=== PATIENT | female | born 1940 | race Caucasian/White ===

== ENCOUNTER 2019-12-12 11:28 | Inpatient (IN) | payer MEDICARE, OTHER ==
[~2019-12-12] VITALS: Ht 157.5 cm; Wt 78.6 kg
[2019-12-12 12:28] LABS: BASOPHILS # (AUTO) 0.1 (0.0-0.1); BASOPHILS % 0.9 % (0.0-1.0); EOSINOPHILS # (AUTO) 0.1 (0.0-0.4); EOSINOPHILS % 1.1 % (0.0-6.0); HEMATOCRIT 35.5 % (34.2-44.1); HEMOGLOBIN 11.4 g/dL (12.0-16.0); LYMPHOCYTES # (AUTO) 1.1 (1.0-3.2); LYMPHOCYTES % 13.9 % (18.0-39.1); MEAN CORPUSCULAR HEMOGLOBIN 32.2 pg (28-32); MEAN CORPUSCULAR HGB CONC 32.1 g/dL (31-35); MEAN CORPUSCULAR VOLUME 100.3 fL (81-99); MONOCYTES # (AUTO) 0.7 (0.2-0.8); MONOCYTES % 8.2 % (4.4-11.3); NEUTROPHILS % 74.9 % (38.7-80.0); PLATELET COUNT 299 x10e3/uL (140-360); RED BLOOD COUNT 3.54 x10e6/uL (3.6-5.1); RED CELL DISTRIBUTION WIDTH 17.5 % (11.7-14.4)
[2019-12-12 12:36] LABS: BILIRUBIN,URINE NEGATIVE (NEGATIVE); CLARITY,URINE CLEAR (CLEAR); COLOR,URINE YELLOW (YELLOW); KETONES,URINE NEGATIVE (NEGATIVE); LEUKOCYTE ESTERASE ,URINE TRACE (NEGATIVE); NITRITE,URINE NEGATIVE (NEGATIVE); PROTEIN,URINE DIPSTICK 1+ (NEGATIVE); URINE UROBILINOGEN 0.2 mg/dL (0.2 - 1)
[2019-12-12 12:40] LABS: INR 3.33; PROTHROMBIN TIME 36.4 seconds (11.9-14.5)
--- NOTE | 2019-12-12 12:43 | Diagnostic Imaging Report ---
EXAMINATION: CHEST SINGLE (PORTABLE) INDICATION: CHF COMPARISON: None FINDINGS: LINES/TUBES:None LUNGS:The lungs are well-inflated. There is perihilar fullness and indistinctness of the pulmonary vasculature. PLEURA:No pleural effusion or pneumothorax. MEDIASTINUM:Mild cardiomegaly. Atherosclerotic calcifications of the thoracic aorta. BONES/SOFT TISSUES:No acute osseous injury. ABDOMEN:No free air under the diaphragm. IMPRESSION: Cardiomegaly and pulmonary interstitial edema. Signed by: Erin Madera MD on 12/12/2019 12:40 PM
--- NOTE | 2019-12-12 12:45 | NUR ---
Unable to verify home medications at the time patient unaware of what she takes. Patients daughter to bring back a list in order to reconcile meds.
--- NOTE | 2019-12-12 12:46 | Diagnostic Imaging Report ---
Examination: CT head without contrast Clinical Indication: Weakness. Technique: Transaxial noncontrast images from the skull base through the vertex were obtained. Sagittal and coronal reformatted images were done. Dose modulation, iterative reconstruction, and/or weight based adjustment of the mA/kV was utilized to reduce the radiation dose to as low as reasonably achievable. Comparison: None. Findings: Scalp: No abnormalities. Bones: Intact. No fractures. No blastic or lytic lesions. Brain sulci: Appropriate for patient's age. Ventricles: Normal in size and configuration. No hydrocephalus. . Extra-axial space: No abnormalities. Parenchyma: There are patchy and confluent areas of low-attenuation within subcortical and periventricular white matter, nonspecific, but could represent microvascular ischemic disease. No masses, hemorrhage, or acute or chronic cortical based vascular insults. Suprasellar region: No abnormalities. Craniocervical junction: The foramen magnum is patent. No Chiari one malformation. Incidental findings: Atherosclerotic calcification of the cavernous and supraclinoid internal carotid arteries. Impression: 1. No acute intracranial finding. 2. Chronic microvascular ischemic change. Signed by: Dr. Valerie Montoya M.D. on 12/12/2019 12:42 PM
[2019-12-12 12:48] LABS: ALANINE AMINOTRANSFERASE 354 IU/L (0-55); ALBUMIN 3.3 g/dL (3.5-5.0); ALBUMIN/GLOBULIN RATIO 1.1 (0.8-2.0); ALKALINE PHOSPHATASE 150 IU/L (40-150); ANION GAP 16.5 mmol/L (8-16); BLOOD UREA NITROGEN 40 mg/dL (7-26); BUN/CREATININE RATIO 26 (6-25); CALCIUM 9.7 mg/dL (8.4-10.2); CARBON DIOXIDE 18 mmol/L (22-29); CHLORIDE 104 mmol/L (98-107); CREATINE KINASE 114 IU/L (29-168); CREATININE, SERUM 1.51 mg/dL (0.57-1.11); EST GLOMERULAR FILTRATION RATE 33 ML/MIN (60-); GLUCOSE 116 mg/dL (74-118); LIPASE 70 U/L (8-78); MAGNESIUM 1.8 MG/DL (1.3-2.1); POTASSIUM 4.5 mmol/L (3.5-5.1); SODIUM 134 mmol/L (136-145)
[2019-12-12 12:55] LABS: BACTERIA,URINE FEW /HPF; EPITHELIAL CELLS,URINE RARE /LPF; RBC,URINE 0-5 /HPF (0-5); TRANSITIONAL EPI CELLS,URINE FEW
--- NOTE | 2019-12-12 14:11 | Emergency Department Note ---
History of Present Illnes History of Present Illness Chief Complaint: General Medicine Complaints History of Present Illness This is a 79 year old female .c/o weakness sent to ed for eval by pcp Chief Complaint Comment HERE FOR WEAKNESS, AND WAS SENT BY DR. MILLS FOR ABNORMAL LABS. RECENTLY DISCHARGED FROM [facility]. Historian: Patient Arrival Mode: Car Onset (how long ago): day(s) (several days ) Radiation: non-radiation, back, neck, extremity, abdomen, periumbilical, flank, proximal, distal, other Severity: moderate Onset quality: gradual Duration (how long): day(s) Timing of current episode: constant Progression: unchanged Context: recent illness (recently hosp [facility]) Relieving factors: none Exacerbating factors: none Treatments prior to arrival: none Past Medical/Family History Physician Review I have reviewed the patient's past medical and family history. Any updates have been documented here. Past Medical History Recent Fever: No Clinical Suspicion of Infectio: No New/Unexplained Change in Ment: No Past Medical History: Diabetes, CHF, PA, CAD Other Medical History: DIVERTICULOSIS GOUT NEUROPATHY Social History Smoking Cessation: Never Smoker Counseling Performed: No Alcohol Use: None Any Illegal Drug Use: No TB Exposure/Symptoms: No Physically hurt or threatened: No Other Any Pre-Existing Lines (PICC,: No Is patient up to date on immun: Yes Last Flu: utd Last Pneumovax: utd Review of Systems Review of Systems Constitutional: weakness EENTM: no symptoms Cardiovascular: no symptoms Respiratory: no symptoms Gastrointestinal: no symptoms Genitourinary: no symptoms Musculoskeletal: no symptoms Neurological: weakness Psychological: no symptoms Endocrine: no symptoms Hematological/Lymphatic: no symptoms Review of other systems All other systems reviewed and negative. Physical Exam Related Data Allergies: Uncoded Allergies: SULFA (Allergy, Severe, 12/12/19) Triage Vital Signs Vital Signs Date Time Temp Pulse Resp B/P (MAP) Pulse Ox O2 Delivery O2 Flow Rate FiO2 12/12/19 11:44 97.6 86 16 140/89 100 Vital signs reviewed: Yes Physical Exam CONSTITUTIONAL Constitutional: well-developed, well-nourished HENT HENT: normocephalic, atraumatic, oropharynx clear/moist, nose normal HENT L/R: left ext ear normal, right ext ear normal EYES Eyes: PERRL, conjunctivae normal NECK Neck: ROM normal PULMONARY Pulmonary: effort normal; breath sounds normal (decreased lower lobes w/ bi basalar rales) CARDIOVASCULAR Cardiovascular: LLE edema, RLE edema GASTROINTESTINAL Abdominal: soft, nontender, bowel sounds normal GENITOURINARY Genitourinary: exam deferred SKIN Skin: warm, dry MUSCULOSKELETAL Musculoskeletal: edema (lower ext swelling ) NEUROLOGICAL Neurological: alert, oriented x 3 PSYCHOLOGICAL Psychological: mood/affect normal, judgement normal Results Laboratory Result Diagram: 12/12/19 1207 12/12/19 1207 Laboratory Laboratory Tests Test 12/12/19 12:07 White Blood Count 7.96 x10e3/uL (4.8-10.8) Red Blood Count 3.54 x10e6/uL (3.6-5.1) Hemoglobin 11.4 g/dL (12.0-16.0) Hematocrit 35.5 % (34.2-44.1) Mean Corpuscular Volume 100.3 fL (81-99) Mean Corpuscular Hemoglobin 32.2 pg (28-32) Mean Corpuscular Hemoglobin Concent 32.1 g/dL (31-35) Red Cell Distribution Width 17.5 % (11.7-14.4) Platelet Count 299 x10e3/uL (140-360) Neutrophils (%) (Auto) 74.9 % (38.7-80.0) Lymphocytes (%) (Auto) 13.9 % (18.0-39.1) Monocytes (%) (Auto) 8.2 % (4.4-11.3) Eosinophils (%) (Auto) 1.1 % (0.0-6.0) Basophils (%) (Auto) 0.9 % (0.0-1.0) Neutrophils # (Auto) 6.0 (2.1-6.9) Lymphocytes # (Auto) 1.1 (1.0-3.2) Monocytes # (Auto) 0.7 (0.2-0.8) Eosinophils # (Auto) 0.1 (0.0-0.4) Basophils # (Auto) 0.1 (0.0-0.1) Absolute Immature Granulocyte (auto 0.08 x10e3/uL (0-0.1) Prothrombin Time 36.4 seconds (11.9-14.5) Prothromb Time International Ratio 3.33 Activated Partial Thromboplast Time 49.0 seconds (23.8-35.5) Urine Color Yellow (YELLOW) Urine Clarity Clear (CLEAR) Urine pH 6 (5 - 7) Urine Specific [place] 1.015 (1.010-1.025) Urine Protein 1+ (NEGATIVE) Urine Glucose (UA) Negative (NEGATIVE) Urine Ketones Negative (NEGATIVE) Urine Blood Trace (NEGATIVE) Urine Nitrite Negative (NEGATIVE) Urine Bilirubin Negative (NEGATIVE) Urine Urobilinogen 0.2 mg/dL (0.2 - 1) Urine Leukocyte Esterase Trace (NEGATIVE) Urine RBC 0-5 /HPF (0-5) Urine WBC 11-20 /HPF (0-5) Urine Epithelial Cells Rare /LPF (NONE) Urine Transitional Epithelial Cells Few (NONE) Urine Bacteria Few /HPF (NONE) Sodium Level 134 mmol/L (136-145) Potassium Level 4.5 mmol/L (3.5-5.1) Chloride Level 104 mmol/L (98-107) Carbon Dioxide Level 18 mmol/L (22-29) Anion Gap 16.5 mmol/L (8-16) Blood Urea Nitrogen 40 mg/dL (7-26) Creatinine 1.51 mg/dL (0.57-1.11) Estimat Glomerular Filtration Rate 33 ML/MIN (60-) BUN/Creatinine Ratio 26 (6-25) Glucose Level 116 mg/dL (74-118) Calcium Level 9.7 mg/dL (8.4-10.2) Magnesium Level 1.8 MG/DL (1.3-2.1) Total Bilirubin 0.7 mg/dL (0.2-1.2) Aspartate Amino Transf (AST/SGOT) 439 IU/L (5-34) Alanine Aminotransferase (ALT/SGPT) 354 IU/L (0-55) Alkaline Phosphatase 150 IU/L (40-150) Creatine Kinase 114 IU/L (29-168) Creatine Kinase MB 4.60 ng/mL (0-5.0) Troponin I < 0.001 ng/mL (0-0.300) B-Type Natriuretic Peptide 1415.7 pg/mL (0-100) Total Protein 6.4 g/dL (6.5-8.1) Albumin 3.3 g/dL (3.5-5.0) Globulin 3.1 g/dL (2.3-3.5) Albumin/Globulin Ratio 1.1 (0.8-2.0) Lipase 70 U/L (8-78) Lab results reviewed: Yes Imaging Impressions cxr IMPRESSION: Cardiomegaly and pulmonary interstitial edema. Signed by: Jean Claude Guzman MD on 12/12/2019 12:40 PM Dictated By: JEAN CLAUDE GUZMAN MD 39 Transcribed By: MEAGHAN on 12/12/[address] antonio Impression: 1. No acute intracranial finding. 2. Chronic microvascular ischemic change. Signed by: Dr. Valerie Montoya M.D. 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 Assessment & Plan Reassessment Reassessment time: 11:30 Reassessment chart scribed for Dr Dunbar 79y f presented to ed c/o generalized weakness for several days recently d/c from [facility] -seen by Dr Mills today sent to ed for eval Dr Dunbar in eval pt status lab ekg cxr ct antonio ordered pt medicated w/ rocephin Assessment & Plan Final Impression: (1) UNSPECIFIED SYSTOLIC (CONGESTIVE) HEART FAILURE (2) URINARY TRACT INFECTION, SITE NOT SPECIFIED (3) ABNORMAL RESULTS OF LIVER FUNCTION STUDIES (4) ACUTE KIDNEY FAILURE, UNSPECIFIED Assessment & Plan Dr Dunbar in re eval pt status discussed lab ekg cxr ct results plan of care and need for admit Dr Dunbar spoke w/ C Mook will admit Depart Disposition: ADMITTED Last Vital Signs Date Time Temp Pulse Resp B/P (MAP) Pulse Ox O2 Delivery O2 Flow Rate FiO2 12/12/19 13:52 95 20 114/91 100 12/12/19 11:44 97.6 Home Meds Reported Medications Warfarin Sodium (WARFARIN SODIUM) 2.5 Mg Tablet, 2.5 MG PO DAILY, #30 TAB 12/12/19 Potassium Chloride (POTASSIUM CHLORIDE) 10 Meq Tab.er.prt, 10 MEQ PO, TAB 12/12/19 Nitroglycerin (NITROGLYCERIN) 0.4 Mg Tab.subl, 0.4 MG SL Q5MIN, TAB 12/12/19 Glimepiride (GLIMEPIRIDE) 2 Mg Tablet, 1 MG PO DAILY, TAB 12/12/19 Metoprolol Succinate (METOPROLOL SUCCINATE) 50 Mg Tab.er.24h, 25 MG PO BID, MG 12/12/19 Pantoprazole Sodium (PROTONIX) 20 Mg Tablet.dr, 40 MG PO DAILY, #30 TAB 12/12/19 Spironolactone (SPIRONOLACTONE) 25 Mg Tablet, 25 MG PO DAILY, #60 TAB 12/12/19 Furosemide (FUROSEMIDE) 40 Mg Tablet, 40 MG PO Daily, #30 TAB 12/12/19 Sucralfate (SUCRALFATE) 1 Gm Tablet, 1 GM PO BID, TAB 12/12/19 Fluoxetine Hcl (FLUOXETINE HCL) 20 Mg Capsule, 20 MG PO DAILY, #30 CAP 12/12/19 Allopurinol (ALLOPURINOL) 300 Mg Tablet, 300 MG PO DAILY, #30 TAB 12/12/19 Atorvastatin Calcium (ATORVASTATIN CALCIUM) 20 Mg Tablet, 40 MG PO HS, #30 TAB 12/12/19 Gabapentin (GABAPENTIN) 300 Mg Capsule, 300 MG PO BID, #60 CAP 12/12/19 TRISTA BARON NP December 12, 2019 14:10
[2019-12-12] MEDS ORDERED: FUROSEMIDE INJ 10 MG/ML 2 ML VIAL IV ONE (14:15)
[2019-12-12] MEDS ORDERED: CEFTRIAXONE SOD 1 GM VIAL IV ONE (14:15)
[2019-12-12] MEDS ORDERED: SUCRALFATE1 GM PO (14:26)
[2019-12-12] MEDS ORDERED: ATORVASTATIN CA20 MG PO (14:26)
[2019-12-12] MEDS ORDERED: FUROSEMIDE40 MG PO (14:26)
[2019-12-12] MEDS ORDERED: METOPROLOL SUCC50 MG PO (14:26)
[2019-12-12] MEDS ORDERED: ALLOPURINOL300 MG PO (14:26)
[2019-12-12] MEDS ORDERED: SPIRONOLACTONE25 MG PO (14:26)
[2019-12-12] MEDS ORDERED: PROTONIX20 MG PO (14:26)
[2019-12-12] MEDS ORDERED: POTASSIUM CHLO10 ME1 PO (14:26)
[2019-12-12] MEDS ORDERED: FLUOXETINE HCL20 MG PO (14:26)
[2019-12-12] MEDS ORDERED: WARFARIN SODIU2.5 MG PO (14:26)
[2019-12-12] MEDS ORDERED: GABAPENTIN300 MG PO (14:26)
[2019-12-12] MEDS ORDERED: NITROGLYCERIN0.4 MG SL (14:26)
[2019-12-12] MEDS ORDERED: GLIMEPIRIDE2 MG PO (14:26)
[2019-12-12] MEDS ORDERED: CEFTRIAXONE SOD 1 GM/NS 50 ML 50 ML IV ONE (14:30)
--- NOTE | 2019-12-12 14:41 | NUR ---
Purick placed on patient.
--- OUTSIDE RECORDS SUMMARY | 2019-12-12 15:08 | XMS REPORT | Summary of Care ---
Author Author [facility] Organization [facility] Address Unknown Phone Unavailable Encounter HQ Ignacio(FIN) [id number] Date(s): 09/14/16 - 09/14/16 [facility] [address], [address] [place], [place] [address] Discharge Disposition: Home or Self Care Attending Physician: Henry Soto Referring Physician: Henry Soto Vital Signs Most recent to 1 oldest [Reference Range]: Height 160.02 cm (09/14/16 10:41 AM) Temperature Oral 96.8 DegF [96.4-99.1 DegF] (09/14/16 10:41 AM) Blood Pressure 116/61 mmHg [90-140/60-90 mmHg] (09/14/16 10:41 AM) Respiratory Rate 16 BRMIN [14-20 BRMIN] (09/14/16 10:41 AM) Peripheral Pulse 56 bpm Rate [60-100 bpm] *LOW* (09/14/16 10:41 AM) Weight 70.227 kg (09/14/16 10:41 AM) Body Mass Index 27.43 m2 (09/14/16 10:41 AM) Problem List Condition Effective Dates Status Health Status Informan t Aortic Resolved stenosis(Confirmed) CAD (coronary artery Resolved disease)(Confirmed) Coronary artery Active disease(Confirmed) COPD (chronic Active obstructive pulmonary disease)(Confirmed) DM (diabetes Active mellitus)(Confirmed) HLD Resolved (hyperlipidemia)(Con firmed) Cataract(Confirmed) Resolved Inferior myocardial Resolved infarction(Confirmed ) Allergies, Adverse Reactions, Alerts Substance Reaction Severity Status sulfa drugs Active Medications No Known Medications Results No data available for this section Immunizations Not Given Vaccine Date Status Refusal Reason pneumococcal 23-valent vaccine 07/29/16 Not Given Patient Refuses Procedures No data available for this section Social History Social History Type Response Smoking Status Never smoker; Ready to olivier ge: No; Concerns about tobacco use in household: No; Exposure to Tobacco Smoke None; Cig arette Smoking Last 365 Days No; Reg Smoking Cessation Counseling Yes Assessment and Plan No data available for this section
--- OUTSIDE RECORDS SUMMARY | 2019-12-12 15:08 | XMS REPORT | Summary of Care ---
Author Author [facility] Organization [facility] Address Unknown Phone Unavailable Encounter GLORIA Pierre(PAUL) [id number] Date(s): 07/18/16 - 07/18/16 [facility] [address], [address] [place] [address]- Discharge Disposition: Home or Self Care Attending Physician: Trini Lynch MD Referring Physician: Trini Lynch MD Vital Signs Most recent to 1 oldest [Reference Range]: Height 160.02 cm (07/18/16 10:18 AM) Temperature Oral 97.4 DegF [96.4-99.1 DegF] (07/18/16 10:18 AM) Blood Pressure 125/79 mmHg [90-140/60-90 mmHg] (07/18/16 10:18 AM) Respiratory Rate 18 BRMIN [14-20 BRMIN] (07/18/16 10:18 AM) Peripheral Pulse 60 bpm Rate [60-100 bpm] (07/18/16 10:18 AM) Weight 75.17 kg (07/18/16 10:18 AM) Body Mass Index 29.36 m2 (07/18/16 10:18 AM) Problem List No data available for this section Allergies, Adverse Reactions, Alerts Substance Reaction Severity Status sulfa drugs Active Medications allopurinol 300 mg oral tablet 300 mg = 1 tab, PO, Daily, 0 Refill(s) Start Date: 07/18/16 Status: Ordered Aspirin Enteric Coated 81 mg oral delayed release tablet 81 mg = 1 tab, PO, Daily, 0 Refill(s) Start Date: 07/18/16 Status: Ordered atorvastatin 40 mg oral tablet 40 mg = 1 tab, PO, Daily, 0 Refill(s) Start Date: 07/18/16 Status: Ordered clopidogrel 75 mg oral tablet 75 mg = 1 tab, PO, Daily, 0 Refill(s) Start Date: 07/18/16 Status: Ordered fenofibrate 145 mg oral tablet 145 mg = 1 tab, PO, Daily, 0 Refill(s) Start Date: 07/18/16 Status: Ordered FLUoxetine 20 mg oral capsule 20 mg = 1 cap, PO, Daily, 0 Refill(s) Start Date: 07/18/16 Status: Ordered furosemide 40 mg oral tablet 40 mg = 1 tab, PO, Daily, 0 Refill(s) Start Date: 07/18/16 Status: Ordered gabapentin 100 mg oral capsule 300 mg = 3 cap, PO, TID, 0 Refill(s) Start Date: 07/18/16 Status: Ordered Home Medication Calcium Chocolate Chews 2 daily, Refill(s) 0 Start Date: 07/18/16 Status: Ordered isosorbide mononitrate 30 mg oral tablet, extended release 30 mg = 1 tab, PO, QAM, 0 Refill(s) Start Date: 07/18/16 Status: Ordered metFORMIN 500 mg oral tablet 500 mg = 1 tab, PO, BID, 0 Refill(s) Start Date: 07/18/16 Status: Ordered metoprolol tartrate 50 mg oral tablet 25 mg = 0.5 tab, PO, BID, 0 Refill(s) Start Date: 07/18/16 Status: Ordered nitroglycerin 0.4 mg sublingual tablet 0.4 mg = 1 tab, SL, PRN, 0 Refill(s) Start Date: 07/18/16 Status: Ordered pantoprazole 40 mg oral granule = 1 Pack, PO, Daily, # 30 ea, 0 Refill(s) Start Date: 07/18/16 Status: Ordered Probiotic Formula 1 cap, PO, Daily, 0 Refill(s) Start Date: 07/18/16 Status: Ordered spironolactone 25 mg oral tablet 25 mg = 1 tab, PO, Daily, 0 Refill(s) Start Date: 07/18/16 Status: Ordered Results No data available for this section Immunizations No data available for this section Procedures No data available for this section Social History Social History Type Response Smoking Status Never smoker; Ready to olivier ge: No; Concerns about tobacco use in household: No; Exposure to Tobacco Smoke None; Cig arette Smoking Last 365 Days No; Reg Smoking Cessation Counseling No Assessment and Plan No data available for this section
--- OUTSIDE RECORDS SUMMARY | 2019-12-12 15:08 | XMS REPORT | Summary of Care ---
Author Author [facility] Organization [facility] Address Unknown Phone Unavailable Encounter GLORIA Pierre(PAUL) [id number] Date(s): 11/02/16 - 11/02/16 [facility] [address], [address] [place], [place] [address] Discharge Disposition: Home or Self Care Attending Physician: Nas Sanabria MD Referring Physician: Pilar Dasilva Vital Signs Most recent to 1 oldest [Reference Range]: Height 160.02 cm (11/02/16 10:47 AM) Weight 70.256 kg (11/02/16 10:47 AM) Body Mass Index 27.44 m2 (11/02/16 10:47 AM) Problem List Condition Effective Dates Status [...]
--- OUTSIDE RECORDS SUMMARY | 2019-12-12 15:08 | XMS REPORT | Summary of Care ---
Author Author [facility] Organization [facility] Address Unknown Phone Unavailable Encounter GLORIA Pierre(PAUL) [id number] Date(s): 10/12/16 - 10/12/[address] [facility] [address], [address] [place], [place] [address] Discharge Disposition: Home or Self Care Attending Physician: Laina Sanchez Vital Signs Most recent to 1 oldest [Reference Range]: Height 160.02 cm (10/12/16 10:48 AM) Temperature Oral 96.9 DegF [96.4-99.1 DegF] (10/12/16 10:48 AM) Blood Pressure 112/65 mmHg [90-140/60-90 mmHg] (10/12/16 10:48 AM) Respiratory Rate 18 BRMIN [14-20 BRMIN] (10/12/16 10:48 AM) Peripheral Pulse 55 bpm Rate [60-100 bpm] *LOW* (10/12/16 10:48 AM) Weight 70.455 kg (10/12/16 10:48 AM) Body Mass Index 27.51 m2 (10/12/16 10:48 AM) Problem List Condition Effective Dates Status [...]
--- OUTSIDE RECORDS SUMMARY | 2019-12-12 15:08 | XMS REPORT | Summary of Care ---
Author Author [facility] Organization [facility] Address Unknown Phone Unavailable Encounter HQ Ignacio(FIN) [id number] Date(s): 09/20/16 - 09/20/16 [facility] [address], [address] [place], [place] [address] Discharge Disposition: Home or Self Care Attending Physician: Henry Soto Referring Physician: Henry Soto Vital Signs Most recent to 1 oldest [Reference Range]: Height 162.56 cm (09/20/16 10:48 AM) Temperature Oral 97.2 DegF [96.4-99.1 DegF] (09/20/16 10:48 AM) Blood Pressure 111/66 mmHg [90-140/60-90 mmHg] (09/20/16 10:48 AM) Respiratory Rate 16 BRMIN [14-20 BRMIN] (09/20/16 10:48 AM) Peripheral Pulse 57 bpm Rate [60-100 bpm] *LOW* (09/20/16 10:48 AM) Weight 70.682 kg (09/20/16 10:48 AM) Body Mass Index 26.75 m2 (09/20/16 10:48 AM) Problem List Condition Effective Dates [...]
--- OUTSIDE RECORDS SUMMARY | 2019-12-12 15:08 | XMS REPORT | Summary of Care ---
Author Author [facility] Organization [facility] Address Unknown Phone Unavailable Encounter GLORIA Pierre(PAUL) [id number] Date(s): 10/05/16 - 10/05/16 [facility] [address], [address] [place], [place] [address] Discharge Disposition: Home or Self Care Attending Physician: Nas Sanabria MD Referring Physician: Sarah Odell Vital Signs Most recent to 1 oldest [Reference Range]: Height 160.02 cm (10/05/16 10:34 AM) Temperature Oral 97.2 DegF [96.4-99.1 DegF] (10/05/16 10:34 AM) Blood Pressure 128/68 mmHg [90-140/60-90 mmHg] (10/05/16 10:34 AM) Respiratory Rate 16 BRMIN [14-20 BRMIN] (10/05/16 10:34 AM) Peripheral Pulse 57 bpm Rate [60-100 bpm] *LOW* (10/05/16 10:34 AM) Weight 70.085 kg (10/05/16 10:34 AM) Body Mass Index 27.37 m2 (10/05/16 10:34 AM) Problem List Condition Effective Dates Status [...]
--- OUTSIDE RECORDS SUMMARY | 2019-12-12 15:08 | XMS REPORT | Continuity of Care Document ---
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 Name Role Phone [facility] [email or web address] Unavailable Un available Problems Problem Status Onset Date Classification Date Reported Comments Source GROIN WOUND PACKING Active 10/19/2016 [facility] GROIN WOUND EVALUATION Active 09/28/2016 [facility] 1 WK F/U Active 09/20/2016 [facility] GROIN WOUND CHECK Active 09/14/2016 [facility] GROIN PACKING/POSSIBLE SUTURE RMVL Active 09/07/2016 [facility] 30 DAY TAVR FOLLOW UP Active 08/14/2016 [facility] FOLLOW UP Active 07/28/2016 [facility] AORTIC STENOSIS Active 07/27/2016 [facility] PRE ADMIT/*GEN ANESTHESIA*/TAVR CASE/*3D Active 07/27/2016 [facility] TAVR EVAL Active 07/20/2016 [facility] CCL/LHC/DX: AORTIC STENOSIS Ac tive 07/18/2016 [facility] TAVR Active 06/12/2016 [facility] Aortic valve stenosis (disorder) Resolved Problem [facility] for Adv Heart Failure Coronary arteriosclerosis (disorder) Resolved Problem [facility] Chronic obstructive lung disease (disorder) Active Problem 11/05/2016 [facility] Diabetes mellitus (disorder) A ctive Problem [facility] for Adv Heart Failure Hyperlipidemia (disorder) Reso lved Problem [facility] enter for Adv Heart Failure Cataract (disorder) Resolved Problem 11/05/2016 [facility] for Adv Heart Failure Myocardial infarction (disorder) Resolved Problem [facility] C enter for Adv Heart Failure [facility] FOR GENERAL ADULT MEDICAL EXAM W/ Active [facility] NONRHEUMATIC AORTIC (VALVE) STENOSIS Active [facility] OTHER SPECIFIED CONGENITAL DEFORMITIES Active [facility] Medications Medication Details Route Status Patient Instructions Ordering Provider Order Date Source Cephalexin 500 MG Oral Capsule [Keflex] 500 mg = 1 cap, PO, BID, X 10 day, # 20 cap, 0 Refill(s), Pharmacy: [place] [id number] Active 09/07/2016 [facility][1] Heart Failure amLODIPine 5 mg oral tablet 5 mg = 1 tab, PO, Daily, # 90 tab, 0 Refill(s) Active 08/01/2016 [facility] Aspirin Enteric Coated 81 mg oral delaye d release tablet 81 mg = 1 tab, PO, Daily, # 90 tab, 0 Refill(s) Active 08/01/2016 [facility] clopidogrel 75 mg oral tablet 75 mg = 1 tab, PO, Daily, # 90 tab, 0 Refill(s) Active 08/01/2016 [facility] Furosemide 40 MG Oral Tablet [Lasix] Notes: (Same as: Lasix) May cause GI upset. Give with food or milk. Inactive 08/01/2016 [facility] Dulcolax Laxative Notes: (Same As: Dulcolax, Bisco-Lax) Inactive 07/31/2016 [facility] potassium chloride Notes: (Elvis e as: KCL) Infuse over 2 hours. No Longer Active 07/31/2016 [facility] Calcium Gluconate Notes: WASTE : F/P - Sink; E - Municipal Trash Bin No Longer Active 07/31/2016 [facility] potassium phosphate + sodium chloride 0.9% INJ 250 mL Notes: (Same as: K Phosphate.) 1 mMol phoshate has 1.47 mEq potassium Infuse over 4 hours No Longer Active 07/31/2016 [facility] potassium phosphate-sodium phosphate 250 mg-280 mg-160 mg oral powder for reconstitution Notes: (Same as: Phos-NaK) Each 1.5 gm pkt has 250mg phosphorous. Mix w/2.5oz water and stir. No Longer Active 07/31/2016 [facility] Magnesium Sulfate Notes: WASTE : F/P - Sink; E - Municipal Trash Bin No Longer Active 07/31/2016 [facility] Magnesium Oxide Notes: (Same a s: Mag-Ox 400) Magnesium oxide [id number] elemental magnesium Dose=____mg magnesium oxide (___mg elemental magnesium) No Longer Active 07/31/2016 [facility] sodium phosphate + sodium chloride 0.9% INJ 250 mL 15 mmol, 5 mL, Route: IVPB, PRN, Dosing Weight 74.545, kg, PRN Abnormal Lab Result, For NON-ICU Patients Only., Start date: 07/31/16 11:47:00 [employer], 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, Stop date: 08/30/16 11:46:00 [employer] No Longer Active 07/31/2016 [facility] Lasix Notes: (Same as: Lasix) MEDICATION WASTE Product Size: 40 mg Product Wasted: ___ mg Inactive 07/31/2016 [facility] Miralax Notes: Dissolve in 8 o z of water or juice. (Same as: Miralax) No Longer Active 07/31/2016 [facility] Docusate Sodium 50 MG / sennosides, ASSISTED 8.6 MG Oral Tablet Notes: (Same as Senokot-S) Equiv. to Kerline-Colace. No Longer Active 07/31/2016 [facility] Spironolactone Notes: (Same As : Aldactone) No Longer Active 07/30/2016 [facility] metoprolol tartrate Notes: (Sa me as: Lopressor) No Longer Active 07/30/2016 [facility] atorvastatin Notes: (Same as: Lipitor) No Longer Active 07/30/2016 [facility] Amlodipine Notes: (Same as: No rvasc) No Longer Active 07/29/2016 [facility] metoprolol tartrate Notes: (Sa me as: Lopressor) Inactive 07/29/2016 [facility] Acetaminophen 325 MG / Hydrocodone Javier trate 7.5 MG Oral Tablet [[place]over 7.5/325] Notes: Same as [place] 325-7.5mg Do not exceed 4gm/day of acetaminophen. No Longer Active 07/29/2016 [facility] clopidogrel Notes: (Same As: P lavix) No Longer Active 07/29/2016 [facility] aspirin 81 mg tablet, enteric coated Notes: Do not crush or chew. (Same As: Ecotrin) No Longer Active 07/29/2016 [facility] Spironolactone 25 mg, Route: P O, Drug form: TAB, Daily, Dosing Weight 74.545, kg, Start date: 07/29/16 9:00:00 [employer], 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, Stop date: 08/27/16 9:00:00 [employer] No Longer Active 07/29/2016 [facility] gabapentin 100 MG Oral Capsule Notes: (Same as: Neurontin) No Longer Active 07/29/2016 [facility] Fluoxetine Notes: (Same as: Pr ozac, Sarafem) No Longer Active 07/29/2016 [facility] Fenofibrate 145 MG Oral Tablet Notes: (Same as: Tricor) No Longer Active 07/29/2016 [facility] Allopurinol Notes: (Same as: Z yloprim) No Longer Active 07/29/2016 [facility] Protonix Notes: Tablet should not be chewed or crushed. (Same as: Protonix) No Longer Active 07/29/2016 [facility] Esomeprazole 40 mg, Route: PO, Before Breakfast, Dosing Weight 74.545, kg, Start date: 07/29/16 7:30:00 [employer] TRA[employer], 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, Stop date: 08/27/16 7:30:00 [employer] No Longer Active 07/29/2016 [facility] heparin Notes: porcine heparin No Longer Active 07/29/2016 [facility] Artificial Tears Notes: (Same as: Aquasite) No Longer Active 07/29/2016 [facility] Bumex Notes: (Same As: Bumex) Inactive 07/29/2016 [facility] Imdur Notes: (Same as:Imdur) " Do Not Crush" Take on empty stomach/ full glass of water. Do not crush No Longer Active 07/29/2016 [facility] Nitroglycerin Notes: (Same as: Tridil) Final conc = 0.4 mg/ml. Premix bottle. No Longe r Active 07/29/2016 [facility] Acetaminophen Notes: Do not ex ceed 4 gm/day. (Same as: Tylenol) No Longer Active 07/28/2016 [facility] Acetaminophen 100.4 F, Start date: 07/28/16 17:38:00 [employer], 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, Stop date: 08/27/16 17:37:00 [employer] Inactive 07/28/2016 [facility] Insulin, Aspart, Human Notes: Roll in palms of hands gently; Do not shake vigorously. (Same as: NovoLOG) "single patient use only" WASTE: F/P - Black; E - Municipal Trash Bin Stable for 28 days at room temperature. Expires in days from Date No Longer Active 07/28/2016 [facility] Glucagon 1 mg, Route: IM, Drug form: PDR/INJ, PRN, Dosing Weight 74.545, kg, PRN Blood Glucose Results, Start date: 07/28/16 17:17:00 [employer] TRA[employer], 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, Stop date: 08/27/16 17:16:00 [employer] IN[employer] No Longer Active 07/28/2016 [facility] Dextrose 50% Syringe 25 gm, 50 mL, Route: IVP, Drug Form: INJ, Dosing Weight 74.545, kg, PRN, PRN Blood Glucose Results, Start date: 07/28/16 17:17:00 [employer] TRAFF[employer] IN[employer]CTOR, 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, Stop date: 08/27/16 17:16:00 [employer] TRAFF[employer] IN[employer]CTOR No Longer Active 07/28/2016 [facility] Magnesium Sulfate 2 gm, Route: IVPB, Drug form: INJ, ONCE, Dosing Weight 74.545, kg, Start date: 07/28/16 17:16:00 [employer] TRAFFIC IN[employer]CTOR, Duration: 2 hr, Stop date: 07/28/16 17:16:00 [employer] TRAFFIC IN[employer]CTOR Inactive 07/28/2016 [facility] Calcium Carbonate 500 MG Chewable Tablet Notes: (Same As: Alec) Calcium Carbonate 500 mg = 200 mg elemental calcium Dose = mg calcium carbonate ( mg elemental calcium) No Longer Active 07/28/2016 [facility] potassium chloride Notes: (Elvis e as: Potassium Chloride) No Longer Active 07/28/2016 [facility] sodium phosphate + sodium chloride 0.9% INJ 250 mL 45 mmol, 15 mL, Route: IVPB, PRN, Dosing Weight 74.545, kg, PRN Abnormal Lab Result, Start date: 07/28/16 17:15:00 [employer] TRAFF[employer] IN[employer]CTOR, 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, Stop date: 08/27/16 17:14:00 AIR TRAFFIC INSTRUCTOR, FOR ICU USE ONLY No Longer Active 07/28/2016 [facility] Magnesium Oxide Notes: (Same a s: Mag-Ox 400) Magnesium oxide [id number] elemental magnesium Dose=____mg magnesium oxide (___mg elemental magnesium) No Longer Active 07/28/2016 [facility] potassium phosphate + sodium chloride 0.9% INJ 250 mL Notes: (Same as: K Phosphate.) 1 mMol phoshate has 1.47 mEq potassium Infuse over 4 hours No Longer Active 07/28/2016 [facility] Calcium Gluconate Notes: WASTE : F/P - Sink; E - Municipal Trash Bin No Longer Active 07/28/2016 [facility] Magnesium Sulfate Notes: WASTE : F/P - Sink; E - Municipal Trash Bin No Longer Active 07/28/2016 [facility] potassium phosphate-sodium phosphate 250 mg-280 mg-160 mg oral powder for reconstitution Notes: (Same as: Phos-NaK) Each 1.5 gm pkt has 250mg phosphorous. Mix w/2.5oz water and stir. No Longer Active 07/28/2016 [facility] Sodium Chloride 0.154 MEQ/ML Injectable Solution 250 mL, 250 ml/hr, Infuse Over: 1 hr, Route: IV, 250, Drug form: INJ, ONCE, Dosing Weight 74.545 kg, Start date: 07/28/16 15:25:00 [employer] TRAFFIC IN[employer]CTOR, Duration: 1 doses or times, Stop date: 07/28/16 15:25:00 AIR TRAFFIC IN[employer]CTOR Inactive 07/28/2016 [facility] pneumococcal capsular polysaccharide typ e 1 vaccine / pneumococcal capsular polysaccharide type 10A vaccine / pneumococcal capsular polysaccharide type 11A vaccine / pneumococcal capsular polysaccharide type 12F vaccine / pneumococcal capsular polysacchar Notes: (Same as: Pneumovax 23) Refrigerate Inactive 07/28/2016 [facility] isosorbide mononitrate 30 mg oral tablet , extended release 30 mg = 1 tab, PO, QAM, 0 Refill(s) Active 07/18/2016 [facility] Furosemide 40 MG Oral Tablet 4 0 mg = 1 tab, PO, Daily, 0 Refill(s) Active 07/18/2016 [facility] Fenofibrate 145 MG Oral Tablet 145 mg = 1 tab, PO, Daily, 0 Refill(s) Active 07/18/2016 [facility] clopidogrel 75 mg oral tablet 75 mg = 1 tab, PO, Daily, 0 Refill(s) Active 07/18/2016 [facility] metoprolol tartrate 50 mg oral tablet 25 mg = 0.5 tab, PO, BID, 0 Refill(s) Active 07/18/2016 [facility] Home Medication Calcium Chocol ate Chews 2 daily, Refill(s) 0 Active 07/18/2016 [facility] Probiotic Formula 1 cap, PO, D aily, 0 Refill(s) Active 07/18/2016 [facility] Nitroglycerin 0.4 MG Sublingual Tablet 0.4 mg = 1 tab, SL, PRN, 0 Refill(s) Active 07/18/2016 [facility] gabapentin 100 MG Oral Capsule 300 mg = 3 cap, PO, TID, 0 Refill(s) Active 07/18/2016 [facility] Metformin hydrochloride 500 MG Oral Tablet 500 mg = 1 tab, PO, BID, 0 Refill(s) Active 07/18/2016 [facility] atorvastatin 40 mg oral tablet 40 mg = 1 tab, PO, Daily, 0 Refill(s) Active 07/18/2016 [facility] pantoprazole 40 mg oral granule = 1 Pack, PO, Daily, # 30 ea, 0 Refill(s) Active 07/18/2016 [facility] FLUoxetine 20 mg oral capsule 20 mg = 1 cap, PO, Daily, 0 Refill(s) Active 07/18/2016 [facility] Aspirin Enteric Coated 81 mg oral delaye d release tablet 81 mg = 1 tab, PO, Daily, 0 Refill(s) Active 07/18/2016 [facility] allopurinol 300 mg oral tablet 300 mg = 1 tab, PO, Daily, 0 Refill(s) Active 07/18/2016 [facility] spironolactone 25 mg oral tablet 25 mg = 1 tab, PO, Daily, 0 Refill(s) Active 07/18/2016 [facility] Allergies, Adverse Reactions, Alerts Substance Category Reaction Severity Reaction type Status Date Reported Comments Source sulfa drugs Assertion Drug allergy Active [facility] Immunizations Immunization Date Given Site Status Last Updated Comments Source pneumococcal 23-valent vaccine 07/29/2016 Not Given [facility], Red enter for Adv Heart Failure Results Order Name Results Value Reference Range Date Interpretation Comments Source CHEM PANEL Phosphorus 3.1 2.5 - 4.5 08/01/2016 [facility] CHEM PANEL Magnesium Lvl 1.8 1.8 - 2.4 08/01/2016 [facility] CHEM PANEL eGFR 40 08/01/2016 Result Comment: The eGFR is calculated using the CKD-EPI formula. In most young, healthy individuals the eGFR will be >90 mL/min/1.73m2. The eGFR declines with age. An eGFR of 60-89 may be normal in some populations, particularly the elderly, for whom the CKD-EPI formula has not been extensively validated. Use of the eGFR is not recommended in the following populations:

Individuals with unstable creatinine concentrations, including patients and those with serious co-morbid conditions.

Patients with extremes in muscle mass or diet.

The data above are obtained from the National Kidney Disease Education Program (NKDEP) which additionally recommends that when the eGFR is used in patients with extremes of body mass index for purposes of drug dosing, the eGFR should be multiplied by the estimated BMI. [facility] CHEM PANEL AGAP 14.7 10.0 - 20.0 08/01/2016 [facility] CHEM PANEL Chloride Lvl 101 95 - 109 08/01/2016 [facility] CHEM PANEL CO2 26 24 - 32 08/01/2016 [facility] CHEM PANEL Calcium Lvl 9.1 8.5 - 10.5 08/01/2016 [facility] CHEM PANEL Potassium Lvl 3.7 3.5 - 5.1 08/01/2016 [facility] CHEM PANEL Creatinine Lvl 1.28 0.50 - 1.40 08/01/2016 [facility] CHEM PANEL Sodium Lvl 138 135 - 145 08/01/2016 [facility] CHEM PANEL BUN 15 7 - 22 08/01/2016 [facility] CHEM PANEL Glucose Lvl 138 70 - 99 08/01/2016 [facility] HEMATOLOGY RBC 2.94 4.20 - 5.40 08/01/2016 [facility] HEMATOLOGY WBC 8.0 3.7 - 10.4 08/01/2016 [facility] HEMATOLOGY Hct 28.7 36.0 - 48.0 08/01/2016 [facility] HEMATOLOGY Hgb 9.7 12.0 - 16.0 08/01/2016 [facility] HEMATOLOGY MCH 33.2 27.0 - 31.0 08/01/2016 [facility] HEMATOLOGY MCV 97.5 80.0 - 98.0 08/01/2016 [facility] HEMATOLOGY MCHC 34.0 32.0 - 36.0 08/01/2016 [facility] HEMATOLOGY Platelet 256 133 - 450 08/01/2016 [facility] HEMATOLOGY RDW 14.8 11.5 - 14.5 08/01/2016 [facility] HEMATOLOGY MPV 8.7 7.4 - 10.4 08/01/2016 [facility] HEMATOLOGY Segs 75.2 45.0 - 75.0 08/01/2016 [facility] HEMATOLOGY Monocytes 7.6 2.0 - 12.0 08/01/2016 [facility] HEMATOLOGY Eosinophils 2.4 0.0 - 4.0 08/01/2016 [facility] HEMATOLOGY Lymphocytes # 1.2 1.0 - 5.5 08/01/2016 [facility] HEMATOLOGY Segs-Bands # 6.0 1.5 - 8.1 08/01/2016 [facility] HEMATOLOGY Monocytes # 0.6 0.0 - 0.8 08/01/2016 [facility] HEMATOLOGY Lymphocytes 14.4 20.0 - 40.0 08/01/2016 [facility] HEMATOLOGY Basophils 0.4 0.0 - 1.0 08/01/2016 [facility] HEMATOLOGY Eosinophils # 0.2 0.0 - 0.5 08/01/2016 [facility] CHEM PANEL Phosphorus 3.2 2.5 - 4.5 08/01/2016 [facility] ELECTROLYTES Potassium Lvl 4.1 3.5 - 5.1 08/01/2016 [facility] CHEM PANEL Phosphorus 2.3 2.5 - 4.5 07/31/2016 [facility] CHEM PANEL Magnesium Lvl 2.1 1.8 - 2.4 07/31/2016 [facility] ELECTROLYTES AGAP 17.2 10.0 - 20.0 07/31/2016 [facility] ELECTROLYTES eGFR 47 07/31/2016 Result Comment: The eGFR is calculated using the CKD-EPI formula. In most young, healthy individuals the eGFR will be >90 mL/min/1.73m2. The eGFR declines with age. An eGFR of 60-89 may be normal in some populations, particularly the elderly, for whom the CKD-EPI formula has not been extensively validated. Use of the eGFR is not recommended in the following populations:

Individuals with unstable creatinine concentrations, including patients and those with serious co-morbid conditions.

Patients with extremes in muscle mass or diet.

The data above are obtained from the National Kidney Disease Education Program (NKDEP) which additionally recommends that when the eGFR is used in patients with extremes of body mass index for purposes of drug dosing, the eGFR should be multiplied by the estimated BMI. [facility] ELECTROLYTES Glucose Lvl 120 70 - 99 07/31/2016 [facility] ELECTROLYTES Sodium Lvl 138 135 - 145 07/31/2016 [facility] ELECTROLYTES BUN 17 7 - 22 07/31/2016 [facility] ELECTROLYTES CO2 20 24 - 32 07/31/2016 [facility] ELECTROLYTES Creatinine Lvl 1.1 3 0.50 - 1.40 07/31/2016 [facility] ELECTROLYTES Calcium Lvl 8.7 8.5 - 10.5 07/31/2016 [facility] ELECTROLYTES Chloride Lvl 105 95 - 109 07/31/2016 [facility] ELECTROLYTES Potassium Lvl 4.2 3.5 - 5.1 07/31/2016 [facility] HEMATOLOGY Eosinophils 2.1 0.0 - 4.0 07/31/2016 [facility] HEMATOLOGY Basophils 0.7 0.0 - 1.0 07/31/2016 [facility] HEMATOLOGY Segs-Bands # 5.6 1.5 - 8.1 07/31/2016 [facility] HEMATOLOGY Lymphocytes # 1.7 1.0 - 5.5 07/31/2016 [facility] HEMATOLOGY Monocytes # 0.6 0.0 - 0.8 07/31/2016 [facility] HEMATOLOGY Eosinophils # 0.2 0.0 - 0.5 07/31/2016 [facility] HEMATOLOGY Macrocyte 1+ *ABN* (07/31/16 4:42 AM) None Seen 07/31/2016 [facility] HEMATOLOGY Basophils # 0.1 0.0 - 0.2 07/31/2016 [facility] HEMATOLOGY Segs 68.8 45.0 - 75.0 07/31/2016 [facility] HEMATOLOGY Lymphocytes 20.5 20.0 - 40.0 07/31/2016 [facility] HEMATOLOGY Monocytes 7.9 2.0 - 12.0 07/31/2016 [facility] HEMATOLOGY MCHC 32.4 32.0 - 36.0 07/31/2016 [facility] HEMATOLOGY RDW 15.1 11.5 - 14.5 07/31/2016 [facility] HEMATOLOGY MPV 9.2 7.4 - 10.4 07/31/2016 [facility] HEMATOLOGY Platelet 260 133 - 450 07/31/2016 [facility] HEMATOLOGY WBC 8.2 3.7 - 10.4 07/31/2016 [facility] HEMATOLOGY RBC 3.07 4.20 - 5.40 07/31/2016 [facility] HEMATOLOGY Hct 31.0 36.0 - 48.0 07/31/2016 [facility] HEMATOLOGY MCV 100.9 80.0 - 98.0 07/31/2016 [facility] HEMATOLOGY MCH 32.7 27.0 - 31.0 07/31/2016 [facility] HEMATOLOGY Hgb 10.0 12.0 - 16.0 07/31/2016 [facility] URINE AND STOOL UA Blood Small *ABN* (07/30/16 6:22 PM) Negative 07/31/2016 [facility] URINE AND STOOL UA Nitrite Negative (07/30/16 6:22 PM) Negative 07/31/2016 [facility] URINE AND STOOL UA Mucus Few /LPF None Seen /LPF 07/31/2016 [facility] URINE AND STOOL UA Bacteria Occasional /HPF None Seen /HPF 07/31/2016 [facility] URINE AND STOOL UA RBC 1 0 - 2 07/31/2016 [facility] URINE AND STOOL UA WBC 2 0 - 5 07/31/2016 [facility] URINE AND STOOL UA Leuk Est Small *ABN* (07/30/16 6:22 PM) Negative 07/31/2016 [facility] URINE AND STOOL UA Sq Epi Few /LPF Few /LPF 07/31/2016 [facility] URINE AND STOOL UA Urobilinogen <=1.0 mg/dL 0.1 - 1.0 07/31/2016 [facility] URINE AND STOOL UA Glucose Negative mg/dL Negative mg/dL 07/31/2016 [facility] URINE AND STOOL UA Protein 20 mg/dL Negative mg/dL 07/31/2016 [facility] URINE AND STOOL UA pH 5.5 5.0 - 8.0 07/31/2016 [facility] URINE AND STOOL UA Spec Grav 1.021 <=1.030 07/31/2016 [facility] [place] URINE AND STOOL UA Turbidity Clear (07/30/16 6:22 PM) Clear 07/31/2016 [facility] URINE AND STOOL UA Color Yellow *NA* (07/30/16 6:22 PM) Yellow 07/31/2016 [facility] URINE AND STOOL UA Bili Negative *NA* (07/30/16 6:22 PM) Negative 07/31/2016 [facility] URINE AND STOOL UA Ketones Negative mg/dL Negative mg/dL 07/31/2016 [facility] CHEM PANEL Magnesium Lvl 2.5 1.8 - 2.4 07/30/2016 [facility] ELECTROLYTES AGAP 11.2 10.0 - 20.0 07/30/2016 [facility] ELECTROLYTES eGFR 45 07/30/2016 Result Comment: The eGFR is calculated using the CKD-EPI formula. In most young, healthy individuals the eGFR will be >90 mL/min/1.73m2. The eGFR declines with age. An eGFR of 60-89 may be normal in some populations, particularly the elderly, for whom the CKD-EPI formula has not been extensively validated. Use of the eGFR is not recommended in the following populations:

Individuals with unstable creatinine concentrations, including patients and those with serious co-morbid conditions.

Patients with extremes in muscle mass or diet.

The data above are obtained from the National Kidney Disease Education Program (NKDEP) which additionally recommends that when the eGFR is used in patients with extremes of body mass index for purposes of drug dosing, the eGFR should be multiplied by the estimated BMI. [facility] ELECTROLYTES CO2 27 24 - 32 07/30/2016 [facility] ELECTROLYTES Calcium Lvl 8.5 8.5 - 10.5 07/30/2016 [facility] ELECTROLYTES Chloride Lvl 104 95 - 109 07/30/2016 [facility] ELECTROLYTES Sodium Lvl 138 135 - 145 07/30/2016 [facility] ELECTROLYTES BUN 21 7 - 22 07/30/2016 [facility] ELECTROLYTES Creatinine Lvl 1.1 6 0.50 - 1.40 07/30/2016 [facility] ELECTROLYTES Glucose Lvl 149 70 - 99 07/30/2016 [facility] HEMATOLOGY WBC 8.9 3.7 - 10.4 07/30/2016 [facility] HEMATOLOGY RBC 2.76 4.20 - 5.40 07/30/2016 [facility] HEMATOLOGY Hgb 9.2 12.0 - 16.0 07/30/2016 [facility] HEMATOLOGY Hct 26.8 36.0 - 48.0 07/30/2016 [facility] HEMATOLOGY MPV 8.7 7.4 - 10.4 07/30/2016 [facility] HEMATOLOGY MCV 97.4 80.0 - 98.0 07/30/2016 [facility] HEMATOLOGY MCH 33.2 27.0 - 31.0 07/30/2016 [facility] HEMATOLOGY MCHC 34.1 32.0 - 36.0 07/30/2016 [facility] HEMATOLOGY RDW 14.8 11.5 - 14.5 07/30/2016 [facility] HEMATOLOGY Platelet 263 133 - 450 07/30/2016 [facility] HEMATOLOGY Monocytes # 0.9 0.0 - 0.8 07/30/2016 [facility] HEMATOLOGY Eosinophils # 0.1 0.0 - 0.5 07/30/2016 [facility] HEMATOLOGY Lymphocytes # 1.2 1.0 - 5.5 07/30/2016 [facility] HEMATOLOGY Basophils 0.5 0.0 - 1.0 07/30/2016 [facility] HEMATOLOGY Segs-Bands # 6.6 1.5 - 8.1 07/30/2016 [facility] HEMATOLOGY Monocytes 9.6 2.0 - 12.0 07/30/2016 [facility] HEMATOLOGY Eosinophils 1.6 0.0 - 4.0 07/30/2016 [facility] HEMATOLOGY Lymphocytes 13.6 20.0 - 40.0 07/30/2016 [facility] HEMATOLOGY Segs 74.7 45.0 - 75.0 07/30/2016 [facility] PARATHYROID PROFILE Ca Ion WB 1.15 1.05 - 1.25 07/30/2016 [facility] PARATHYROID PROFILE Ca Norm WB 1.17 1.05 - 1.25 07/30/2016 [facility] CARDIAC ENZYMES BNP 493 <=100 pg/mL 07/29/2016 [facility] HEMATOLOGY Basophils # 0.1 0.0 - 0.2 07/29/2016 [facility] HEMATOLOGY INR 1.10 0.85 - 1.17 07/29/2016 [facility] HEMATOLOGY PTT 26.6 22.9 - 35.8 07/29/2016 [facility] HEMATOLOGY PT 14.4 12.0 - 14.7 07/29/2016 [facility] HEMATOLOGY PTT 143.7 22.9 - 35.8 07/28/2016 Result Comment: Critical Result(s) hayden d to marina goldstein at 07/28/2016 17:04 by erick. Read back OK. [facility] HEMATOLOGY INR 1.37 0.85 - 1.17 07/28/2016 [facility] HEMATOLOGY PT 17.1 12.0 - 14.7 07/28/2016 [facility] HEMATOLOGY Atypical Lymphs 0.0 <=0.0 % 07/28/2016 [facility] HEMATOLOGY Metamyelocytes 1.0 0.0 - 1.0 07/28/2016 [facility] HEMATOLOGY Bands 3.0 0.0 - 11.0 07/28/2016 [facility] HEMATOLOGY Basophils # 0.1 0.0 - 0.2 07/28/2016 [facility] BLOOD BANK RESULTS ABO/Rh A POS 07/28/2016 [facility] BLOOD BANK RESULTS Antibody Scrn Negative (07/28/16 6:25 AM) 07/28/2016 [facility] BLOOD BANK RESULTS FFP product Product available (07/28/16 6:25 AM) 07/28/2016 [facility] BLOOD BANK RESULTS RBC product Product available (07/28/16 6:25 AM) 07/28/2016 [facility] CHEM PANEL AST 25 0 - 37 07/28/2016 [facility] CHEM PANEL Total Protein 6.7 6.4 - 8.4 07/28/2016 [facility] CHEM PANEL Albumin Lvl 3.8 3.5 - 5.0 07/28/2016 [facility] CHEM PANEL Alk Phos 45 39 - 136 07/28/2016 [facility] CHEM PANEL Bili Total 1.1 0.2 - 1.3 07/28/2016 [facility] CHEM PANEL ALT 19 0 - 65 07/28/2016 [facility] CHEM PANEL Globulin 2.9 2.7 - 4.2 07/28/2016 [facility] CHEM PANEL A/G Ratio 1.3 0.7 - 1.6 07/28/2016 [facility] CHEM PANEL B/C Ratio 18 6 - 25 07/28/2016 [facility] HEMATOLOGY PTT 28.0 22.9 - 35.8 07/28/2016 [facility] HEMATOLOGY INR 1.15 0.85 - 1.17 07/28/2016 [facility] HEMATOLOGY PT 14.9 12.0 - 14.7 07/28/2016 [facility] CHEM PANEL eGFR 33 07/27/2016 Result Comment: The eGFR is calculated using the CKD-EPI formula. In most young, healthy individuals the eGFR will be >90 mL/min/1.73m2. The eGFR declines with age. An eGFR of 60-89 may be normal in some populations, particularly the elderly, for whom the CKD-EPI formula has not been extensively validated. Use of the eGFR is not recommended in the following populations:

Individuals with unstable creatinine concentrations, including patients and those with serious co-morbid conditions.

Patients with extremes in muscle mass or diet.

The data above are obtained from the National Kidney Disease Education Program (NKDEP) which additionally recommends that when the eGFR is used in patients with extremes of body mass index for purposes of drug dosing, the eGFR should be multiplied by the estimated BMI. [facility] CHEM PANEL POC Creatinine 1.5 0.5 - 1.4 07/27/2016 [facility] Pathology Reports No Data Provided for This Section Diagnostic Reports Report Value Date Source Abdomen AP DX EXAM: XR ABDOMEN 1 VIEW DATE: 07/31/2016 at 1013 hours INDICATION: Abdominal pain, acute ADDITIONAL INFORMATION: None. COMPARISON: None. TECHNIQUE: AP view of the abdomen. FINDINGS: Lines, tubes and hardware: Electrocardiogram leads overlie the abdomen. Lower thorax: Unremarkable where visualized. Bowel: Moderate amount of stool is identified in the colon. No dilated loops of bowel. Other abdominal organs: No abnormal mass or organomegaly seen. Calcifications: No abnormal calcifications found. Bones: No acute abnormality. Extraabdominal soft tissues: Normal. IMPRESSION: 1. Constipation without evidence of obs truction. 07/31/2016 [facility] Chest 1view DX EXAM: XR CHEST 1 VIEW DATE: 07/31/2016 8:16 AM [employer] INDICATION: Fever. FINDINGS: Comparison is made to July 28. The cardiomediastinal silhouette is stable with a TAVR in place. There is platelike atelectasis in both lower lobes. The costophrenic sulci are sharp, without effusions. IMPRESSION: Bilateral lower lobe platelike atelectasis. 07/31/2016 [facility] Chest 1view DX EXAM: XR CHEST 1 VIEW DATE: 07/28/2016 3:25 PM [employer] INDICATION: 76-year-old woman with history of coronary artery disease and aortic valve stenosis, now status post transcatheter aortic valve replacement COMPARISON: none TECHNIQUE: AP chest FINDINGS: Lines and tubes: Metallic cage from transcatheter aortic valve replacement. Projects over the mediastinum Lungs and pleura: Diffuse interstitial opacities. No pulmonary consolidation. No pleural effusion or pneumothorax seen. Heart and mediastinum: Cardiomediastinal silhouette is enlarged. Bones: No acute bony abnormality is identified. IMPRESSION: 1. Status post transarterial aortic jamel ve replacement. 2. Cardiomegaly and mild interstitial p ulmonary edema. 07/28/2016 [facility] Chest/Abdomen/Pelvis wo IV contrast CT EXAM: CTA CHEST WITHOUT CONTRAST EXAM: CTA ABDOMEN AND PELVIS WITHOUT CONTRAST DATE: 07/27/2016 10:13 AM [employer] INDICATION: Chest pain ADDITIONAL INFORMATION: None. COMPARISON: None. TECHNIQUE: Volumetric CT acquisition of the chest, abdomen and pelvis without administration of intravenous contrast. Axial, coronal and sagittal reconstructions. MIP reformats are created at the acquisition workstation. FINDINGS: Aorta and proximal branches: The aorta measures: 3.2 cm at the ascending aorta at the lev el of the pulmonary artery, 2.8 cm at the mid arch, 2.7 cm at the descending aorta at the le cyndie of the main pulmonary artery, 2.6 cm at the level of the aortic hiatus , 1.8 cm at the level of the renal arterie s 1.8 cm just proximal to the iliac bifurc ation Right pelvis: 0.9 cm at the mid right common iliac 0.6 cm at the right external iliac arter y 0.8 cm at the right common femoral arter y at the level of the femoral head Left pelvis: 0.8 cm at the mid left common iliac 0.6 cm at the left external iliac artery 0.7 cm left femoral artery at the level of the femoral head Calcific scores: Ascending aorta: 0 Aortic arch: 1 Descending thoracic aorta: 1 Aorta at diaphragm: 1 Suprarenal abdominal aorta: 1 Infrarenal abdominal aorta: 2 0 :none 1 :punctate calcifications 2 : <50% of vessel circumference is conf luent calcification 3 : >50% of vessel circumference is conf luent calcification There there is a 1.7 cm short segment crescent-like intraluminal calcification of the infrarenal abdominal aorta which may represent calcified thrombus versus dissection (2, image 173). Lines/tubes: None. Heart and mediastinum: The thyroid gland is normal. No mediastinal, hilar or axillary lymphadenopathy is seen. The heart is enlarged. Aortic valve and mitral annular calcifications are present. There is a small hiatal hernia. Pleura: The pleural spaces are clear. Lungs and Airways: The lungs and airways are normal with no focal abnormality demonstrated. ABDOMEN/PELVIS: Hepatobiliary: No focal hepatic lesions. No biliary ductal dilatation. Spleen: No splenomegaly. Pancreas: No focal masses or ductal dilatation. Adrenals: No adrenal nodules. Kidneys/Ureters: No hydronephrosis, stones, or solid mass lesions. Pelvic Organs/Bladder: Unremarkable. Peritoneum/Retroperitoneum: No free air or fluid. Lymph nodes: No lymphadenopathy. Vessels: Unremarkable. Patent main portal vein measuring up to cm. GastrointestinaI Tract: No distention. BONES AND SOFT TISSUE: Age-related degenerative changes are present. IMPRESSION: Short segment crescent-like intraluminal calcification of the infrarenal abdominal aorta may represent calcified thrombus versus dissection. 07/27/2016 [facility] Consultation Notes No Data Provided for This Section Discharge Summaries No Data Provided for This Section History and Physicals No Data Provided for This Section Vital Signs Vital Sign Value Date Comments Source Height 160.02 cm 11/02/2016 [facility] BMI Calculated 27.44 11/02/2016 [facility] Weight 70.256 11/02/2016 [facility] Height 160.02 cm 10/19/2016 [facility] Temperature Oral (F) 97.3 F 10/19/2016 [facility] Respitory Rate 16 10/19/2016 [facility] Heart Rate 63 10/19/2016 [facility] BMI Calculated 27.38 10/19/2016 [facility] Weight 70.114 10/19/2016 [facility] Systolic (mm Hg) 124 10/19/2016 [facility] Diastolic (mm Hg) 64 10/19/2016 [facility] Weight 70.455 10/12/2016 [facility] BMI Calculated 27.51 10/12/2016 [facility] Temperature Oral (F) 96.9 F 10/12/2016 [facility] Respitory Rate 18 10/12/2016 [facility] Systolic (mm Hg) 112 10/12/2016 [facility] Diastolic (mm Hg) 65 10/12/2016 [facility] Heart Rate 55 10/12/2016 [facility] Height 160.02 cm 10/12/2016 [facility] Height 160.02 cm 10/05/2016 [facility] BMI Calculated 27.37 10/05/2016 [facility] Weight 70.085 10/05/2016 [facility] Heart Rate 57 10/05/2016 [facility] Respitory Rate 16 10/05/2016 [facility] Temperature Oral (F) 97.2 F 10/05/2016 [facility] Systolic (mm Hg) 128 10/05/2016 [facility] Diastolic (mm Hg) 68 10/05/2016 [facility] Height 160.02 cm 09/28/2016 [facility] BMI Calculated 27.06 09/28/2016 [facility] Heart Rate 52 09/28/2016 [facility] Respitory Rate 16 09/28/2016 [facility] Temperature Oral (F) 97.3 F 09/28/2016 [facility] Weight 69.29 09/28/2016 [facility] Systolic (mm Hg) 131 09/28/2016 [facility] Diastolic (mm Hg) 62 09/28/2016 [facility] Systolic (mm Hg) 111 09/20/2016 [facility] Diastolic (mm Hg) 66 09/20/2016 [facility] Height 162.56 cm 09/20/2016 [facility] BMI Calculated 26.75 09/20/2016 [facility] Weight 70.682 09/20/2016 [facility] Temperature Oral (F) 97.2 F 09/20/2016 [facility] Heart Rate 57 09/20/2016 [facility] Respitory Rate 16 09/20/2016 [facility] Height 160.02 cm 09/14/2016 [facility] Weight 70.227 09/14/2016 [facility] BMI Calculated 27.43 09/14/2016 [facility] Respitory Rate 16 09/14/2016 [facility] Temperature Oral (F) 96.8 F 09/14/2016 [facility] Heart Rate 56 09/14/2016 [facility] Systolic (mm Hg) 116 09/14/2016 [facility] Diastolic (mm Hg) 61 09/14/2016 [facility] Height 160.02 cm 09/07/2016 [facility] Temperature Oral (F) 97.6 F 09/07/2016 [facility] Respitory Rate 18 09/07/2016 [facility] Heart Rate 57 09/07/2016 [facility] Weight 69.801 09/07/2016 [facility] BMI Calculated 27.26 09/07/2016 [facility] Systolic (mm Hg) 113 09/07/2016 [facility] Diastolic (mm Hg) 62 09/07/2016 [facility] Height 160.02 cm 08/28/2016 [facility] Weight 71.477 08/28/2016 [facility] BMI Calculated 27.91 08/28/2016 [facility] Respitory Rate 16 08/28/2016 [facility] Heart Rate 58 08/28/2016 [facility] Temperature Oral (F) 97.1 F 08/28/2016 [facility] Systolic (mm Hg) 126 08/28/2016 [facility] Diastolic (mm Hg) 70 08/28/2016 [facility] Systolic (mm Hg) 109 08/14/2016 [facility] Diastolic (mm Hg) 63 08/14/2016 [facility] Heart Rate 68 08/14/2016 [facility] Respitory Rate 16 08/14/2016 [facility] Temperature Oral (F) 97.4 F 08/14/2016 [facility] Height 160.02 cm 08/14/2016 [facility] BMI Calculated 27.58 08/14/2016 [facility] Weight 70.625 08/14/2016 [facility] BMI Calculated 27.79 08/07/2016 [facility] Weight 71.165 08/07/2016 [facility] Height 160.02 cm 08/07/2016 [facility] Systolic (mm Hg) 116 08/07/2016 [facility] Diastolic (mm Hg) 66 08/07/2016 [facility] Respitory Rate 18 08/07/2016 [facility] Temperature Oral (F) 97.6 F 08/07/2016 [facility] Heart Rate 66 08/07/2016 [facility] Respitory Rate 38 08/01/2016 [facility] Systolic (mm Hg) 108 08/01/2016 [facility] Diastolic (mm Hg) 56 08/01/2016 [facility] Temperature Oral (F) 98.4 F 08/01/2016 [facility] Systolic (mm Hg) 128 08/01/2016 [facility] Diastolic (mm Hg) 58 08/01/2016 [facility] Respitory Rate 24 08/01/2016 [facility] Systolic (mm Hg) 112 08/01/2016 [facility] Diastolic (mm Hg) 70 08/01/2016 [facility] Respitory Rate 26 08/01/2016 [facility] Temperature Oral (F) 99.5 F 08/01/2016 [facility] Temperature Oral (F) 98.1 F 08/01/2016 [facility] Weight 74.545 07/28/2016 [facility] Height 160.02 cm 07/28/2016 [facility] BMI Calculated 29.11 07/28/2016 [facility] BMI Calculated 28.4 07/27/2016 [facility] Height 160.02 cm 07/27/2016 [facility] Weight 72.727 07/27/2016 [facility] Height 160.02 cm 07/18/2016 [facility] Temperature Oral (F) 97.4 F 07/18/2016 [facility] Respitory Rate 18 07/18/2016 [facility] Heart Rate 60 07/18/2016 [facility] Weight 75.17 07/18/2016 [facility] BMI Calculated 29.36 07/18/2016 [facility] Systolic (mm Hg) 125 07/18/2016 [facility] Diastolic (mm Hg) 79 07/18/2016 [facility] Encounters Location Location Details Encounter Type Encounter Number Reason For Visit Attending Provider ADM Date DC Date Status Source [facility] Outpatient [id number] Biswajit Syed 07/18/2016 07/19/2016 [facility] Outpatient [id number] Nas Gregoric 07/27/2016 07/28/2016 [facility] Inpatient [id number] Tamarawajit Syed 07/28/2016 08/01/2016 [facility] Outpatient [id number] Tamarawajit Syed 08/07/2016 08/08/2016 [facility] Outpatient [id number] Laina Mallet 08/14/2016 08/15/2016 [facility] Outpatient [id number] Tamarawajichristoph Syed 08/28/2016 08/29/2016 [facility] Outpatient [id number] Nas Gregoric 09/07/2016 09/08/2016 [facility] Phone Message [id number] 09/07/1909/09/2016 [facility] Heart Failure [facility] Outpatient [id number] Henry Brittany 09/14/2016 09/15/2016 [facility] Outpatient [id number] Henry Brittany 09/20/2016 09/21/2016 [facility] Outpatient [id number] Nas Gregoric 09/28/2016 09/29/2016 [facility] Outpatient [id number] Nas Gregoric 10/05/2016 10/06/2016 [facility] Outpatient [id number] Laina Mallet 10/12/2016 10/13/2016 [facility] Outpatient [id number] Nas Gregoric 10/19/2016 10/20/2016 [facility] Outpatient [id number] Pilar Dasilva 11/02/2016 11/03/2016 [facility] Procedures No Data Provided for This Section Assessment and Plan Assessment and Plan Date Source Extracted from:Title: Heart Failure Prog ress note Author: Aleksander Goyal Bernabe GARCIA Date: 08/01/16 Patient: KESHIA CORNEJO Age: 76 years Sex: Female : 1940 Associated Diagnoses: None Author: GoyalAleksander Bernabe GARCIA Chief Complaint s/p TAVR History of Present Illness No CP, f/c, n/v/d. Walking around room without difficulties. Health Status Allergies: Allergic Reactions (All) Severity Not Documented Sulfa drugs- No reactions were documented., Allergies (1) Active Reaction sulfa drugs None Documented Current medications: (Selected) Inpatient Medications Ordered Artificial Tears: 1 drp, Each Affected Eye, TID, PRN: as needed for dry eyes Dextrose 50% Syringe: 12.5 gm, 25 mL, IVP, PRN, PRN: Blood Glucose Results Dextrose 50% Syringe: 25 gm, 50 mL, IVP, PRN, PRN: Blood Glucose Results FLUoxetine: 20 mg, 1 cap, PO, Daily Imdur: 30 mg, 1 tab, PO, QAM Lasix 40 mg oral tablet: 40 mg, 1 tab, PO, Daily MiraLax: 17 gm, 1 pkt, PO, BID [place] 7.5/325 oral tablet: 1 tab, PO, Q6H, PRN: Pain Score 4-6 Protonix: 40 mg, 1 tab, PO, Daily acetaminophen: 325 mg, 1 tab, PO, Q6H, PRN: Pain Score 1-3 allopurinol: 300 mg, 1 tab, PO, Daily amLODIPine: 5 mg, 1 tab, PO, Daily aspirin 81 mg tablet, enteric coated: 81 mg, 1 tab, PO, Daily atorvastatin: 40 mg, 1 tab, PO, Daily calcium gluconate + sodium chloride 0.9% INJ 80 mL: 2 gm, 20 mL, 100 ml/hr, IVPB, PRN, PRN: Abnormal Lab Result calcium gluconate + sodium chloride 0.9% INJ 80 mL: 3 gm, 30 mL, 110 ml/hr, IVPB, PRN, PRN: Abnormal Lab Result clopidogrel: 75 mg, 1 tab, PO, Daily docusate-senna 50 mg-8.6 mg oral tablet: 1 tab, PO, BID fenofibrate 145 mg oral tablet: 145 mg, 1 tab, PO, Daily gabapentin 100 mg oral capsule: 300 mg, 1 cap, PO, BID glucagon: 1 mg, IM, PRN, PRN: Blood Glucose Results heparin: 5,000 unit, 1 mL, SUB-Q, Q8H insulin aspart: 1 unit, 0.01 mL, SUB-Q, Bedtime, PRN: Blood Glucose Results insulin aspart: 1 unit, 0.01 mL, SUB-Q, TID-Before Meals, PRN: Blood Glucose Results insulin aspart: 2 unit, 0.02 mL, SUB-Q, Bedtime, PRN: Blood Glucose Results insulin aspart: 2 unit, 0.02 mL, SUB-Q, TID-Before Meals, PRN: Blood Glucose Results insulin aspart: 3 unit, 0.03 mL, SUB-Q, Bedtime, PRN: Blood Glucose Results insulin aspart: 3 unit, 0.03 mL, SUB-Q, TID-Before Meals, PRN: Blood Glucose Results insulin aspart: 4 unit, 0.04 mL, SUB-Q, Bedtime, PRN: Blood Glucose Results insulin aspart: 4 unit, 0.04 mL, SUB-Q, TID-Before Meals, PRN: Blood Glucose Results insulin aspart: 5 unit, 0.05 mL, SUB-Q, TID-Before Meals, PRN: Blood Glucose Results magnesium oxide: 800 mg, 2 tab, PO, PRN, PRN: Abnormal Lab Result magnesium sulfate: 1 gm, 100 mL, 100 ml/hr, IVPB, PRN, PRN: Abnormal Lab Result magnesium sulfate: 2 gm, 50 mL, 25 ml/hr, IVPB, PRN, PRN: Abnormal Lab Result metoprolol tartrate: 25 mg, 1 tab, PO, Q12H potassium chloride: 10 mEq, 50 mL, 50 ml/hr, IVPB, PRN, PRN: Abnormal Lab Result potassium chloride: 20 mEq, 1 tab, PO, PRN, PRN: Abnormal Lab Result potassium chloride: 20 mEq, 15 mL, [place], PRN, PRN: Abnormal Lab Result potassium phosphate + sodium chloride 0.9% INJ 250 mL: 15 mmol, 5 mL, 63.75 ml/hr, IVPB, PRN, PRN: Abnormal Lab Result potassium phosphate + sodium chloride 0.9% INJ 250 mL: 30 mmol, 10 mL, 65 ml/hr, IVPB, PRN, PRN: Abnormal Lab Result potassium phosphate-sodium phosphate 250 mg-280 mg-160 mg oral powder for reconstitution: 2 pkt, PO, PRN, PRN: Abnormal Lab Result sodium phosphate + sodium chloride 0.9% INJ 250 mL: 15 mmol, 5 mL, 63.75 ml/hr, IVPB, PRN, PRN: Abnormal Lab Result sodium phosphate + sodium chloride 0.9% INJ 250 mL: 30 mmol, 10 mL, 65 ml/hr, IVPB, PRN, PRN: Abnormal Lab Result spironolactone: 25 mg, 1 tab, PO, Daily Prescriptions Prescribed Aspirin Enteric Coated 81 mg oral delayed release tablet: 81 mg, 1 tab, PO, Daily, for 90 day, 90 tab, 0 Refill(s) amLODIPine 5 mg oral tablet: 5 mg, 1 tab, PO, Daily, for 90 day, 90 tab, 0 Refill(s) clopidogrel 75 mg oral tablet: 75 mg, 1 tab, PO, Daily, for 90 day, 90 tab, 0 Refill(s) Documented Medications Documented FLUoxetine 20 mg oral capsule: 20 mg, 1 cap, PO, Daily, 0 Refill(s) Home Medication: Calcium Chocolate Chews 2 daily, 0 Refill(s) Probiotic Formula: 1 cap, PO, Daily, 0 Refill(s) allopurinol 300 mg oral tablet: 300 mg, 1 tab, PO, Daily, 0 Refill(s) atorvastatin 40 mg oral tablet: 40 mg, 1 tab, PO, Daily, 0 Refill(s) fenofibrate 145 mg oral tablet: 145 mg, 1 tab, PO, Daily, 0 Refill(s) furosemide 40 mg oral tablet: 40 mg, 1 tab, PO, Daily, 0 Refill(s) gabapentin 100 mg oral capsule: 300 mg, 3 cap, PO, TID, 0 Refill(s) isosorbide mononitrate 30 mg oral tablet, extended release: 30 mg, 1 tab, PO, QAM, 0 Refill(s) metFORMIN 500 mg oral tablet: 500 mg, 1 tab, PO, BID, 0 Refill(s) metoprolol tartrate 50 mg oral tablet: 25 mg, 0.5 tab, PO, BID, 0 Refill(s) nitroglycerin 0.4 mg sublingual tablet: 0.4 mg, 1 tab, SL, PRN, 0 Refill(s) pantoprazole 40 mg oral granule: 1 Pack, PO, Daily, 30 ea, 0 Refill(s) spironolactone 25 mg oral tablet: 25 mg, 1 tab, PO, Daily, 0 Refill(s) Histories Past Medical History: Resolved CAD (coronary artery disease) (9043481134): Resolved. Aortic stenosis (322166000): Resolved. HLD (hyperlipidemia) (18843113): Resolved. COPD (chronic obstructive pulmonary disease) (15332302): Resolved. DM (diabetes mellitus) (353438215): Resolved. Cataract (7641561234): Resolved. Inferior myocardial infarction (9105369812): Resolved. Family History: No family history items have been selected or recorded. Procedure history: No active procedure history items have been selected or recorded. Social History Social and Psychosocial Habits Tobacco 07/28/2016 Use: Never smoker Ready to change: No Concerns about tobacco use in household: No Exposure to Tobacco Smoke None Cigarette Smoking Last 365 Days No Reg Smoking Cessation Counseling Yes . Physical Examination VS/Measurements Measurements from flowsheet : Measurements 07/28/2016 06:19 Heparin Dosing Weight (kg) 61.26 07/28/2016 06:15 Height 160.02 cm Height Collection Method Stated Weight 74.545 kg Dosing Weight Difference Percent 2.5 % Dosing Weight Collection Method Measured Body Surface Area 1.8203 m2 Body Mass Index 29.11 m2 07/27/2016 10:13 Heparin Dosing Weight (kg) 60.53 07/27/2016 10:13 Height 160.02 cm Height Collection Method Estimated Weight 72.727 kg Dosing Weight Difference Percent -5.326 % Dosing Weight Collection Method Estimated Body Surface Area 1.798 m2 Body Mass Index 28.4 m2 , Vital Signs (last 24 hrs) Last Charted Temp Oral 98.4 DegF (AUG 01 12:53) Heart Rate Apical 76 bpm (AUG 01 14:00) Resp Rate H 38BRMIN (AUG 01 14:00) SBP 108 mmHg (AUG 01 14:00) DBP L 56mmHg (AUG 01 14:00) SpO2 98 % (AUG 01 13:34) Gen: NAD, resting comfortably HEENT: NCAT, EOMI Cardiac: RRR, no m/g/r, no JVD Vascular: Bilateral DP and PT 2+. Rt femoral dressing c/d/i Pulm: CTAB, no w/r/r GI: Soft, NTND, no palpable masses Neuro: A&O x4, follows commands Derm: No rashes, lesions, or breakdowns appreciated MSK: Good AROM all extremities, no c/c/e Endo: No goiter, no exophthalmos Psych: Appropriate affect and thought process Review / Management Results review: Labs (Last four charted values) WBC 8.0 (AUG 01) 8.2 (JUL 31) 8.9 (JUL 30) 9.9 (JUL 29) Hgb L 9.7 (AUG 01) L 10.0 (JUL 31) L 9.2 (JUL 30) L 10.1 (JUL 29) Hct L 28.7 (AUG 01) L 31.0 (JUL 31) L 26.8 (JUL 30) L 30.2 (JUL 29) Plt 256 (AUG 01) 260 (JUL 16) 263 (JUL 15) 275 (JUL 29) Na 138 (AUG 01) 138 (JUL 16) 138 (JUL 15) 144 (JUL 29) K 3.7 (AUG 01) 4.1 (JUL 31) 4.2 (JUL 31) 4.2 (JUL 30) CO2 26 (AUG 01) L 20 (JUL 31) 27 (JUL 30) 24 (JUL 29) Cl 101 (AUG 01) 105 (JUL 31) 104 (JUL 30) 107 (JUL 29) Cr 1.28 (AUG 01) 1.13 (JUL 31) 1.16 (JUL 30) 1.36 (JUL 29) BUN 15 (AUG 01) 17 (JUL 16) 21 (JUL 15) H 25 (JUL 29) Glucose Random H 138 (AUG 01) H 120 (JUL 16) H 149 (JUL 15) H 149 (JUL 29) Mg 1.8 (AUG 01) 2.1 (JUL 31) H 2.5 (JUL 30) H 2.8 (JUL 29) Phos 3.1 (AUG 01) 3.2 (JUL 31) L 2.3 (JUL 31) L 2.4 (JUL 30) Ca 9.1 (AUG 01) 8.7 (JUL 31) 8.5 (JUL 30) L 8.1 (JUL 29) PT 14.4 (JUL 29) H 17.1 (JUL 28) H 14.9 (JUL 28) INR 1.10 (JUL 29) H 1.37 (JUL 28) 1.15 (JUL 28) PTT 26.6 (JUL 29) C 143.7 (JUL 28) 28.0 (JUL 28) . Impression and Plan 76 y/o woman with PMH of CAD s /p PCI x3 (2001, 2002, 2012), aortic stenosis, HLD, DM, HTN, COPD, and diverticulitis who presents for TAVR. ## Critical s/p TAVR --Successful placement of 20 mm bioprost hetic AV on 07/28 --Continue ASA, Plavix --No groin site complications. --post TAVR ECHO: well seated valve. Gail n gradient 11mmHg. No paravalvular leak noted. ## Fever --One time fever of 101.7. BCx and UCx N GTD and fevers now resolved. ## HFpEF d/t Valvular Heart Disease --Continue ASA, statin, imdur, metoprolo l, aldactone, lasix ## CKD --Closely monitor renal function, especi ally with aldactone ## CAD s/p PCI --Continue ASA, statin, plavix ## COPD --DuoNebs PRN ## HLD --Continue statin ## HTN --Continue Metoprolol, Imdur, Amlodipine . ## DM --Restart metformin on discharge Dispo: Home today Addendum by Emma Roa MD on 08/01/2016 19:10 Cardiology Attending Attestation: I have seen and examined the patient with Dr. Goyal on 08/01/16 I have reviewed all the clinical information, laboratory investigations, and imaging data. I agree with the examination, assessment, and plan as detailed below Extracted from:Title: Heart Failure Admission H&P * Author: Aleksander Goyal DO Date: 07/28/16 Patient: KESHIA CORNEJO Age: 76 years Sex: Female : 1940 Associated Diagnoses: None Author: Aleksander Goyal DO Chief Complaint s/p TAVR History of Present Illness 76 y/o woman with PMH of CAD s /p PCI x3 (2001, 2002, 2012), aortic stenosis, HLD, DM, HTN, COPD, and diverticulitis who presented to clinic as referral from Dr. Lopez Painter for evaluation of aortic stenosis and need for aortic valve replacement. She has known aortic stenosis, with TTE from 2014 showing moderate aortic stenosis. Patient reports that in the last 6 mo, she has noticed a steady decrease in her energy levels both at rest and with exertion, and increase in dyspnea with exertion, such that finds it increasingly difficult to carry out her daily activities. Pt also had an episode about 1 mo ago where she was stood up from her dining room table and lost consciousness for a short period of time. She denies any chest pain, orthopnea, lower extremity edema, or palpitations. Has COPD, but is well controlled on inhalers. Risks and benefits were discussed with her in clinic and decision was to proceed wt TAVR base on her intermediate STS score. She underwent succesfful placement of 20 mm bioprosthetic AV today that was complicated by Rt femoral repair. No acute complaints today. Review of Systems Gen: (-) fevers, (-) chills, (-) weight loss HEENT: (-) visual changes, (-) headaches, (-) rhinorrhea CV: (-) Chest pain, (-) palpitations, (-) [place] Pulm: (-) SOB, (-) cough, (-) hemoptysis GI: (-) abd pain, (-) melena, (-) n/v/d : (-) dysuria, (-) discharge, (-) hematuria MSK: (-) arthralgia, (-) myalgia, (-) c/c/e Derm: (-) rashes, (-) lesions, (-) purpura Neuro: (-) dizziness, (-) paresthesia, (-) weakness Endo: (-) polydipsia, (-) polyuria, (-) heat or cold intolerance Psych: (-) auditory hallucinations, (-) visual hallucinations Health Status Allergies: Allergic Reactions (All) Severity Not Documented Sulfa drugs- No reactions were documented., Allergies (1) Active Reaction sulfa drugs None Documented Current medications: (Selected) Inpatient Medications Ordered FLUoxetine: 20 mg, PO, Daily allopurinol: 300 mg, PO, Daily aspirin 81 mg tablet, enteric coated: 81 mg, 1 tab, PO, Daily atorvastatin: 40 mg, PO, Daily clopidogrel: 75 mg, 1 tab, PO, Daily esomeprazole: 40 mg, PO, Before Breakfast fenofibrate 145 mg oral tablet: 145 mg, 1 tab, PO, Daily gabapentin 100 mg oral capsule: 300 mg, 3 cap, PO, TID heparin: 5,000 unit, SUB-Q, Q8H sodium chloride 0.9% 1000 ml INJ 750 mL: 75 ml/hr, IV, Stop: 07/29/16 1:24:00 [employer] spironolactone: 25 mg, PO, Daily Pending Complete pneumococcal 23-valent vaccine: 0.5 mL, IM, Daily Documented Medications Suspended Aspirin Enteric Coated 81 mg oral delayed release tablet: 81 mg, 1 tab, PO, Daily, 0 Refill(s) FLUoxetine 20 mg oral capsule: 20 mg, 1 cap, PO, Daily, 0 Refill(s) Home Medication: Calcium Chocolate Chews 2 daily, 0 Refill(s) Probiotic Formula: 1 cap, PO, Daily, 0 Refill(s) allopurinol 300 mg oral tablet: 300 mg, 1 tab, PO, Daily, 0 Refill(s) atorvastatin 40 mg oral tablet: 40 mg, 1 tab, PO, Daily, 0 Refill(s) clopidogrel 75 mg oral tablet: 75 mg, 1 tab, PO, Daily, 0 Refill(s) fenofibrate 145 mg oral tablet: 145 mg, 1 tab, PO, Daily, 0 Refill(s) furosemide 40 mg oral tablet: 40 mg, 1 tab, PO, Daily, 0 Refill(s) gabapentin 100 mg oral capsule: 300 mg, 3 cap, PO, TID, 0 Refill(s) isosorbide mononitrate 30 mg oral tablet, extended release: 30 mg, 1 tab, PO, QAM, 0 Refill(s) metFORMIN 500 mg oral tablet: 500 mg, 1 tab, PO, BID, 0 Refill(s) metoprolol tartrate 50 mg oral tablet: 25 mg, 0.5 tab, PO, BID, 0 Refill(s) nitroglycerin 0.4 mg sublingual tablet: 0.4 mg, 1 tab, SL, PRN, 0 Refill(s) pantoprazole 40 mg oral granule: 1 Pack, PO, Daily, 30 ea, 0 Refill(s) spironolactone 25 mg oral tablet: 25 mg, 1 tab, PO, Daily, 0 Refill(s) Histories Past Medical History: Resolved CAD (coronary artery disease) (5859902412): Resolved. Aortic stenosis (246728792): Resolved. HLD (hyperlipidemia) (13888000): Resolved. COPD (chronic obstructive pulmonary disease) (94292530): Resolved. DM (diabetes mellitus) (132133147): Resolved. Family History: No family history items have been selected or recorded. Procedure history: No active procedure history items have been selected or recorded. Social History Social and Psychosocial Habits Tobacco 07/28/2016 Use: Never smoker Ready to change: No Concerns about tobacco use in household: No Exposure to Tobacco Smoke None Cigarette Smoking Last 365 Days No Reg Smoking Cessation Counseling Yes . Physical Examination VS/Measurements Measurements from flowsheet : Measurements 07/28/2016 06:19 Heparin Dosing Weight (kg) 61.26 07/28/2016 06:15 Height 160.02 cm Height Collection Method Stated Weight 74.545 kg Dosing Weight Difference Percent 2.5 % Dosing Weight Collection Method Measured Body Surface Area 1.8203 m2 Body Mass Index 29.11 m2 07/27/2016 10:13 Heparin Dosing Weight (kg) 60.53 07/27/2016 10:13 Height 160.02 cm Height Collection Method Estimated Weight 72.727 kg Dosing Weight Difference Percent -5.326 % Dosing Weight Collection Method Estimated Body Surface Area 1.798 m2 Body Mass Index 28.4 m2 , Vital Signs (last 24 hrs) Last Charted Temp Oral 97.3 DegF (JUL 28 16:00) Heart Rate Apical 64 bpm (JUL 28:) Resp Rate H 25BRMIN (JUL 28 16:) SBP 140 mmHg (JUL 28 06:30) DBP 68 mmHg (JUL 28 06:30) SpO2 98 % (JUL 28:) Weight 74.545 kg (JUL 28:) Height 160.02 cm (MAYCO 13 06:15) BMI 29.11 (JUL 28 06:15) Gen: NAD, resting comfortably HEENT: NCAT, EOMI Cardiac: RRR, no m/g/r, no JVD Vascular: Bilateral DP and PT 2+. Rt femoral dressing c/d/i Pulm: CTAB, no w/r/r GI: Soft, NTND, no palpable masses Neuro: A&O x4, follows commands Derm: No rashes, lesions, or breakdowns appreciated MSK: Good AROM all extremities, no c/c/e Endo: No goiter, no exophthalmos Psych: Appropriate affect and thought process Review / Management Results review: Labs (Last four charted values) WBC 6.3 (JUL 28) Hgb L 11.9 (JUL 28) Hct L 35.5 (JUL 28) Plt 288 (JUL 28) Na 141 (JUL 28) 141 (JUL 28) K 3.9 (JUL 28) 3.6 (JUL 28) CO2 L 23 (JUL 28) 30 (JUL 28) Cl 106 (JUL 28) 102 (JUL 28) Cr H 1.65 (JUL 28) H 1.87 (JUL 28) BUN H 30 (JUL 28) H 33 (JUL 28) Glucose Random H 154 (JUL 28) H 147 (JUL 28) Mg L 1.3 (JUL 28) L 1.5 (JUL 28) Ca L 7.9 (JUL 28) 9.2 (JUL 28) PT H 14.9 (JUL 28) INR 1.15 (JUL 28) PTT 28.0 (JUL 28) . Impression and Plan 76 y/o woman with PMH of CAD s /p PCI x3 (2001, 2002, 2012), aortic stenosis, HLD, DM, HTN, COPD, and diverticulitis who presents for TAVR. ## Critical s/p TAVR --Successful placement of 20 mm bioprost hetic AV on 07/28 --Continue ASa, Plavix --Monitor in ICU for post-op complicatio ns ## HFpEF d/t Valvular Heart Disease --Hold BB, ACEi, diuretics and restart a s tolerated ## CKD --Closely monitor renal function ## CAD s/p PCI --Continue ASA, statin, plavix ## COPD --DuoNebs PRN ## HLD --Continue statin ## HTN --Normotensive currently --Restart home meds as tolerated ## DM --Start SSI. Restart metformin on discha rge DVT ppx: HSQ Dispo: Monitor in ICU Addendum by Emma Roa MD on 07/28/2016 17:20 Cardiology Attending Attestation: I have seen and examined the patient with Dr. Goyal on 07/28/16 I have reviewed all the clinical information, laboratory investigations, and imaging data. I agree with the examination, assessment, and plan as detailed below Extracted from:Title: Clinical Document Author: Alexander Summers MD Date: 07/28/16 PATIENT NAME: KESHIA CORNEJO DATE OF OPERATION/PROCEDURE: 07/28/2015 *_*_* PROCEDURES PERFORMED: 1. Transcatheter aortic valve replaceme nt via the right femoral artery, a 20 mm Kendrick ELIEZER 2. Ascending aorta angiogram. 3. Placement of temporary pacing wire. 4. Failed 6-Kosovan ProGLIDE closure of the right femoral artery x 2. 5. 5-Kosovan Mynx closure of the left fe moral arteriotomy. 6. Planned repair of the right common f emoral artery 7. Balloon aortic valvuloplasty with a 20 mm Balloon pre and post TAVR. INDICATIONS FOR PROCEDURE: Ms. Cornejo is a 76-year-old male with severe symptomatic aortic stenosis with CAD s/p AK and PCIx 3, DM, HTN, DLD, COPD, GERD, diverticulitis and CKD III. Referred for TAVR evaluation. Her TTE showed severe with a mean gradient of 46, peak velocity of 4.5, aortic valve area of 0.45, EF of 50%. Patient has [place] Heart [employer] class III to IV symptoms, 2/4 frailty, STS of 5.8%, and intermediate risk for surgery. PREPROCEDURE DIAGNOSIS: Severe symptomatic aortic stenosis. POSTPROCEDURE DIAGNOSIS: 1. Severe aortic stenosis status post lowry ccessful placement of transaortic percutaneous valve. OPERATORS: 1. Trini Lynch MD 2. Mathew Nolan MD 3. Alexander Summers MD SURGEONS: 1. Sharon Elizondo MD PROCEDURE NOTE: After obtaining informed consent patient was brought to the cardiac catheterization laboratory, where patient was placed under GA. JOSEPHINE was done to further evaluate the valve size. Patient was prepped and draped in normal sterile fashion using 20 mL of 1% Xylocaine bilaterally. Both groins were locally anesthetized. Using micropuncture needle the left femoral artery was cannulated with a 5-Kosovan sheath, and the left femoral vein was cannulated with a 6-Kosovan sheath 45 cm long. Then, through the 6-Kosovan sheath placed in the right common femoral artery, the wire was placed and the sheath was removed, and a 6-Kosovan Proglide device x 2 were used to pre-apply sutures into the artery. These sutures were mated and placed to the side. A wire was placed through the Proglide device. The Proglide device was removed and exchanged for a 14-Kosovan Kendrick [employer] sheath. After the sheath was sutured in place, dilator was removed and part of the right femoral sheath. A 6-Kosovan pacing wire was placed in the intraventricular septum. Pacing thresholds and capture were confirmed. After this a pigtail catheter was then taken. The 5-Kosovan sheath was placed in the noncoronary cusp and then ascending aorta angiogram was done to align all the 3 cusps. After this, through the 5-Kosovan sheath, an AL1 catheter was taken to the aortic root, used to cross the aortic valve with success. Over this a J- wire catheter was placed. Simultaneous aortic and left ventricular pressures were measured, and the mean gradient across the aortic valve was 41 mmHg. The catheter was removed over a Safari wire. A 20 mm balloon was then advanced and deployed at nominal pressure prior TAVR and there was no coronaries occlusion. Then a 20-mm Kendrick [employer] 3-part tissue heart valve, serial number [id number], model 9600 TFX was then advanced across the valve and under rapid ventricular pacing the valve was deployed under rapid pacing. After this, delivery system was removed and aortic angiogram demonstrated excellent placement of the valve with moderate PVL. Then another balloon inflation was achieved x 2. After this the previously placed Proglide sutures were used to close the atherectomy and failed. Dr. Elizondo was called to perform an arterial repair. Please refer to a different dictation. Prior to removing the catheter, simultaneous pressures were measured across the aortic valve and the mean gradient across the aortic valve was 6 with LVEDP of 24. After this, the left femoral artery had a 5-Kosovan Mynx deployed. Removed sheath after protamine was given for heparin reversal. Of note, heparin was given for therapeutic ACT at the beginning of the case to keep the ACT higher than 250. There were no complications. Estimated blood loss was less than 50 cc. Of note, the patient was stable throughout the procedure. IMPRESSION: 1. Severe symptomatic aortic stenosis st atus post successful TAVR via the right groin with Kendrick S3 size 20 mm bioprosthetic valve with pre a 20 mm BAV and post TAVR. There was no residual PVL. PLAN: Routine postoperative care. Continue dual antiplatelet therapy and routine post TAVR care. Patient is planned for discharge in the next [address] Lynch, attending, was present and supervised throughout the entire procedure. Addendum by Trini Lynch MD on 07/29/2016 18:46 Staff: I was present during the entire procedure on 07/28/16, performed all rosado/critical portions and agree with the assessment and plan above. Trini Lynch MD 08/01/2016 [facility] Plan of Care No Data Provided for This Section Social History Social History Date Source Social History TypeResponse Smoking Status Never smoker; Ready to change: No; Concerns about tobacco use in household: No; Exposure to Tobacco Smoke None; Cigarette Smoking Last 365 Days No; Reg Smoking Cessation Counseling Yes 11/02/2016 [facility] Social History TypeResponse Smoking Status Never smoker; Ready to change: No; Concerns about tobacco use in household: No; Exposure to Tobacco Smoke None; Cigarette Smoking Last 365 Days No; Reg Smoking Cessation Counseling Yes 09/07/2016 [facility] Heart Failure Family History No Data Provided for This Section Advance Directives No Data Provided for This Section Functional Status No Data Provided for This Section
--- OUTSIDE RECORDS SUMMARY | 2019-12-12 15:08 | XMS REPORT | Summary of Care ---
Author Author [facility] Organization [facility] Address Unknown Phone Unavailable Encounter GLORIA Pierre(PAUL) [id number] Date(s): 08/14/16 - 08/14/16 [facility] [address], [address] [place], [place] [address] Discharge Disposition: Home or Self Care Attending Physician: Laina Sanchez Referring Physician: Laina Sanchez Vital Signs Most recent to 1 oldest [Reference Range]: Height 160.02 cm (08/14/16 10:47 AM) Temperature Oral 97.4 DegF [96.4-99.1 DegF] (08/14/16 10:47 AM) Blood Pressure 109/63 mmHg [90-140/60-90 mmHg] (08/14/16 10:47 AM) Respiratory Rate 16 BRMIN [14-20 BRMIN] (08/14/16 10:47 AM) Peripheral Pulse 68 bpm Rate [60-100 bpm] (08/14/16 10:47 AM) Weight 70.625 kg (08/14/16 10:47 AM) Body Mass Index 27.58 m2 (08/14/16 10:47 AM) Problem List Condition Effective Dates Status Health Status Informan t Aortic Resolved stenosis(Confirmed) CAD (coronary artery Resolved disease)(Confirmed) COPD (chronic Resolved obstructive pulmonary disease)(Confirmed) DM (diabetes Resolved mellitus)(Confirmed) HLD Resolved (hyperlipidemia)(Con firmed) Cataract(Confirmed) Resolved [...]
--- OUTSIDE RECORDS SUMMARY | 2019-12-12 15:08 | XMS REPORT | Summary of Care ---
Author Author [facility] Organization [facility] Address Unknown Phone Unavailable Encounter HQ Ignacio(FIN) [id number] Date(s): 07/28/16 - 08/01/16 [facility] [address] [employer] provided by [employer] [facility] [employer] [place] [address]- Discharge Disposition: Home or Self Care Attending Physician: Trini Lynch MD Admitting Physician: Trini Lynch MD Referring Physician: Trini Lynch MD Vital Signs 1 2 3 Most recent to oldest [Reference Range]: 160.02 cm (07/28/16 6:15 AM) Height 74.347 kg (08/01/16 5:48 AM) 75.909 kg (07/31/16 5:03 AM) Current Weight 98.4 DegF (08/01/16 12:53 PM) 99.5 DegF *HI* (08/01/16 5:48 AM) 98.1 DegF (07/31/16 11:33 PM) Temperature Oral [96.4-99.1 DegF] 108/56 mmHg (08/01/16 2:00 PM) 128/58 mmHg (08/01/16 12:00 PM) 112/70 mmHg (08/01/16 11:00 AM) Blood Pressure [90-140/60-90 mmHg] 38 BRMIN *HI* (08/01/16 2:00 PM) 24 BRMIN *HI* (08/01/16 12:00 PM) 26 BRMIN *HI* (08/01/16 11:00 AM) Respiratory Rate [14-20 BRMIN] 74.545 kg (07/28/16 6:15 AM) Weight 29.11 m2 (07/28/16 6:15 AM) Body Mass Index Problem List Condition Effective Dates Status Health Status Informan t Aortic Resolved stenosis(Confirmed) CAD (coronary artery Resolved disease)(Confirmed) COPD (chronic Resolved obstructive pulmonary disease)(Confirmed) DM (diabetes Resolved mellitus)(Confirmed) HLD Resolved (hyperlipidemia)(Con firmed) Cataract(Confirmed) Resolved Inferior myocardial Resolved infarction(Confirmed ) Allergies, Adverse Reactions, Alerts Substance Reaction Severity Status sulfa drugs Active Medications acetaminophen 325 mg, Route: PO, PRN, Dosing Weight 74.545, kg, PRN Pain 1-3/Temp > 100.4 F, Start date: 07/28/16 17:38:00 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, 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, Stop date: 08/27/16 17:37:00 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 Start Date: 07/28/16 Stop Date: 07/28/16 Status: Discontinued acetaminophen 325 mg, 1 tab, Route: PO, Drug form: TAB, Q6H, Dosing Weight 74.545, kg, PRN Alcides n Score 1-3, Start date: 07/28/16 17:43:00 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, 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, Stop date: 07/01 17:42:00 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 Notes: Do not exceed 4 gm/day. (Same as: Tylenol) Start Date: 07/28/16 Stop Date: 08/01/16 Status: Discontinued allopurinol 300 mg, 1 tab, Route: PO, Drug form: TAB, Daily, Dosing Weight 74.545, kg, Start date: 07/29/16 9:00:00 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, 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, Stop date: 08/27/16 9:00:00 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 Notes: (Same as: Zyloprim) Start Date: 07/29/16 Stop Date: 08/01/16 Status: Discontinued amLODIPine 5 mg, 1 tab, Route: PO, Drug form: TAB, Daily, Dosing Weight 74.545, kg, Start d ate: 07/29/16 17:30:00 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, 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, Stop date: 08/28/16 9:00:00 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 Notes: (Same as: Norvasc) Start Date: 07/29/16 Stop Date: 08/01/16 Status: Discontinued amLODIPine 5 mg oral tablet 5 mg = 1 tab, PO, Daily, # 90 tab, 0 Refill(s) Start Date: 08/01/16 Stop Date: 10/30/16 Status: Ordered Artificial Tears 1 drp, Route: Each Affected Eye, TID, Drug form: SOLN, PRN as needed for dry eye s, Start date: 07/28/16 21:30:00 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, 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, Stop date: 08/27/16 21:2 9:00 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 Notes: (Same as: Aquasite) Start Date: 07/28/16 Stop Date: 08/01/16 Status: Discontinued aspirin 81 mg tablet, enteric coated 81 mg, 1 tab, Route: PO, Drug form: ECTAB, Daily, Dosing Weight 74.545, kg, Star t date: 07/29/16 9:00:00 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, 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, Stop date: 08/27/16 9:00:00 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 Notes: Do not crush or chew.(Same As: Ecotrin) Start Date: 07/29/16 Stop Date: 08/01/16 Status: Discontinued Aspirin Enteric Coated 81 mg oral delayed release tablet 81 mg = 1 tab, PO, Daily, # 90 tab, 0 Refill(s) Start Date: 08/01/16 Stop Date: 10/30/16 Status: Ordered atorvastatin 40 mg, 1 tab, Route: PO, Drug form: TAB, Daily, Dosing Weight 74.545, kg, Start date: 07/29/16 21:00:00 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, 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, Stop date: 08/27/16 21:00:00 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 Notes: (Same as: Lipitor) Start Date: 07/29/16 Stop Date: 08/01/16 Status: Discontinued Bumex 1 mg, 4 mL, Route: IVP, Drug form: INJ, ONCE, Dosing Weight 74.545, kg, Start da te: 07/28/16 18:41:00 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, Stop date: 07/28/16 18:41:00 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 Notes: (Same As: Bumex) Start Date: 07/28/16 Stop Date: 07/28/16 Status: Completed calcium carbonate 500 mg (200 mg elemental calcium) oral tablet 1,000 mg, 2 tab, Route: PO, Drug form: CHEWTAB, PRN, Dosing Weight 74.545, kg, P RN Abnormal Lab Result, FOR ICU USE ONLY, Start date: 07/28/16 17:15:00 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, Dur ation: 30 day, Stop date: 08/27/16 17:14:00 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 Notes: (Same As: Hugos)Calcium Carbonate 500 mg = 200 mg elemental calcium Dose = mg calcium carbonate ( mg elemental calcium) Start Date: 07/28/16 Stop Date: 07/31/16 Status: Discontinued calcium carbonate 500 mg (200 mg elemental calcium) oral tablet 500 mg, 1 tab, Route: PO, Drug form: CHEWTAB, PRN, Dosing Weight 74.545, kg, PRN Abnormal Lab Result, FOR ICU USE ONLY, Start date: 07/28/16 17:15:00 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, Durat ion: 30 day, Stop date: 08/27/16 17:14:00 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 Notes: (Same As: Hugos)Calcium Carbonate 500 mg = 200 mg elemental calcium Dose = mg calcium carbonate ( mg elemental calcium) Start Date: 07/28/16 Stop Date: 07/31/16 Status: Discontinued calcium gluconate + sodium chloride 0.9% INJ 50 mL 1 gm, 10 mL, Route: IVPB, PRN, Dosing Weight 74.545, kg, PRN Abnormal Lab Result , Start date: 07/28/16 17:15:00 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, 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, Stop date: 08/27/16 17:14 :00 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, FOR ICU USE ONLY Notes: WASTE: F/P - Sink; E - Municipal Trash Bin Start Date: 07/28/16 Stop Date: 07/31/16 Status: Discontinued calcium gluconate + sodium chloride 0.9% INJ 80 mL 2 gm, 20 mL, Route: IVPB, PRN, Dosing Weight 74.545, kg, PRN Abnormal Lab Result , For NON-ICU Patients Only., Start date: 07/31/16 11:47:00 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, Duration: 30 da y, Stop date: 08/30/16 11:46:00 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 Notes: WASTE: F/P - Sink; E - Municipal Trash Bin Start Date: 07/31/16 Stop Date: 08/01/16 Status: Discontinued calcium gluconate + sodium chloride 0.9% INJ 80 mL 3 gm, 30 mL, Route: IVPB, PRN, Dosing Weight 74.545, kg, PRN Abnormal Lab Result , For NON-ICU Patients Only., Start date: 07/31/16 11:47:00 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, Duration: 30 da y, Stop date: 08/30/16 11:46:00 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 Notes: WASTE: F/P - Sink; E - Municipal Trash Bin Start Date: 07/31/16 Stop Date: 08/01/16 Status: Discontinued clopidogrel 75 mg, 1 tab, Route: PO, Drug form: TAB, Daily, Dosing Weight 74.545, kg, Start date: 07/29/16 9:00:00 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, 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, Stop date: 08/27/16 9:00:00 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 Notes: (Same As: Plavix) Start Date: 07/29/16 Stop Date: 08/01/16 Status: Discontinued clopidogrel 75 mg oral tablet 75 mg = 1 tab, PO, Daily, # 90 tab, 0 Refill(s) Start Date: 08/01/16 Stop Date: 10/30/16 Status: Ordered Dextrose 50% Syringe 25 gm, 50 mL, Route: IVP, Drug Form: INJ, Dosing Weight 74.545, kg, PRN, PRN Blo od Glucose Results, Start date: 07/28/16 17:17:00 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, 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, Stop da te: 08/27/16 17:16:00 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 Start Date: 07/28/16 Stop Date: 08/01/16 Status: Discontinued Dextrose 50% Syringe 12.5 gm, 25 mL, Route: IVP, Drug Form: INJ, Dosing Weight 74.545, kg, PRN, PRN B lood Glucose Results, Start date: 07/28/16 17:17:00 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, 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, Stop date: 08/27/16 17:16:00 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 Start Date: 07/28/16 Stop Date: 08/01/16 Status: Discontinued docusate-senna 50 mg-8.6 mg oral tablet 1 tab, Route: PO, Drug Form: TAB, Dosing Weight 74.545, kg, BID, Start date: 21:00:00 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, 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, Stop date: 08/29/16 17:00:00 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 Notes: (Same as Senyovani-S) Equiv. to Kerline-Colace. Start Date: 07/30/16 Stop Date: 08/01/16 Status: Discontinued Dulcolax Laxative 10 mg, 1 supp, Route: MO, Drug form: SUPP, ONCE, Dosing Weight 74.545, kg, Start date: 07/31/16 16:17:00 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, Stop date: 07/31/16 16:17:00 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 Notes: (Same As: Dulcolax, Bisco-Lax) Start Date: 07/31/16 Stop Date: 07/31/16 Status: Completed esomeprazole 40 mg, Route: PO, Before Breakfast, Dosing Weight 74.545, kg, Start date: 7:30:00 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, 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, Stop date: 08/27/16 7:30:00 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 Start Date: 07/29/16 Stop Date: 07/28/16 Status: Discontinued fenofibrate 145 mg oral tablet 145 mg, 1 tab, Route: PO, Drug form: TAB, Daily, Dosing Weight 74.545, kg, Start date: 07/29/16 9:00:00 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, 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, Stop date: 08/27/16 9:00:00 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 Notes: (Same as: Tricor) Start Date: 07/29/16 Stop Date: 08/01/16 Status: Discontinued FLUoxetine 20 mg, 1 cap, Route: PO, Drug form: CAP, Daily, Dosing Weight 74.545, kg, Start date: 07/29/16 9:00:00 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, 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, Stop date: 08/27/16 9:00:00 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 Notes: (Same as: Prozac, Sarafem) Start Date: 07/29/16 Stop Date: 08/01/16 Status: Discontinued gabapentin 100 mg oral capsule 300 mg, 1 cap, Route: PO, Drug form: CAP, BID, Dosing Weight 74.545, kg, Start d ate: 07/29/16 9:00:00 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, 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, Stop date: 08/27/16 17:00:00 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 Notes: (Same as: Neurontin) Start Date: 07/29/16 Stop Date: 08/01/16 Status: Discontinued glucagon 1 mg, Route: IM, Drug form: PDR/INJ, PRN, Dosing Weight 74.545, kg, PRN Blood Gl ucose Results, Start date: 07/28/16 17:17:00 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, 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, Stop date: 0 08/27/16 17:16:00 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 Start Date: 07/28/16 Stop Date: 08/01/16 Status: Discontinued heparin 5,000 unit, 1 mL, Route: SUB-Q, Drug form: INJ, Q8H, Dosing Weight 74.545, kg, S tart date: 07/29/16 0:00:00 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, 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, Stop date: 08/27/16 16:00:00 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 Notes: porcine heparin Start Date: 07/29/16 Stop Date: 08/01/16 Status: Discontinued Imdur 30 mg, 1 tab, Route: PO, Drug form: ERTAB, QAM, Dosing Weight 74.545, kg, Start date: 07/28/16 18:30:00 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, 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, Stop date: 08/27/16 9:00:00 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 Notes: (Same as:Imdur)"Do Not Crush" Take on empty stomach/ full glass of water . Do not crush Start Date: 07/28/16 Stop Date: 08/01/16 Status: Discontinued insulin aspart 1 unit, 0.01 mL, Route: SUB-Q, Drug form: SOLN, Bedtime, Dosing Weight 74.545, k g, PRN Blood Glucose Results, Start date: 07/28/16 17:17:00 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, Duration: 30 da y, Stop date: 08/27/16 17:16:00 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 Notes: Roll in palms of hands gently; Do not shake vigorously. (Same as: Armando Weber)"single patient use only"WASTE: F/P - Black; E - Municipal Trash Bin Stable f or 28 days at room temperature.Expires in days from Date Start Date: 07/28/16 Stop Date: 08/01/16 Status: Discontinued insulin aspart 2 unit, 0.02 mL, Route: SUB-Q, Drug form: SOLN, Bedtime, Dosing Weight 74.545, k g, PRN Blood Glucose Results, Start date: 07/28/16 17:17:00 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, Duration: 30 da y, Stop date: 08/27/16 17:16:00 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 Notes: Roll in palms of hands gently; Do not shake vigorously. (Same as: Armando Weber)"single patient use only"WASTE: F/P - Black; E - Municipal Trash Bin Stable f or 28 days at room temperature.Expires in days from Date Start Date: 07/28/16 Stop Date: 08/01/16 Status: Discontinued insulin aspart 4 unit, 0.04 mL, Route: SUB-Q, Drug form: SOLN, Bedtime, Dosing Weight 74.545, k g, PRN Blood Glucose Results, Start date: 07/28/16 17:17:00 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, Duration: 30 da y, Stop date: 08/27/16 17:16:00 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 Notes: Roll in palms of hands gently; Do not shake vigorously. (Same as: Armando Weber)"single patient use only"WASTE: F/P - Black; E - Municipal Trash Bin Stable f or 28 days at room temperature.Expires in days from Date Start Date: 07/28/16 Stop Date: 08/01/16 Status: Discontinued insulin aspart 3 unit, 0.03 mL, Route: SUB-Q, Drug form: SOLN, Bedtime, Dosing Weight 74.545, k g, PRN Blood Glucose Results, Start date: 07/28/16 17:17:00 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, Duration: 30 da y, Stop date: 08/27/16 17:16:00 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 Notes: Roll in palms of hands gently; Do not shake vigorously. (Same as: NovoJAY Weber)"single patient use only"WASTE: F/P - Black; E - Municipal Trash Bin Stable f or 28 days at room temperature.Expires in days from Date Start Date: 07/28/16 Stop Date: 08/01/16 Status: Discontinued insulin aspart 1 unit, 0.01 mL, Route: SUB-Q, Drug form: SOLN, TID-Before Meals, Dosing Weight 74.545, kg, PRN Blood Glucose Results, Start date: 07/28/16 17:17:00 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, Durati on: 30 day, Stop date: 08/27/16 17:16:00 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 Notes: Roll in palms of hands gently; Do not shake vigorously. (Same as: Armando Weber)"single patient use only"WASTE: F/P - Black; E - Municipal Trash Bin Stable f or 28 days at room temperature.Expires in days from Date Start Date: 07/28/16 Stop Date: 08/01/16 Status: Discontinued insulin aspart 5 unit, 0.05 mL, Route: SUB-Q, Drug form: SOLN, TID-Before Meals, Dosing Weight 74.545, kg, PRN Blood Glucose Results, Start date: 07/28/16 17:17:00 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, Durati on: 30 day, Stop date: 08/27/16 17:16:00 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 Notes: Roll in palms of hands gently; Do not shake vigorously. (Same as: Armando Weber)"single patient use only"WASTE: F/P - Black; E - Municipal Trash Bin Stable f or 28 days at room temperature.Expires in days from Date Start Date: 07/28/16 Stop Date: 08/01/16 Status: Discontinued insulin aspart 4 unit, 0.04 mL, Route: SUB-Q, Drug form: SOLN, TID-Before Meals, Dosing Weight 74.545, kg, PRN Blood Glucose Results, Start date: 07/28/16 17:17:00 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, Durati on: 30 day, Stop date: 08/27/16 17:16:00 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 Notes: Roll in palms of hands gently; Do not shake vigorously. (Same as: Amrando Weber)"single patient use only"WASTE: F/P - Black; E - Municipal Trash Bin Stable f or 28 days at room temperature.Expires in days from Date Start Date: 07/28/16 Stop Date: 08/01/16 Status: Discontinued insulin aspart 3 unit, 0.03 mL, Route: SUB-Q, Drug form: SOLN, TID-Before Meals, Dosing Weight 74.545, kg, PRN Blood Glucose Results, Start date: 07/28/16 17:17:00 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, Durati on: 30 day, Stop date: 08/27/16 17:16:00 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 Notes: Roll in palms of hands gently; Do not shake vigorously. (Same as: NovoLO G)"single patient use only"WASTE: F/P - Black; E - Municipal Trash Bin Stable f or 28 days at room temperature.Expires in days from Date Start Date: 07/28/16 Stop Date: 08/01/16 Status: Discontinued insulin aspart 2 unit, 0.02 mL, Route: SUB-Q, Drug form: SOLN, TID-Before Meals, Dosing Weight 74.545, kg, PRN Blood Glucose Results, Start date: 07/28/16 17:17:00 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, Durati on: 30 day, Stop date: 08/27/16 17:16:00 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 Notes: Roll in palms of hands gently; Do not shake vigorously. (Same as: NovoJAY G)"single patient use only"WASTE: F/P - Black; E - Municipal Trash Bin Stable f or 28 days at room temperature.Expires in days from Date Start Date: 07/28/16 Stop Date: 08/01/16 Status: Discontinued Lasix 40 mg, 4 mL, Route: IVP, Drug form: INJ, ONCE, Dosing Weight 74.545, kg, Start d ate: 07/31/16 8:48:00 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, Stop date: 07/31/16 8:48:00 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 Notes: (Same as: Lasix) MEDICATION WASTE Product Size: 40 mgProduct Was miesha: ___ mg Start Date: 07/31/16 Stop Date: 07/31/16 Status: Completed Lasix 40 mg oral tablet 40 mg, 1 tab, Route: PO, Drug form: TAB, Daily, Dosing Weight 74.545, kg, Start date: 08/01/16 9:00:00 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, 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, Stop date: 08/30/16 9:00:00 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 Notes: (Same as: Lasix) May cause GI upset. Give with food or milk. Start Date: 08/01/16 Stop Date: 08/01/16 Status: Discontinued magnesium oxide 800 mg, 2 tab, Route: PO, Drug form: TAB, PRN, Dosing Weight 74.545, kg, PRN Abn ormal Lab Result, For NON-ICU Patients Only., Start date: 07/31/16 11:47:00 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, 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, Stop date: 08/30/16 11:46:00 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 Notes: (Same as: Mag-Ox 400)Magnesium oxide [id number] elemental magnesiumDose= ____mg magnesium oxide (___mg elemental magnesium) Start Date: 07/31/16 Stop Date: 08/01/16 Status: Discontinued magnesium oxide 800 mg, 2 tab, Route: PO, Drug form: TAB, PRN, Dosing Weight 74.545, kg, PRN Abn ormal Lab Result, FOR ICU USE ONLY, Start date: 07/28/16 17:15:00 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, 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, Stop date: 08/27/16 17:14:00 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 Notes: (Same as: Mag-Ox 400)Magnesium oxide [id number] elemental magnesiumDose= ____mg magnesium oxide (___mg elemental magnesium) Start Date: 07/28/16 Stop Date: 07/31/16 Status: Discontinued magnesium sulfate 2 gm, 50 mL, Route: IVPB, Drug form: INJ, PRN, Dosing Weight 74.545, kg, PRN Abn ormal Lab Result, For NON-ICU Patients Only., Start date: 07/31/16 11:47:00 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, 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, Stop date: 08/30/16 11:46:00 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 Notes: WASTE: F/P - Sink; E - Municipal Trash Bin Start Date: 07/31/16 Stop Date: 08/01/16 Status: Discontinued magnesium sulfate 1 gm, 100 mL, Route: IVPB, Drug form: INJ, PRN, Dosing Weight 74.545, kg, PRN Ab normal Lab Result, For NON-ICU Patients Only., Start date: 07/31/16 11:47:00 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 , 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, Stop date: 08/30/16 11:46:00 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 Notes: WASTE: F/P - Sink; E - Municipal Trash Bin Start Date: 07/31/16 Stop Date: 08/01/16 Status: Discontinued magnesium sulfate 2 gm, 50 mL, Route: IVPB, Drug form: INJ, PRN, Dosing Weight 74.545, kg, PRN Abn ormal Lab Result, Start date: 07/28/16 17:15:00 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, 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, Stop date : 08/27/16 17:14:00 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, FOR ICU USE ONLY Notes: WASTE: F/P - Sink; E - Municipal Trash Bin Start Date: 07/28/16 Stop Date: 07/31/16 Status: Discontinued magnesium sulfate 2 gm in Water 50 ml 2 gm, Route: IVPB, Drug form: INJ, ONCE, Dosing Weight 74.545, kg, Start date: 0 07/28/16 17:16:00 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, Duration: 2 hr, Stop date: 07/28/16 17:16:00 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 Start Date: 07/28/16 Stop Date: 07/28/16 Status: Completed metoprolol tartrate 25 mg, 1 tab, Route: PO, Drug form: TAB, Q12H, Dosing Weight 74.545, kg, Start d ate: 07/29/16 21:00:00 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, 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, Stop date: 08/28/16 9:00:00 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 Notes: (Same as: Lopressor) Start Date: 07/29/16 Stop Date: 08/01/16 Status: Discontinued metoprolol tartrate 50 mg, 1 tab, Route: PO, Drug form: TAB, ONCE, Dosing Weight 74.545, kg, Start d ate: 07/29/16 17:27:00 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, Stop date: 07/29/16 17:27:00 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 Notes: (Same as: Lopressor) Start Date: 07/29/16 Stop Date: 07/29/16 Status: Completed MiraLax 17 gm, 1 pkt, Route: PO, Drug form: PWDR, BID, Dosing Weight 74.545, kg, Start d ate: 07/30/16 21:00:00 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, 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, Stop date: 08/29/16 17:00:00 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 Notes: Dissolve in 8 oz of water or juice.(Same as: Miralax) Start Date: 07/30/16 Stop Date: 08/01/16 Status: Discontinued nitroglycerin 100 mg/250ml D5W INJ 100 mg 100 mg, 250 mL, Rate: Titrate, Start Dose: 10 microgram/min, Titration: 10 micro gram/min every 5 minutes, Goal(s): SBP between 100 - 140 mmHg, Max Dose: 200 mcg /min, Route: IV, Dosing Weight 74.545 kg, Total Volume: 250, Start date: 7 18:29:00... Notes: (Same as:Tridil) Final conc = 0.4 mg/ml. Premix bottle. Start Date: 07/28/16 Stop Date: 07/30/16 Status: Discontinued [place] 7.5/325 oral tablet 1 tab, Route: PO, Drug Form: TAB, Dosing Weight 74.545, kg, Q6H, PRN Pain Score 4-6, Start date: 07/29/16 9:12:00 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, 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, Stop date: 08/28/16 9:1 1:00 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 Notes: Same as [place] 325-7.5mg Do not exceed 4gm/day of acetaminophen. Start Date: 07/29/16 Stop Date: 08/01/16 Status: Discontinued pneumococcal 23-valent vaccine 0.5 mL, Route: IM, Drug Form: INJ, Daily, Start date: 07/28/16 9:00:00 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, Dura tion: 1 doses or times, Stop date: 07/28/16 9:00:00 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 Notes: (Same as: Pneumovax 23) Refrigerate Start Date: 07/28/16 Stop Date: 07/28/16 Status: Completed potassium chloride 10 mEq, 50 mL, Route: IVPB, Drug form: INJ, PRN, Dosing Weight 74.545, kg, PRN A bnormal Lab Result, For NON-ICU Patients Only, Start date: 07/31/16 11:47:00 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 , 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, Stop date: 08/30/16 11:46:00 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 Notes: (Same as: KCL) Infuse over 2 hours. Start Date: 07/31/16 Stop Date: 08/01/16 Status: Discontinued potassium chloride 20 mEq, 1 tab, Route: PO, Drug form: ERTAB, PRN, Dosing Weight 74.545, kg, PRN A bnormal Lab Result, For NON-ICU Patients Only, Start date: 07/31/16 11:47:00 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 , 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, Stop date: 08/30/16 11:46:00 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 Notes: (Same as: K-Dur 20)"Do Not Crush" With food and full glass of water Start Date: 07/31/16 Stop Date: 08/01/16 Status: Discontinued potassium chloride 20 mEq, 15 mL, Route: NJ, Drug form: LIQ, PRN, Dosing Weight 74.545, kg, PRN Abn ormal Lab Result, For NON-ICU Patients Only, Start date: 07/31/16 11:47:00 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, 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, Stop date: 08/30/16 11:46:00 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 Notes: (Same as: Potassium Chloride) Start Date: 07/31/16 Stop Date: 08/01/16 Status: Discontinued potassium chloride 20 mEq, 15 mL, Route: NJ, Drug form: LIQ, PRN, Dosing Weight 74.545, kg, PRN Abn ormal Lab Result, Start date: 07/28/16 17:15:00 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, 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, Stop date : 08/27/16 17:14:00 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, FOR ICU USE ONLY Notes: (Same as: Potassium Chloride) Start Date: 07/28/16 Stop Date: 07/31/16 Status: Discontinued potassium chloride 20 mEq, 100 mL, Route: IVPB, Drug form: INJ, PRN, Dosing Weight 74.545, kg, PRN Abnormal Lab Result, Via central line, Start date: 07/28/16 17:15:00 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, Durati on: 30 day, Stop date: 08/27/16 17:14:00 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, FOR ICU USE ONLY Notes: (Same as: KCL) Infuse no faster than 10 mEq/hr if given peripherally. Start Date: 07/28/16 Stop Date: 07/31/16 Status: Discontinued potassium chloride 20 mEq, 1 tab, Route: PO, Drug form: ERTAB, PRN, Dosing Weight 74.545, kg, PRN A bnormal Lab Result, Start date: 07/28/16 17:15:00 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, 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, Stop da te: 08/27/16 17:14:00 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, FOR ICU USE ONLY Notes: (Same as: K-Dur 20)"Do Not Crush" With food and full glass of water Start Date: 07/28/16 Stop Date: 07/31/16 Status: Discontinued potassium chloride 10 mEq, 50 mL, Route: IVPB, Drug form: INJ, PRN, Dosing Weight 74.545, kg, PRN A bnormal Lab Result, Via peripheral line, Start date: 07/28/16 17:15:00 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, Dura tion: 30 day, Stop date: 08/27/16 17:14:00 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, FOR ICU USE ONLY Notes: (Same as: KCL) Infuse over 2 hours. Start Date: 07/28/16 Stop Date: 07/31/16 Status: Discontinued potassium phosphate + sodium chloride 0.9% INJ 250 mL 30 mmol, 10 mL, Route: IVPB, PRN, Dosing Weight 74.545, kg, PRN Abnormal Lab Res ult, For NON-ICU Patients Only., Start date: 07/31/16 11:47:00 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, 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, Stop date: 08/30/16 11:46:00 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 Notes: (Same as: K Phosphate.) 1 mMol phoshate has 1.47 mEq potassium Infuse o kathleen 4 hours Start Date: 07/31/16 Stop Date: 08/01/16 Status: Discontinued potassium phosphate + sodium chloride 0.9% INJ 250 mL 15 mmol, 5 mL, Route: IVPB, PRN, Dosing Weight 74.545, kg, PRN Abnormal Lab Resu lt, For NON-ICU Patients Only., Start date: 07/31/16 11:47:00 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, 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, Stop date: 08/30/16 11:46:00 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 Notes: (Same as: K Phosphate.) 1 mMol phoshate has 1.47 mEq potassium Infuse o kathleen 4 hours Start Date: 07/31/16 Stop Date: 08/01/16 Status: Discontinued potassium phosphate + sodium chloride 0.9% INJ 250 mL 45 mmol, 15 mL, Route: IVPB, PRN, Dosing Weight 74.545, kg, PRN Abnormal Lab Res ult, Start date: 07/28/16 17:15:00 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, 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, Stop date: 08/27/16 17 :14:00 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, FOR ICU USE ONLY Notes: (Same as: K Phosphate.) 1 mMol phoshate has 1.47 mEq potassium Infuse o kathleen 4 hours Start Date: 07/28/16 Stop Date: 07/31/16 Status: Discontinued potassium phosphate + sodium chloride 0.9% INJ 250 mL 30 mmol, 10 mL, Route: IVPB, PRN, Dosing Weight 74.545, kg, PRN Abnormal Lab Res ult, Start date: 07/28/16 17:15:00 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, 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, Stop date: 08/27/16 17 :14:00 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, FOR ICU USE ONLY Notes: (Same as: K Phosphate.) 1 mMol phoshate has 1.47 mEq potassium Infuse o kathleen 4 hours Start Date: 07/28/16 Stop Date: 07/31/16 Status: Discontinued potassium phosphate + sodium chloride 0.9% INJ 250 mL 15 mmol, 5 mL, Route: IVPB, PRN, Dosing Weight 74.545, kg, PRN Abnormal Lab Resu lt, Start date: 07/28/16 17:15:00 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, 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, Stop date: 08/27/16 17: 14:00 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, FOR ICU USE ONLY Notes: (Same as: K Phosphate.) 1 mMol phoshate has 1.47 mEq potassium Infuse o kathleen 4 hours Start Date: 07/28/16 Stop Date: 07/31/16 Status: Discontinued potassium phosphate-sodium phosphate 250 mg-280 mg-160 mg oral powder for recons titution 2 pkt, Route: PO, Drug Form: PDR/REC, Dosing Weight 74.545, kg, PRN, PRN Abnorma l Lab Result, For NON-ICU Patients Only, Start date: 07/31/16 11:47:00 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, Dura tion: 30 day, Stop date: 08/30/16 11:46:00 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 Notes: (Same as: Phos-NaK) Each 1.5 gm pkt has 250mg phosphorous. Mix w/2.5oz w ater and stir. Start Date: 07/31/16 Stop Date: 08/01/16 Status: Discontinued potassium phosphate-sodium phosphate 250 mg-280 mg-160 mg oral powder for recons titution 2 pkt, Route: PO, Drug Form: PDR/REC, Dosing Weight 74.545, kg, PRN, PRN Abnorma l Lab Result, FOR ICU USE ONLY, Start date: 07/28/16 17:15:00 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, 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, Stop date: 08/27/16 17:14:00 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 Notes: (Same as: Phos-NaK) Each 1.5 gm pkt has 250mg phosphorous. Mix w/2.5oz w ater and stir. Start Date: 07/28/16 Stop Date: 07/31/16 Status: Discontinued Protonix 40 mg, 1 tab, Route: PO, Drug form: ECTAB, Daily, Start date: 07/29/16 9:00:[address], 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, Stop date: 08/27/16 9:00:00 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 Notes: Tablet should not be chewed or crushed.(Same as: Protonix) Start Date: 07/29/16 Stop Date: 08/01/16 Status: Discontinued Sodium Chloride 0.9% (Bolus) IV 250 mL, 250 ml/hr, Infuse Over: 1 hr, Route: IV, 250, Drug form: INJ, ONCE, Dosi ng Weight 74.545 kg, Start date: 07/28/16 15:25:00 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, Duration: 1 doses or tyree es, Stop date: 07/28/16 15:25:00 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 Start Date: 07/28/16 Stop Date: 07/28/16 Status: Completed sodium chloride 0.9% 1000 ml INJ 750 mL 750 mL, Rate: 75 ml/hr, Infuse over: 10 hr, Route: IV, Dosing Weight 74.545 kg, Total Volume: 750, Start date: 07/28/16 15:25:00 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, Duration: 10 hr, Stop date : 07/29/16 1:24:00 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 Start Date: 07/28/16 Stop Date: 07/29/16 Status: Completed sodium phosphate + sodium chloride 0.9% INJ 250 mL 15 mmol, 5 mL, Route: IVPB, PRN, Dosing Weight 74.545, kg, PRN Abnormal Lab Resu lt, For NON-ICU Patients Only., Start date: 07/31/16 11:47:00 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, 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, Stop date: 08/30/16 11:46:00 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 Start Date: 07/31/16 Stop Date: 08/01/16 Status: Discontinued sodium phosphate + sodium chloride 0.9% INJ 250 mL 30 mmol, 10 mL, Route: IVPB, PRN, Dosing Weight 74.545, kg, PRN Abnormal Lab Res ult, For NON-ICU Patients Only., Start date: 07/31/16 11:47:00 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, 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, Stop date: 08/30/16 11:46:00 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 Start Date: 07/31/16 Stop Date: 08/01/16 Status: Discontinued sodium phosphate + sodium chloride 0.9% INJ 250 mL 45 mmol, 15 mL, Route: IVPB, PRN, Dosing Weight 74.545, kg, PRN Abnormal Lab Res ult, Start date: 07/28/16 17:15:00 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, 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, Stop date: 08/27/16 17 :14:00 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, FOR ICU USE ONLY Start Date: 07/28/16 Stop Date: 07/31/16 Status: Discontinued sodium phosphate + sodium chloride 0.9% INJ 250 mL 30 mmol, 10 mL, Route: IVPB, PRN, Dosing Weight 74.545, kg, PRN Abnormal Lab Res ult, Start date: 07/28/16 17:15:00 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, 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, Stop date: 08/27/16 17 :14:00 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, FOR ICU USE ONLY Start Date: 07/28/16 Stop Date: 07/31/16 Status: Discontinued sodium phosphate + sodium chloride 0.9% INJ 250 mL 15 mmol, 5 mL, Route: IVPB, PRN, Dosing Weight 74.545, kg, PRN Abnormal Lab Resu lt, Start date: 07/28/16 17:15:00 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, 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, Stop date: 08/27/16 17: 14:00 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, FOR ICU USE ONLY Start Date: 07/28/16 Stop Date: 07/31/16 Status: Discontinued spironolactone 25 mg, Route: PO, Drug form: TAB, Daily, Dosing Weight 74.545, kg, Start date: 0 07/29/16 9:00:00 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, 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, Stop date: 08/27/16 9:00:00 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 Start Date: 07/29/16 Stop Date: 07/28/16 Status: Canceled spironolactone 25 mg, 1 tab, Route: PO, Drug form: TAB, Daily, Dosing Weight 74.545, kg, Start date: 07/30/16 9:00:00 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, 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, Stop date: 08/28/16 9:00:00 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 Notes: (Same As: Aldactone) Start Date: 07/30/16 Stop Date: 08/01/16 Status: Discontinued Results BLOOD BANK RESULTS 1 2 3 Most recent to oldest [Reference Range]: A POS *Unknown* (07/28/16 6:25 AM) ABO/Rh Negative (07/28/16 6:25 AM) Antibody Scrn Product available (07/28/16 6:25 AM) FFP product Product available (07/28/16 6:25 AM) RBC product ELECTROLYTES 1 2 3 Most recent to oldest [Reference Range]: 138 mEq/L (08/01/16 3:25 AM) 138 mEq/L (07/31/16 4:42 AM) 138 mEq/L (07/30/16 1:07 AM) Sodium Lvl [135-145 mEq/L] 3.7 mEq/L (08/01/16 3:25 AM) 4.1 mEq/L (07/31/16 7:09 PM) 4.2 mEq/L (07/31/16 4:42 AM) Potassium Lvl [3.5-5.1 mEq/L] 101 mEq/L (08/01/16 3:25 AM) 105 mEq/L (07/31/16 4:42 AM) 104 mEq/L (07/30/16 1:07 AM) Chloride Lvl [95-109 mEq/L] 26 mEq/L (08/01/16 3:25 AM) 20 mEq/L *LOW* (07/31/16 4:42 AM) 27 mEq/L (07/30/16 1:07 AM) CO2 [24-32 mEq/L] 14.7 mEq/L (08/01/16 3:25 AM) 17.2 mEq/L (07/31/16 4:42 AM) 11.2 mEq/L (07/30/16 1:07 AM) AGAP [10.0-20.0 mEq/L] CHEM PANEL 1 2 3 Most recent to oldest [Reference Range]: 1.28 mg/dL (08/01/16 3:25 AM) 1.13 mg/dL (07/31/16 4:42 AM) 1.16 mg/dL (07/30/16 1:07 AM) Creatinine Lvl [0.50-1.40 mg/dL] 40 mL/min/1.73m2 1 *NA* (08/01/16 3:25 AM) 47 mL/min/1.73m2 2 *NA* (07/31/16 4:42 AM) 45 mL/min/1.73m2 3 *NA* (07/30/16 1:07 AM) eGFR 15 mg/dL (08/01/16 3:25 AM) 17 mg/dL (07/31/16 4:42 AM) 21 mg/dL (07/30/16 1:07 AM) BUN [7-22 mg/dL] 18 (07/28/16 6:25 AM) B/C Ratio [6-25] 138 mg/dL *HI* (08/01/16 3:25 AM) 120 mg/dL *HI* (07/31/16 4:42 AM) 149 mg/dL *HI* (07/30/16 1:07 AM) Glucose Lvl [70-99 mg/dL] 6.7 g/dL (07/28/16 6:25 AM) Total Protein [6.4-8.4 g/dL] 3.8 g/dL (07/28/16 6:25 AM) Albumin Lvl [3.5-5.0 g/dL] 2.9 g/dL (07/28/16 6:25 AM) Globulin [2.7-4.2 g/dL] 1.3 (07/28/16 6:25 AM) A/G Ratio [0.7-1.6] 9.1 mg/dL (08/01/16 3:25 AM) 8.7 mg/dL (07/31/16 4:42 AM) 8.5 mg/dL (07/30/16 1:07 AM) Calcium Lvl [8.5-10.5 mg/dL] 3.1 mg/dL (08/01/16 3:25 AM) 3.2 mg/dL (07/31/16 7:09 PM) 2.3 mg/dL *LOW* (07/31/16 4:42 AM) Phosphorus [2.5-4.5 mg/dL] 1.8 mg/dL (08/01/16 3:25 AM) 2.1 mg/dL (07/31/16 4:42 AM) 2.5 mg/dL *HI* (07/30/16 1:07 AM) Magnesium Lvl [1.8-2.4 mg/dL] 19 unit/L (07/28/16 6:25 AM) ALT [0-65 unit/L] 25 unit/L (07/28/16 6:25 AM) AST [0-37 unit/L] 45 unit/L (07/28/16 6:25 AM) Alk Phos [39-136 unit/L] 1.1 mg/dL (07/28/16 6:25 AM) Bili Total [0.2-1.3 mg/dL] 1Result Comment: The eGFR is calculated using the [...] from the National Kidney Disease Education Program ( NKDEP) which additionally recommends that when the eGFR is used in patients with extremes of body mass index for purposes of drug dosing, the eGFR should be mul tiplied by the estimated BMI. 2Result Comment: The eGFR is calculated using the [...] from the National Kidney Disease Education Program ( NKDEP) which additionally recommends that when the eGFR is used in patients with extremes of body mass index for purposes of drug dosing, the eGFR should be mul tiplied by the estimated BMI. 3Result Comment: The eGFR is calculated using the [...] from the National Kidney Disease Education Program ( NKDEP) which additionally recommends that when the eGFR is used in patients with extremes of body mass index for purposes of drug dosing, the eGFR should be mul tiplied by the estimated BMI. CARDIAC ENZYMES 1 2 3 Most recent to oldest [Reference Range]: 493 pg/mL *HI* (07/29/16 1:03 AM) BNP [<=100 pg/mL] PARATHYROID PROFILE 1 2 3 Most recent to oldest [Reference Range]: 1.15 mMol/L (07/30/16 1:07 AM) Ca Ion WB [1.05-1.25 mMol/L] 1.17 mMol/L (07/30/16 1:07 AM) Ca Norm WB [1.05-1.25 mMol/L] URINE AND STOOL 1 2 3 Most recent to oldest [Reference Range]: Clear (07/30/16 6:22 PM) UA Turbidity [Clear] Yellow *NA* (07/30/16 6:22 PM) UA Color [Yellow] 5.5 (07/30/16 6:22 PM) UA pH [5.0-8.0] 1.021 (07/30/16 6:22 PM) UA Spec Grav [<=1.030] Negative mg/dL *NA* (07/30/16 6:22 PM) UA Glucose [Negative mg/dL] Small *ABN* (07/30/16 6:22 PM) UA Blood [Negative] Negative mg/dL *NA* (07/30/16 6:22 PM) UA Ketones [Negative mg/dL] 20 mg/dL *ABN* (07/30/16 6:22 PM) UA Protein [Negative mg/dL] <=1.0 mg/dL *NA* (07/30/16 6:22 PM) UA Urobilinogen [0.1-1.0 mg/dL] Negative *NA* (07/30/16 6:22 PM) UA Bili [Negative] Small *ABN* (07/30/16 6:22 PM) UA Leuk Est [Negative] Negative (07/30/16 6:22 PM) UA Nitrite [Negative] 2 /HPF (07/30/16 6:22 PM) UA WBC [0-5 /HPF] 1 /HPF (07/30/16 6:22 PM) UA RBC [0-2 /HPF] Occasional /HPF *NA* (07/30/16 6:22 PM) UA Bacteria [None Seen /HPF] Few /LPF *NA* (07/30/16 6:22 PM) UA Sq Epi [Few /LPF] Few /LPF *NA* (07/30/16 6:22 PM) UA Mucus [None Seen /LPF] HEMATOLOGY 1 2 3 Most recent to oldest [Reference Range]: 8.0 K/CMM (08/01/16 3:25 AM) 8.2 K/CMM (07/31/16 4:42 AM) 8.9 K/CMM (07/30/16 1:07 AM) WBC [3.7-10.4 K/CMM] 2.94 M/CMM *LOW* (08/01/16 3:25 AM) 3.07 M/CMM *LOW* (07/31/16 4:42 AM) 2.76 M/CMM *LOW* (07/30/16 1:07 AM) RBC [4.20-5.40 M/CMM] 9.7 g/dL *LOW* (08/01/16 3:25 AM) 10.0 g/dL *LOW* (07/31/16 4:42 AM) 9.2 g/dL *LOW* (07/30/16 1:07 AM) Hgb [12.0-16.0 g/dL] 28.7 % *LOW* (08/01/16 3:25 AM) 31.0 % *LOW* (07/31/16 4:42 AM) 26.8 % *LOW* (07/30/16 1:07 AM) Hct [36.0-48.0 %] 97.5 fL (08/01/16 3:25 AM) 100.9 fL *HI* (07/31/16 4:42 AM) 97.4 fL (07/30/16 1:07 AM) MCV [80.0-98.0 fL] 33.2 pg *HI* (08/01/16 3:25 AM) 32.7 pg *HI* (07/31/16 4:42 AM) 33.2 pg *HI* (07/30/16 1:07 AM) MCH [27.0-31.0 pg] 34.0 g/dL (08/01/16 3:25 AM) 32.4 g/dL (07/31/16 4:42 AM) 34.1 g/dL (07/30/16 1:07 AM) MCHC [32.0-36.0 g/dL] 14.8 % *HI* (08/01/16 3:25 AM) 15.1 % *HI* (07/31/16 4:42 AM) 14.8 % *HI* (07/30/16 1:07 AM) RDW [11.5-14.5 %] 256 K/CMM (08/01/16 3:25 AM) 260 K/CMM (07/31/16 4:42 AM) 263 K/CMM (07/30/16 1:07 AM) Platelet [133-450 K/CMM] 8.7 fL (08/01/16 3:25 AM) 9.2 fL (07/31/16 4:42 AM) 8.7 fL (07/30/16 1:07 AM) MPV [7.4-10.4 fL] 75.2 % *HI* (08/01/16 3:25 AM) 68.8 % (07/31/16 4:42 AM) 74.7 % (07/30/16 1:07 AM) Segs [45.0-75.0 %] 3.0 % (07/28/16 4:12 PM) Bands [0.0-11.0 %] 14.4 % *LOW* (08/01/16 3:25 AM) 20.5 % (07/31/16 4:42 AM) 13.6 % *LOW* (07/30/16 1:07 AM) Lymphocytes [20.0-40.0 %] 0.0 % (07/28/16 4:12 PM) Atypical Lymphs [<=0.0 %] 7.6 % (08/01/16 3:25 AM) 7.9 % (07/31/16 4:42 AM) 9.6 % (07/30/16 1:07 AM) Monocytes [2.0-12.0 %] 2.4 % (08/01/16 3:25 AM) 2.1 % (07/31/16 4:42 AM) 1.6 % (07/30/16 1:07 AM) Eosinophils [0.0-4.0 %] 0.4 % (08/01/16 3:25 AM) 0.7 % (07/31/16 4:42 AM) 0.5 % (07/30/16 1:07 AM) Basophils [0.0-1.0 %] 1.0 % (07/28/16 4:12 PM) Metamyelocytes [0.0-1.0 %] 6.0 K/CMM (08/01/16 3:25 AM) 5.6 K/CMM (07/31/16 4:42 AM) 6.6 K/CMM (07/30/16 1:07 AM) Segs-Bands # [1.5-8.1 K/CMM] 1.2 K/CMM (08/01/16 3:25 AM) 1.7 K/CMM (07/31/16 4:42 AM) 1.2 K/CMM (07/30/16 1:07 AM) Lymphocytes # [1.0-5.5 K/CMM] 0.6 K/CMM (08/01/16 3:25 AM) 0.6 K/CMM (07/31/16 4:42 AM) 0.9 K/CMM *HI* (07/30/16 1:07 AM) Monocytes # [0.0-0.8 K/CMM] 0.2 K/CMM (08/01/16 3:25 AM) 0.2 K/CMM (07/31/16 4:42 AM) 0.1 K/CMM (07/30/16 1:07 AM) Eosinophils # [0.0-0.5 K/CMM] 0.1 K/CMM (07/31/16 4:42 AM) 0.1 K/CMM (07/29/16 1:03 AM) 0.1 K/CMM (07/28/16 4:12 PM) Basophils # [0.0-0.2 K/CMM] 1+ *ABN* (07/31/16 4:42 AM) Macrocyte [None Seen] 14.4 seconds (07/29/16 1:03 AM) 17.1 seconds *HI* (07/28/16 4:12 PM) 14.9 seconds *HI* (07/28/16 6:25 AM) PT [12.0-14.7 seconds] 1.10 (07/29/16 1:03 AM) 1.37 *HI* (07/28/16 4:12 PM) 1.15 (07/28/16 6:25 AM) INR [0.85-1.17] 26.6 seconds (07/29/16 1:03 AM) 143.7 seconds 1 *CRIT* (07/28/16 4:12 PM) 28.0 seconds (07/28/16 6:25 AM) PTT [22.9-35.8 seconds] 1Result Comment: Critical Result(s) called to marina goldstein at 07/28/2016 17:04 by erick. Read back OK. Immunizations Not Given Vaccine Date Status Refusal [...] Smoking Cessation Counseling Yes Assessment and Plan Extracted from: Title: Heart Failure Progress note Author: Aleksander Goyal DO Date: 08/01/16 Patient: KESHIA CORNEJO Age: 76 years Sex: Female : 1940 Associated Diagnoses: None Author: Aleksander Goyal DO Chief Complaint s/p TAVR History of Present Illness No CP, f/c, n/v/d. Walking around room without difficulties. Health Status Allergies: Allergic Reactions (All) Severity Not Documented Sulfa drugs- No reactions were documented., Allergies (1) ActiveReaction sulfa drugsNone Documented Current medications: (Selected) Inpatient Medications Ordered [...] MiraLax: 17 gm, 1 pkt, PO, BID [place] 7.5/325 oral tablet: 1 tab, PO, Q6H, [...] Medical History: Resolved CAD (coronary artery disease) (6108652425): Resolved. Aortic stenosis (290337459): Resolved. HLD (hyperlipidemia) (13785532): Resolved. COPD (chronic obstructive pulmonary disease) (80841748): Resolved. DM (diabetes mellitus) (945365024): Resolved. Cataract (3191352808): Resolved. Inferior myocardial infarction (7431560223): Resolved. Family History: No family history items have been selected or recorded. Procedure history: No active procedure history items have been selected or recorded. Social History Social & Psychosocial Habits Tobacco 07/28/2016 Use: Never smoker [...] Signs (last 24 hrs) Last Charted Temp Oral98.4 DegF (AUG 01 12:53) Heart Rate Tpoaac34 bpm (AUG 01 14:00) Resp Rate H 38BRMIN (AUG 01 14:00) CDY794 mmHg (AUG 01 14:00) DBPL 56mmHg (AUG 01 14:00) BiM198 % (AUG 01 13:34) Gen: NAD, resting [...] review: Labs (Last four charted values) WBC 8.0(AUG 01)8.2(JUL 31)8.9(JUL 30)9.9(JUL 29) Hgb L 9.7(AUG 01)L 10.0(JUL 31)L 9.2(JUL 30)L 10.1(JUL 29) Hct L 28.7(AUG 01)L 31.0(JUL 31)L 26.8(JUL 30)L 30.2(JUL 29) Plt 256(AUG 01)260(JUL 31)263(JUL 30)275(JUL 29) Na 138(AUG 01)138(JUL 16)138(JUL 15)144(JUL 29) K 3.7(AUG 01)4.1(JUL 31)4.2(JUL 31)4.2(JUL 30) CO2 26(AUG 01)L 20(JUL 31)27(JUL 30)24(JUL 29) Cl 101(AUG 01)105(JUL 31)104(JUL 30)107(JUL 29) Cr 1.28(AUG 01)1.13(JUL 31)1.16(JUL 30)1.36(JUL 29) BUN 15(AUG 01)17(JUL 16)21(JUL 15)H 25(JUL 29) Glucose Random H 138(AUG 01)H 120(JUL 16)H 149(JUL 30)H 149(JUL 29) Mg 1.8(AUG 01)2.1(JUL 31)H 2.5(JUL 30)H 2.8(JUL 29) Phos 3.1(AUG 01)3.2(JUL 31)L 2.3(JUL 31)L 2.4(JUL 30) Ca 9.1(AUG 01)8.7(JUL 31)8.5(JUL 30)L 8.1(JUL 29) PT 14.4(JUL 29)H 17.1(JUL 28)H 14.9(JUL 28) INR 1.10(JUL 29)H 1.37(JUL 28)1.15(JUL 28) PTT 26.6(JUL 29)C 143.7(JUL 28)28.0(JUL 28). Impression and Plan 76 y/o woman with [...] metformin on discharge Dispo: Home today Addendum Cardiology Attending Attest ation: by Janina, I have seen and examined th e patient with Dr. Goyal on 08/01/16 Emma I have reviewed all the cli nical information, laboratory investigations, and imaging data. Eliu CHONG I agree with the examinatio n, assessment, and plan as detailed below on 08/01/2016 19:10 Extracted from: Title: Heart Failure Admission H&P Author: Aleksander Goyal DO Date: 07/28/16 * Patient: KESHIA CORNEJO Age: 76 years Sex: [...] has known aortic stenosis, with TTE from 2015 showing moderate aortic stenosis. Patient reports that [...] in clinic and decision was to proceed wtih TAVR base on her intermediate STS score. [...] drugs- No reactions were documented., Allergies (1) ActiveReaction sulfa drugsNone Documented Current medications: (Selected) Inpatient Medications Ordered [...] mL: 75 ml/hr, IV, Stop: 07/29/16 1:24:00 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 spironolactone: 25 mg, PO, Daily Pending Complete [...] Medical History: Resolved CAD (coronary artery disease) (6038632600): Resolved. Aortic stenosis (926714518): Resolved. HLD (hyperlipidemia) (33281743): Resolved. COPD (chronic obstructive pulmonary disease) (61665557): Resolved. DM (diabetes mellitus) (960121568): Resolved. Family History: No family history items have been selected or recorded. Procedure history: No active procedure history items have been selected or recorded. Social History Social & Psychosocial Habits Tobacco 07/28/2016 Use: Never smoker [...] Signs (last 24 hrs) Last Charted Temp Oral97.3 DegF (JUL 28 16:00) Heart Rate Eocsaw85 bpm (JUL 28 16:00) Resp Rate H 25BRMIN (JUL 28 16:00) ZAH945 mmHg (JUL 28 06:30) DBP68 mmHg (JUL 28:30) RvF756 % (JUL 28 16:00) Aobvvc91.545 kg (JUL 28:15) Nsnwpr311.02 cm (JUL 28:15) BMI29.11 (JUL 28) Gen: NAD, resting comfortably HEENT: NCAT, EOMI [...] review: Labs (Last four charted values) WBC 6.3(JUL 28) Hgb L 11.9(JUL 28) Hct L 35.5(JUL 28) Plt 288(JUL 28) Na 141(JUL 28)141(JUL 28) K 3.9(JUL 28)3.6(JUL 28) CO2 L 23(JUL 28)30(JUL 28) Cl 106(JUL 28)102(JUL 28) Cr H 1.65(JUL 28)H 1.87(JUL 28) BUN H 30(JUL 28)H 33(JUL 28) Glucose Random H 154(JUL 28)H 147(JUL 28) Mg L 1.3(JUL 28)L 1.5(JUL 28) Ca L 7.9(JUL 28)9.2(JUL 28) PT H 14.9(JUL 28) INR 1.15(JUL 28) PTT 28.0(JUL 28). Impression and Plan 76 y/o woman with [...] ppx: HSQ Dispo: Monitor in ICU Addendum Cardiology Attending Attest ation: by Janina, I have seen and examined th e patient with Dr. Goyal on 07/28/16 Emma I have reviewed all the cli nical information, laboratory investigations, and imaging data. Eliu CHONG I agree with the examinatio n, assessment, and plan as detailed below on 07/28/2016 17:20 Extracted from: Title: Clinical Document Author: Alexander Summers Da te: 07/28/16 Terrence CHONG PATIENT NAME: KESHIA CORNEJO DATE OF OPERATION/PROCEDURE: 07/28/2015 *_*_* PROCEDURES PERFORMED: 1. Transcatheter aortic valve replaceme nt via the right femoral artery, a 20 mm Kendrick ELIEZER 2. Ascending aorta angiogram. 3. Placement of temporary pacing wire. 4. Failed 6-[place] ProGLIDE closure of the right femoral artery x 2. 5. 5-[place] Mynx closure of the left fe moral arteriotomy. 6. Planned repair of the right common f emoral artery 7. Balloon aortic valvuloplasty with a 20 mm Balloon pre and post TAVR. INDICATIONS FOR PROCEDURE: Ms. Cornejo is a 76-year-old male with severe symptomatic aortic stenosis with CAD s/p WA and PCIx 3, DM, HTN, DLD, COPD, GERD, diverticulitis and CKD III. Referred for TAVR evaluation. Her TTE showed severe with a mean gradient of 46, peak velocity of 4.5, aortic valve area of 0.45, EF of 50%. Patient has [employer] class III to IV symptoms, [...] left femoral artery was cannulated with a 5-[place] sheath, and the left femoral vein was cannulated with a 6-[place] sheath 45 cm long. Then, through the 6-[place] sheath placed in the right common femoral artery, the wire was placed and the sheath was removed, and a 6-[place] Proglide device x 2 were used to pre-apply sutures into the artery. These sutures were mated and placed to the side. A wire was placed through the Proglide device. The Proglide device was removed and exchanged for a 14-[place] Kendrick [employer] sheath. After the sheath was sutured in place, dilator was removed and part of the right femoral sheath. A 6-[place] pacing wire was placed in the intraventricular septum. Pacing thresholds and capture were confirmed. After this a pigtail catheter was then taken. The 5-[place] sheath was placed in the noncoronary cusp and then ascending aorta angiogram was done to align all the 3 cusps. After this, through the 5-[place] sheath, an AL1 catheter was taken to [...] [employer] 3-part tissue heart valve, serial number [id number], model 9600 TFX was then advanced across [...] this, the left femoral artery had a 5-[place] Mynx deployed. Removed sheath after protamine was [...] and supervised throughout the entire procedure. Addendum Staff: I was present nicole weber the entire procedure on 07/28/16, performed all rosado/critical by Syed, jessica and agree with the assessment and plan above. Trini Lynch MD MD on 07/29/2016 18:46
--- OUTSIDE RECORDS SUMMARY | 2019-12-12 15:08 | XMS REPORT | Summary of Care ---
Author Author [facility] Organization [facility] Address Unknown Phone Unavailable Encounter GLORIA Pierre(PAUL) [id number] Date(s): 08/28/16 - 08/28/16 [facility] [address], [address] [place], [place] [address] Discharge Disposition: Home or Self Care Attending Physician: Trini Lynch MD Referring Physician: Trini Lynch MD Vital Signs Most recent to 1 oldest [Reference Range]: Height 160.02 cm (08/28/16 9:27 AM) Temperature Oral 97.1 DegF [96.4-99.1 DegF] (08/28/16 9:27 AM) Blood Pressure 126/70 mmHg [90-140/60-90 mmHg] (08/28/16 9:27 AM) Respiratory Rate 16 BRMIN [14-20 BRMIN] (08/28/16 9:27 AM) Peripheral Pulse 58 bpm Rate [60-100 bpm] *LOW* (08/28/16 9:27 AM) Weight 71.477 kg (08/28/16 9:27 AM) Body Mass Index 27.91 m2 (08/28/16 9:27 AM) Problem List Condition Effective Dates Status [...]
--- OUTSIDE RECORDS SUMMARY | 2019-12-12 15:08 | XMS REPORT | Summary of Care ---
Author Author [facility] Organization [facility] Address Unknown Phone Unavailable Encounter GLORIA Pierre(PAUL) [id number] Date(s): 07/27/16 - 07/27/16 [facility] [address], [address] [place], [place] [address] Discharge Disposition: Home or Self Care Attending Physician: Nas Sanabria MD Referring Physician: Trini Lynch MD Vital Signs Most recent to 1 oldest [Reference Range]: Height 160.02 cm (07/27/16 10:13 AM) Weight 72.727 kg (07/27/16 10:13 AM) Body Mass Index 28.4 m2 (07/27/16 10:13 AM) Problem List Condition Effective Dates Status Health Status Informan t Aortic Resolved stenosis(Confirmed) CAD (coronary artery Resolved disease)(Confirmed) COPD (chronic Resolved obstructive pulmonary disease)(Confirmed) DM (diabetes Resolved mellitus)(Confirmed) HLD Resolved (hyperlipidemia)(Con firmed) Cataract(Confirmed) Resolved Inferior myocardial Resolved infarction(Confirmed ) Allergies, Adverse Reactions, Alerts Substance Reaction Severity Status sulfa drugs Active Medications No data available for this section Results CHEM PANEL Most recent to 1 oldest [Reference Range]: eGFR 33 mL/min/1.73m2 1 *NA* (07/27/16 11:28 AM) POC Creatinine 1.5 mg/dL [0.5-1.4 mg/dL] *HI* (07/27/16 11:28 AM) 1Result Comment: The eGFR is calculated using [...] be mul tiplied by the estimated BMI. Immunizations Not Given Vaccine Date Status Refusal [...]
--- OUTSIDE RECORDS SUMMARY | 2019-12-12 15:08 | XMS REPORT | Summary of Care ---
Author Author [facility] Organization [facility] Address Unknown Phone Unavailable Encounter GLORIA Pierre(PAUL) [id number] Date(s): 09/28/16 - 09/28/16 [facility] [address], [address] [place], [place] [address] Discharge Disposition: Home or Self Care Attending Physician: Nas Sanabria MD Referring Physician: Pilar Dasilva Vital Signs Most recent to 1 oldest [Reference Range]: Height 160.02 cm (09/28/16 10:34 AM) Temperature Oral 97.3 DegF [96.4-99.1 DegF] (09/28/16 10:34 AM) Blood Pressure 131/62 mmHg [90-140/60-90 mmHg] (09/28/16 10:34 AM) Respiratory Rate 16 BRMIN [14-20 BRMIN] (09/28/16 10:34 AM) Peripheral Pulse 52 bpm Rate [60-100 bpm] *LOW* (09/28/16 10:34 AM) Weight 69.29 kg (09/28/16 10:34 AM) Body Mass Index 27.06 m2 (09/28/16 10:34 AM) Problem List Condition Effective Dates [...]
--- OUTSIDE RECORDS SUMMARY | 2019-12-12 15:08 | XMS REPORT | Summary of Care ---
Author Author [facility] Organization [facility] Address Unknown Phone Unavailable Encounter GLORIA Pierre(PAUL) [id number] Date(s): 10/19/16 - 10/19/16 [facility] [address], [address] [place], [place] [address] Discharge Disposition: Home or Self Care Attending Physician: Nas Sanabria MD Referring Physician: Sarah Odell Vital Signs Most recent to 1 oldest [Reference Range]: Height 160.02 cm (10/19/16 11:57 AM) Temperature Oral 97.3 DegF [96.4-99.1 DegF] (10/19/16 11:57 AM) Blood Pressure 124/64 mmHg [90-140/60-90 mmHg] (10/19/16 11:57 AM) Respiratory Rate 16 BRMIN [14-20 BRMIN] (10/19/16 11:57 AM) Peripheral Pulse 63 bpm Rate [60-100 bpm] (10/19/16 11:57 AM) Weight 70.114 kg (10/19/16 11:57 AM) Body Mass Index 27.38 m2 (10/19/16 11:57 AM) Problem List Condition Effective Dates Status [...]
--- OUTSIDE RECORDS SUMMARY | 2019-12-12 15:08 | XMS REPORT | Summary of Care ---
Author Author [facility] Organization [facility] Address Unknown Phone Unavailable Encounter HQ Ignacio(PAUL) [id number] Date(s): 09/07/16 - 09/07/16 [facility] [address], [address] [place] [address]- Discharge Disposition: Home or Self Care Attending Physician: aNs Sanabria MD Referring Physician: Sarah Odell Vital Signs Most recent to 1 oldest [Reference Range]: Height 160.02 cm (09/07/16 10:02 AM) Temperature Oral 97.6 DegF [96.4-99.1 DegF] (09/07/16 10:02 AM) Blood Pressure 113/62 mmHg [90-140/60-90 mmHg] (09/07/16 10:02 AM) Respiratory Rate 18 BRMIN [14-20 BRMIN] (09/07/16 10:02 AM) Peripheral Pulse 57 bpm Rate [60-100 bpm] *LOW* (09/07/16 10:02 AM) Weight 69.801 kg (09/07/16 10:02 AM) Body Mass Index 27.26 m2 (09/07/16 10:02 AM) Problem List Condition Effective Dates Status [...]
--- OUTSIDE RECORDS SUMMARY | 2019-12-12 15:08 | XMS REPORT | Summary of Care ---
Author Author [facility] Organization [facility] Address Unknown Phone Unavailable Encounter HQ Ignacio(FIN) [id number] Date(s): 09/07/16 - 09/08/16 [facility] [address], [address] [place] [address]- Vital Signs No data available for this section Problem List Condition Effective Dates Status Health Status Informan t Aortic Resolved stenosis(Confirmed) CAD (coronary artery Resolved disease)(Confirmed) Coronary artery Active disease(Confirmed) COPD (chronic Active obstructive pulmonary disease)(Confirmed) DM (diabetes Active mellitus)(Confirmed) HLD Resolved (hyperlipidemia)(Con firmed) Cataract(Confirmed) Resolved Inferior myocardial Resolved infarction(Confirmed ) Allergies, Adverse Reactions, Alerts Substance Reaction Severity Status sulfa drugs Active Medications Keflex 500 mg oral capsule 500 mg = 1 cap, PO, BID, X 10 day, # 20 cap, 0 Refill(s), Pharmacy: [facility] [id number] Start Date: 09/07/16 Stop Date: 09/17/16 Status: Ordered Results No data available for [...]
--- OUTSIDE RECORDS SUMMARY | 2019-12-12 15:08 | XMS REPORT | Summary of Care ---
Author Author [facility] Organization [facility] Address Unknown Phone Unavailable Encounter GLORIA Pierre(PAUL) [id number] Date(s): 08/07/16 - 08/07/16 [facility] [address], [address] [place] [address]- Discharge Disposition: Home or Self Care Attending Physician: Trini Lynch MD Referring Physician: Trini Lynch MD Vital Signs Most recent to 1 oldest [Reference Range]: Height 160.02 cm (08/07/16 11:45 AM) Temperature Oral 97.6 DegF [96.4-99.1 DegF] (08/07/16 11:45 AM) Blood Pressure 116/66 mmHg [90-140/60-90 mmHg] (08/07/16 11:45 AM) Respiratory Rate 18 BRMIN [14-20 BRMIN] (08/07/16 11:45 AM) Peripheral Pulse 66 bpm Rate [60-100 bpm] (08/07/16 11:45 AM) Weight 71.165 kg (08/07/16 11:45 AM) Body Mass Index 27.79 m2 (08/07/16 11:45 AM) Problem List Condition Effective Dates Status [...]
--- OUTSIDE RECORDS SUMMARY | 2019-12-12 15:09 | XMS REPORT ---
Author Author [facility] t Organization [facility] Address [address] [place] [address] Phone Unavailable Care Team Providers Care Terrazzo Roller Name Role Phone Aga PACE Attphys Unavailable Anita Sanabria Nas Attphys Mallrey, Laina Attphys Unavailable Henry Soto Attphys Unavailable Syed, Biswajit Attphys Syed, Biswajit Admphys Payers Payer Name Policy Type Policy Number Effective Date Expiration Date S ource Problems Condition Name Condition Details Condition Category Status Onset Date Resolution Date Last Treatment Date Treating Clinician Comments Source GROIN WOUND PACKING GROI N WOUND PACKING Active 10/19/2016 [facility] Diagnosis Active 2016-10-19 00:00:00 2016-11-03 16:11:00 [facility] ter GROIN WOUND EVALUATION GROI N WOUND EVALUATION Active 09/28/2016 [facility] Diagnosis Active 2016-09-28 00:00:00 2016-10-05 10:25:[address] [facility] [address] 1 WK F/U 1 WK F/U Active 09/20/2016 [facility] Diagnosis Active 2016-09-20 00:00:00 2016-09-29 13:38:00 [facility] GROIN WOUND CHECK GROI N WOUND CHECK Active 09/14/2016 [facility] Diagnosis Active 2016-09-14 00:00:00 2016-09 10:02:00 [facility] GROIN PACKING/POSSIBLE SUTURE RMVL GROIN PACKING/POSSIBLE SUTURE RMVL Active 09/07/2016 [facility] Diagnosis Active 2016-09-07 00:00:00 2016-09-15 12:03:00 [facility] 30 DAY TAVR FOLLOW UP 30 D AY TAVR FOLLOW UP Active 08/14/2016 [facility] Diagnosis Active 2016-08-14 00:00:00 2016-09-04 18:11:00 [facility] ter FOLLOW UP FOLL OW UP Active 07/28/2016 [facility] Diagnosis Active 2016-07-28 00:00:00 2016-11-02 16:36:00 [facility] AORTIC STENOSIS AORT IC STENOSIS Active 07/27/2016 [facility] Diagnosis Active 2016-07-27 00:00:00 2016-08-08 0 6:58:00 [facility] PRE ADMIT/*GEN ANESTHESIA*/TAVR CASE/*3D PRE ADMIT/*GEN ANESTHESIA*/TAVR CASE/*3D Active 07/27/2016 [facility] Diagnosis Active 2016-07-27 00:00:00 2016-07-27 14:02:00 [facility] TAVR EVAL TAVR EVAL Active 07/20/2016 [facility] Diagnosis Active 2016-07-20 00:00:00 2016-08-24 15:54:00 [facility] CCL/LHC/DX: AORTIC STENOSIS CC L/LHC/DX: AORTIC STENOSIS Active 07/18/2016 [facility] Diagnosis Active 2016-07-18 00 :00:00 2016-07-18 16:45:00 [facility] ter TAVR TAVR Active 06/12/2016 [facility] Diagnosis Active 2016-06-12 00:00:00 2016-07-18 09:48:00 [facility] Aortic valve stenosis (disorder) Aortic valve stenosis (disorder) Resolved Problem 11/05/2016 [facility] Problem Resolved 2016-11-05 00:44:39 [facility] Coronary arteriosclerosis (disorder) Coronary arteriosclerosis (disorder) Resolved Problem 11/05/2016 [facility] Problem Resolved 2016-11-05 00 :44:39 [facility] Chronic obstructive lung disease (disorder) Chronic obstructive lung disease (disorder) Active Problem 11/05/2016 [facility] Problem Active 20 30-10-22 00:44:39 [facility] Diabetes mellitus (disorder) D iabetes mellitus (disorder) Active Problem 11/05/2016 [facility] Problem Active 2016-11-05 00:44:39 [facility] Hyperlipidemia (disorder) Hype rlipidemia (disorder) Resolved Problem 11/05/2016 [facility] Problem Resolved 2016-11-05 00:44:39 [facility] Cataract (disorder) Annalisa ract (disorder) Resolved Problem 11/05/2016 [facility] Problem Resolved 2016-11-05 00:44:39 [facility] Myocardial infarction (disorder) Myocardial infarction (disorder) Resolved Problem 11/05/2016 [facility] Problem Resolved 2016-11-05 00:44:39 [facility] ENCNTR FOR GENERAL ADULT MEDICAL EXAM W/ ENCNTR FOR GENERAL ADULT MEDICAL EXAM W/ Active [facility] Diagnosis Act jonas 2016-11-03 16:11:00 [facility] NONRHEUMATIC AORTIC (VALVE) STENOSIS NONRHEUMATIC AORTIC (VALVE) STENOSIS Active [facility] Diagnosis Active 2016-07-27 13:55:00 [facility] ter 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 Active [facility] Diagnosis Active 2016-08-08 06:58:00 [facility] ter Allergies, Adverse Reactions, Alerts Allergy Name Allergy Type Status Severity Reaction(s) Onset Date Inacti ve Date Treating Clinician Comments Source Sulfa (Sulfonamide Antibiotics) DA Active [place] 2019-12-04 00 :00:00 [facility] Sulfa (Sulfonamide Antibiotics) DA Active 2018-01-24 00 :00:00 [facility] sulfa drugs sulfa drugs Active [facility] Social History Smoking Status Start Date Stop Date Source Social History [facility] Medications Ordered Medication Name Filled Medication Name Start Date Stop Da te Current Medication? Ordering Clinician Indication Dosage Frequency Signature (SIG) Comments Components Source Cephalexin 500 MG Oral Capsule [Keflex] 2016-09-07 17:50:00 Yes 500 mg = 1 cap, PO, BID, X 10 day, # 20 cap, 0 Refill(s), Pharmacy: [address] [facility] amLODIPine 5 mg oral tablet 2016-08-01 15:45:00 Yes 5 mg = 1 tab, PO, Daily, # 90 tab, 0 Refill(s) [facility] Aspirin Enteric Coated 81 mg oral delayed release tablet 2016-08-01 15:45:00 Yes 81 mg = 1 tab, PO, Daily, # 90 t ab, 0 Refill(s) [facility] clopidogrel 75 mg oral tablet 2016-08-01 15:45:00 Yes 75 mg = 1 tab, PO, Daily, # 90 tab, 0 Refill(s) [facility] Furosemide 40 MG Oral Tablet [Lasix] 2016-08-01 15:00:00 No Notes: (Same as: Lasix) May cause GI upset. Give with food or milk. [facility] Dulcolax Laxative 2016-07-31 22:17:00 No Notes: (Same As: Dulcolax, Bisco-Lax) [facility] ter potassium chloride 2016-07-31 17:47:00 No Notes: (Same as: KCL) Infuse over [address] [facility] nter Calcium Gluconate 2016-07-31 17:47:00 No Notes: WASTE: F/P - Sink; E - Municipal Trash Bin [facility] potassium phosphate + sodium chloride 0.9% INJ 250 mL 2016-07-31 17:47:00 No Notes: (Same as : K Phosphate.) 1 mMol phoshate has 1.47 mEq potassium Infuse over [address] [facility] nter potassium phosphate-sodium phosphate 250 mg-280 mg-160 mg oral powder for reconstitution 2016-07-31 17:47:00 No Notes: (Same as: Phos-NaK) Each 1.5 gm pkt has 250mg phosphorous. Mix w/2.5oz water and stir. [facility] Magnesium Sulfate 2016-07-31 17:47:00 No Notes: WASTE: F/P - Sink; E - Municipal Trash Bin [facility] Magnesium Oxide 2016-07-31 17:47:00 No Notes: (Same as: Mag-Ox 400) Magnesium oxide [id number] elemental magnesium Dose=____mg magnesium oxide (___mg elemental magnesium) [facility] sodium phosphate + sodium chloride 0.9% INJ 250 mL 2016-07-16 6 17:47:00 No 15 mmol, 5 mL, Route : IVPB, PRN, Dosing Weight 74.545, kg, PRN Abnormal Lab Result, For NON-ICU Patients Only., Start date: 07/31/16 11:47:00 CUSTOMER SERVICES COORDINATOR, 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, Stop date: 08/30/16 11:46:00 CUSTOMER SERVICES COORDINATOR [facility] Lasix 2016-07-31 14:48:00 No Notes: (Same as: Lasix) MEDICATION WASTE Product Size: 40 mg Product Wasted: ___ mg [facility] Miralax 2016-07-31 03:00:00 No Notes: Dissolve in 8 oz of water or juice. (Same as: Miralax) [facility] Docusate Sodium 50 MG / sennosides, FCI 8.6 MG Oral Tablet 2016-07-31 03:00:00 No Notes: (Same as Senokot-S) Equ iv. to Kerline-Colace. [facility] Spironolactone 2016-07-30 15:00:00 No Notes: (Same As: Aldactone) [facility] metoprolol tartrate 2016-07-30 03:00:00 No Notes: (Same as: Lopressor) [facility] atorvastatin 2016-07-30 03:00:00 No Notes: (Same as: Lipitor) [facility] Amlodipine 2016-07-29 23:30:00 No Notes: (S [place] as: Norvasc) [facility] metoprolol tartrate 2016-07-29 23:27:00 No Notes: (Same as: Lopressor) [facility] Acetaminophen 325 MG / Hydrocodone Javier trate 7.5 MG Oral Tablet [[place] 7.5/325] 2016-07-29 15:12:00 No Notes: Same as [place] 325-7.5mg Do not exceed 4gm/day of acetaminophen. [facility] clopidogrel 2016-07-29 15:00:00 No Notes: ( Same As: Plavix) [facility] aspirin 81 mg tablet, enteric coated 2016-07-29 15:00:00 No Notes: Do not crush or chew. (Same As: Ecotrin) [facility] Spironolactone 2016-07-29 15:00:00 No 25 mg, Route: PO, Drug form: TAB, Daily, Dosing Weight 74.545, kg, Start date: 07/29/16 9:00:00 CUSTOMER SERVICES COORDINATOR, 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, Stop date: 08/27/16 9:00:00 CUSTOMER SERVICES COORDINATOR [facility] gabapentin 100 MG Oral Capsule 2016-07-29 15:00:00 No Notes: (Same as: Neurontin) [facility] ter Fluoxetine 2016-07-29 15:00:00 No N otes: (Same as: Prozac, Sarafem) [facility] Fenofibrate 145 MG Oral Tablet 2016-07-29 15:00:00 No Notes: (Same as: Tricor) [facility] Allopurinol 2016-07-29 15:00:00 No Notes: ( Same as: Zyloprim) [facility] Protonix 2016-07-29 15:00:00 No Notes: Tablet should not be chewed or crushed. (Same as: Protonix) [facility] Esomeprazole 2016-07-29 13:30:00 No 40 mg, Route: PO, Before Breakfast, Dosing Weight 74.545, kg, Start date: 07/29/16 7:30:00 CUSTOMER SERVICES COORDINATOR, 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, Stop date: 08/27/16 7:30:00 CUSTOMER SERVICES COORDINATOR [facility] heparin 2016-07-29 06:00:00 No Notes: porci ne heparin [facility] Artificial Tears 2016-07-29 03:30:00 No Notes: (Same as: Aquasite) [facility] Bumex 2016-07-29 00:41:00 No Notes: (Same A s: Bumex) [facility] Imdur 2016-07-29 00:30:00 No Notes: (Same as:Imdur) "Do Not Crush" Take on empty stomach/ full glass of water. Do not crush [facility] Nitroglycerin 2016-07-29 00:29:00 No Notes: (Same as:Tridil) Final conc = 0.4 mg/ml. Premix bottle. [facility] Acetaminophen 2016-07-28 23:43:00 No Notes: Do not exceed 4 gm/day. (Same as: Tylenol) [facility] ter Acetaminophen 2016-07-28 23:38:00 No 100.4 F, Start date: 07/28/16 17:38:00 CUSTOMER SERVICES COORDINATOR, 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, Stop date: 08/27/16 17:37:00 CUSTOMER SERVICES COORDINATOR [facility] Insulin, Aspart, Human 2016-07-28 23:17:00 No Notes: Roll in palms of hands gently; Do not shake vigorously. (Same as: NovoLOG) "single patient use only" WASTE: F/P - Black; E - Municipal Trash Bin Stable for 28 days at room temperature. Expires in days from Date [facility] Glucagon 2016-07-28 23:17:00 No 1 mg, Route: IM, Drug form: PDR/INJ, PRN, Dosing Weight 74.545, kg, PRN Blood Glucose Results, Start date: 07/28/16 17:17:00 CUSTOMER SERVICES COORDINATOR, 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, Stop date: 08/27/16 17:16:00 CUSTOMER SERVICES COORDINATOR [facility] Dextrose 50% Syringe 2016-07-28 23:17:00 No 25 gm, 50 mL, Route: IVP, Drug Form: INJ, Dosing Weight 74.545, kg, PRN, PRN Blood Glucose Results, Start date: 07/28/16 17:17:00 CUSTOMER SERVICES COORDINATOR, 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, Stop date: 08/27/16 17:16:00 CUSTOMER SERVICES COORDINATOR [facility] ter Magnesium Sulfate 2016-07-28 23:16:00 No 2 gm, Route: IVPB, Drug form: INJ, ONCE, Dosing Weight 74.545, kg, Start date: 07/28/16 17:16:00 CUSTOMER SERVICES COORDINATOR, Duration: 2 hr, Stop date: 07/28/16 17:16:00 CUSTOMER SERVICES COORDINATOR [facility] Calcium Carbonate 500 MG Chewable Tablet 2016-07-28 23:15:00 No Notes: (Same As: Tums) Calcium Carbonate 500 mg = 200 mg elemental calcium Dose = mg calcium carbonate ( mg elemental calcium) [facility] potassium chloride 2016-07-28 23:15:00 No Notes: (Same as: Potassium Chloride) [facility] ter sodium phosphate + sodium chloride 0.9% INJ 250 mL 2016-07-16 3 23:15:00 No 45 mmol, 15 mL, Rout e: IVPB, PRN, Dosing Weight 74.545, kg, PRN Abnormal Lab Result, Start date: 07/28/16 17:15:00 CUSTOMER SERVICES COORDINATOR, 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, Stop date: 08/27/16 17:14:00 CUSTOMER SERVICES COORDINATOR, FOR ICU USE ONLY [facility] Magnesium Oxide 2016-07-28 23:15:00 No Notes: (Same as: Mag-Ox 400) Magnesium oxide [id number] elemental magnesium Dose=____mg magnesium oxide (___mg elemental magnesium) [facility] potassium phosphate + sodium chloride 0.9% INJ 250 mL 2016-07-28 23:15:00 No Notes: (Same as : K Phosphate.) 1 mMol phoshate has 1.47 mEq potassium Infuse over 4 hours [facility] [address] Calcium Gluconate 2016-07-28 23:15:00 No Notes: WASTE: F/P - Sink; E - Municipal Trash Bin [facility] enter Magnesium Sulfate 2016-07-28 23:15:00 No Notes: WASTE: F/P - Sink; E - Municipal Trash Bin [facility] enter potassium phosphate-sodium phosphate 250 mg-280 mg-160 mg oral powder for reconstitution 2016-07-28 23:15:00 No Notes: (Same as: Phos-NaK) Each 1.5 gm pkt has 250mg phosphorous. Mix w/2.5oz water and stir. [facility] Sodium Chloride 0.154 MEQ/ML Injectable Solution 2016-07-28 21:2 5:00 No 250 mL, 250 ml/hr, Infuse Ov er: 1 hr, Route: IV, 250, Drug form: INJ, ONCE, Dosing Weight 74.545 kg, Start date: 07/28/16 15:25:00 CUSTOMER SERVICES COORDINATOR, Duration: 1 doses or times, Stop date: 07/28/16 15:25:00 CUSTOMER SERVICES COORDINATOR [facility] pneumococcal capsular polysaccharide typ e 1 vaccine / pneumococcal capsular polysaccharide type 10A vaccine / pneumococcal capsular polysaccharide type 11A vaccine / pneumococcal capsular polysaccharide type 12F vaccine / pneumococcal capsular polysacchar 2016-07-28 15:00:00 No Notes: (Same as: Pneumovax 23) Refrigerate [facility] isosorbide mononitrate 30 mg oral tablet, extended release 2016-07-18 16:51:00 Yes 30 mg = 1 tab, PO, QAM, 0 Refil l(s) [facility] Furosemide 40 MG Oral Tablet 2016-07-18 16:51:00 Yes 40 mg = 1 tab, PO, Daily, 0 Refill(s) [facility] Fenofibrate 145 MG Oral Tablet 2016-07-18 16:51:00 Yes 145 mg = 1 tab, PO, Daily, 0 Refill(s) [facility] clopidogrel 75 mg oral tablet 2016-07-18 16:51:00 Yes 75 mg = 1 tab, PO, Daily, 0 Refill(s) [facility] metoprolol tartrate 50 mg oral tablet 2016-07-18 16:51:00 Y es 25 mg = 0.5 tab, PO, BID, 0 Refill(s) [facility] Home Medication 2016-07-18 16:51:00 Yes Calcium Chocolate Chews 2 daily, Refill(s) 0 [facility] Probiotic Formula 2016-07-18 16:51:00 Yes 1 cap, PO, Daily, 0 Refill(s) [facility] Nitroglycerin 0.4 MG Sublingual Tablet 2016-07-18 16:51:00 Yes 0.4 mg = 1 tab, SL, PRN, 0 Refill(s) [facility] gabapentin 100 MG Oral Capsule 2016-07-18 16:51:00 Yes 300 mg = 3 cap, PO, TID, 0 Refill(s) [facility] Metformin hydrochloride 500 MG Oral Tablet 2016-07-18 16:51:00 Yes 500 mg = 1 tab, PO, BID, 0 Refill(s) [facility] atorvastatin 40 mg oral tablet 2016-07-18 16:51:00 Yes 40 mg = 1 tab, PO, Daily, 0 Refill(s) [facility] pantoprazole 40 mg oral granule 2016-07-18 16:51:00 Yes = 1 Pack, PO, Daily, # 30 ea, 0 Refill(s) [facility] FLUoxetine 20 mg oral capsule 2016-07-18 16:51:00 Yes 20 mg = 1 cap, PO, Daily, 0 Refill(s) [facility] Aspirin Enteric Coated 81 mg oral delayed release tablet 2016-07-18 16:51:00 Yes 81 mg = 1 tab, PO, Daily, 0 Refi ll(s) [facility] allopurinol 300 mg oral tablet 2016-07-18 16:51:00 Yes 300 mg = 1 tab, PO, Daily, 0 Refill(s) [facility] spironolactone 25 mg oral tablet 2016-07-18 16:51:00 Yes 25 mg = 1 tab, PO, Daily, 0 Refill(s) [facility] Vital Signs Vital Name Observation Time Observation Value Comments Source Height 2016-11-02 15:47:00 160.02 cm [facility] BMI Calculated 2016-11-02 15:47:00 [facility] Weight 2016-11-02 15:47:00 [facility] Height 2016-10-19 16:57:00 160.02 cm [facility] Temperature Oral (F) 2016-10-19 16:57:00 97.3 F [facility] Respitory Rate 2016-10-19 16:57:00 [facility] Heart Rate 2016-10-19 16:57:00 [facility] BMI Calculated 2016-10-19 16:57:00 [facility] Weight 2016-10-19 16:57:00 [facility] Systolic (mm Hg) 2016-10-19 16:57:00 [facility] Diastolic (mm Hg) 2016-10-19 16:57:00 [facility] Weight 2016-10-12 15:48:00 [facility] BMI Calculated 2016-10-12 15:48:00 [facility] Temperature Oral (F) 2016-10-12 15:48:00 96.9 F [facility] Respitory Rate 2016-10-12 15:48:00 [facility] Systolic (mm Hg) 2016-10-12 15:48:00 [facility] Diastolic (mm Hg) 2016-10-12 15:48:00 [facility] Heart Rate 2016-10-12 15:48:00 [facility] Height 2016-10-12 15:48:00 160.02 cm [facility] Height 2016-10-05 15:34:00 160.02 cm [facility] BMI Calculated 2016-10-05 15:34:00 [facility] Weight 2016-10-05 15:34:00 [facility] Heart Rate 2016-10-05 15:34:00 [facility] Respitory Rate 2016-10-05 15:34:00 [facility] Temperature Oral (F) 2016-10-05 15:34:00 97.2 F [facility] Systolic (mm Hg) 2016-10-05 15:34:00 [facility] Diastolic (mm Hg) 2016-10-05 15:34:00 [facility] Height 2016-09-28 15:34:00 160.02 cm [facility] BMI Calculated 2016-09-28 15:34:00 [facility] Heart Rate 2016-09-28 15:34:00 [facility] Respitory Rate 2016-09-28 15:34:00 [facility] Temperature Oral (F) 2016-09-28 15:34:00 97.3 F [facility] Weight 2016-09-28 15:34:00 [facility] Systolic (mm Hg) 2016-09-28 15:34:00 [facility] Diastolic (mm Hg) 2016-09-28 15:34:00 [facility] Systolic (mm Hg) 2016-09-20 16:48:00 [facility] Diastolic (mm Hg) 2016-09-20 16:48:00 [facility] Height 2016-09-20 16:48:00 162.56 cm [facility] BMI Calculated 2016-09-20 16:48:00 [facility] Weight 2016-09-20 16:48:00 [facility] Temperature Oral (F) 2016-09-20 16:48:00 97.2 F [facility] Heart Rate 2016-09-20 16:48:00 [facility] Respitory Rate 2016-09-20 16:48:00 [facility] Height 2016-09-14 16:41:00 160.02 cm [facility] Weight 2016-09-14 16:41:00 [facility] BMI Calculated 2016-09-14 16:41:00 [facility] Respitory Rate 2016-09-14 16:41:00 [facility] Temperature Oral (F) 2016-09-14 16:41:00 96.8 F [facility] Heart Rate 2016-09-14 16:41:00 [facility] Systolic (mm Hg) 2016-09-14 16:41:00 [facility] Diastolic (mm Hg) 2016-09-14 16:41:00 [facility] Height 2016-09-07 16:02:00 160.02 cm [facility] Temperature Oral (F) 2016-09-07 16:02:00 97.6 F [facility] Respitory Rate 2016-09-07 16:02:00 [facility] Heart Rate 2016-09-07 16:02:00 [facility] Weight 2016-09-07 16:02:00 [facility] BMI Calculated 2016-09-07 16:02:00 [facility] Systolic (mm Hg) 2016-09-07 16:02:[facility]mm [facility] 2016-09-07 16:02:00 [facility] Height 2016-08-28 15:27:00 160.02 cm [facility] Weight 2016-08-28 15:27:00 [facility] BMI Calculated 2016-08-28 15:27:00 [facility] Respitory Rate 2016-08-28 15:27:00 [facility] Heart Rate 2016-08-28 15:27:00 [facility] Temperature Oral (F) 2016-08-28 15:27:00 97.1 F [facility] Systolic (mm Hg) 2016-08-28 15:27:00 [facility] Diastolic (mm Hg) 2016-08-28 15:27:00 [facility] Systolic (mm Hg) 2016-08-14 16:47:00 [facility] Diastolic (mm Hg) 2016-08-14 16:47:00 [facility] Heart Rate 2016-08-14 16:47:00 [facility] Respitory Rate 2016-08-14 16:47:00 [facility] Temperature Oral (F) 2016-08-14 16:47:00 97.4 F [facility] Height 2016-08-14 16:47:00 160.02 cm [facility] BMI Calculated 2016-08-14 16:47:00 [facility] Weight 2016-08-14 16:47:00 [facility] BMI Calculated 2016-08-07 17:45:00 [facility] Weight 2016-08-07 17:45:00 [facility] Height 2016-08-07 17:45:00 160.02 cm [facility] Systolic (mm Hg) 2016-08-07 17:45:00 [facility] Diastolic (mm Hg) 2016-08-07 17:45:00 [facility] Respitory Rate 2016-08-07 17:45:00 [facility] Temperature Oral (F) 2016-08-07 17:45:00 97.6 F [facility] Heart Rate 2016-08-07 17:45:00 [facility] Respitory Rate 2016-08-01 20:00:00 [facility] Systolic (mm Hg) 2016-08-01 20:00:00 [facility] Diastolic (mm Hg) 2016-08-01 20:00:00 [facility] Temperature Oral (F) 2016-08-01 18:53:00 98.4 F [facility] Systolic (mm Hg) 2016-08-01 18:00:00 [facility] Diastolic (mm Hg) 2016-08-01 18:00:00 [facility] Respitory Rate 2016-08-01 18:00:00 [facility] Systolic (mm Hg) 2016-08-01 17:00:00 [facility] Diastolic (mm Hg) 2016-08-01 17:00:00 [facility] Respitory Rate 2016-08-01 17:00:00 [facility] Temperature Oral (F) 2016-08-01 11:48:00 99.5 F [facility] Temperature Oral (F) 2016-08-01 05:33:00 98.1 F [facility] Weight 2016-07-28 12:15:00 [facility] Height 2016-07-28 12:15:00 160.02 cm [facility] BMI Calculated 2016-07-28 12:15:00 [facility] BMI Calculated 2016-07-27 16:13:00 [facility] Height 2016-07-27 16:13:00 160.02 cm [facility] Weight 2016-07-27 16:13:00 [facility] Height 2016-07-18 16:18:00 160.02 cm [facility] Temperature Oral (F) 2016-07-18 16:18:00 97.4 F [facility] Respitory Rate 2016-07-18 16:18:00 [facility] Heart Rate 2016-07-18 16:18:00 [facility] Weight 2016-07-18 16:18:00 [facility] BMI Calculated 2016-07-18 16:18:00 [facility] Systolic (mm Hg) 2016-07-18 [facility]:18[facility] Di[facility] ([facility] 2016-07-18 16:18:00 [facility] Procedures This patient has no known procedures. Encounters Start Date/Time End Date/Time Encounter Type Admission Type [facility] Care Department Encounter ID Source 2016-11-02 15:09:00 2016-11-03 04:59:00 Outpatient [facility] [id number] [facility] ter 2016-11-02 10:09:00 2016-11-02 23:59:00 Outpatient Nas Sanabria [facility] [id number] 2016-10-19 15:13:00 2016-10-20 04:59:00 Outpatient [facility] [id number] [facility] ter 2016-10-19 10:13:00 2016-10-19 23:59:00 Outpatient Nas aSnabria [facility] [id number] 2016-10-12 15:29:00 2016-10-13 04:59:00 Outpatient [facility] [id number] [facility] ter 2016-10-12 10:29:00 2016-10-12 23:59:00 Outpatient Laina Sanchez [facility] [id number] 2016-10-05 15:24:00 2016-10-06 04:59:00 Outpatient [facility] [id number] [facility] 2016-10-05 10:24:00 2016-10-05 23:59:00 Outpatient Nas Sanabria [facility] [id number] 2016-09-28 15:04:00 2016-09-29 04:59:00 Outpatient [facility] [id number] [facility] 2016-09-28 10:04:00 2016-09-28 23:59:00 Outpatient Nas Sanabria [facility] [id number] 2016-09-20 16:32:00 2016-09-21 05:59:00 Outpatient [facility] [id number] [facility] 2016-09-20 10:32:00 2016-09-20 23:59:00 Outpatient Henry Soto [facility] [id number] 2016-09-14 16:12:00 2016-09-15 05:59:00 Outpatient [facility] [id number] [facility] 2016-09-14 10:12:00 2016-09-14 23:59:00 Outpatient Henry Soto [facility] [id number] 2016-09-07 17:49:00 2016-09-09 05:59:59 Phone Message [facility] [id number] [facility] 2016-09-07 11:49:00 2016-09-08 23:59:59 Outpatient [id number] 2016-09-07 15:50:00 2016-09-08 05:59:00 Outpatient [facility] [id number] [facility] 2016-09-07 09:50:00 2016-09-07 23:59:00 Outpatient Nas Sanabria [facility] [id number] 2016-08-28 14:57:00 2016-08-29 05:59:00 Outpatient MHIEKYT [facility] [id number] [facility] 2016-08-28 08:57:00 2016-08-28 23:59:00 Outpatient Trini Lynch [facility] [id number] 2016-08-14 16:36:00 2016-08-15 05:59:00 [facility] [id number] 2016-08-14 10:36:00 2016-08-14 23:59:00 Outpatient Laina Sanchez [facility] [id number] 2016-08-07 17:27:00 2016-08-08 05:59:00 Outpatient [facility] [id number] [facility] 2016-08-07 11:27:00 2016-08-07 23:59:00 Outpatient Trini Lynch [facility] [id number] 2016-07-28 11:57:00 2016-08-01 20:57:00 Inpatient [facility] [id number] [facility] 2016-07-28 05:57:00 2016-08-01 14:57:00 Outpatient Naun Lynhcchristoph [facility] [id number] 2016-07-27 16:08:00 2016-07-28 05:59:00 [facility] [id number] [facility] 2016-07-27 10:08:00 2016-07-27 23:59:00 Outpatient Nas Sanabria [facility] [id number] 2016-07-18 15:38:00 2016-07-19 05:59:00 [facility] [id number] [facility] 2016-07-18 09:38:00 2016-07-18 23:59:00 Outpatient Naun Lyncht [facility] [id number] Results Test Description Test Time Test Comments Results Result Comments Source CHEST SINGLE (PORTABLE) 2019-12-12 12:39:00 [place] [address] Patient Name: KESHIA CORNEJO MR #: [id number] : 1940 Age/Sex: 79/F Req #: [id number] Adm Physician: Ordered by: GERMAINE PACE MD Report #: [id number] Location: ER Room/Bed: Procedure: [id number] DX/CHEST SINGLE (PORTABLE) Exam Date: 12/12/19 Exam Time: 1200 REPORT STATUS: Signed EXAMINATION: CHEST SINGLE (PORTABLE) INDICATION: CHF COMPARISON: None FINDINGS: LINES/TUBES:None LUNGS:The lungs are well-inflated. There is perihilar fullness and indistinctness of the pulmonary vasculature. PLEURA:No pleural effusion or pneumothorax. MEDIASTINUM:Mild cardiomegaly. Atherosclerotic calcifications of the thoracic aorta. BONES/SOFT TISSUES:No acute osseous injury. ABDOMEN:No free air under the diaphragm. IMPRESSION: Cardiomegaly and pulmonary interstitial edema. Signed by: Jean Claude Guzman MD on 12/12/2019 12:40 PM Dictated By: JEAN CLAUDE GUZMAN MD 1240 Transcribed By: MEAGHAN on 12/12/19 1240 COPY TO: GERMAINE PACE MD CT BRAIN WO 2019-12-12 12:35:00 [place] [address] Patient Name: KESHIA CORNEJO MR #: [id number] : 1940 [facility] 79[id number] Req #: [id number] Adm Physician: Ordered by: GERMAINE PACE MD Report #: [id number] Location: Room/Bed: Procedure: [id number] CT/CT BRAIN WO Exam Date: 12/12/19 Exam Time: 1200 REPORT STATUS: Signed Examination: CT head without contrast Clinical Indication: Weakness. Technique: Transaxial noncontrast images from the skull base through the vertex were obtained. Sagittal and coronal reformatted images were done. Dose modulation, iterative reconstruction, and/or weight based adjustment of the mA/kV was utilized to reduce the radiation dose to as low as reasonably achievable. Comparison: None. Findings: Scalp: No abnormalities. Bones: Intact. No fractures. No blastic or lytic lesions. Brain sulci: Appropriate for patient's age. Ventricles: Normal in size and configuration. No hydrocephalus. . Extra-axial space: No abnormalities. Parenchyma: There are patchy and confluent areas of low- attenuation within subcortical and periventricular white matter, nonspecific, but could represent microvascular ischemic disease. No masses, hemorrhage, or acute or chronic cortical based vascular insults. Suprasellar region: No abnormalities. Craniocervical junction: The foramen magnum is patent. No Chiari one malformation. Incidental findings: Atherosclerotic calcification of the cavernous and supraclinoid internal carotid arteries. Impression: 1. No acute intracranial finding. 2. Chronic micr ovascular ischemic change. Signed by: Dr. Cuauhtemoc Montoya M.D. on 12/12/2019 12:42 PM Dictated By: CUAUHTEMOC YEN MD 1242 Transcribed By: MEAGHAN on 12/12/19 1242 COPY TO: GERMAINE PACE MD - PULM VENT PERF IMAG 2019-12-10 11:49:00 FAX : Stuart Delvalle MD [phone] [place]: St: DIS FAX: Zack Barth MD [phone] Name: KESHIA CORNEJO [facility] : 1940 Age/S: 79/F [address] [facility] Unit #: [id number] Loc: V[address] [place] [address] Phys: Stuart Delvalle MD Acct: [id number] Dis Date: 20191207 Status: DIS IN PHONE #: [phone] Exam Date: 12/07/2019 1234 FAX #: [phone] Reason: profound SOB Report Has Been Amended EXAMS: CPT CODE: [id number] PULM VENT PERF IMAG [id number] Addendum - 12/10/2019 SIGNED 12/10/2019 ADDENDUM: [id number] NM/PULMVNTPER Images were reviewed. I agree with report. at 1144 Reported and signed by: Eladio Jason MD Transcribed: 12/10/2019 (5409) t.SDR.RR31 Report EXAM: Nuclear medicine pulmonary ventilation and perfusion scan; INFORMATION: Profound shortness of breath; TECHNIQUE AND FINDINGS: The ventilation scan was obt ained after inhalation of 10 mCi of xenon-133. The perfusion scan was obtained after intravenous injection of 4 mCi of 99 mTc-MAA. The ventilation scan shows good uptake in both lungs with delayed washout. The perfusion scan shows homogeneous activity in both lungs and there is no mismatched defect. IMPRESSION: 1. The study is of low probability for pulmonary embolism. 2. Delayed washout suggests COPD. (Preliminary report) Location code: [facility] at 1252 Reported and signed by: Vinicius Muro M.D. PAGE 1 Signed Report (CONTINUED) FAX: Stuart Delvalle MD [phone] [place]: B St: DIS FAX: Zack Barth MD [phone] Name: KESHIA CORNEJO [facility] : 1940 Age/S: 79/F [address] Unit #: [id number] Loc: [address] [address] Phys: Stuart Delvalle MD Acct: [id number] Dis Date: 20191207 Status: DIS IN PHONE #: [phone] Exam Date: 12/07/2019 1234 FAX #: [phone] Reason: profound SOB Report Has Been Amended EXAMS: CPT CODE: [id number] PULM VENT PERF IMAG 25716 <Continued> CC: Stuart Delvalle MD; Zack Diego Technologist: Sajan ESCOBEDO(R)(N) Trnscrd Date/Time/By: 12/07/2019 (3281) : By: ElleGRW Orig Print D/T: S: 12/07/2019 (7247) PAGE 2 Signed Report GLUBED 2019-12-07 15:54:00 Test Item GLUBED (test code = GLUBED) 123 mg/dL 74-106 H Performed by certified gravity meter operator at [facility] - PULM VENT PERF [id number] 12:52:00 FAX: Stuart Delvalle MD [phone] [place]: B St: ADM FAX: Zack Barth MD [phone] Name: KESHIA CORNEJO [facility] : 1940 Age/S: 79/F [address] [facility]: [id number] Loc: V[address] [place] [address] Phys: Stuart Delvalle MD Acct: [id number] Dis Date: Status: ADM IN PHONE #: [phone] Exam Date: 12/07/2019 2711 FAX #: [phone] Reason: profound SOB EXAMS: CPT CODE: [id number] PULM VENT PERF IMAG 51933 EXAM: Nuclear medicine pulmonary ventilation and perfusion scan; INFORMATION: Profound shortness of breath; TECHNIQUE AND FINDINGS: The ventilation scan was obtained after inhalation of 10 mCi of xenon-133. The perfusion scan was obtained after intravenous i njection of 4 mCi of 99 mTc-MAA. The ventilation scan shows good uptake in both lungs with delayed washout. The perfusion scan s hows homogeneous activity in both lungs and there is no mismatched defect. IMPRESSION: 1. The study is of low probability for pul monary embolism. 2. Delayed washout suggests COPD. (P reliminary report) Location code: [facility] Lidia ctronically Signed by Donald Muro on 2019 at 1252 Reported and signed by: Vinicius Muro M.D. CC: Stuart Delvalle MD; Zack Diego Technologist: Sajan Og RT(R)(N) T rnscrd Date/Time/By: 12/07/2019 (5471) : By: BrandenW Orig Print D/T: S: 12/07/2019 (2651) PAGE 1 Sign ed Report [id number] 11:57:00* Test Item Value Reference Range Interpretation Comments GLUBED (test code = GLUBED) 127 mg/dL 74-106 H Performed by certified gravity meter operator at [facility] [id number] 07:29:00* Test Item Value Reference Range Interpretation Comments GLUBED (test code = GLUBED) 167 mg/dL 74-106 H Performed by certified gravity meter operator at [facility] [id number] 20:55:00* Test Item Value Reference Range Interpretation Comments GLUBED (test code = GLUBED) 177 mg/dL 74-106 H Performed by certified gravity meter operator at [facility] [id number] 20:07:00* Test Item Value Reference Range Interpretation Comments GLUBED (test code = GLUBED) 121 mg/dL 74-106 H Performed by certified gravity meter operator at [facility] [id number] 14:01:00* Test Item Value Reference Range Interpretation Comments GLUBED (test code = GLUBED) 79 mg/dL 74-106 N Performed by certified gravity meter operator at [facility] [id number] 08:00:00* Test Item Value Reference Range Interpretation Comments GLUBED (test code = GLUBED) 86 mg/dL 74-106 N Performed by certified gravity meter operator at [facility] CBC W/AUTO [id number] 06:30:00* Test Item Value Reference Range Interpretation Comments WHITE BLOOD CELL (test code = WBC) 6.8 K/mm3 4.5-12.5 N RED BLOOD CELL (test code = RBC) 2.83 mill/mm3 3.7-5.2 L HEMOGLOBIN (test code = HGB) 9.3 gram/dL 11.5-15.5 L RESULT VERIFIED BY REPEAT ANALYSIS HEMATOCRIT (test code = HCT) 28.7 % 36.0-46.0 L MEAN CELL VOLUME (test code = MCV) 101.4 fL 80-98 H MEAN CELL HGB (test code = MCH) 32.9 picogram 27.0-33.0 N MEAN CELL HGB CONCETRATION (test code = MCHC) 32.4 gram/dL 33.0-36. 0 L RED CELL DISTRIBUTION WIDTH (test code = RDW) 16.2 % 11.6-16. 2 N RED CELL DISTRIBUTION WIDTH SD (test code = RDW-SD) 60.7 fL 37 .0-51.0 H PLATELET COUNT (test code = PLT) 203 K/mm3 150-450 RESULT VERIFIED BY REPEAT ANALYSIS MEAN PLATELET VOLUME (test code = MPV) 11.7 fL 6.7-11.0 H NEUTROPHIL % (test code = NT%) 79.5 % 39.0-69.0 H IMMATURE GRANULOCYTE % (test code = IG%) 0.4 % 0.0-5.0 N LYMPHOCYTE % (test code = LY%) 13.4 % 25.0-55.0 L MONOCYTE % (test code = MO%) 6.2 % 0.0-10.0 N EOSINOPHIL % (test code = EO%) 0.1 % 0.0-5.0 N BASOPHIL % (test code = BA%) 0.4 % 0.0-1.0 N NUCLEATED RBC % (test code = NRBC%) 0.0 % 0-0 N NEUTROPHIL # (test code = NT#) 5.37 K/mm3 1.8-7.7 N IMMATURE GRANULOCYTE # (test code = IG#) 0.03 x10 3/uL 0-0.03 N LYMPHOCYTE # (test code = LY#) 0.91 K/mm3 1.0-5.0 L MONOCYTE # (test code = MO#) 0.42 K/mm3 0-0.8 N EOSINOPHIL # (test code = EO#) 0.01 K/mm3 0.0-0.5 N BASOPHIL # (test code = BA#) 0.03 K/mm3 0.0-0.2 N NUCLEATED RBC # (test code = NRBC#) 0.00 K/mm3 0.0-0.1 N MANUAL DIFF REQUIRED (test code = MDIFF) NO BASIC METABOLIC [id number] 06:29:00* Test Item Value Reference Range Interpretation Comments SODIUM (test code = NA) 142 mmol/L 136-145 N POTASSIUM (test code = K) 4.5 mmol/L 3.5-5.1 N CHLORIDE (test code = CL) 113.0 mmol/L 98-107 H CARBON DIOXIDE (test code = CO2) 20.0 mmol/L 21-32 L ANION GAP (test code = GAP) 13.5 10-20 N GLUCOSE (test code = GLU) 98 mg/dL 74-106 N BLOOD UREA NITROGEN (test code = BUN) 24 mg/dL 7-18 H GLOMERULAR FILTRATION RATE (test code = GFR) 39 mL/min >=60 Estimated GFR by using Modified MDRD formula.Chronic kidney disease is defined as either kidney damageor GFR <60 mL/min/1.73 m2 for >3 months. CREATININE (test code = CREAT) 1.30 mg/dL 0.55-1.02 H Note change in reference range due to change in reagent. BUN/CREATININE RATIO (test code = BUN/CREA) 18.5 10-20 N CALCIUM (test code = CA) 8.5 mg/dL 8.5-10.1 N [id number] 06:29:00* Test Item Value Reference Range Interpretation Comments PHOSPHORUS (test code = PHOS) 2.7 mg/dL 2.5-4.9 N [id number] 06:29:00* Test Item Value Reference Range Interpretation Comments MAGNESIUM (test code = MAG) 1.7 mg/dL 1.8-2.4 L BASIC METABOLIC [id number] 06:23:00* Test Item Value Reference Range Interpretation Comments SODIUM (test code = NA) 142 mmol/L 136-145 N POTASSIUM (test code = K) 4.5 mmol/L 3.5-5.1 N CHLORIDE (test code = CL) 113.0 mmol/L 98-107 H CARBON DIOXIDE (test code = CO2) mmol/L 21-32 ANION GAP (test code = GAP) 10-20 GLUCOSE (test code = GLU) mg/dL 74-106 BLOOD UREA NITROGEN (test code = BUN) mg/dL 7-18 GLOMERULAR FILTRATION RATE (test code = GFR) mL/min >=60 CREATININE (test code = CREAT) mg/dL 0.55-1.02 BUN/CREATININE RATIO (test code = BUN/CREA) 10-20 CALCIUM (test code = CA) mg/dL 8.5-10.1 [id number] 06:23:00* Test Item Value Reference Range Interpretation Comments PHOSPHORUS (test code = PHOS) mg/dL 2.5-4.9 [id number] 06:23:00* Test Item Value Reference Range Interpretation Comments MAGNESIUM (test code = MAG) mg/dL 1.8-2.4 [id number] 20:52:00* Test Item Value Reference Range Interpretation Comments GLUBED (test code = GLUBED) 103 mg/dL 74-106 N Performed by certified gravity meter operator at [facility] [id number] 10:58:00* Test Item Value Reference Range Interpretation Comments TROPONIN-I (test code = TROPI) 0.020 ng/mL 0-0.045 N COMMENTS TO INFORMATION TECHNOLOGY ARCHITECT: COLLECT 3 HOURS AFTER PREVIOUS SAMPLELIPID PROFILE (CORONARY RISK)2019-12-05 09:22:00* Test Item Value Reference Range Interpretation Comments TRIGLYCERIDES (test code = TRIG) 242 mg/dL 20-150 H CHOLESTEROL (test code = CHOL) 151 mg/dL 0-200 N CHOLESTEROL/HDL RATIO (test code = CHOLHDL) 4.0 RATIO 0-4.9 N RISK ASSOCIATED WITH CHOL/HDL RATIOS: Risk Male Female1/2 AVERAGE 3.43 3.27AVERAGE 4.97 4.442X AVERAGE 9.55 7.053X AVERAGE 23.39 11.04 REFERENCE VALUE IS RELATED TO RISK LEVELS ASRECOMMENDED BY THE CARRIE. HEART, LUNG, AND BLOOD INST. HDL CHOLESTEROL (test code = HDL) 33 mg/dL 40-60 L LIPOPROTEIN LDL (test code = LDL) 83 mg/dL 100-129 L Reference Interval: mg/dL mmol/L Optimal <100 <2.6Near/above optimal 100-129 2.6- 3.3Borderline High 130-159 3.4-4.1High 160-189 4.1-4.9Very High >=190 >=4.9========= This LDL result is a direct measurement.========= LACTIC [id number] 09:22:00* Test Item Value Reference Range Interpretation Comments LACTIC ACID (test code = LACT) 1.5 mmol/L 0.4-1.9 N [id number] 09:22:00* Test Item Value Reference Range Interpretation Comments TROPONIN-I (test code = TROPI) 0.023 ng/mL 0-0.045 N COMMENTS TO INFORMATION TECHNOLOGY ARCHITECT: COLLECT 3 HOURS AFTER PREVIOUS [id number] 09:21:00* Test Item Value Reference Range Interpretation Comments GLYCOSYLATED HEMOGLOBIN (HA1C) (test code = GLYHGB) 6.5 % HbA1 SUGGESTED DIAGNOSIS: HbA1C (%) Diabetic >6.4Prediabetes 5.7 - 6.4Normal <5.7 ESTIMATED AVERAGE GLUCOSE (test code = EAG) 140 MG/DL URINALYSIS [id number] 02:27:00* Test Item Value Reference Range Interpretation Comments UA COLOR (test code = COLU) Light-Yellow YELLOW UA APPEARANCE (test code = APPU) CLEAR CLEAR UA GLUCOSE DIPSTICK (test code = DGLUU) NEGATIVE mg/dL NEGATIVE UA BILIRUBIN DIPSTICK (test code = BILU) NEGATIVE mg/dL NEGATIVE UA KETONE DIPSTICK (test code = KETU) NEGATIVE mg/dL NEGATIVE UA SPECIFIC GRAVITY (test code = SGU) >1.050 1.001-1.035 UA BLOOD DIPSTICK (test code = NOAH) Negative mg/dL NEGATIVE UA PH DIPSTICK (test code = RASHAD) 6.0 5.0-8.0 UA PROTEIN DIPSTICK (test code = PROU) 50 (1+) mg/dL NEGATIVE A UA UROBILINIOGEN DIPSTICK (test code = URO) Normal mg/dL NEGATIVE UA NITRITE DIPSTICK (test code = FARIBA) NEGATIVE NEGATIVE UA LEUKOCYTE ESTERASE W REFLEX (test code = LEUUR) 500 Joan/u L (3+) Joan/uL NEGATIVE A UA WBC (test code = WBCU) >200 per HPF 0-5 A UA RBC (test code = RBCU) 3-5 #/HPF 0-5 UA EPITHELIAL CELLS (test code = EPIU) FEW per HPF FEW UA BACTERIA (test code = BACU) FEW #/HPF NONE A Urine Source? Clean Catch- CT ABD PELVIS [id number] 01:23:00 Name: KESHIA CORNEJO [facility] : 1940 Age/S: 79 / F [address] Unit #: [id number] Loc: [place] [address] Phys: Justino Mccray MD Acct: [id number] Di s Date: Status: REG ER PHONE #: Exam Date: 12/05/2019 0045 FAX #: Reason: abd pain, poss dissection on ct without contras EXAMS: CPT CODE: [id number] CT ABD PELVIS W/CONT 01691 CT abdomen and pelvis with IV contrast. Indication: Abdominal pain possible dissection on CT Location: R16 Comparison: None available Technique: CT images of the abdomen and pelvis were obtained from the diaphragm to the pubic symphysis after the administration of intravenous contrast contrast. Coronal reformats are provided. One or more of the following dose reduction techniques were used: Automated exposure cont rol, adjustment of the mA and/or kV according to patient size, and/or util ization of iterative reconstruction technique. Findings: Lungs bases: Multiple pleural-based thickening is noted bilaterally. Small volume of pericardial fluid is noted. Liver: Unremark able. Gallbladder: Surgically absent Pancreas: Unremarkable. S pleen: Unremarkable. Adrenal glands: Unremarkable. Kidneys: Unremark able. Bowel: No bowel obstruction. The appendix is unremarkable.. A large volume of stool seen throughout the colon nonspecific but compatible clinical diagnosis of constipation. Diverticulosis is noted. Peritoneum: No ascites. No free air Vasculature: Again redemonstrated is a small in frarenal abdominal aortic aneurysm with small likely chronic focal calcifi ed dissection. Skeletal: No acute fracture.. Impre ssion: No CT evidence of an acute abnormality within the abdom inal pelvis to explain the patient's symptomology with exception of cons tipation Again redemonstrated is a small infrarenal abdominal aortic ane urysm with small likely chronic focal calcified dissection. Sanjeev tional findings as detailed above PAGE 1 Signed Repo rt (CONTINUED) Name: KESHIA CORNEJO [facility] : 1940 Age/S: 79 / F [address] [address] Unit #: [id number] Loc: [place] [address] 1954 Phys: Brandy Mccray MD Acct: [id number] Dis Date: Status: REG ER PHONE #: [phone] Exam Date: 12/05/2019 0045 FAX #: [phone] Reason: abd pain, poss dissection on ct without contras EXAMS: CPT CODE: [id number] CT ABD PELVIS W/CONT 50892 <Continued> at 0123 Reported and signed by: Sofi Tyler M.D. CC: Zack Diego Jessica D MD Technologist:DOMENICA HENNING CTDI: DLP: Trnscb Date/Time: 12/05/2019 (0123) t.SDR.SR31 Orig Print D/T: S: 12/05/2019 (012) PAGE 2 Signed Report STREPTOCOCCUS PCR [id number] 00:20:00* Test Item Value Reference Range Interpretation Comments STREPTOCOCCUS DYSGALACTIAE (test code = STREPGC) NEGATIVE FOR G/C N EGATIVE STREPA MOLECULAR (test code = STREPAMOL) NEGATIVE FOR GRP A NEGATIV E - CT ABD PELVIS W/O [id number] 21:45:00 Name: KESHIA CORNEJO [facility] : 1940 Age/S: 79 / F [address] [facility] Unit #: [id number] Loc: [place] [address] Phys: Brandy Mccray MD Acct: [id number] Dis Date: Status: REG ER PHONE #: [phone] Exam Date: 12/04/2019 2134 FAX #: [phone] Reason: abdominal distention, ttp diffuse EXAMS: CPT CODE: [id number] CT ABD PELVIS W/O CONT 21415 EXAM: CT of the abdomen and pelvis without contrast; INFORMATION: Abdominal distention, fever and chills; TECHNIQUE: CT dose reduction protocol; Renal stone protocol; FINDINGS: The kidneys are of normal size and shape; no calcifications and no hydronephrosis. No evidence of ureteral stones. No evidence of appendicitis or other acute bowel abnormalities. Parenchymal organs of the abdomen and the biliary system are unremarkable. No pelvic mass lesions; no abnormal fluid colle ctions. Extensive calcifications of the abdominal aorta and the iliac arteries. There is a small infrarenal aortic aneurysm with a maximum di ameter of 2.6 cm. A calcified plaque is displaced into the lumen indicati ng a small localized dissection, versus calcified intramural hematoma. Scans through the lung bases are clear, except for mild dependent atele ctasis and pleural thickening. The heart is enlarged; status post aortic v alve replacement. IMPRESSION: 1. No evidence of renal or ureteral stones or of obstructive uropathy. 2. No evidence o f acute abdominal or pelvic abnormalities. 3. Small infrarenal aortic a neurysm and small, localized dissection or more likely calcified intramu ral hematoma. I recommend elective follow-up with CT angiography of the abdominal aorta. 4. Cardiomegaly. Location co de: [facility] at 2144 Reported and signed by: Vinicius Muro M.D. PAGE 1 Signed Report (CONTINUED) Name: KESHIA CORNEJO [place] [facility] : 1940 Age/S: 79 / F [address] [facility] Unit #: [id number] Loc: PRATIBHA Ortiz [address] Phys: Brandy Mccray MD Acct: [id number] Dis Date: Status: REG ER PHONE #: [phone] Exam Date: 12/03 FAX #: [phone] Reason: abdominal diste ntion, ttp diffuse EXAMS: CPT CODE: [id number] CT ABD PELVIS W/O CONT 74 176 <Continued> CC: Zack Diego; Brandy Mccray MD Technologist:Marina Ahuja RT(R); KELLY Zabala CTDI: DLP: Trnscb Date/Time: 12/04/2019 (2144) tCOLTON Orig Print D/T: S: 12/04/2019 (2148) PAGE 2 Signed Report Coronavirus 2018 nCoV [id number] 21:13:00* Test Item Value Reference Range Interpretation Comments Coronavirus 2019 nCoV Bedside (test code = [id number]) Negative Is patient requiring admission or transfer? YIndication for rapid COVID-19 testi ng: Mod Clinical Suspicion- XR CHEST 1 V 2019-12-04 21:04:00 FAX: Zack Barth MD [phone] [place]: St: REG FAX: Brandy Walker [phone] Name: KESHIA CORNEJO [facility] : 1940 Age/S: 79/F [address] [facility] Unit #: [id number] Loc: PRATIBHA Vincent [address] Phys: Brandy Mccray MD Acct: [id number] Dis Date: Status: REG ER PHONE #: [phone] Exam Date: 12/04/20192054 FAX #: [phone] Reason: SHORTNESS OF BREATH EXAMS: CPT CODE: [id number] XR CHEST 1 V 50183 EXAM: Chest x-ray, one view; INFORMATION: Shortness of breath, fever and chills; FINDINGS: Lungs are clear; no infiltrates, no edema; no effusions; no pneumothorax. Mild left basilar atelectatic changes. The heart is enlarged. Status post aortic valve replacement. Aortic calcifications. IMPRESSION: 1. No evidence of pulmonary infiltrates or other signs of active ca rdiopulmonary disease. 2. Mild left basilar atelectatic changes. 3. Cardiomegaly. 4. No significant change compared with a study from March 03, 2019. Location code: [facility] Elect ronically Signed by Donald Muro on 12/04/19 20 at 2104 Reported and signed by: Vinicius allan M.D. CC: Zack Diego; Brandy Mccray MD Technologist: FOSTER Ulloa T rnscrd Date/Time/By: 12/04/2019 (2103) : By: Lydia Orig Print D/T: S: 12/04/2019 (2107) PAGE 1 Sign ed Report B-TYPE NATRIURETIC [id number] 20:46:00* Test Item Value Reference Range Interpretation Comments B-TYPE NATRIURETIC PEPTIDE (test code = BNP) 777.68 pgram/mL 0-100 H BASIC METABOLIC [id number] 20:35:00* Test Item Value Reference Range Interpretation Comments SODIUM (test code = NA) 139 mmol/L 136-145 N POTASSIUM (test code = K) 4.6 mmol/L 3.5-5.1 N CHLORIDE (test code = CL) 108.0 mmol/L 98-107 H CARBON DIOXIDE (test code = CO2) 22.0 mmol/L 21-32 N ANION GAP (test code = GAP) 13.6 10-20 N GLUCOSE (test code = GLU) 128 mg/dL 74-106 H BLOOD UREA NITROGEN (test code = BUN) 23 mg/dL 7-18 H GLOMERULAR FILTRATION RATE (test code = GFR) 39 mL/min >=60 Estimated GFR by using Modified MDRD formula.Chronic kidney disease is defined as either kidney damageor GFR <60 mL/min/1.73 m2 for >3 months. CREATININE (test code = CREAT) 1.30 mg/dL 0.55-1.02 H Note change in reference range due to change in reagent. BUN/CREATININE RATIO (test code = BUN/CREA) 17.7 10-20 N CALCIUM (test code = CA) 10.2 mg/dL 8.5-10.1 H HEPATIC FUNCTION [id number] 20:35:00* Test Item Value Reference Range Interpretation Comments TOTAL PROTEIN (test code = PROT) 7.9 gram/dL 6.4-8.2 N ALBUMIN (test code = ALB) 3.9 g/dL 3.4-5.0 N GLOBULIN (test code = GLOB) 4.0 gram/dL 2.7-4.2 N ALBUMIN/GLOBULIN RATIO (test code = A/G) 1.0 0.75-1.50 N BILIRUBIN TOTAL (test code = BILT) 0.60 mg/dL 0.0-1.0 N BILIRUBIN DIRECT (test code = BILD) 0.25 mg/dL 0.0-0.20 H SGOT/AST (test code = AST) 17 IUnit/L 15-37 N SGPT/ALT (test code = ALT) 12 IUnit/L 12-78 N ALKALINE PHOSPHATASE TOTAL (test code = ALKP) 117 IUnit/L 45-117 N Note change in reference range due to change in reagent. [id number] 20:35:00* Test Item Value Reference Range Interpretation Comments LIPASE (test code = LIP) 114 U/L 73.0-393.0 N [id number] 20:35:00* Test Item Value Reference Range Interpretation Comments TROPONIN-I (test code = TROPI) <0.015 ng/mL 0-0.045 N LACTIC [id number] 20:29:00* Test Item Value Reference Range Interpretation Comments LACTIC ACID (test code = LACT) 1.4 mmol/L 0.4-1.9 N BASIC METABOLIC [id number] 20:26:00* Test Item Value Reference Range Interpretation Comments SODIUM (test code = NA) 139 mmol/L 136-145 N POTASSIUM (test code = K) 4.6 mmol/L 3.5-5.1 N CHLORIDE (test code = CL) 108.0 mmol/L 98-107 H CARBON DIOXIDE (test code = CO2) mmol/L 21-32 ANION GAP (test code = GAP) 10-20 GLUCOSE (test code = GLU) mg/dL 74-106 BLOOD UREA NITROGEN (test code = BUN) mg/dL 7-18 GLOMERULAR FILTRATION RATE (test code = GFR) mL/min >=60 CREATININE (test code = CREAT) mg/dL 0.55-1.02 BUN/CREATININE RATIO (test code = BUN/CREA) 10-20 CALCIUM (test code = CA) mg/dL 8.5-10.1 HEPATIC FUNCTION [id number] 20:26:00* Test Item Value Reference Range Interpretation Comments TOTAL PROTEIN (test code = PROT) gram/dL 6.4-8.2 ALBUMIN (test code = ALB) g/dL 3.4-5.0 GLOBULIN (test code = GLOB) gram/dL 2.7-4.2 ALBUMIN/GLOBULIN RATIO (test code = A/G) 0.75-1.50 BILIRUBIN TOTAL (test code = BILT) mg/dL 0.0-1.0 BILIRUBIN DIRECT (test code = BILD) mg/dL 0.0-0.20 SGOT/AST (test code = AST) IUnit/L 15-37 SGPT/ALT (test code = ALT) IUnit/L 12-78 ALKALINE PHOSPHATASE TOTAL (test code = ALKP) IUnit/L 45-117 [id number] 20:26:00* Test Item Value Reference Range Interpretation Comments LIPASE (test code = LIP) U/L 73.0-393.0 [id number] 20:26:00* Test Item Value Reference Range Interpretation Comments TROPONIN-I (test code = TROPI) ng/mL 0-0.045 CBC W/AUTO [id number] 20:13:00* Test Item Value Reference Range Interpretation Comments WHITE BLOOD CELL (test code = WBC) 11.8 K/mm3 4.5-12.5 N RED BLOOD CELL (test code = RBC) 3.48 mill/mm3 3.7-5.2 L HEMOGLOBIN (test code = HGB) 11.6 gram/dL 11.5-15.5 N HEMATOCRIT (test code = HCT) 35.2 % 36.0-46.0 L MEAN CELL VOLUME (test code = MCV) 101.1 fL 80-98 H MEAN CELL HGB (test code = MCH) 33.3 picogram 27.0-33.0 H MEAN CELL HGB CONCETRATION (test code = MCHC) 33.0 gram/dL 33.0-36. 0 N RED CELL DISTRIBUTION WIDTH (test code = RDW) 16.5 % 11.6-16. 2 H RED CELL DISTRIBUTION WIDTH SD (test code = RDW-SD) 60.7 fL 37 .0-51.0 H PLATELET COUNT (test code = PLT) 255 K/mm3 150-450 N MEAN PLATELET VOLUME (test code = MPV) 11.5 fL 6.7-11.0 H NEUTROPHIL % (test code = NT%) 80.1 % 39.0-69.0 H IMMATURE GRANULOCYTE % (test code = IG%) 0.5 % 0.0-5.0 N LYMPHOCYTE % (test code = LY%) 11.8 % 25.0-55.0 L MONOCYTE % (test code = MO%) 6.3 % 0.0-10.0 N EOSINOPHIL % (test code = EO%) 0.9 % 0.0-5.0 N BASOPHIL % (test code = BA%) 0.4 % 0.0-1.0 N NUCLEATED RBC % (test code = NRBC%) 0.0 % 0-0 N NEUTROPHIL # (test code = NT#) 9.43 K/mm3 1.8-7.7 H IMMATURE GRANULOCYTE # (test code = IG#) 0.06 x10 3/uL 0-0.03 H LYMPHOCYTE # (test code = LY#) 1.39 K/mm3 1.0-5.0 N MONOCYTE # (test code = MO#) 0.74 K/mm3 0-0.8 N EOSINOPHIL # (test code = EO#) 0.11 K/mm3 0.0-0.5 N BASOPHIL # (test code = BA#) 0.05 K/mm3 0.0-0.2 N NUCLEATED RBC # (test code = NRBC#) 0.00 K/mm3 0.0-0.1 N MANUAL DIFF REQUIRED (test code = MDIFF) NO CBC W/AUTO [id number] 20:12:00* Test Item Value Reference Range Interpretation Comments WHITE BLOOD CELL (test code = WBC) K/mm3 4.5-12.5 RED BLOOD CELL (test code = RBC) mill/mm3 3.7-5.2 HEMOGLOBIN (test code = HGB) 11.6 gram/dL 11.5-15.5 N HEMATOCRIT (test code = HCT) % 36.0-46.0 MEAN CELL VOLUME (test code = MCV) fL 80-98 MEAN CELL HGB (test code = MCH) picogram 27.0-33.0 MEAN CELL HGB CONCETRATION (test code = MCHC) gram/dL 33.0-36. 0 RED CELL DISTRIBUTION WIDTH (test code = RDW) % 11.6-16. 2 RED CELL DISTRIBUTION WIDTH SD (test code = RDW-SD) fL 37 .0-51.0 PLATELET COUNT (test code = PLT) K/mm3 150-450 MEAN PLATELET VOLUME (test code = MPV) fL 6.7-11.0 NEUTROPHIL % (test code = NT%) % 39.0-69.0 IMMATURE GRANULOCYTE % (test code = IG%) % 0.0-5.0 LYMPHOCYTE % (test code = LY%) % 25.0-55.0 MONOCYTE % (test code = MO%) % 0.0-10.0 EOSINOPHIL % (test code = EO%) % 0.0-5.0 BASOPHIL % (test code = BA%) % 0.0-1.0 NEUTROPHIL # (test code = NT#) K/mm3 1.8-7.7 LYMPHOCYTE # (test code = LY#) K/mm3 1.0-5.0 MONOCYTE # (test code = MO#) K/mm3 0-0.8 EOSINOPHIL # (test code = EO#) K/mm3 0.0-0.5 BASOPHIL # (test code = BA#) K/mm3 0.0-0.2 - XR CHEST 2 [id number] 13:01:00 FAX: Zack Barth MD [phone] [place]: O St: REG Name: KESHIA GUTIERREZ [facility] : [birth year] Age/S: 78/F [address] [facility] Unit #: [id number] Loc: [place] [address] Phys: Undefined Provider Acct: [id number] Dis Date: Status: REG CLI PHONE #: [phone] Exam Date: 03/03/2019 1213 FAX #: [phone] Reason: R06.02 EXAMS: CPT CODE: [id number] XR CHEST 2 V 58232 HISTORY: R06.02. COM PARISON: November 05, 2018. AP and lateral view of the chest: No acute infiltrates, effusion or congestion. Aortic root stent. Ca rdiomegaly. IMPRESSION: No acute infiltrates, effusion or congestion. Electronically Signed by Donald mclaughlin 03/03/2019 at 1301 Reported and signed by: Kirill perez M.D. CC: Zack Diego Technologist: RT Sagrario(R) Trnohcristina Date/Time/By: 03/03/2019 (5423) : By: [email or web address] Orig Print D/T: S: 03/03/2019 (0720) PAGE 1 Signed Report - XR CHEST 2 [id number] 15:38:00 FAX: Zack Barth MD [phone] [place]: O St: REG Name: KESHIA GUTIERREZ [facility] : [birth year] Age/S: 78/F [address] [facility] Unit #: [id number] Loc: [place] [address] Phys: Zack Diego MD Acct: [id number] Dis Date: Status: REG CLI PHONE #: [phone] Exam Date: 11/05/2018 1533 FAX #: [phone] Reason: R06.02 EXAMS: CPT CODE: [id number] XR CHEST 2 V 74583 REASON FOR EXAM: R06.02 Exam Order Date: 11/05/2018 3:27 PM Ordering Donald: Zack Diego MD PROCEDURE: - XR CHEST 2 V COMPARISON: 02/04/2018 FINDINGS: PA and lateral views of the chest show clear lungs without evidence of consolidation. No evidence of effusion. The he art size is minimally enlarged. Stable appearance of the aortic valve ronnie nt. Pulmonary vasculatures are unremarkable. The osseous structures are grossly intact. IMPRESSION: Minimal cardiomegaly and atelect asis/chronic interstitial disease of the bases Electronicall y Signed by Donald Proctor on 11/05/2018 at 7601 Reported and signed by: Julio Proctor M.D. CC: Zack Diego Technologist: Jackelyn Ruth RT(R) Trnscrd Date/Time/By: 11/05/2018 (9745) : By: ElleVTL Orig Print D/T: S: 11/05/2018 (4189) PAGE 1 Signed Report CHEM [id number] 09:25:003.1[facility] CenterCHEM [id number] 09:25:001.8[facility]CHE[facility] [id number] 09:25:0040[facility] CenterCHEM PANEL 2016-08-01 09:25:0014.7[facility] CenterCHEM IADLU6631-63-46 09:25:01456TXPal[facility] Regional Medical CenterCHEM VVMXU4597-58-91 09:25:0026[facility] CenterCHEM RDNTI4969-88-09 09:25:009.1M[facility] CenterCHEM ESHSA0623-20-38 09:25:00 3.7[facility] CenterCHEM [id number] 09:25:001.28[facility] CenterCHEM KRQOL5326-84-47 09:25:79973OVPal[facility] Medical CenterCHEM PANEL 2016-08-01 09:25:0015[facility] CenterCHEM YKXFO4632-32-76 09:25:56553XZPal[facility] CenterAstaraXLELQCVZZV1942-81-01 09:25:002.94[facility] SCFJAZZHDK8270-63-46 09:25:008.0[facility] CenterNqkziqSHNCMOUSSC9506-42-53 09:25:0028.7[facility] CenterUrtyymYDGMPEAOSG5941-67-58 09:25:009.7[facility] CenterIlbzxgXOAMGXPUHE9397-01-34 09:25:00* Test Item Value Reference Range Interpretation Comments MCH (test code = MCH) 33.2 pg 27.0-31.0 [facility] CenterHicaquSKWPEKDRTJ9490-14-64 09:25:0097.5[facility] FXSPKGFAHR8509-51-36 09:25:0034.0[facility] CenterKyarazFTSREVGENM1435-31-29 09:25:05654WYPalestine Regional Medical CenterKfgznrWLXYIRYBMQ7280-34-19 09:25:0014.8[facility] CenterPmmssySGZGGXHLXU6115-04-70 09:25:008.7[facility] CenterHEMATOLOGY 2016-08-01 09:25:0075.2M[facility] CenterPdvcrnGYOSPSVJRE6120-35-42 09:25:[address] [place], [place] [address]ByvroqCSJXOVYRMF4086-13-44 09:25:002.4[facility] YCMEMBBQEG3875-29-57 09:25:[address] [place], [place] [address]EuwmgoHJPYYMHLGM4566-45-74 09:25:006.0[facility] CenterZlzvmsVLRIWCTYHF7168-62-29 09:25:[address] [place], [place] [address]LwwcopTFXIQAKUHE1366-54-56 09:25:0014.4[facility] CenterHEMATOLOGY 2016-08-01 09:25:000.[address] [place], [place] [address]OsmywrJIOHADWSEH5850-76-88 09:25:[address] [place], [place] [address]CHEM STBVZ7973-13-16 01:09:003.[address] [place] [address] ZWVHNIWAHQCX2872-89-48 01:09:004.[address] [place], [place] [address]CHEM WTXOS6567-08-33 10:42:002.[address] [place], [place] [address]CHEM ANBOQ8912-19-31 10:42:[address] [place], [place] [address]GwirtqRHZPZXFDYQPT5100-02-87 10:42:[address] [place] [address] WCUHYLSHFAPI1246-49-19 10:42:0047[facility] CenterAfbqxwOTBHTNGDNDTU2749-98-02 10:42:01684SRPalestine Regional Medical CenterUawaqeVFTFYPDPDWAL6632-48-91 10:42:01121XJPalestine Regional Medical CenterNwtkeqYWSMRVFQEPKF6059-90-08 10:42:0017[facility] GSHXRIYHZTEY1211-85-36 10:42:0020[facility] CenterPdngxaZMYCVMFACGAA8552-12-29 10:42:[address] [place], [place] [address]TyfmmjHKLIBWONXVHV8454-58-60 10:42:[address] [place], [place] [address]MbyxsbHBGOXSQRDVUX1088-44-15 10:42:32205JMPalestine Regional Medical Center CZFSSBKBTCNG6185-45-98 10:42:[address] [place], [place] [address]WztcduCROFVISSBS9188-25-44 10:42:[address] [place], [place] [address]PqpnilJZFEIEWMDH2965-66-14 10:42:[address] [place], [place] [address]VlfrpsKAAPVNBDUU7624-93-21 10:42:005.[address] [place], [place] [address]HEMATOLOGY 2016-07-31 10:42:001.[address] [place], [place] [address]MompnkOIVPWWNXAJ0495-73-86 10:42:[address] [place], [place] [address]IpumjwDSHBONSMLI7662-19-73 10:42:000.2M[facility] AHLXISROGK2020-28-80 10:42:001+ *ABN*(07/31/16 4:42 AM)[facility] VFODVHGGTJ7033-98-58 10:42:000.1M[facility] CenterPyalafJWUNYAPLNC7558-67-70 10:42:0068.8[facility] CenterGpksokUVPEDMKSKT5235-69-52 10:42:0020.5[facility] CenterKzxfshALKMALBSOT8878-77-62 10:42:007.9[facility] CenterHEMATOLOGY 2016-07-31 10:42:0032.4[facility] CenterHbukbdAGEEXUYSDJ2878-99-51 10:42:0015.1 [facility] CenterZnloxbUFSOYFCGKU7678-68-16 10:42:009.[address] [place] [address] AMMFNYHIGR8500-95-66 10:42:83595JKPal[facility] Regional Medical CenterTmufhsZHNHZENJTZ9602-62-53 10:42:[address] [place], [place] [address]ClcnxxYKXMCQLMOT4642-70-81 10:42:003.07[facility] CenterRvlqffMRXKXZKYMM0067-98-62 10:42:0031.0[facility] CenterHEMATOLOGY 2016-07-31 10:42:64780.9[facility] CenterPwafetHTXCZUDIIH8340-87-83 10:42:00* Test Item Value Reference Range Interpretation Comments MCH (test code = MCH) 32.7 pg 27.0-31.0 [facility] CenterRvwhhhJIJJGZFSDF6631-39-96 10:42:0010.0[facility] URINE AND DYYKN4368-51-90 00:22:00Small *ABN*(07/30/16 6:22 PM)[facility] CenterUR[facility] HYSRP8594-34-46 00:22:00Negative (07/30/16 6:22 PM)[facility] Center[facility] KYYTN1842-36-41 00:22:001[facility] CenterUR[facility] AND SQNLM5535-13-88 00:22:002[facility] CenterUR[facility] AND FSYJI5914-30-06 00:22:00Small *ABN*(07/30/16 6:22 PM)[facility] STOOL 2016-07-31 00:22:005.5[facility] CenterUR[facility] AND OOAGJ6614-47-14 00:22:00 1.021[facility] CenterUR[facility] RRBSC2562-81-83 00:22:00Clear (07/30/16 6:22 PM)[facility] CenterUR[facility] AVOGX2092-65-90 00:22:00Yellow *NA*(07/30/16 6:22 PM)[facility] Center[facility] HVHJW8956-62-17 00:22:00 Negative *NA*(07/30/16 6:22 PM)[facility] CenterCHEM YJBJH4195-55-84 07:07:002.5[facility] CenterMixlsxKPFNNXCZZBHT7838-83-61 07:07:[address] [place], [place] [address]FrkjkqLUWLCKYASFCM8277-55-75 07:07:0045[facility] DWTHGTAIVQIY3738-05-73 07:07:0027[facility] CenterPlooznFAOJTYEVJCXR3494-56-82 07:07:008.5[facility] CenterHrmfjlNDVAGNYTWVGN6718-04-62 07:07:21573ZRPalestine Regional Medical CenterBupmbfGCKSVCFKKQED3421-03-86 07:07:24101EIPalestine Regional Medical Center ORTPJSMEZVUO0039-74-05 07:07:0021[facility] CenterMdrpuzNXYCYYSKXJCB4540-59-38 07:07:001.16[facility] CenterSzxtmbXSMDPHZCMWXM8446-70-60 07:07:82489HEPal[facility] Medical CenterIyxhtwCEUEVAPJPN7854-94-93 07:07:008.9[facility] CenterHEMATOLOGY 2016-07-30 07:07:002.76[facility] CenterOgtkxtKEYRHDDANV2466-46-48 07:07:009.2M[facility] CenterHlrmksALBECPUEMC9347-61-71 07:07:0026.8[facility] NEPGEAINQT9156-79-12 07:07:008.7[facility] CenterNvqirvFVAYHBLDFU4798-39-34 07:07:0097.4[facility] CenterAewqjtEBTRWLSTWG8609-08-84 07:07:00* Test Item Value Reference Range Interpretation Comments MCH (test code = MCH) 33.2 pg 27.0-31.0 [facility] CenterUkkuzvWNQKIDPNXN9566-54-32 07:07:0034.[address] [place] [address] STFTPUWYSM7625-69-47 07:07:0014.8[facility] CenterZkuzdqAKSNQXBBJN6621-93-22 07:07:15258QCPalestine Regional Medical CenterYsbnehBAZGXNEEMO5535-70-37 07:07:000.9[facility] CenterIsnpphXSRBOTAQFI9475-66-21 07:07:000.1M[facility] CenterHEMATOLOGY 2016-07-30 07:07:001.2M[facility] CenterYekrejMFZBPRJTJZ8840-93-00 07:07:000.5[facility] CenterPjjqhxCDXQTQKHZZ2894-00-07 07:07:006.[address] [place] [address] UOJDMARIAK1031-79-68 07:07:[address] [place], [place] [address]EuoaauEYACNPHWCM3570-94-10 07:07:[address] [place], [place] [address]ZhzqtqUFYMFYSAUI2792-09-02 07:07:[address] [place], [place] [address]XckdgmWXBQKWTQUB8359-44-29 07:07:0074.7[facility] PARATHYROID STWLODW6628-83-92 07:07:001.15[facility] CenterPARATHYROID HWQSKKR5866-96-10 07:07:001.17[facility] CenterCARDIAC YPFFRAR8539-94-39 07:03:60644DIPalestine Regional Medical CenterQxtlagPDWHPTKUEN3347-76-69 07:03:000.1M[facility] CenterGelmxwTSVIFGNVSS7605-00-19 07:03:001.10[facility] CenterHEMATOLOGY 2016-07-29 07:03:00* Test Item Value Reference Range Interpretation Comments PTT (test code = PTT) 26.6 s 22.9-35.8 [facility] CenterPyodsxGBFAZGNBGR1120-48-22 07:03:00* Test Item Value Reference Range Interpretation Comments PT (test code = PT) 14.4 s 12.0-14.7 [facility] CenterVbzlwuBOUKJFVVKN2905-94-06 22:12:00* Test Item Value Reference Range Interpretation Comments PTT (test code = PTT) 143.7 s 22.9-35.8 [facility] CenterTrowdfCNEAWQKWSY8089-30-95 22:12:001.37[facility] HQCWWQXOVP7064-46-97 22:12:00* Test Item Value Reference Range Interpretation Comments PT (test code = PT) 17.1 s 12.0-14.7 [facility] CenterOpryflGVJANECZJR0187-06-73 22:12:000.0[facility] EEPMMCWKCE6670-83-44 22:12:001.[address] [place], [place] [address]AscfotFWETLKCWIA8609-70-50 22:12:003.0[facility] CenterBmytsvICEJFDFLGZ7317-39-73 22:12:000.1[facility] CenterBLOOD BANK IPEWREG4889-42-51 12:25:00Negative (07/28/16 6:25 AM)[facility] CenterBL[facility] LUXJUCV3542-06-81 12:25:00Product available (07/28/16 6:25 AM)[facility] CenterBL[facility] BBAWBMG8275-34-23 12:25:00 Product available (07/28/16 6:25 AM)[facility] CenterCHEM EPQEP8545-66-07 12:25:0025[facility] CenterCHEM WHVBO5544-40-34 12:25:006.7[facility] CenterCHEM GFWHE4555-71-02 12:25:003.8[facility] CenterCHEM PANEL 2016-07-28 12:25:0045[facility] CenterCHEM YHJML5796-42-22 12:25:001.1M[facility] CenterCHEM QQFJW5348-24-30 12:25:0019[facility] CenterCHEM RGNIQ4783-32-09 12:25:002.9[facility] CenterCHEM JCCAO5328-15-87 12:25:00 1.3M[facility] CenterCHEM DLAAU4735-83-30 12:25:0018[facility] WMMNBMSPNZ3596-65-56 12:25:00* Test Item Value Reference Range Interpretation Comments PTT (test code = PTT) 28.0 s 22.9-35.8 [facility] CenterLxixymZWNGNDVNAP7876-27-99 12:25:001.15[facility] OYOVXLFLIT2797-09-01 12:25:00* Test Item Value Reference Range Interpretation Comments PT (test code = PT) 14.9 s 12.0-14.7 [facility] CenterCHEM RISED6735-40-40 17:28:0033[facility] CHEM WNTAI6677-80-96 17:28:001.5[facility]
[2019-12-12] MEDS ORDERED: METOPROLOL SUCCINATE 50 MG TAB XL PO SCH (17:00)
[2019-12-12] MEDS: SUCRALFATE 1 GM TAB PO SCH (17:30)
--- NOTE | 2019-12-12 17:41 | NUR ---
covid test performed
--- NOTE | 2019-12-12 18:21 | NUR ---
Patient no longer going to room 106 will be admitted to ICU per ER MD.
[2019-12-12] MEDS: GABAPENTIN 300 MG CAP PO SCH (18:30)
[2019-12-12] MEDS: METOPROLOL SUCCINATE 25 MG TAB XL PO SCH (18:30)
--- NOTE | 2019-12-12 19:10 | NUR ---
report given to Isaias SIMS
[2019-12-12 19:53] LABS: CREATINE KINASE 103 IU/L (29-168)
[2019-12-12] MEDS ORDERED: ATORVASTATIN 20 MG TAB PO SCH (21:00)
[2019-12-12] MEDS ORDERED: FUROSEMIDE INJ 10 MG/ML 4 ML VIAL IV SCH (21:00)
[2019-12-12] MEDS: FUROSEMIDE INJ 10 MG/ML 4 ML VIAL IV SCH (21:53)
[2019-12-12] MEDS: ATORVASTATIN 40 MG TAB PO SCH (21:54)
[2019-12-12 23:15] VITALS: BP 124/83
--- NOTE | 2019-12-12 23:17 | Consultation ---
DATE OF CONSULTATION: Cardiology Consult HISTORY OF PRESENT ILLNESS: She is an 79-year-old female with a primary history of hypertension, CAD with previous stents and previous MA, aortic stenosis, status post TAVR in 2017, atrial fibrillation (on warfarin), COPD (on p.r.n. oxygen at home), CHF, admitted complaining of worsening exertional shortness of breath accompanied with generalized weakness and loss of appetite. The patient denies any chest pain or dizziness. The patient also reports she was hospitalized last week for urinary tract infection and was recently discharged from the [facility] a few days ago. PAST MEDICAL HISTORY: As mentioned above. PAST SURGICAL HISTORY: 07/28/2016 TAVR 20 mm Kendrick Tere valve. HOME MEDICATIONS: Atorvastatin 20 mg daily, furosemide 40 mg daily, metoprolol 50 mg daily, spironolactone 25 mg daily, warfarin 2.5 mg tablet daily, potassium 10 mEq p.o. daily, fluoxetine 20 mg daily, gabapentin 300 mg daily, glimepiride 2 mg daily, allopurinol 300 mg daily, pantoprazole 20 mg daily. PHYSICAL EXAMINATION: VITAL SIGNS: 97.6 temperature, heart rate of 95, atrial fibrillation, EKG respiratory rate is 18, blood pressure is 124/95, pulse oximetry 100% on 2 L nasal cannula. GENERAL APPEARANCE: The patient is well developed, well nourished, in no acute distress. HEENT: Head is normocephalic and atraumatic. Eyes, pupils are equal, round, and reactive to light and accommodation. Sclerae are nonicteric. Ears are normal. Throat is clear. NECK: Supple. Full range of motion. No cervical lymphadenopathy. No JVD. SKIN: Warm and dry. No suspicious lesions. HEART: Irregular rate and rhythm, atrial fibrillation, S1 and S2 audible. No murmurs heard. LUNGS: Diminished throughout. ABDOMEN: Soft. EXTREMITIES: With +2 to 3 edema. NEUROLOGIC: Nonfocal. Motor strength of upper and lower extremities are normal. Sensory exam is intact. IMPRESSION AND PLAN: The patient admitted for acute on chronic heart failure, [employer] class III. The patient on atrial fibrillation with controlled ventricular rate in the 90s. Initial BNP is 1415 with a chest x-ray results showing pulmonary edema. 1. Monitor hemodynamics in place and continue telemetry monitoring and tight BP and heart rate control. 2. Diurese with IV Lasix and monitor intake and output and electrolytes, monitor daily weight. 3. We will obtain echocardiogram to evaluate valve function, valve abnormalities, and LVEF. 4. Restart cardiac medications and anticoagulation. 5. CHF education, cardiac diet/diabetic diet, sodium and fluid restriction, check lipid panel. Trend BNP. 6. We will arrange for possible cardiac catheterization and further recommendations will follow according to patient's clinical course. Thank you for this consultation. Dictated by Amber Onofre NP MD SHWETA Izaguirre/LOLITA /[id number]
[2019-12-12 23:30] VITALS: BP 134/97
[2019-12-13] VITALS (25 sets, daily range): BP systolic 98–146; BP diastolic 32–99
[2019-12-13 01:19] LABS: CREATINE KINASE 86 IU/L (29-168)
[2019-12-13] MEDS: FUROSEMIDE INJ 10 MG/ML 4 ML VIAL IV SCH ×3 (05:28→19:53)
--- NOTE | 2019-12-13 05:37 | NUR ---
PUREWICK LEAKING, NEW PUREWICK PLACED AND LINENS CHANGED. PERICARE PROVIDED
--- NOTE | 2019-12-13 06:14 | NUR ---
cc: SOB HPI: 79yoF, PCP Dr.A. Diego, recently d/c from [place] after acute bronchitis and JAYNE in CKD3, pt was SOB and V/Q scan showed low prob pe and U/S legs negative; Now here with AECHF-systolic. Pt was treated for UTI with ceftriaxone. Urine culture and blood culture remained negative at that time. Echo here showed Systolic ventricular collapse, cardiac tamponade and Pericardial effusion. Moved to ICU, CV surgery consulted and cardiology consulted; PMH: Hypertensive heart ds, MT s/p stent x3 in 2001 and >2yrs ago, AVR 2017 with porcine valve, DM-neuropathy, Gout, GIB, JAYNE, Systolic CHF LVEF 45% in 01/14 018, CKD3 due to DM2, AAA 2.6cm, Hypercalcemia, Acute diarrhea PShx: AVR; coronary stent, APPY, cholecystectomy, Partial Hysterectomy, cataract Allergies; see emrFH/SH; ; 3 children; no etoh/cigs; quit cigs in 2001 Meds; see MAR ROS no f/c/s/N/V/back pain/dizziness/confusion/leg pain/focal limb weakness v/s revd PE tired appearing anicteirc ns1s2 reduced BS soft nt nd no e/t skin dry flat affect a&ox2; navarro labs/meds revd A/P: 79yoF Cardiac tamponade-CV surgery consulted; cardiology on board Systolic ventricular collapse- as above Pericardial effusion- diuresis; awaitCV surgery eval. AECHF-systolic- diurese; LVEF 45% in 2018; f/u echo Pulmonary edema- diurese; f/u echo Transmainitis- recnet diarrhea UTI- IV abx CKD3 due to DM2 6. on December 05, 2019; renal fn at baseline; AAA 2.6cm- f/u out pt Hypertensive heart ds- cont BB CAD withhx 3 stents- cont BB/statin AVR in 2017 with porcine valve- control BP Gout Prop: scd; ppi dispo: SNF eval; f/u stress test. Likely needs JOSEPHINE. cct>35mins. Stuart Delvalle MD, PhD.
[2019-12-13] MEDS ORDERED: ZOLPIDEM TARTRATE 5 MG TAB PO PRN (06:30)
[2019-12-13] MEDS ORDERED: DOCUSATE SODIUM 100 MG CAP PO PRN (06:30)
[2019-12-13] MEDS ORDERED: ONDANSETRON HCL INJ 2MG/ML 2ML 2 MG/ML VIAL IV PRN (06:30)
[2019-12-13 07:02] LABS: BASOPHILS # (AUTO) 0.1 (0.0-0.1); BASOPHILS % 0.7 % (0.0-1.0); EOSINOPHILS # (AUTO) 0.2 (0.0-0.4); EOSINOPHILS % 1.7 % (0.0-6.0); HEMATOCRIT 37.5 % (34.2-44.1); HEMOGLOBIN 11.7 g/dL (12.0-16.0); LYMPHOCYTES # (AUTO) 1.1 (1.0-3.2); LYMPHOCYTES % 12.5 % (18.0-39.1); MEAN CORPUSCULAR HEMOGLOBIN 33.1 pg (28-32); MEAN CORPUSCULAR HGB CONC 31.2 g/dL (31-35); MEAN CORPUSCULAR VOLUME 106.2 fL (81-99); MONOCYTES # (AUTO) 0.9 (0.2-0.8); MONOCYTES % 9.7 % (4.4-11.3); NEUTROPHILS # (AUTO) 6.5 (2.1-6.9); NEUTROPHILS % 74.5 % (38.7-80.0); PLATELET COUNT 250 x10e3/uL (140-360); RED BLOOD COUNT 3.53 x10e6/uL (3.6-5.1); RED CELL DISTRIBUTION WIDTH 18.1 % (11.7-14.4)
[2019-12-13 07:18] LABS: ALBUMIN 3.2 g/dL (3.5-5.0); ANION GAP 18.8 mmol/L (8-16); CALCIUM 9.7 mg/dL (8.4-10.2); CHOL/HDL RATIO 7.5 (3.0-3.6); CREATININE, SERUM 1.39 mg/dL (0.57-1.11); POTASSIUM 4.8 mmol/L (3.5-5.1)
[2019-12-13] MEDS ORDERED: GLIMEPIRIDE 2 MG TAB PO SCH (08:00)
[2019-12-13] MEDS: METOPROLOL SUCCINATE 25 MG TAB XL PO SCH ×2 (09:00→16:09)
[2019-12-13 09:11] LABS: PLATELET ESTIMATE ADEQUATE; PLATELET MORPHOLOGY COMMENT NORMAL; RBC MORPHOLOGY COMMENT ABNORMAL
[2019-12-13 09:12] LABS: HYPOCHROMASIA MODERATE; OVALOCYTES FEW
[2019-12-13] MEDS: SUCRALFATE 1 GM TAB PO SCH ×2 (09:52→16:07)
[2019-12-13] MEDS: SPIRONOLACTONE 25 MG TAB PO SCH (09:53)
[2019-12-13] MEDS: GABAPENTIN 300 MG CAP PO SCH ×2 (09:53→16:07)
[2019-12-13] MEDS: FLUOXETINE HCL 20 MG CAP PO SCH (09:53)
[2019-12-13] MEDS: PANTOPRAZOLE SOD 40 MG TABEC PO SCH (09:53)
[2019-12-13] MEDS: ALLOPURINOL 300 MG TAB PO SCH (09:53)
[2019-12-13] MEDS ORDERED: ACETAMINOPHEN 325 MG TAB PO PRN (11:45)
--- NOTE | 2019-12-13 15:06 | NUR ---
Nutrition Intervention Note RD Recommendation(s) for Physician: -Recommend Ensure Compact BID for added nutrition -Recommend cardiac diet Plan of Care: RD following, monitoring for tolerance and adequacy, oral supplement recommendation Nutrition reason for involvement: Diagnosis - CHF RD Assessment (12/13/19) Pt is an 79 year old female admitted with CHF, UTI, renal insufficiency, and elevated LFTs. Pt was sleeping at time of visit; therefore, spoke to family member at bedside. Family member stated pt has a poor appetite and has been consuming <50% of meals for over a week. Family member was unsure if pt had any recent weight changes and mentioned she had last weighed 165 lbs. Pt currently has a weight of 185 lbs in chart. Pt also has some nausea per family member. Recommend Ensure Compact BID for added nutrition. Will continue to monitor. Principal Problems/Diagnoses: CHF, UTI, renal insufficiency, elevated LFTs PMH: hypertension, CAD with previous stents and previous RI, aortic stenosis, status post TAVR in 2017, atrial fibrillation, COPD, CHF I/O: 100/925 GI: soft, non-tender, round abdomen Skin: intact Labs: Na 136, K 4.8, BUN 40, Cr 1.39, Glu 72 Meds: lasix, spironolactone, protonix, carafate, Lipitor, colace, zofran Ht: 62 inches Wt: 185 lbs BMI: 33.8 kg/m2 IBW: 110 lbs Malnutrition Evaluation (12/13/19) The patient does not meet criteria for a specified degree of malnutrition at this time. Will re-evaluate at follow-up as appropriate. Energy intake: <50% of estimated energy requirements for >5 days Weight loss: No weight loss reported Fat loss: unable to evaluate Muscle loss: unable to evaluate Supporting Evidence: Fluid accumulation: +2 to +3 edema per MD note in extremities Functional Status: unable to evaluate Nutrition Prescription (Diet Order): 1800 ADA Estimated Nutritional Needs: 8521-9141 calories/day (22-25 kcal/kg IBW) 75-100 g protein/day (1.5-2 g pro/kg IBW) Diet Adequacy: Not meeting calorie needs, Not meeting protein needs Tolerance: Tolerating PO Diet Education Needs Assessment: RD is available for diet education as needed Nutrition Care Level: moderate Nutrition Diagnosis: Inadequate energy intake related to decreased ability to consume sufficient energy secondary to decreased appetite as evidenced by pt eating <50% of meals per family member. Goal: Patient will meet 75-100% of estimated needs by follow up Progress: N/A Interventions: Fat/cholesterol/sodium modified diet, Commercial beverage, Recommended Modifications Monitoring/Evaluation: -Total energy intake, Total protein intake, Modified diet, Liquid supplement, Weight change Signed: Amelie Che RD, LD
[2019-12-13] MEDS ORDERED: WARFARIN SOD 2.5 MG TAB PO SCH (17:00)
--- NOTE | 2019-12-13 19:53 | NUR ---
16FR BLANCO WITH 10 CC BALLOON INSERTED X 1 ATTEMPT, IMMEDIATE RETURN OF APPROX 400 CC CLEAR YELLOW URINE. PERICARE PERFORMED AND LINENS CHANGED, PATIENT TOLERATED WELL. JANAE AREA NOTED TO BE RED AND PAT C/O BURNING. OPEN AREA NOTED ON RIGHT LABIA APPROX 1 CM X 2CM
[2019-12-13] MEDS: ATORVASTATIN 40 MG TAB PO SCH (21:09)
[2019-12-14] VITALS (25 sets, daily range): BP systolic 84–129; BP diastolic 58–93
[2019-12-14] MEDS: FUROSEMIDE INJ 10 MG/ML 4 ML VIAL IV SCH ×3 (05:17→19:29)
[2019-12-14] MEDS: PANTOPRAZOLE SOD 40 MG TABEC PO SCH (09:25)
[2019-12-14] MEDS: SUCRALFATE 1 GM TAB PO SCH ×2 (09:25→16:34)
[2019-12-14] MEDS: SPIRONOLACTONE 25 MG TAB PO SCH (09:25)
[2019-12-14] MEDS: FLUOXETINE HCL 20 MG CAP PO SCH (09:25)
[2019-12-14] MEDS: GABAPENTIN 300 MG CAP PO SCH ×2 (09:25→16:34)
[2019-12-14] MEDS: METOPROLOL SUCCINATE 25 MG TAB XL PO SCH ×2 (09:27→16:35)
[2019-12-14] MEDS: ALLOPURINOL 300 MG TAB PO SCH (09:27)
[2019-12-14 10:07] LABS: ANION GAP 20.1 mmol/L (8-16); CALCIUM 9.7 mg/dL (8.4-10.2); CREATININE, SERUM 1.38 mg/dL (0.57-1.11); POTASSIUM 4.1 mmol/L (3.5-5.1)
--- NOTE | 2019-12-14 12:01 | NUR ---
sat in chair for breakfast. using walker with min.assistance
--- NOTE | 2019-12-14 16:48 | NUR ---
IM- progress note O/N see below ROS no f/c/s/N/V/back pain/dizziness/confusion/leg pain/focal limb weakness v/s revd PE tired appearing anicteirc ns1s2 reduced BS soft nt nd no e/t skin dry flat affect a&ox2; navarro labs/meds revd A/P: 79yoF Cardiac tamponade-CV surgery consulted; cardiology on board Systolic ventricular collapse- as above Pericardial effusion- diuresis; awaitCV surgery eval. AECHF-systolic- diurese; LVEF 45% in 2018; f/u echo Pulmonary edema- diurese; f/u echo Transmainitis- recnet diarrhea UTI- IV abx CKD3 due to DM2 . on December 05, 2019; renal fn at baseline; AAA 2.6cm- f/u out pt Hypertensive heart ds- cont BB CAD withhx 3 stents- cont BB/statin AVR in 2017 with porcine valve- control BP Gout Prop: scd; ppi dispo: SNF eval; f/u stress test. Likely needs JOSEPHINE. cct>35mins. 5-31 VRE UTI- start linezolid; consult ID; Sepsis POA- linezolid; cont care in ICU; monitor heart fn; plans for LHC/other intervention tomorrow; cct>35mins. Stuart Delvalle MD, PhD.
[2019-12-14] MEDS: LINEZOLID 600 MG/D5W 300ML 300 ML IV SCH (19:29)
--- NOTE | 2019-12-14 19:55 | NUR ---
CONSULT CALLED FOR DR AMADOR, MESSAGE LEFT, AWAITING RETURN CALL
--- NOTE | 2019-12-14 20:24 | Consultation ---
DATE OF CONSULTATION: 12/13/2019 REASON FOR CONSULTATION: Evaluation for primary prevention of sudden cardiac , ischemic cardiomyopathy, sick sinus syndrome, and atrial fibrillation. HISTORY OF PRESENT ILLNESS: Ms. Gage is an 79-year-old woman with a history of coronary artery disease since at least 2001 where she had 2 stents placed. Later on in 2018, she had an aortic valve replacement, back then the EF was 45%. Of note, she also had AAA with a size of 2.6 cm. She was admitted with fluid overload and CHF exacerbation. Cardiology and EP has been consulted PAST MEDICAL HISTORY: 1. Ischemic cardiomyopathy. 2. Coronary artery disease. 3. AK. 4. Aortic valve disease. 5. AAA. 6. Left bundle branch block atrial fibrillation. SOCIAL HISTORY: No drugs or smoking. FAMILY HISTORY: Negative for sudden or atrial fibrillation. REVIEW OF SYSTEMS: As above, otherwise negative for fevers, chills, loss of vision or blurry vision, ear pain, ear discharge, headache, numbness. Positive for chest pain, palpitations. Negative for cough, sputum, nausea, vomiting, dysuria, frequency, rash, bruise, bleeding, clots, anxiety, depression, heat or cold intolerance. IMAGING: Echo showed EF of 20% to 25%. EKG shows atrial fibrillation, left bundle branch Block with QRS duration of 138 milliseconds. Very late transaction and right-sided access on precordial lead indicate the right-sided heart failure as well ASSESSMENT AND PLAN: An 79-year-old woman with ischemic cardiomyopathy, ejection fraction low and continuing to drop since 2018. She has been on optimal medical management. She has class I indication for ICD for prevention of sudden cardiac and also CRTD due to the presence of left bundle branch block. I discussed this with her daughter and herself. They understand and want to proceed. She is schedule for stress tomorrow, which according to the results of that, we will decide in the timing of the procedure. Of note, she has AFib and sick sinus syndrome, which she would require anticoagulation to be restarted 48 hours after Bi-V-ICD implant. IN SUMMARY: Class I indication for Bi-V-ICD implantation due to severe ischemic cardiomyopathy and left bundle branch block. We will continue to follow. MD EDUIN Trinh/LOLITA /[id number]
[2019-12-14] MEDS: ATORVASTATIN 40 MG TAB PO SCH (21:05)
[2019-12-15] VITALS (17 sets, daily range): BP systolic 99–137; BP diastolic 62–88
[2019-12-15] MEDS: FUROSEMIDE INJ 10 MG/ML 4 ML VIAL IV SCH ×3 (04:12→20:51)
[2019-12-15] MEDS: LINEZOLID 600 MG/D5W 300ML 300 ML IV SCH (04:38)
[2019-12-15] MEDS: PANTOPRAZOLE SOD 40 MG TABEC PO SCH (07:30)
[2019-12-15] MEDS: SUCRALFATE 1 GM TAB PO SCH ×2 (07:30→16:30)
[2019-12-15] MEDS: SPIRONOLACTONE 25 MG TAB PO SCH (09:00)
[2019-12-15] MEDS: ALLOPURINOL 300 MG TAB PO SCH (09:00)
[2019-12-15] MEDS: METOPROLOL SUCCINATE 25 MG TAB XL PO SCH ×2 (09:00→17:00)
[2019-12-15] MEDS: GABAPENTIN 300 MG CAP PO SCH ×2 (09:00→17:00)
[2019-12-15] MEDS: FLUOXETINE HCL 20 MG CAP PO SCH (09:00)
[2019-12-15] MEDS ORDERED: REGADENOSON 0.4 MG/5 ML SYR IV ONE (09:39)
--- NOTE | 2019-12-15 10:47 | NUR ---
ORDERS TO DOWNGRADE TO MED SURG TELE BED FROM DR DOMENICA CONNOR, ICU CHARGE AWARE OF DOWNGRADE
--- NOTE | 2019-12-15 11:27 | NUR ---
ORDERS FOR SNF EVAL ABX CHANGED TO PO; P.T. RECOMMENDS HOME WITH HOME HEALTH DR METZGER NOTIFIED THAT OF NOW PT HAS NO SNF CRITERIA
--- NOTE | 2019-12-15 12:43 | NUR ---
stress test completed this morning. patient tolerated stress test well. for poultry picker to test, patient stood on side of bed this morning reporting left leg weakness. she was unable to move the extremity patient back in bed reassessed for deficits and s/s cva. no deficits noted when patient supine and no s/s cva noted. upon stress test, notified HYDROELECTRIC PLANT MAINTAINER of cardiology of lle weakness right before test began. hydraulic pile hammer operator aware and evaluated patient. no new orders noted. pt now in her room, daughter at bedside. pt ambulated with physical therapy in room around bed. see pt notes for assessment. pt resting in bed with eyes closed at this time. no s/s distress.
--- NOTE | 2019-12-15 14:03 | Consultation ---
DATE OF CONSULTATION: 12/15/2019 ID Consult REASON FOR CONSULTATION: VRE urinary tract infection. Thank you, Dr. Delvalle, for asking me to see this patient. HISTORY OF PRESENT ILLNESS: The patient is an 79-year-old woman, who was referred for VRE urinary tract infection. She was admitted through the emergency room with congestive heart failure exacerbation. She was sent to the Emergency Department by the primary care provider for worsening shortness of breath, generalized weakness, and loss of appetite. The patient admits to dysuria and suprapubic discomfort as well. There is no fever, chills, chest pain, hemoptysis, hematuria, or flank pain. She was recently admitted to [facility] and had Calloway catheter placement. In the Emergency Department, she was noted to have temperature of 97.6 degrees Fahrenheit, pulse rate 86, respiratory rate 16, blood pressure 140/89 and oxygen saturation 100% on 2 L of oxygen via nasal cannula. INITIAL LABORATORY STUDIES: Showed hemoglobin 11.4, BUN 40, creatinine 1.5, AST 439, ALT 554, alkaline phosphatase 150, troponin less than 0.001 and BNP 1415.7. Urinalysis was of normal, urine culture later grew vancomycin-resistant Enterococcus. Chest x-ray showed cardiomegaly and pulmonary interstitial edema. The patient has been evaluated by Cardiology and Electrophysiology Services. PAST MEDICAL HISTORY: Diabetes mellitus type 2, ischemic cardiomyopathy, congestive heart failure, myocardial infarction, aortic valve disease, atrial fibrillation, abdominal aortic aneurysm, neuropathy, and gout. PAST SURGICAL HISTORY: TAVR. ALLERGIES: SULFA. MEDICATIONS: The current antibiotic is Zyvox 600 mg IV piggyback q.12 hours. FAMILY HISTORY: Noncontributory. SOCIAL HISTORY: No alcohol, tobacco, or recreational drug use. REVIEW OF SYSTEMS: As per history of present illness. PHYSICAL EXAMINATION: GENERAL: No acute distress. VITAL SIGNS: T-max 98.9, pulse rate 96, respiratory rate 20, blood pressure 101/72, weight 185 pounds. HEENT: Normocephalic, atraumatic. There is no icterus or injection of conjunctiva. There is no ear or nasal discharge. There is dry oral mucosa. No pharyngeal erythema or exudate. NECK: Supple with distention of external jugular veins. LUNGS: With few basal rales. HEART: With normal S1 and S2. Irregularly irregular. ABDOMEN: Soft with mild suprapubic tenderness. No rebound tenderness. EXTREMITIES: Without edema, clubbing, or cyanosis. SKIN: Without acute erythema. CENTER MGR: Awake, alert, and oriented to person, place, and time. Nonfocal. LABORATORY AND DIAGNOSTICS: On 12/13/2019, WBC is 8720, hemoglobin 11.7, platelet 250,000, neutrophils 74.5, lymphocytes 12.5, monocytes 9.7, eosinophils 1.7, and basophils 0.7. BUN 42, creatinine 1.38, blood glucose 169. On 12/12/2019, urine culture grew vancomycin-resistant Enterococcus faecium. Blood culture no growth. IMPRESSION: 1. Urinary tract infection due to vancomycin-resistant Enterococcus faecium present on admission. 2. Abnormal liver enzymes. 3. Chronic atrial fibrillation. 4. Acute on chronic congestive heart failure. PLAN: 1. Change linezolid to 600 mg orally q.12 hours to reduce fluid intake. Stop Zofran due to interaction with nosebleed to cause serotonin syndrome. 2. Cardiology input has been noted. 3. Repeat liver enzymes. MD OSCAR Mckeon/MODL /[id number]
--- NOTE | 2019-12-15 14:23 | Operative Report ---
DATE OF PROCEDURE: 12/15/2019 SURGEON: Celso Clayton MD PROCEDURE: Lexiscan nuclear stress test. INDICATIONS: Congestive heart failure. TECHNIQUE: The patient was given 11 mCi of Myoview. Resting images were obtained in the horizontal long axis, vertical long axis, and short axis. The patient was then hooked up to the EKG machine. Lexiscan was infused over 15 seconds during Lexiscan infusion. The patient had no chest pain and no EKG changes. The patient was then given 33 mCi of Myoview. Stress images were obtained 30 minutes after completion of Lexiscan infusion. Stress images were obtained in the horizontal long axis, vertical long axis, and short axis. RESULTS: As follows, resting EKG demonstrated: 1. Atrial fibrillation and left bundle-branch block. 2. There were no EKG changes and no symptoms during Lexiscan infusion. 3. There was diminished perfusion to the apex and septum, in both the rest and stress. 4. There was an enlarged left ventricle with severe global left ventricular dysfunction and an ejection fraction of 26%. CONCLUSION: The patient has severe LV dysfunction with a fixed defect in the apex and septum consistent with myocardial scar. There is no evidence of reversible ischemia. Celso Clayton MD [facility]/MODL /[id number] cc: Stuart Delvalle MD
--- NOTE | 2019-12-15 14:57 | NUR ---
patient left for environmental laboratory technician defib. placement
[2019-12-15] MEDS ORDERED: FENTANYL CITRATE/PF 100MCG/2 ML INJ ONE ×2 (15:18→16:56)
[2019-12-15] MEDS ORDERED: MIDAZOLAM HCL 2 MG/2 ML VIAL ONE ×2 (15:18→16:56)
[2019-12-15] MEDS ORDERED: LIDOCAINE 1% W/EPINEPHRINE 20 ML VIAL ONE (15:18)
[2019-12-15] MEDS ORDERED: BACITRACIN 50,000 UNIT VIAL ONE (15:19)
[2019-12-15] MEDS ORDERED: SODIUM CHLORIDE 0.9% 500ML 500 ML ONE (15:19)
[2019-12-15] MEDS ORDERED: SODIUM CHLORIDE 0.9% 1000ML 2,000 ML ONE (15:19)
[2019-12-15] MEDS ORDERED: METOPROLOL TARTRATE INJ 1 MG/ML VIAL ONE (16:29)
[2019-12-15] MEDS: LINEZOLID 600 MG TAB PO SCH (16:30)
--- NOTE | 2019-12-15 16:33 | NUR ---
IM- progress note O/N see below ROS no f/c/s/N/V/back pain/dizziness/confusion/leg pain/focal limb weakness v/s revd PE tired appearing anicteirc ns1s2 reduced BS soft nt nd no e/t skin dry flat affect a&ox2; navarro labs/meds revd A/P: 79yoF Cardiac tamponade-CV surgery consulted; cardiology on board Systolic ventricular collapse- as above Pericardial effusion- diuresis; awaitCV surgery eval. AECHF-systolic- diurese; LVEF 45% in 2018; f/u echo Pulmonary edema- diurese; f/u echo Transmainitis- recnet diarrhea UTI- IV abx CKD3 due to DM2 . on December 05, 2019; renal fn at baseline; AAA 2.6cm- f/u out pt Hypertensive heart ds- cont BB CAD withhx 3 stents- cont BB/statin AVR in 2017 with porcine valve- control BP Gout Prop: scd; ppi dispo: SNF eval; f/u stress test. Likely needs JOSEPHINE. cct>35mins. 5-31 VRE UTI- start linezolid; consult ID; Sepsis POA- linezolid; cont care in ICU; monitor heart fn; plans for LHC/other intervention tomorrow; cct>35mins. 6-1 cont care; stress tst/device placement pending; Stuart Delvalle MD, PhD.
--- NOTE | 2019-12-15 18:05 | NUR ---
RECD PT FROM CERTIFIED MAINTENANCE WELDER ,VIA BED VERY SLEEPY EASILY AROUSED,O2 2L NC IN PLACE,SLING TO LT ARM,PRESSURE DRSG IN PLCE NO BLEEDING NOTED.VS 121/77,105 AFIB,BLANCO TO BSD,HOB ELEVATED,CALL VENTURA IN REACH
--- NOTE | 2019-12-15 18:43 | NUR ---
nsg report given to Bouchra ALMANZA for patient transfer to room 295 post lab technologist defib.
--- NOTE | 2019-12-15 20:49 | Diagnostic Imaging Report ---
EXAMINATION: CHEST SINGLE (PORTABLE) INDICATION: Postoperative exam. COMPARISON: 12/12/2019. FINDINGS: LINES/TUBES:Interval placement of a tri-lead left-sided pacemaker. LUNGS:Bibasilar atelectasis. Mild bilateral pulmonary venous congestion. PLEURA:No pneumothorax. Bilateral trace pleural effusions. MEDIASTINUM:Mild cardiomegaly. Atherosclerotic calcifications of the thoracic aorta. BONES/SOFT TISSUES:No acute osseous injury. ABDOMEN:No free air under the diaphragm. IMPRESSION: Interval placement of cardiac pacemaker as detailed above. Mild pulmonary venous congestion. Signed by: Dr. Genia Tucker M.D. on 12/15/2019 8:46 PM
[2019-12-15] MEDS: ATORVASTATIN 40 MG TAB PO SCH (20:51)
[2019-12-16] VITALS (7 sets, daily range): BP systolic 106–142; BP diastolic 71–89
[2019-12-16] MEDS ORDERED: VANCOMYCIN 750MG/NS 150ML IVPB 150 ML IV SCH (04:30)
[2019-12-16] MEDS: LINEZOLID 600 MG TAB PO SCH ×2 (04:45→17:00)
[2019-12-16] MEDS: FUROSEMIDE INJ 10 MG/ML 4 ML VIAL IV SCH ×2 (04:45→11:37)
[2019-12-16] MEDS ORDERED: SODIUM CHLORIDE 0.9% 250ML 250 ML ONE (04:58)
[2019-12-16] MEDS: ACETAMINOPHEN/CODEINE 300MG - 30MG TAB PO PRN ×2 (05:05→14:34)
--- NOTE | 2019-12-16 06:27 | NUR ---
IM- progress note O/N see below ROS no f/c/s/N/V/back pain/dizziness/confusion/leg pain/focal limb weakness v/s revd PE tired appearing anicteirc ns1s2 reduced BS soft nt nd no e/t skin dry flat affect a&ox2; navarro labs/meds revd A/P: 79yoF Cardiac tamponade-CV surgery consulted; cardiology on board Systolic ventricular collapse- as above Pericardial effusion- diuresis; awaitCV surgery eval. AECHF-systolic- diurese; LVEF 45% in 2018; f/u echo Pulmonary edema- diurese; f/u echo Transmainitis- recnet diarrhea UTI- IV abx CKD3 due to DM2 . on December 05, 2019; renal fn at baseline; AAA 2.6cm- f/u out pt Hypertensive heart ds- cont BB CAD withhx 3 stents- cont BB/statin AVR in 2017 with porcine valve- control BP Gout Prop: scd; ppi dispo: SNF eval; f/u stress test. Likely needs JOSEPHINE. cct>35mins. 5-31 VRE UTI- start linezolid; consult ID; Sepsis POA- linezolid; cont care in ICU; monitor heart fn; plans for LHC/other intervention tomorrow; cct>35mins. 6-1 cont care; stress tst/device placement pending; 6-2 s/p AICD placement; LVEF reported at 20%; Stuart Delvalle MD, PhD.
--- NOTE | 2019-12-16 07:06 | NUR ---
Bedside report and walking rounds completed with oncoming nurse. Patient in bed with call light within reach. No issues or concerns noted.
[2019-12-16 07:18] LABS: BASOPHILS % 0.5 % (0.0-1.0); EOSINOPHILS # (AUTO) 0.1 (0.0-0.4); EOSINOPHILS % 1.2 % (0.0-6.0); HEMATOCRIT 35.3 % (34.2-44.1); HEMOGLOBIN 11.4 g/dL (12.0-16.0); LYMPHOCYTES # (AUTO) 0.8 (1.0-3.2); LYMPHOCYTES % 9.7 % (18.0-39.1); MEAN CORPUSCULAR HEMOGLOBIN 32.8 pg (28-32); MEAN CORPUSCULAR HGB CONC 32.3 g/dL (31-35); MEAN CORPUSCULAR VOLUME 101.4 fL (81-99); MONOCYTES # (AUTO) 0.8 (0.2-0.8); MONOCYTES % 9.3 % (4.4-11.3); NEUTROPHILS # (AUTO) 6.5 (2.1-6.9); NEUTROPHILS % 78.8 % (38.7-80.0); PLATELET COUNT 211 x10e3/uL (140-360); RED BLOOD COUNT 3.48 x10e6/uL (3.6-5.1); RED CELL DISTRIBUTION WIDTH 19.1 % (11.7-14.4)
[2019-12-16 07:33] LABS: ANION GAP 17.7 mmol/L (8-16); CALCIUM 8.8 mg/dL (8.4-10.2); CREATININE, SERUM 1.38 mg/dL (0.57-1.11); POTASSIUM 3.7 mmol/L (3.5-5.1)
[2019-12-16 08:16] LABS: MAGNESIUM 1.4 MG/DL (1.3-2.1); PHOSPHORUS 4.1 MG/DL (2.3-4.7)
[2019-12-16] MEDS: SUCRALFATE 1 GM TAB PO SCH ×2 (08:38→17:00)
[2019-12-16] MEDS: GABAPENTIN 300 MG CAP PO SCH ×2 (08:38→17:00)
[2019-12-16] MEDS: SPIRONOLACTONE 25 MG TAB PO SCH (08:38)
[2019-12-16] MEDS: METOPROLOL SUCCINATE 25 MG TAB XL PO SCH ×2 (08:38→17:00)
[2019-12-16] MEDS: ALLOPURINOL 300 MG TAB PO SCH (08:38)
[2019-12-16] MEDS: FLUOXETINE HCL 20 MG CAP PO SCH (08:38)
[2019-12-16] MEDS: PANTOPRAZOLE SOD 40 MG TABEC PO SCH (08:38)
--- NOTE | 2019-12-16 09:33 | Operative Report ---
DATE OF PROCEDURE: 12/15/2019 SURGEON: WILLOW WHITE DO CLINICAL INDICATION: Ms. Gage is an 79-year-old woman with a history of chronic systolic cardiomyopathy with depressed left ventricular ejection fraction. She has been on goal-directed medical therapy for at least 3 months. The patient also has evidence of atrial fibrillation with rapid ventricular rate and cardiac dyssynchrony with left bundle branch block. She has NYHA class 2-3 and a formal shared decision was made between myself and the patient and she will receive a biventricular defibrillator implantation. PROCEDURES PERFORMED: 1. Implantation of a biventricular defibrillator ([employer]). 2. Left upper extremity venogram. 3. Coronary sinus venogram. 4. Ultrasound-guided vascular access. 5. Moderate sedation. PROCEDURE IN DETAIL: After informed consent was obtained, the patient was prepped and draped in a usual manner. Moderate sedation was used for this procedure. A total of 2 mg IV Versed and 150 mcg IV fentanyl were given by Nupur Kwong. For a total of 100 minutes, the patient was monitored by myself and the nurse. Preprocedure time-out and antibiotics given to the patient. Left upper extremity venogram was performed, which demonstrated patency of the left axillary vein to the right atrium. Afterwards, a 1% lidocaine was given to the left chest region and a 2 cm incision was created over the left chest. A pocket was then created over the pectoralis muscle and hemostasis was confirmed. Then, using ultrasound which demonstrated patency of the left axillary vein as well as visualization, 3 uncomplicated venous access was obtained and 3 wires subsequently inserted into the inferior vena cava. Afterwards, an 8-Nauruan Peel-Away sheath was inserted over one of the wires and a right ventricular defibrillator lead, which was single coil, was inserted through that sheath and brought to the left ventricular apex using a pull-out technique. The lead was screwed to myocardium supervisor lead refinery, demonstrated adequate threshold and sheath was peeled. Afterwards, a 9-Nauruan Peel-Away sheath was inserted over the other wire and an LV outer sheath along with an AL2 catheter and Wholey wire was inserted through that sheath and brought to the coronary sinus using fluoroscopic guidance. The LV outer sheath was inserted into the coronary sinus and the AL2 catheter and Wholey wire were removed. A 5-Nauruan balloon tipped catheter was then inserted into the outer sheath and brought to the coronary sinus, and the coronary sinus venogram was performed, which demonstrated a small proximal posterolateral branch, which tapered off distally to very small caliber, a middle medium-sized lateral branch with a very small distal tapering and nothing distally. The middle lateral branch was targeted for implantation and an inner sheath was used along with a whisper wire and a quadripolar LV lead, which was then successfully implanted into the middle lateral branch. Testing of the lead demonstrated adequate threshold. Fluoroscopy showed adequate separation between the RV and LV leads and the sheaths were then split without dislodgement of the LV lead. A 9-Nauruan Peel-Away sheath was then split as well. Afterwards, a 6-Nauruan Peel- Away sheath inserted over a final wire and a right atrial pacing lead was inserted through the sheath and brought to the right atrial appendage using a preformed J-stylet. The lead was secured to the myocardium. sports leadership instructor demonstrated adequate threshold and this sheath was peeled. Ultimately, these were then sutured to muscle using 0 silk. Hemostasis was confirmed and the pocket was irrigated thoroughly with antibiotic solution. After the generator was brought to the field, all leads were plugged into the generator and leads were introduced into the pocket and the generator was sutured to muscle using 0 silk. The pocket was then closed using the standard 3-layer fashion and Vicryl and skin glue was applied. At the conclusion of the procedure, the patient tolerated the procedure well without any complications. Fluoroscopy demonstrated normal cardiac silhouette, no evidence of pericardial effusion, no pneumothorax, no retained products within the pocket. IMPLANTED DEVICES: 1. [employer] model G247, serial #[id number]. 2. RA 7740, serial #[id number]. 3. RV 0672, serial #[id number]. 4. LV 4674, serial #[id number]. MEASUREMENTS: 1. RA 1.8 mV, atrial fibrillation, 836 ohms. 2. RV 25 mV, 0.5 V at 0.4 milliseconds, 730 ohms, 65 ohms. 3. LV 10.2 mV, 1.6 V at 1 millisecond (LV tip to RV), 1335 ohms. 4. Parameters DDDR 60/130. 5. VT 170, monitor only. 6. VF 200, quick convert, 41 joules x8. CONCLUSION: 1. Successful placement of a biventricular defibrillator ([employer]). 2. No immediate complications. POSTPROCEDURE PLAN: 1. Bed rest 6 hours. The patient can resume her prior diet. 2. Postprocedure chest x-ray and EKG. Tomorrow morning, the patient should receive a 2-view chest x-ray. 3. Postprocedure pain medication and antibiotics be given. 4. Left arm to stay in a sling overnight, that can be removed from the sling tomorrow morning. Next two weeks, the patient can take arm out of the sling and use the arm for daily activities. Do not lift it over the shoulder in any direction, do not lift more than 10 pounds of weight. While sleeping at night, put the arm in the sling. 5. The incision be kept absolutely dry for 2 weeks. 6. On discharge, please see Dr. Hickman in clinic in 2 weeks. DO CECIL HUNT/LOLITA /[id number] MTDCarolee
--- NOTE | 2019-12-16 15:09 | Diagnostic Imaging Report ---
EXAMINATION: CHEST 2 VIEWS INDICATION: Postoperative COMPARISON: Chest radiograph 12/15/2019 FINDINGS: LINES/TUBES:Left chest AICD. LUNGS:The lungs are moderately inflated. There is perihilar fullness and indistinctness of the pulmonary vasculature. Bibasilar patchy opacities. PLEURA:Likely trace right and left pleural effusions. No pneumothorax. MEDIASTINUM:The cardiomediastinal silhouette appears unchanged in size and shape. BONES/SOFT TISSUES:No acute osseous injury. ABDOMEN:No free air under the diaphragm. IMPRESSION: No significant interval change. Signed by: Erin Madera MD on 12/16/2019 3:05 PM
--- NOTE | 2019-12-16 18:16 | NUR ---
IN BED SLEEPING ,NO S/S DISCOMFORT
--- NOTE | 2019-12-16 19:00 | NUR ---
Bedside report and walking rounds completed with off going nurse. Patient in bed with call light within reach. No issues or concerns noted. Bed locked and in lowest position. Will continue to monitor.
[2019-12-16] MEDS: ATORVASTATIN 40 MG TAB PO SCH (20:38)
[2019-12-17] VITALS (8 sets, daily range): BP systolic 96–132; BP diastolic 68–86
[2019-12-17] MEDS: LINEZOLID 600 MG TAB PO SCH ×2 (05:05→18:03)
[2019-12-17] MEDS: ACETAMINOPHEN/CODEINE 300MG - 30MG TAB PO PRN (05:05)
--- NOTE | 2019-12-17 06:46 | NUR ---
Bedside shift report received from off going nurse. Patient is resting in bed. No acute distress noted. Call light within reach. Bed in the lowest position. Bed alarm on.
--- NOTE | 2019-12-17 07:12 | NUR ---
Bedside report and walking rounds completed with oncoming nurse. Patient in bed with call light within reach. No issues or concerns noted.
[2019-12-17 07:18] LABS: ALBUMIN 3.1 g/dL (3.5-5.0); BILIRUBIN,DIRECT 0.7 mg/dL (0.0-0.5)
[2019-12-17 07:33] LABS: ANION GAP 19.7 mmol/L (8-16); CALCIUM 8.9 mg/dL (8.4-10.2); CREATININE, SERUM 1.48 mg/dL (0.57-1.11); POTASSIUM 3.7 mmol/L (3.5-5.1)
[2019-12-17] MEDS: PANTOPRAZOLE SOD 40 MG TABEC PO SCH (08:12)
[2019-12-17] MEDS: GABAPENTIN 300 MG CAP PO SCH ×2 (08:12→18:03)
[2019-12-17] MEDS: SUCRALFATE 1 GM TAB PO SCH ×2 (08:12→18:03)
[2019-12-17] MEDS: FUROSEMIDE INJ 10 MG/ML 4 ML VIAL IV SCH (08:12)
[2019-12-17] MEDS: SPIRONOLACTONE 25 MG TAB PO SCH (08:12)
[2019-12-17] MEDS: METOPROLOL SUCCINATE 25 MG TAB XL PO SCH ×2 (08:13→17:00)
[2019-12-17] MEDS: FLUOXETINE HCL 20 MG CAP PO SCH (08:13)
[2019-12-17] MEDS: ALLOPURINOL 300 MG TAB PO SCH (08:13)
--- NOTE | 2019-12-17 11:19 | NUR ---
IM- progress note O/N see below ROS no f/c/s/N/V/back pain/dizziness/confusion/leg pain/focal limb weakness v/s revd PE tired appearing anicteirc ns1s2 reduced BS soft nt nd no e/t skin dry flat affect a&ox2; navarro labs/meds revd A/P: 79yoF Cardiac tamponade-CV surgery consulted; cardiology on board Systolic ventricular collapse- as above Pericardial effusion- diuresis; awaitCV surgery eval. AECHF-systolic- diurese; LVEF 45% in 2018; f/u echo Pulmonary edema- diurese; f/u echo Transmainitis- recnet diarrhea UTI- IV abx CKD3 due to DM2 on December 05, 2019; renal fn at baseline; AAA 2.6cm- f/u out pt Hypertensive heart ds- cont BB CAD withhx 3 stents- cont BB/statin AVR in 2017 with porcine valve- control BP Gout Prop: scd; ppi dispo: SNF eval; f/u stress test. Likely needs JOSEPHINE. cct>35mins. 5-31 VRE UTI- start linezolid; consult ID; Sepsis POA- linezolid; cont care in ICU; monitor heart fn; plans for LHC/other intervention tomorrow; cct>35mins. 6-1 cont care; stress tst/device placement pending; 6-2 s/p AICD placement; LVEF reported at 20%; 6-3 SNF pending; Stuart Delvalle MD, PhD.
--- NOTE | 2019-12-17 12:26 | NUR ---
REPORT GIVEN TO RECEIVING NURSE. PATIENT IS IN STABLE CONDITION. WILL CONTINUE TO MONITOR.
--- NOTE | 2019-12-17 12:30 | NUR ---
SPOKE WITH PT AND DAUGHTER IN ROOM ABOUT SNF, OFFERED FACILITIES IN NETWORK AND THEY [facility]OO[facility]. SIGNED CHOICE, FILED IN CHART, FAXED CLINICALS, PASRR, AND COVID FORM WITH RESULTS. COMPLETED THE RTF AND PUT AT NURSES STATION.
--- NOTE | 2019-12-17 15:16 | NUR ---
Patient has a room ready at [facility]. She will be transported tomorrow at 9am. Patient and family are both aware of the next steps.
--- NOTE | 2019-12-17 15:49 | NUR ---
EDUCATED ABOUT IMM, SIGNED, FILED IN CHART, WITH COPY LEFT WITH FAMILY AT BEDSIDE.
--- NOTE | 2019-12-17 19:40 | NUR ---
RECEIVED PT IN BED AOX2PT HAS STRESS TEST AND DEFIB 12/15/19 .PT HAS F/C WITH STRICT I &O LEFT AC 20 G S/L .CALL LIGHT WITH IN REACH ..CONTINUE TO MONITOR
[2019-12-17] MEDS: ATORVASTATIN 40 MG TAB PO SCH (21:00)
[2019-12-18 04:00] VITALS: BP 104/74
[2019-12-18] MEDS: LINEZOLID 600 MG TAB PO SCH (04:56)
--- NOTE | 2019-12-18 06:53 | NUR ---
PT RESTED DURING THE NIGHT.DENIES PAIN PUT SLING DURING THE NIGHT F/C INTACT DRAINING CLEAR URINE .CALL LIGHT WITH IN REACH .CONTINUE TO MONITOR .BEDSIDE REPORT GIVEN TO THE ONCOMING NURSE
--- NOTE | 2019-12-18 07:00 | NUR ---
RCD PT AT BED PT IS ALERT AND ORIENTED RESTING ON BED IV PATENT BY SALINE FLUSH BED LOW AND LOCKED CALL LIGHT IN REACH
[2019-12-18] MEDS: PANTOPRAZOLE SOD 40 MG TABEC PO SCH (07:30)
[2019-12-18] MEDS: SUCRALFATE 1 GM TAB PO SCH (07:30)
[2019-12-18 07:39] VITALS: BP 113/87
--- NOTE | 2019-12-18 07:50 | NUR ---
USP FACILITY DISCHARGE INFORMATION PATIENT HAS BEEN ACCEPTED TO: NAME: [facility] ADDRESS: [id number] ACCEPTING [place] OBSERVER:TASNEEM MOLINA ACCEPTING MD:CALVIN ROOM: 102 NURSE CALL REPORT TO: [phone] IMM SIGNED AND OBTAINED (if applicable): IMM THE FOLLOWING DOCUMENTS MUST ACCOMPANY PATIENT FOR TRANSFER: COPIED CHART: PACKET AT STATION
--- NOTE | 2019-12-18 08:08 | NUR ---
PT IS APPROVED BY [facility] AND NOTIFIED DR METZGER GOT THE DISCHRAGE ORDER AND GOT THE ORDER TO CONTINUE HOME MEDS
[2019-12-18] MEDS: FUROSEMIDE INJ 10 MG/ML 4 ML VIAL IV SCH (08:11)
[2019-12-18] MEDS: SPIRONOLACTONE 25 MG TAB PO SCH (08:11)
[2019-12-18] MEDS: METOPROLOL SUCCINATE 25 MG TAB XL PO SCH (08:12)
[2019-12-18] MEDS: GABAPENTIN 300 MG CAP PO SCH (08:12)
[2019-12-18] MEDS: FLUOXETINE HCL 20 MG CAP PO SCH (08:12)
[2019-12-18] MEDS: ALLOPURINOL 300 MG TAB PO SCH (08:12)
[2019-12-18 08:15] VITALS: BP 113/87
--- NOTE | 2019-12-18 08:33 | NUR ---
REPORT GIVEN TO DHRUV SIMS
--- NOTE | 2019-12-18 09:48 | NUR ---
PATIENT DISCHARGED TO [facility]E CONDITION
== END 2019-12-18 09:48 | DRG 853 ==
LOC: ER 11:28 → ERHOLD 14:49 → ICU 23:00 → MED/SURG3 12-15 17:14
PROVIDERS: ADMIT Internal Medicine; ATTEND Internal Medicine
PROC: 0JH609Z Insertion of Cardiac Resynchronization Defibrillator Pulse Generator into Chest Subcutaneous Tissue and Fascia, Open Approach (ICD-10-PCS; principal; 2019-12-15)
PROC: 02HK3KZ Insertion of Defibrillator Lead into Right Ventricle, Percutaneous Approach (ICD-10-PCS; 2019-12-15)
PROC: 02HL3KZ Insertion of Defibrillator Lead into Left Ventricle, Percutaneous Approach (ICD-10-PCS; 2019-12-15)
PROC: 02H63KZ Insertion of Defibrillator Lead into Right Atrium, Percutaneous Approach (ICD-10-PCS; 2019-12-15)
DX: A41.9 Sepsis, unspecified organism (principal); I50.23 Acute on chronic systolic (congestive) heart failure; I13.0 Hypertensive heart and chronic kidney disease with heart failure and stage 1 through stage 4 chronic kidney disease, or unspecified chronic kidney disease; I31.4 Cardiac tamponade; Z94.0 Kidney transplant status; N39.0 Urinary tract infection, site not specified; Z16.12 Extended spectrum beta lactamase (ESBL) resistance; Z16.22 Resistance to vancomycin related antibiotics; I31.3 Pericardial effusion (noninflammatory); I48.20 Chronic atrial fibrillation, unspecified; N18.3 Chronic kidney disease, stage 3 (moderate); Z95.3 Presence of xenogenic heart valve; M10.9 Gout, unspecified; I25.10 Atherosclerotic heart disease of native coronary artery without angina pectoris; Z95.5 Presence of coronary angioplasty implant and graft; I71.4 Abdominal aortic aneurysm, without rupture; R74.0 Nonspecific elevation of levels of transaminase and lactic acid dehydrogenase [LDH]; J44.9 Chronic obstructive pulmonary disease, unspecified; Z03.818 Encounter for observation for suspected exposure to other biological agents ruled out; B95.2 Enterococcus as the cause of diseases classified elsewhere; I25.2 Old myocardial infarction; I25.5 Ischemic cardiomyopathy; G62.9 Polyneuropathy, unspecified
CPT/HCPCS: 33225; 33249; 36415; 36600; 70450; 71045; 71046; 78452; 80048; 80053; 80061; 80076; 81001; 82550; 82553; 82948; 83690; 83735; 83880; 84100; 84484; 85025; 85610; 85730; 87040; 87086; 87186; 87635; 93005; 93017; 93306; 97139; 99152; 99153; 99285; A9502; C1769; J0696; J1940; J2020; J2250; J3010; J7030; J7040; J7050

== ENCOUNTER 2020-01-03 20:31 | Inpatient (IN) | payer MEDICARE, OTHER ==
[~2020-01-03] VITALS: Ht 157.5 cm; Wt 78.5 kg
[~2020-01-03 20:31] MED LIST: ALLOPURINOL300 MG PO; ATORVASTATIN CA20 MG PO; FLUOXETINE HCL20 MG PO; FUROSEMIDE40 MG PO; GABAPENTIN300 MG PO; GLIMEPIRIDE2 MG PO; METOPROLOL SUCC50 MG PO; NITROGLYCERIN0.4 MG SL; POTASSIUM CHLO10 ME1 PO; PROTONIX20 MG PO; SPIRONOLACTONE25 MG PO; SUCRALFATE1 GM PO; WARFARIN SODIU2.5 MG PO
[2020-01-03] MEDS ORDERED: SODIUM CHLORIDE 0.9% 1000ML 1,000 ML IV STA (20:34)
--- NOTE | 2020-01-03 20:37 | Emergency Department Note ---
History of Present Illnes History of Present Illness Chief Complaint: General Medicine Complaints History of Present Illness This is a 79 year old female sent by DC for evaluation of generalized weakness and new elevated Cr level of 6.4.. Historian: Patient, Efficiency Analyst/EMS Arrival Mode: [facility] Treatment TALENT DEVELOPMENT COORDINATOR: See EMS Report Mold Shaker Required: No Onset (how long ago): day(s) Radiation: Reports non-radiation Severity: moderate Onset quality: gradual Duration (how long): day(s) Timing of current episode: constant Progression: unchanged Chronicity: new Context: Reports recent illness Relieving factors: none Exacerbating factors: none Associated symptoms: Reports malaise Treatments prior to arrival: none Past Medical/Family History Physician Review I have reviewed the patient's past medical and family history. Any updates have been documented here. Past Medical History Past Medical History: Hypertension, Diabetes, COPD, CHF, NE, A-Fib, CAD, UTI's Other Medical History: DIVERTICULOSIS GOUT NEUROPATHY Other Surgery: TAVR 07/2016 Social History Smoking Cessation: Never Smoker Alcohol Use: None Any Illegal Drug Use: No Review of Systems Review of Systems Constitutional: Reports weakness EENTM: Reports no symptoms Cardiovascular: Reports no symptoms Respiratory: Reports no symptoms Gastrointestinal: Reports no symptoms Genitourinary: Reports no symptoms Musculoskeletal: Reports no symptoms Integumentary: Reports no symptoms Neurological: Reports no symptoms Psychological: Reports no symptoms Endocrine: Reports no symptoms Hematological/Lymphatic: Reports no symptoms Physical Exam Related Data Allergies: Coded Allergies: Sulfa (Sulfonamide Antibiotics) (Verified Allergy, Severe, 01/07/20) Triage Vital Signs Vital Signs Date Time Temp Pulse Resp B/P (MAP) Pulse Ox O2 Delivery O2 Flow Rate FiO2 01/03/20 20:44 98.8 105 20 101/58 99 01/03/20 23:40 1.5 01/04/20 01:11 Nasal Cannula 01/06/20 21:00 60 Vital signs reviewed: Yes Physical Exam CONSTITUTIONAL Constitutional: Present cachectic HENT HENT: Present normocephalic, Present atraumatic, Present oropharynx clear/moist, Present nose normal HENT L/R: Present left ext ear normal, Present right ext ear normal EYES Eyes: Reports PERRL, Reports conjunctivae normal NECK Neck: Present ROM normal PULMONARY Pulmonary: Present effort normal, Present breath sounds normal CARDIOVASCULAR Cardiovascular: Present regular rhythm, Present heart sounds normal, Present capillary refill normal, Present normal rate GASTROINTESTINAL Abdominal: Present soft, Present nontender, Present bowel sounds normal GENITOURINARY Genitourinary: Present exam deferred SKIN Skin: Present dry, Present pale, Present other MUSCULOSKELETAL Musculoskeletal: Present ROM normal NEUROLOGICAL Neurological: Present alert, Present oriented x 3, Present no gross motor or sensory deficits PSYCHOLOGICAL Psychological: Present mood/affect normal, Present judgement normal Results Laboratory Lab results reviewed: Yes Laboratory comments Laboratory Tests Test 01/03/20 22:26 01/03/20 21:20 01/03/20 20:50 White Blood Count 6.44 x10e3/uL (4.8-10.8) Red Blood Count 3.14 x10e6/uL (3.6-5.1) Hemoglobin 10.2 g/dL (12.0-16.0) Hematocrit 30.7 % (34.2-44.1) Mean Corpuscular Volume 97.8 fL (81-99) Mean Corpuscular Hemoglobin 32.5 pg (28-32) Mean Corpuscular Hemoglobin Concent 33.2 g/dL (31-35) Red Cell Distribution Width 16.7 % (11.7-14.4) Platelet Count 317 x10e3/uL (140-360) Neutrophils (%) (Auto) 68.4 % (38.7-80.0) Lymphocytes (%) (Auto) 14.9 % (18.0-39.1) Monocytes (%) (Auto) 11.0 % (4.4-11.3) Eosinophils (%) (Auto) 2.5 % (0.0-6.0) Basophils (%) (Auto) 0.9 % (0.0-1.0) Neutrophils # (Auto) 4.4 (2.1-6.9) Lymphocytes # (Auto) 1.0 (1.0-3.2) Monocytes # (Auto) 0.7 (0.2-0.8) Eosinophils # (Auto) 0.2 (0.0-0.4) Basophils # (Auto) 0.1 (0.0-0.1) Absolute Immature Granulocyte (auto 0.15 x10e3/uL (0-0.1) Sodium Level 133 mmol/L (136-145) Potassium Level 2.9 mmol/L (3.5-5.1) Chloride Level 92 mmol/L (98-107) Carbon Dioxide Level 25 mmol/L (22-29) Anion Gap 18.9 mmol/L (8-16) Blood Urea Nitrogen 64 mg/dL (7-26) Creatinine 6.76 mg/dL (0.57-1.11) Estimat Glomerular Filtration Rate 6 ML/MIN (60-) BUN/Creatinine Ratio 9 (6-25) Glucose Level 117 mg/dL (74-118) Calcium Level 8.9 mg/dL (8.4-10.2) Total Bilirubin 1.1 mg/dL (0.2-1.2) Aspartate Amino Transf (AST/SGOT) 33 IU/L (5-34) Alanine Aminotransferase (ALT/SGPT) 19 IU/L (0-55) Alkaline Phosphatase 185 IU/L (40-150) Creatine Kinase 52 IU/L (29-168) Creatine Kinase MB 0.70 ng/mL (0-5.0) Troponin I 0.050 ng/mL (0-0.300) B-Type Natriuretic Peptide 483.0 pg/mL (0-100) Total Protein 5.9 g/dL (6.5-8.1) Albumin 3.2 g/dL (3.5-5.0) Globulin 2.7 g/dL (2.3-3.5) Albumin/Globulin Ratio 1.2 (0.8-2.0) Lipase 90 U/L (8-78) Urine Color Yellow (YELLOW) Urine Clarity Sl cloudy (CLEAR) Urine pH 5 (5 - 7) Urine Specific Dewey 1.025 (1.010-1.025) Urine Protein Negative (NEGATIVE) Urine Glucose (UA) Negative (NEGATIVE) Urine Ketones Trace (NEGATIVE) Urine Blood Moderate (NEGATIVE) Urine Nitrite Negative (NEGATIVE) Urine Bilirubin Small (NEGATIVE) Urine Urobilinogen 0.2 mg/dL (0.2 - 1) Urine Leukocyte Esterase Small (NEGATIVE) Urine RBC 11-20 /HPF (0-5) Urine WBC 11-20 /HPF (0-5) Urine Epithelial Cells Few /LPF (NONE) Urine Bacteria Moderate /HPF (NONE) Imaging Imaging results reviewed: Yes Impressions [facility] [address] [place], [place] [id number] Patient Name: KESHIA CORNEJO MR #: [id number] : 1940 Age/Sex: 79/F Req #: [id number] Adm Physician: Ordered by: TRISTA LEW DO Report #: [id number] Location: ER Room/Bed: Procedure: [id number] DX/CHEST SINGLE (PORTABLE) Exam Date: 01/03/20 Exam Time: 2114 REPORT STATUS: Signed EXAMINATION: CHEST SINGLE (PORTABLE) INDICATION: Weakness COMPARISON: Chest x-ray 12/16/2019 FINDINGS: TUBES and LINES: Left chest wall cardiac device with leads in the right atrium, right ventricle, and coronary sinus.. LUNGS: Normal lung volumes. Hyperinflated lungs. Perihilar and infrahilar haziness. Prominent interstitial lung markings. Prominent pulmonary vasculature. PLEURA: Probable trace pleural effusions. No pneumothorax. HEART AND MEDIASTINUM: Cardiac size is mildly enlarged. Aortic valve replacement. BONES AND SOFT TISSUES: No acute osseous lesion. Soft tissues are unremarkable. UPPER ABDOMEN: No free air under the diaphragm. IMPRESSION: Perihilar and infrahilar haziness can be due to edema or pneumonia. Mild cardiomegaly, pulmonary vessel congestion and probably interstitial edema. Probable trace pleural effusions. Signed by: Xavier Payne DO on 01/03/2020 9:38 PM Dictated By: XAVIER PAYNE DO 37 Transcribed By: MEAGHAN on 01/03/202137 COPY TO: TRISTA LEW DO~ Procedures 12 Lead ECG Interpretation ECG Interpretation : ECG: ECG 1 Mold Shaker: Interpreted by ED physician Date: Jan 03, 2020 Time: 20:45 Prior ECG tracings: reviewed Rate: tachycardia BPM: 101 Pacin% capture Additional Comments POLYMER TESTER 101 BPM Critical Care Time Total Critical Care Time (min): 31 Critcal care necessary due to: cardiac failure Critcal care time spent by me: discussion w consultants, examination of patient, obtaining hx from patient/surrogate, order/review laboratory studies, order/review radiographic studies Assessment & Plan Medical Decision Making MDM Diff Dx : UTI, Pneumonia, Sepsis, COVID-19 infection , dehydration, drug induced nephrotoxicity, shock, acute coronary syndrome, Reassessment Reassessment case d/w Dr Bird and EKG reviewed. NO acute intervention at this time. hall monitor showed that patient with capture of AICD with intermittant nonsustained ventricular tachycardia. Plan to admit to the [facility] Assessment & Plan Final Impression: (1) Hypokalemia (2) ACUTE KIDNEY FAILURE, UNSPECIFIED (3) URINARY TRACT INFECTION, SITE NOT SPECIFIED (4) Paroxysmal ventricular tachycardia Depart Disposition: ADMITTED Home Meds Reported Medications Levalbuterol Hcl (XOPENEX) 0.63 Mg/3 Ml Vial.neb, 1 INH IH Q8HR 01/04/20 Acetaminophen (ACETAMINOPHEN) 325 Mg Tablet, 650 MG PO Q6H PRN for MILD PAIN (1- 3), TAB 01/04/20 Ondansetron Hcl* (ZOFRAN*) 4 Mg Tablet, 4 MG PO Q8H PRN for NAUSEA AND VOMITING 01/04/20 Melatonin (MELATONIN) 3 Mg Tablet, 3 MG PO HS PRN for INSOMNIA, TAB 01/04/20 Warfarin Sodium (WARFARIN SODIUM) 2.5 Mg Tablet, 3 MG PO DAILY, #30 TAB 12/12/19 Potassium Chloride (POTASSIUM CHLORIDE) 10 Meq Tab.er.prt, 10 MEQ PO, TAB 12/12/19 Nitroglycerin (NITROGLYCERIN) 0.4 Mg Tab.subl, 0.4 MG SL Q5MIN, TAB 12/12/19 Glimepiride (GLIMEPIRIDE) 2 Mg Tablet, 1 MG PO DAILY, TAB 12/12/19 Metoprolol Succinate (METOPROLOL SUCCINATE) 50 Mg Tab.er.24h, 25 MG PO DAILY, MG 12/12/19 Pantoprazole Sodium (PROTONIX) 20 Mg Tablet.dr, 40 MG PO DAILY, #30 TAB 12/12/19 Spironolactone (SPIRONOLACTONE) 25 Mg Tablet, 25 MG PO DAILY, #60 TAB 12/12/19 Furosemide (FUROSEMIDE) 40 Mg Tablet, 40 MG PO Daily, #30 TAB 12/12/19 Sucralfate (SUCRALFATE) 1 Gm Tablet, 1 GM PO BID, TAB 12/12/19 Fluoxetine Hcl (FLUOXETINE HCL) 20 Mg Capsule, 20 MG PO DAILY, #30 CAP 12/12/19 Allopurinol (ALLOPURINOL) 300 Mg Tablet, 300 MG PO DAILY, #30 TAB 12/12/19 Atorvastatin Calcium (ATORVASTATIN CALCIUM) 20 Mg Tablet, 40 MG PO HS, #30 TAB 12/12/19 Gabapentin (GABAPENTIN) 300 Mg Capsule, 300 MG PO BID, #60 CAP 12/12/19 TRISTA LEW DO Jan 03, 2020 20:37
[2020-01-03] MEDS ORDERED: ASPIRIN 81 MG CHEW TAB PO ONE (20:45)
--- NOTE | 2020-01-03 21:00 | NUR ---
Bladder scan revealed only [address]. Per Dr[address] Dasilva, no need for indwelling Calloway at this time.
[2020-01-03 21:23] LABS: BILIRUBIN,URINE SMALL (NEGATIVE); CLARITY,URINE SL CLOUDY (CLEAR); COLOR,URINE YELLOW (YELLOW); KETONES,URINE TRACE (NEGATIVE); LEUKOCYTE ESTERASE ,URINE SMALL (NEGATIVE); NITRITE,URINE NEGATIVE (NEGATIVE); PROTEIN,URINE DIPSTICK NEGATIVE (NEGATIVE); URINE UROBILINOGEN 0.2 mg/dL (0.2 - 1)
[2020-01-03 21:32] LABS: EPITHELIAL CELLS,URINE FEW /LPF
[2020-01-03 21:35] LABS: BACTERIA,URINE MODERATE /HPF
[2020-01-03 21:36] LABS: BASOPHILS # (AUTO) 0.1 (0.0-0.1); BASOPHILS % 0.9 % (0.0-1.0); EOSINOPHILS # (AUTO) 0.2 (0.0-0.4); EOSINOPHILS % 2.5 % (0.0-6.0); HEMATOCRIT 30.7 % (34.2-44.1); HEMOGLOBIN 10.2 g/dL (12.0-16.0); LYMPHOCYTES % 14.9 % (18.0-39.1); MEAN CORPUSCULAR HEMOGLOBIN 32.5 pg (28-32); MEAN CORPUSCULAR HGB CONC 33.2 g/dL (31-35); MEAN CORPUSCULAR VOLUME 97.8 fL (81-99); MONOCYTES # (AUTO) 0.7 (0.2-0.8); NEUTROPHILS # (AUTO) 4.4 (2.1-6.9); NEUTROPHILS % 68.4 % (38.7-80.0); PLATELET COUNT 317 x10e3/uL (140-360); RED BLOOD COUNT 3.14 x10e6/uL (3.6-5.1); RED CELL DISTRIBUTION WIDTH 16.7 % (11.7-14.4)
--- NOTE | 2020-01-03 21:42 | Diagnostic Imaging Report ---
EXAMINATION: CHEST SINGLE (PORTABLE) INDICATION: Weakness COMPARISON: Chest x-ray 12/16/2019 FINDINGS: TUBES and LINES: Left chest wall cardiac device with leads in the right atrium, right ventricle, and coronary sinus.. LUNGS: Normal lung volumes. Hyperinflated lungs. Perihilar and infrahilar haziness. Prominent interstitial lung markings. Prominent pulmonary vasculature. PLEURA: Probable trace pleural effusions. No pneumothorax. HEART AND MEDIASTINUM: Cardiac size is mildly enlarged. Aortic valve replacement. BONES AND SOFT TISSUES: No acute osseous lesion. Soft tissues are unremarkable. UPPER ABDOMEN: No free air under the diaphragm. IMPRESSION: Perihilar and infrahilar haziness can be due to edema or pneumonia. Mild cardiomegaly, pulmonary vessel congestion and probably interstitial edema. Probable trace pleural effusions. Signed by: Xavier Payne DO on 01/03/2020 9:38 PM
[2020-01-03 21:54] LABS: ALBUMIN 3.2 g/dL (3.5-5.0); ALBUMIN/GLOBULIN RATIO 1.2 (0.8-2.0); ANION GAP 18.9 mmol/L (8-16); CALCIUM 8.9 mg/dL (8.4-10.2); CREATININE, SERUM 6.76 mg/dL (0.57-1.11)
[2020-01-03 22:09] LABS: POTASSIUM 2.9 mmol/L (3.5-5.1)
[2020-01-03 22:13] LABS: CREATINE KINASE MB 0.7 ng/mL (0-5.0)
[2020-01-03] MEDS ORDERED: POTASSIUM CHLORIDE 20 MEQ TAB CR PO STA (22:16)
[2020-01-03] MEDS ORDERED: MORPHINE SULFATE INJ 4 MG/ML INJ 1ML IV PRN (22:30)
[2020-01-03] MEDS ORDERED: POTASSIUM CHLORIDE 10MEQ/100ML 100 ML IV ONE (22:30)
[2020-01-03] MEDS ORDERED: SODIUM CHLORIDE FLUSH 10 ML SYR INJ PRN (22:30)
[2020-01-03] MEDS ORDERED: ONDANSETRON HCL INJ 2MG/ML 2ML 2 MG/ML VIAL IV PRN (22:30)
[2020-01-03] MEDS ORDERED: SODIUM CHLORIDE 0.9% 500ML 500 ML ONE (22:46)
[2020-01-04] VITALS (9 sets, daily range): BP systolic 93–102; BP diastolic 48–69
[2020-01-04] MEDS ORDERED: MELATONIN3 MG PO (00:57)
[2020-01-04] MEDS ORDERED: ACETAMINOPHEN325 M1 PO (00:57)
[2020-01-04] MEDS ORDERED: XOPENEX0.63 MG/3 IH (00:57)
[2020-01-04] MEDS ORDERED: ZOFRAN4 MG PO (00:57)
[2020-01-04 06:05] LABS: BASOPHILS % 0.7 % (0.0-1.0); EOSINOPHILS # (AUTO) 0.1 (0.0-0.4); EOSINOPHILS % 2.5 % (0.0-6.0); HEMATOCRIT 28.2 % (34.2-44.1); HEMOGLOBIN 9.2 g/dL (12.0-16.0); LYMPHOCYTES # (AUTO) 0.9 (1.0-3.2); LYMPHOCYTES % 16.9 % (18.0-39.1); MEAN CORPUSCULAR HEMOGLOBIN 32.3 pg (28-32); MEAN CORPUSCULAR HGB CONC 32.6 g/dL (31-35); MEAN CORPUSCULAR VOLUME 98.9 fL (81-99); MONOCYTES # (AUTO) 0.6 (0.2-0.8); NEUTROPHILS # (AUTO) 3.7 (2.1-6.9); PLATELET COUNT 287 x10e3/uL (140-360); RED BLOOD COUNT 2.85 x10e6/uL (3.6-5.1); RED CELL DISTRIBUTION WIDTH 16.7 % (11.7-14.4)
[2020-01-04 06:24] LABS: ALBUMIN 2.9 g/dL (3.5-5.0); ALBUMIN/GLOBULIN RATIO 1.2 (0.8-2.0); ANION GAP 16.6 mmol/L (8-16); CALCIUM 8.2 mg/dL (8.4-10.2); CREATININE, SERUM 6.64 mg/dL (0.57-1.11); POTASSIUM 3.6 mmol/L (3.5-5.1)
[2020-01-04 06:51] LABS: CREATINE KINASE MB 1.6 ng/mL (0-5.0)
[2020-01-04 07:07] LABS: INR 1.59; PROTHROMBIN TIME 20.1 seconds (11.9-14.5)
--- NOTE | 2020-01-04 10:31 | Consultation ---
DATE OF CONSULTATION: Cardiology Consultation CHIEF COMPLAINT: The patient is an 79-year-old, sent from the senior living for extreme weakness and inability to urinate. HISTORY OF PRESENT ILLNESS: The patient has been getting progressively weaker over the last week. The patient has been having a lot of trouble urinating. The patient has had no chest pain and no shortness of breath. The patient was noted to have a creatinine of 6.4 and was subsequently admitted. PAST MEDICAL HISTORY: Significant for: 1. Chronic systolic heart failure and an ejection fraction of 20% to 25%. 2. Recent defibrillator placement. 3. History of chronic atrial fibrillation. 4. History of previous trans percutaneous aortic valve replacement in 2017. MEDICATIONS: At home include allopurinol, furosemide, gabapentin, glyburide, melatonin, spironolactone, warfarin, metoprolol, and Lipitor. SOCIAL HISTORY: The patient is currently staying at the senior living. FAMILY HISTORY: There is a known family history of heart disease. PHYSICAL EXAMINATION: GENERAL: The patient is an older female. VITAL SIGNS: Include a temperature of 98.6, blood pressure of 98/50, and pulse of 100. HEAD, EARS, EYES, NOSE, AND THROAT: The patient's cranium was normocephalic and atraumatic. Extraocular muscles were intact. NECK: Supple. No jugular venous distention. No carotid bruits. CHEST: Demonstrated rales bilaterally. CARDIAC: Demonstrated an irregularly irregular rhythm. There was normal S1 and S2 with a short 2/6 systolic murmur. ABDOMEN: Demonstrated good bowel sounds. No tenderness and no masses. EXTREMITIES: There was 1+ edema bilaterally. NEUROLOGIC: The patient was alert and oriented x3. Cranial nerves 2 through 12 were intact. Motor strength was +5/+5 in all limbs. EKG demonstrated AV sequential pacing. IMPRESSION: The patient is an 79-year-old with chronic systolic heart failure, admitted for acute renal failure. The patient's cardiac status is currently stable. Management of the acute renal failure will be done by the financial retirement plan specialist. The patient's Coumadin that she takes for chronic atrial fibrillation will be held in case dialysis catheters are required. Celso Clayton MD DS/MODL /[id number] cc: Stuart Delvalle MD
[2020-01-04] MEDS: METOPROLOL SUCCINATE 50 MG TAB XL PO SCH (12:30)
--- NOTE | 2020-01-04 14:41 | NUR ---
cc: fatigue/dehydration HPI: 79yoF, PCP Dr.A. Diego, a [facility] resident, sent here due to worsening fatigue and dehydration. Found to have JAYNE and UTI. PMH: Hypertensive heart ds, PA s/p stent x3 in 2001 and >2yrs ago, AVR 2017 with porcine valve, DM-neuropathy, Gout, GIB, JAYNE, Systolic CHF LVEF 20% s/p AICD, CKD3 due to DM2, AAA 2.6cm, Hypercalcemia, Acute diarrhea, VRE UTI, cardiac tamponade, pericardial effusion, ventricular collapse due to tamponade PShx: AVR; coronary stent, APPY, cholecystectomy, Partial Hysterectomy, cataract, AICD Allergies; see emrFH/SH; ; 3 children; no etoh/cigs; quit cigs in 2001 Meds; see MAR ROS no f/c/s/N/V/back pain/dizziness/confusion/leg pain/focal limb weakness v/s revd PE tired appearing anicteirc ns1s2 reduced BS soft nt nd no e/t skin dry flat affect a&ox2; navarro labs/meds revd A/P: 79yoF JAYNE- IVF UTI- IV ceftriaxone Chronic CHF-systolic- hold diuretics; LVEF was 20%; has AICD CKD3 due to DM2 6.5/83 on December 05, 2019- f/u renal fn; ADA diet; AAA 2.6cm- f/u out pt Hypertensive heart ds- cont BB CAD withhx 3 stents- cont BB/statin AVR in 2017 with porcine valve- control BP; on coumadin; Gout- Prop: scd; ppi dispo: f/u renal fn; Stuart Delvalle MD, PhD.
[2020-01-04] MEDS ORDERED: DOCUSATE SODIUM 100 MG CAP PO PRN (14:45)
--- NOTE | 2020-01-04 14:48 | NUR ---
Bladder scan reveals 167mL. Per MD only place rich if greater than 300cc
[2020-01-04] MEDS ORDERED: DEXTROSE 50% SYRINGE 50 ML IV PRN (15:00)
[2020-01-04] MEDS: SODIUM CHLORIDE 0.9% 1000ML 1,000 ML IV SCH ×2 (15:20→21:15)
[2020-01-04] MEDS: CEFTRIAXONE SOD 1 GM/NS 50 ML 50 ML IV SCH (15:20)
[2020-01-04] MEDS: INSULIN REGULAR, HUMAN 100 UNIT/1 ML 3ML VIAL SQ SCH ×2 (16:26→21:00)
[2020-01-04] MEDS: SUCRALFATE 1 GM TAB PO SCH (17:20)
[2020-01-04] MEDS: ATORVASTATIN 20 MG TAB PO SCH (21:51)
--- NOTE | 2020-01-04 22:01 | NUR ---
bladder scan revealed 267ml of urine. Spoke to Dr. Fernando Sung covering for Dr. Leon at this time. New order received to insert rich catheter.
[2020-01-05] VITALS (7 sets, daily range): BP systolic 81–113; BP diastolic 51–98
[2020-01-05 01:01] LABS: CREATINE KINASE MB 1.9 ng/mL (0-5.0)
[2020-01-05] MEDS: SODIUM CHLORIDE 0.9% 1000ML 1,000 ML IV SCH ×2 (03:39→18:27)
--- NOTE | 2020-01-05 07:00 | NUR ---
RECEIVED PATIENT AWAKE RESTING IN BED NO S/S OF DISTRESS. BED LOW, WHEELS LOCKED, SIDE RAILS X2. CALL LIGHT IN REACH WILL CONTINUE TO MONITOR PATIENT.
[2020-01-05] MEDS: INSULIN REGULAR, HUMAN 100 UNIT/1 ML 3ML VIAL SQ SCH ×4 (07:30→21:00)
--- NOTE | 2020-01-05 07:51 | Diagnostic Imaging Report ---
EXAM: Renal Ultrasound INDICATION: Renal failure COMPARISON: None TECHNIQUE: Transverse and longitudinal images of the kidneys and bladder were obtained. FINDINGS: Right Kidney: Size: 10.6 cm Echogenicity: Normal Parenchymal thickness: Normal Collecting system: No hydronephrosis Stones: None Cyst/Mass: None Left Kidney: Size: 10.3 cm Echogenicity: Normal Parenchymal thickness: Normal Collecting system: No hydronephrosis Stones: None Cyst/Mass: None Bladder: Not seen, Calloway IMPRESSION: Normal renal ultrasound exam. Signed by: Xavier Payne DO on 01/05/2020 7:48 AM
[2020-01-05] MEDS: METOPROLOL SUCCINATE 50 MG TAB XL PO SCH (08:05)
--- NOTE | 2020-01-05 08:11 | NUR ---
CALLED DR. METZGER REGARDING BLOOD PRESSURE 81/51. NEW ORDER FOR MIDODRINE 5 MG PO Q8 HOURS. D/C METOPROLOL. NEW ORDERS IMPLEMENTED.
[2020-01-05] MEDS: SUCRALFATE 1 GM TAB PO SCH ×2 (08:42→17:04)
[2020-01-05] MEDS: CEFTRIAXONE SOD 1 GM/NS 50 ML 50 ML IV SCH (08:43)
[2020-01-05] MEDS: MIDODRINE 2.5 MG TAB PO SCH ×3 (08:43→22:00)
--- NOTE | 2020-01-05 09:43 | NUR ---
PT IS FROM [facility]
--- NOTE | 2020-01-05 09:45 | NUR ---
Pt. expressed no spiritual or emotional concerns at this time. Pt's daughter at bedside. [employer] provided hospitality and information on how to reach director of procurement, if needed. No need to follow. KARLOS OSULLIVAN [employer] Spiritual Care Department O: [phone]
--- NOTE | 2020-01-05 10:20 | NUR ---
REPORT GIVEN TO MIRYAM LAMANZA.
[2020-01-05] MEDS ORDERED: ALBUMIN 5% 0.05 GM/ML BTL IV ONE ×3 (10:30→11:15)
[2020-01-05 10:58] LABS: ALBUMIN 2.6 g/dL (3.5-5.0); ANION GAP 14.7 mmol/L (8-16); CREATININE, SERUM 6.19 mg/dL (0.57-1.11); POTASSIUM 3.7 mmol/L (3.5-5.1)
--- NOTE | 2020-01-05 11:15 | Consultation ---
DATE OF CONSULTATION: 01/05/2020 HISTORY OF PRESENT ILLNESS: The patient is known to our Nephrology Service, follows up with Dr. Leon. The patient of Dr. Dixon with underlying CKD 3, baseline creatinine 1.9. Apparently, admitted with failure to urinate for the last 3-4 days prior to admission, was being treated for UTI at the [facility]. Has multiple comorbidities including history of aortic valve replacement, congestive heart failure, and cardiomyopathy. Has been on Coumadin, was also maintained on gabapentin, Lasix, atorvastatin, allopurinol, pantoprazole, and warfarin. At the [facility], has a history of type 2 diabetes, hypertension, history of coronary artery disease, status post PCI and stenting. Currently, she is also hard of hearing, currently was asleep. Daughter by bedside. Nurse present at bedside. Arousable. Denies any specific complaints. Denies nausea, vomiting, headache, fever, chills, chest pain, or shortness of breath. ALLERGIES: SHE IS ALLERGIC TO SULFA. MEDICATIONS: She is currently receiving IV fluid in the form of normal saline at 125 mL an hour, which I am going to add it and cut down to 75 mL an hour given her cardiac history. She is also maintained on ceftriaxone 1 g IV daily. She had a history of UTI, was on antibiotics at [facility], exact type of antibiotic I could not find out. She is also on Lipitor, metoprolol 25 mg daily, which has been stopped. She is on midodrine 5 mg p.o. q.8. She is on regular insulin, Carafate 1 g p.o. b.i.d. Her allopurinol and gabapentin have been appropriately held. SOCIAL HISTORY: Does not smoke or drink. FAMILY HISTORY: Significant for hypertension. PHYSICAL EXAMINATION: GENERAL: Awake, alert, oriented x3, lying supine, in no apparent distress. VITAL SIGNS: Blood pressure of 81/51, pulse rate 93, afebrile. HEAD AND NECK: Cornea clear. Oral mucosa moist. Neck veins flat. LUNGS: Decreased air entry at bases. Poor gas exchange. No rales. HEART: S1 and S2 audible. Irregular rhythm. ABDOMEN: Otherwise soft and nontender. No apparent visceromegaly. EXTREMITIES: Lower extremity, no edema. : Has an indwelling Calloway catheter, approximately 300 mL of urine last night. IMPRESSION AND PLAN: Hypotension. Plan on giving IV albumin at this point in time. We will decrease IV normal saline. Kidney ultrasound noted. No evidence of hydronephrosis. I suspect antibiotic-induced nephrotoxicity, possible anti-acute tubular necrosis. LABORATORY DATA: Not done today, but as of yesterday, white count is 5.5 and hemoglobin 9.2. Had a sodium level of 135 yesterday with a potassium 3.6, bicarbonate 25, and creatinine 6.6. Bicarb 25. Urinalysis shows specific gravity 1.025 with negative dipstick, negative protein, 11-20 rbc, 11-20 wbc. Urine culture shows gram-negative bacilli. Underlying most likely complicated UTI. Discussed with bedside RN. Please see orders. MD DAKOTA Santana/MODL /[id number]
[2020-01-05] MEDS ORDERED: ALBUMIN 5% 250ML 500 ML IV ONE (11:45)
[2020-01-05] MEDS ORDERED: CEFTRIAXONE SOD 1 GM/NS 50 ML 50 ML IV SCH (14:00)
--- NOTE | 2020-01-05 15:12 | NUR ---
IM- progress note O/N see below ROS no f/c/s/N/V/back pain/dizziness/confusion/leg pain/focal limb weakness v/s revd PE tired appearing anicteirc ns1s2 reduced BS soft nt nd no e/t skin dry flat affect a&ox2; navarro labs/meds revd A/P: 79yoF JAYNE- IVF UTI- IV ceftriaxone Chronic CHF-systolic- hold diuretics; LVEF was 20%; has AICD CKD3 due to DM2 . on December 05, 2019- f/u renal fn; ADA diet; AAA 2.6cm- f/u out pt Hypertensive heart ds- cont BB CAD withhx 3 stents- cont BB/statin AVR in 2016 with porcine valve- control BP; on coumadin; Gout- Prop: scd; ppi dispo: f/u renal fn; 01-04 GNR UTI- IV ceftriaxone; renal U/S negative; follow I/O Stuart Delvalle MD, PhD.
--- NOTE | 2020-01-05 19:15 | NUR ---
BEDSIDE SHIFT REPORT RECEIVED FROM DAY RN. PT ALERT AND ORIENTED X3. O2 AT 2 L PER N/C ON. RESPIRATIONS REGULAR AND UNLABORED. TELE #40 ON- VPACED. BLANCO TO GRAVITY- URINE CLEAR YELLOW IN COLOR. RT 20 G PIV - NS AT 75 ML/HR. SITE HEALTHY. CALL LIGHT WITHIN REACH. BED LOCKED AND IN LOW POSITION. BED ALARM ON.
[2020-01-05] MEDS: ACETAMINOPHEN 325 MG TAB PO PRN (23:38)
[2020-01-05] MEDS: ATORVASTATIN 20 MG TAB PO SCH (23:39)
[2020-01-06] VITALS (11 sets, daily range): BP systolic 78–136; BP diastolic 47–99
[2020-01-06 06:04] LABS: ALBUMIN/GLOBULIN RATIO 1.3 (0.8-2.0); ANION GAP 15.6 mmol/L (8-16); CALCIUM 8.2 mg/dL (8.4-10.2); CREATININE, SERUM 5.32 mg/dL (0.57-1.11); POTASSIUM 3.6 mmol/L (3.5-5.1)
[2020-01-06] MEDS: SODIUM CHLORIDE 0.9% 1000ML 1,000 ML IV SCH ×2 (06:52→17:51)
[2020-01-06] MEDS: MIDODRINE 2.5 MG TAB PO SCH ×3 (06:53→23:05)
--- NOTE | 2020-01-06 07:00 | NUR ---
RECEIVED PATIENT AWAKE RESTING IN BED NO S/S OF DISTRESS. BED LOW, WHEELS LOCKED, SIDE RAILS X2. CALL LIGHT IN REACH WILL CONTINUE TO MONITOR PATIENT.
[2020-01-06] MEDS: INSULIN REGULAR, HUMAN 100 UNIT/1 ML 3ML VIAL SQ SCH ×4 (07:30→21:00)
[2020-01-06] MEDS: SUCRALFATE 1 GM TAB PO SCH ×2 (08:41→16:20)
[2020-01-06] MEDS: CEFTRIAXONE SOD 1 GM/NS 50 ML 50 ML IV SCH (08:42)
[2020-01-06] MEDS ORDERED: BUMETANIDE INJ 0.25MG/ML 4ML VIAL IV SCH (12:00)
[2020-01-06] MEDS: ONDANSETRON HCL 4 MG ORAL DISINTEGRATING TAB PO PRN (13:28)
[2020-01-06] MEDS ORDERED: ALBUTEROL/IPRATROPIUM 3 ML NEB NEB PRN (13:30)
--- NOTE | 2020-01-06 13:30 | NUR ---
PAGED DR. METZGER REGARDING PATIENT BEGINNING TO WHEEZE AND SOB PRESENT. NEW ORDER FOR DUONEBS Q4 PRN. NEW ORDERS IMPLEMENTED.
--- NOTE | 2020-01-06 14:31 | NUR ---
IM- progress note O/N see below ROS no f/c/s/N/V/back pain/dizziness/confusion/leg pain/focal limb weakness v/s revd PE tired appearing anicteirc ns1s2 reduced BS soft nt nd no e/t skin dry flat affect a&ox2; navarro labs/meds revd A/P: 79yoF JAYNE- IVF Klebsiella UTI- IV ceftriaxone Chronic CHF-systolic- hold diuretics; LVEF was 20%; has AICD CKD3 due to DM2 . on December 05, 2019- f/u renal fn; ADA diet; AAA 2.6cm- f/u out pt Hypertensive heart ds- cont BB CAD withhx 3 stents- cont BB/statin AVR in 2016 with porcine valve- control BP; on coumadin; Gout- Prop: scd; ppi dispo: f/u renal fn; 01-04 GNR UTI- IV ceftriaxone; renal U/S negative; follow I/O 01-05 Klebsiella UTI- contabx; renal fn improving Stuart Delvalle MD, PhD.
--- NOTE | 2020-01-06 19:15 | NUR ---
BEDSIDE SHIFT REPORT RECEIVED FROM DAY RN. RN REPORT PT NAUSEATED TODAY AND GIVEN OD ZOFRAN. RN ALSO REPORT PT HAVING WHEEZING AT TIMES. NEB TX ORDERED BUT NOT STARTED YET. TELE ON. BLANCO CATH TO GRAVITY. URINE IS CLEAR YELLOW IN COLOR. PT RESTING ON HER SIDE. O2 N/C ON 2L - WILL MONITOR CALL LIGHT WITHIN REACH. BED LOCKED AND IN LOW POSITION.
--- NOTE | 2020-01-06 19:26 | NUR ---
TELE CALLED- HR 153. RN WENT TO CHECK ON PT. B/P 142/108 HR 153 R 48 SHALLOW. O2 INCREASED TO 3L. O2 SAT 93%. PT HAVE EMESIS X2. PT REPORT NOT FEELING WELL TODAY. RETAKE VS- B/P 149/96 HR 135 T 98.7 O2 SAT 93% ON 3L N/C. WILL CONTINUE TO MONITOR NAUSEA ,HR, AND B/P.
--- NOTE | 2020-01-06 19:38 | NUR ---
VS AT 1934 139/91 HR 125. PT HAVE ANOTHER EMESIS - CLEAR MUCUS. B/P AT 1937 136/94 HR 142 R 32. PT STATE STILL NOT FEEL WELL. RAPID RESPONSE CALLED AND CHARGE NURSE NOTIFIED.
[2020-01-06] MEDS ORDERED: FUROSEMIDE INJ 10 MG/ML 4 ML VIAL ONE (19:54)
[2020-01-06] MEDS ORDERED: FUROSEMIDE INJ 10 MG/ML 2 ML VIAL ONE (19:54)
[2020-01-06] MEDS ORDERED: ETOMIDATE 2 MG/ML 10 ML INJ IV ONE (19:58)
[2020-01-06] MEDS ORDERED: WATER STERILE 10 ML VIAL ONE (19:58)
[2020-01-06] MEDS ORDERED: VECURONIUM BROMIDE FOR INJ 20 MG VIAL ONE (19:58)
[2020-01-06] MEDS ORDERED: ACETAMINOPHEN 1000 MG/100 ML 100 ML IV ONE (20:05)
[2020-01-06 20:10] LABS: BASOPHILS # (AUTO) 0.1 (0.0-0.1); BASOPHILS % 0.6 % (0.0-1.0); EOSINOPHILS # (AUTO) 0.1 (0.0-0.4); EOSINOPHILS % 0.5 % (0.0-6.0); HEMATOCRIT 33.7 % (34.2-44.1); HEMOGLOBIN 11.2 g/dL (12.0-16.0); LYMPHOCYTES # (AUTO) 2.1 (1.0-3.2); LYMPHOCYTES % 14.9 % (18.0-39.1); MEAN CORPUSCULAR HEMOGLOBIN 33.2 pg (28-32); MEAN CORPUSCULAR HGB CONC 33.2 g/dL (31-35); MONOCYTES # (AUTO) 0.8 (0.2-0.8); MONOCYTES % 5.3 % (4.4-11.3); NEUTROPHILS # (AUTO) 11.1 (2.1-6.9); NEUTROPHILS % 77.9 % (38.7-80.0); PLATELET COUNT 486 x10e3/uL (140-360); RED BLOOD COUNT 3.37 x10e6/uL (3.6-5.1)
[2020-01-06] MEDS ORDERED: FUROSEMIDE INJ 10 MG/ML 10 ML VIAL IV ONE (20:15)
[2020-01-06] MEDS ORDERED: ONDANSETRON HCL INJ 2MG/ML 2ML 2 MG/ML VIAL IV STA (20:15)
[2020-01-06 20:24] LABS: ALBUMIN 3.4 g/dL (3.5-5.0); ALBUMIN/GLOBULIN RATIO 1.1 (0.8-2.0); ANION GAP 24.2 mmol/L (8-16); CALCIUM 8.9 mg/dL (8.4-10.2); CREATININE, SERUM 4.86 mg/dL (0.57-1.11); POTASSIUM 4.2 mmol/L (3.5-5.1)
[2020-01-06] MEDS ORDERED: AZITHROMYCIN 500MG/NS 250 ML 250 ML IV ONE (20:30)
--- NOTE | 2020-01-06 20:30 | NUR ---
TAYLOR , PT'S DAUGHTER ,NOTIFIED CHNGE OF CONDITION AND MOVED TO ICU.ALL BELONGINGS SENT WITH PATIENT TO ICU.
[2020-01-06 20:33] LABS: CREATINE KINASE MB 1.3 ng/mL (0-5.0)
[2020-01-06] MEDS ORDERED: SODIUM CHLORIDE 0.9% IV SCH (20:45)
[2020-01-06] MEDS ORDERED: DILTIAZEM HCL 125 ML IV PRN ×2 (20:45→21:00)
[2020-01-06] MEDS ORDERED: DILTIAZEM HCL 5 MG/ML 5 ML VIAL IV STA (20:47)
[2020-01-06] MEDS ORDERED: DILTIAZEM HCL VIAL 5 ML ONE (20:50)
[2020-01-06] MEDS ORDERED: SODIUM CHLORIDE 0.9% 1000ML 2,000 ML ONE (20:50)
--- NOTE | 2020-01-06 20:57 | Diagnostic Imaging Report ---
EXAMINATION: CHEST XRAY POST PROCEDURE INDICATION: ^SOB, RAPID, CHF COMPARISON: Multiple prior chest x-ray examinations most recent dated 01/03/2020. FINDINGS: AP view TUBES and LINES: AICD is intact. There is an endotracheal tube in place with distal tip 5 cm above the level of casa. LUNGS/PLEURA: Lungs are well inflated. There is interval development of diffuse patchy ground glass opacities in both lungs . There is new left-sided pleural effusion with associated atelectasis. HEART AND MEDIASTINUM: Cardiac size is severely enlarged, unchanged. BONES AND SOFT TISSUES: No acute osseous lesion. Soft tissues are unremarkable. UPPER ABDOMEN: No free air under the diaphragm. IMPRESSION: 1. Interval development of diffuse patchy ground glass opacities bilaterally which could be due to multifocal pneumonia, pulmonary edema or ARDS. 2. New left-sided pleural effusion with associated atelectasis. Signed by: Broderick Keita MD on 01/06/2020 8:54 PM
[2020-01-06] MEDS ORDERED: PROPOFOL IV EMULSION 50 ML IV PRN (21:30)
[2020-01-06] MEDS ORDERED: FUROSEMIDE INJ 10 MG/ML 4 ML VIAL IV ONE (21:30)
[2020-01-06] MEDS ORDERED: PROPOFOL IV EMULSION 100 ML IV ONE (21:36)
[2020-01-06] MEDS ORDERED: AMIODARONE HCL 360MG 200 ML IV PRN (21:45)
[2020-01-06] MEDS ORDERED: AMIODARONE HCL 150 MG/100 ML BAG IV ONE (21:45)
[2020-01-06] MEDS ORDERED: AMIODARONE 900MG 500 ML IV SCH (22:00)
[2020-01-06] MEDS: NOREPINEPHRINE 8 MG/D5W 250 ML 250 ML IV PRN (22:00)
[2020-01-06] MEDS ORDERED: AMIODARONE HCL 100 ML IV ONE (22:00)
--- NOTE | 2020-01-06 22:24 | Diagnostic Imaging Report ---
Examination: Single AP view of the chest. COMPARISON: AP chest 01/06/2020 INDICATION: Status post central line placement and NG tube placement IMPRESSION: 1. Lines and Tubes: Interval placement of enteric tube, which is seen below the left hemidiaphragm, however, the tip is not visualized. Interval placement of left sided central line, with distal tip partly obscured by overlying tubes, however, projecting in the proximal to mid SVC. Stable endotracheal tube and left upper chest multilead cardiac device 2. No interval change in the diffuse bilateral interstitial and alveolar opacities, left-sided pleural effusion and left retrocardiac dense opacity, which may reflect atelectasis. 3. Enlarged cardiac silhouette Central pulmonary venous congestion. Findings highly suggestive of fluid overload/decompensated CHF. 4. No acute bony abnormalities. Signed by: Dr. Neil Silverio M.D. on 01/06/2020 10:20 PM
[2020-01-06] MEDS: BUMETANIDE 10 MG in SODIUM CHLORIDE 0.9% 100 ML 60 ML IV SCH (22:30)
--- NOTE | 2020-01-06 22:49 | Diagnostic Imaging Report ---
Exam: Abdominal film Clinical History: Renal failure, UTI, NG tube placement Comparison: Portable chest 01/06/2020 DISCUSSION: Frontal view of the abdomen shows a nonobstructive bowel gas pattern with mild amount of retained stool.There are no dilated, air-filled loops of bowel or pneumatosis. No abnormal calcifications project over the genitourinary system. Pelvic phleboliths. No acute bone abnormality. Degenerative changes in bilateral hip joints and lower lumbosacral spine. Distal portion of the enteric tube projects in the region of the fundus. A rectal temperature probe is also identified. IMPRESSION: 1. Enteric tube has distal tip projecting at the stomach fundus. The staff physician below has personally reviewed this exam on the date of dictation. Signed by: Dr. Neil Silverio M.D. on 01/06/2020 10:46 PM
--- NOTE | 2020-01-06 22:54 | Operative Report ---
DATE OF PROCEDURE: SURGEON: Rasta Clayton MD PROCEDURE: Central line placement under ultrasound guidance. PREOPERATIVE DIAGNOSIS: Acute renal failure. POSTOPERATIVE DIAGNOSIS: Acute renal failure. CONSENT: Consent was deemed emergent due to acute renal failure, pulmonary edema, and respiratory failure. MEDICATIONS: 1% lidocaine for local anesthesia. DESCRIPTION OF PROCEDURE: The patient was placed in a supine position. The left neck was prepped sterilely with chlorhexidine. A full length sterile drape, sterile gown, sterile gloves and mask were used. An ultrasound machine was used to visualize the left internal jugular vein. The vein was cannulated under direct visualization with a 16-gauge needle. A wire was then passed through the needle. A dilator was used to open the skin. A triple-lumen catheter was placed over the wire by the Seldinger technique. All the ports flushed. COMPLICATIONS: None. ESTIMATED BLOOD LOSS: None. Rasta Clayton MD [facility]/MODL /[id number]
[2020-01-06] MEDS: ATORVASTATIN 20 MG TAB PO SCH (23:04)
[2020-01-06] MEDS ORDERED: AZITHROMYCIN 500MG/NS 250 ML 250 ML ONE (23:08)
--- NOTE | 2020-01-06 23:09 | Consultation ---
DATE OF CONSULTATION: Pulmonary and Critical Care Consultation CHIEF COMPLAINT: Acute onset of dyspnea, pulmonary edema, and respiratory failure. CONSULTING PHYSICIAN: Stuart Delvalle MD. HISTORY OF PRESENT ILLNESS: The patient is an 79-year-old woman. She has a history of chronic systolic heart failure with an ejection fraction of 20-25%. She had a prior defibrillator placement. She also had a percutaneous aortic valve placement in 2017. She reported worsening dyspnea over 5-7 days prior to coming to the hospital. After arriving in the hospital, she was noted to have an elevated creatinine as well as the urinary tract infection with Klebsiella. The patient initially came in on the with a creatinine of 6.64. This has improved to 4.86. She is also receiving antibiotics. She was evaluated by Cardiology. This evening, she developed a rapid tachycardia and worsening congestion. She had trouble breathing. A rapid response was called and she was intubated and transferred to the Intensive Care Unit. PAST SURGICAL HISTORY: 1. Status post placement of a defibrillator pacemaker. 2. Status post percutaneous aortic valve replacement. PAST MEDICAL HISTORY: 1. Chronic systolic congestive heart failure. 2. Chronic renal insufficiency with a baseline creatinine of 1.9. 3. Diabetes. 4. Hypertension. 5. Gastroesophageal reflux. SOCIAL HISTORY: The patient is staying in [place]. She does not smoke or drink. FAMILY HISTORY: Family history is significant for hypertension. ALLERGIES: SHE IS ALLERGIC TO SULFA. REVIEW OF SYSTEMS: She has no fevers. There is no headache. She did not complain of chest pain. She did have some tachypnea and worsening congestion. She had no abdominal pain. There is no nausea or vomiting. She had no leg edema. PHYSICAL EXAMINATION: VITAL SIGNS: The blood pressure is 108/74. She is currently on a diltiazem drip. She was also on propofol for sedation. She is on a mechanical ventilator with a PRVC mode of ventilation at a rate of 20 and a tidal volume of 420. Her PEEP is set at 10 and her FiO2 is set at 60%. HEENT: Shows no facial swelling or erythema. CARDIAC: Reveals regular rate and rhythm. Normal S1 and S2. LUNGS: Auscultation of lungs reveals crackles in both lung patton. ABDOMEN: Soft, nontender. There is no rebound or guarding. EXTREMITIES: Shows no leg edema or calf tenderness. There is no cyanosis or clubbing. SKIN: Shows no rashes. NEUROLOGICAL: Shows the patient to be sedated. LABORATORY DATA: BUN to creatinine ratio is 60 to 4.86. CO2 is 15 and the chloride is 102. The glucose is 204 and the lactic acid is 4.2. The BNP is 1412. White blood cell count is 14.2 and hemoglobin is 11.2. The platelet count is 486. RADIOGRAPHIC DATA: Chest x-ray from earlier this morning showed interval development of patchy ground-glass opacities suggestive of pulmonary edema or pneumonia. She also has a new left-sided pleural effusion. IMPRESSION: 1. Tekxt-zv-zqiltmb respiratory failure. 2. Rkota-wx-vgkbgbj systolic congestive heart failure. 3. Yidbj-lt-oxzankf renal failure. 4. Status post aortic valve replacement. 5. Prior pacemaker and automated implantable cardioverter-defibrillator. 6. Atrial fibrillation with rapid ventricular rate. 7. Klebsiella urinary tract infection. 8. Anemia, unspecified. 9. Diabetes. PLAN: 1. Continue mechanical ventilation and repeat ABG. 2. Begin Bumex drip. 3. Continue warfarin because of aortic valve replacement. 4. The patient is started on diltiazem for her atrial fibrillation. She may also require amiodarone. 5. Repeat chest x-ray. 6. Case discussed with the emergency department physician, nursing staff, Respiratory, and Nephrology. Rasta Clayton MD [facility]/MODL /[id number]
[2020-01-06] MEDS ORDERED: MEROPENEM 500MG/ NS 50ML 500 MG in MEROPENEM 500MG/ NS 50ML 50 ML IV ONE (23:30)
[2020-01-06] MEDS ORDERED: PIPER-TAZ 3.375 GM 0 ML ONE (23:46)
[2020-01-06] MEDS ORDERED: TAZO IV ONE (23:47)
[2020-01-06] MEDS ORDERED: PIPERACILLIN IV ONE (23:47)
[2020-01-06 23:50] LABS: ABG HCO3 14 mmol/L (22-26); ABG PCO2 29 mmHg (35-45); ABG PH 7.28 (7.35-7.45); ABG PO2 121 mmHg (80-105)
[2020-01-06 23:57] LABS: BILIRUBIN,URINE 1+ (NEGATIVE); CLARITY,URINE CLOUDY (CLEAR); COLOR,URINE YELLOW (YELLOW); KETONES,URINE NEGATIVE (NEGATIVE); LEUKOCYTE ESTERASE ,URINE 1+ (NEGATIVE); NITRITE,URINE NEGATIVE (NEGATIVE); PROTEIN,URINE DIPSTICK >=300 (NEGATIVE); URINE UROBILINOGEN 0.2 mg/dL (0.2 - 1)
[2020-01-07] VITALS (16 sets, daily range): BP systolic 78–136; BP diastolic 53–116
[2020-01-07 00:12] LABS: BACTERIA,URINE MANY /HPF; EPITHELIAL CELLS,URINE FEW /LPF; RBC,URINE >50 /HPF (0-5); RENAL EPITHELIAL CELLS,URINE MODERATE; TRANSITIONAL EPI CELLS,URINE MANY; WBC,URINE (MAN) >50 /HPF (0-5)
[2020-01-07] MEDS ORDERED: SODIUM BICARBONATE 8.4% SYRING 150 ML ONE (00:45)
[2020-01-07] MEDS ORDERED: DEXTROSE 5% 1,000 ML IV ONE (00:45)
[2020-01-07] MEDS: INSULIN REGULAR, HUMAN 100 UNIT/1 ML 3ML VIAL SQ SCH ×4 (01:15→18:00)
[2020-01-07 05:06] LABS: BASOPHILS # (AUTO) 0.1 (0.0-0.1); BASOPHILS % 0.3 % (0.0-1.0); HEMATOCRIT 32.3 % (34.2-44.1); HEMOGLOBIN 10.7 g/dL (12.0-16.0); LYMPHOCYTES # (AUTO) 0.8 (1.0-3.2); LYMPHOCYTES % 4.6 % (18.0-39.1); MEAN CORPUSCULAR HEMOGLOBIN 34.1 pg (28-32); MEAN CORPUSCULAR HGB CONC 33.1 g/dL (31-35); MEAN CORPUSCULAR VOLUME 102.9 fL (81-99); MONOCYTES # (AUTO) 0.8 (0.2-0.8); MONOCYTES % 4.6 % (4.4-11.3); NEUTROPHILS # (AUTO) 14.7 (2.1-6.9); NEUTROPHILS % 89.4 % (38.7-80.0); PLATELET COUNT 455 x10e3/uL (140-360); RED BLOOD COUNT 3.14 x10e6/uL (3.6-5.1); RED CELL DISTRIBUTION WIDTH 17.9 % (11.7-14.4)
[2020-01-07] MEDS: NOREPINEPHRINE 8 MG/D5W 250 ML 250 ML IV PRN (05:11)
[2020-01-07 05:21] LABS: INR 2.05; PROTHROMBIN TIME 24.6 seconds (11.9-14.5)
[2020-01-07 05:28] LABS: ALBUMIN 2.7 g/dL (3.5-5.0); ANION GAP 19.8 mmol/L (8-16); CALCIUM 7.6 mg/dL (8.4-10.2); CREATININE, SERUM 4.5 mg/dL (0.57-1.11); POTASSIUM 3.8 mmol/L (3.5-5.1)
[2020-01-07 06:10] LABS: MAGNESIUM 1.5 MG/DL (1.3-2.1)
--- NOTE | 2020-01-07 06:42 | NUR ---
IM- progress note O/N see below ROS no f/c/s/N/V/back pain/dizziness/confusion/leg pain/focal limb weakness v/s revd PE INTUBATED anicteirc ns1s2 reduced BS soft nt nd no e/t skin dry flat affect navarro labs/meds revd A/P: 79yoF SEptic shock- on pressors JAYNE- IVF Klebsiella UTI- IV ceftriaxone Chronic CHF-systolic- hold diuretics; LVEF was 20%; has AICD CKD3 due to DM2 . on December 05, 2019- f/u renal fn; ADA diet; AAA 2.6cm- f/u out pt Hypertensive heart ds- cont BB CAD withhx 3 stents- cont BB/statin AVR in 2016 with porcine valve- control BP; on coumadin; Gout- Prop: scd; ppi dispo: f/u renal fn; 01-04 GNR UTI- IV ceftriaxone; renal U/S negative; follow I/O 01-05 Klebsiella UTI- contabx; renal fn improving 6 Septic shock- on pressors; UTI; Acute resp failure- intubated overnight; HAP- broad spec abx;cct>35mins Stuart Delvalle MD, PhD.
[2020-01-07] MEDS: MIDODRINE 2.5 MG TAB PO SCH ×3 (07:09→20:35)
--- NOTE | 2020-01-07 07:46 | Diagnostic Imaging Report ---
Examination: Single AP view of the chest. COMPARISON: Portable chest 01/06/2020 INDICATION: Intubated IMPRESSION: 1. Lines and Tubes: Supporting lines and tubes are unchanged. 2. No significant interval change in bilateral diffuse interstitial and alveolar opacities, with denser consolidation and/or effusion in the left lower lung. 3. Cardiomediastinal silhouette is obscured. Central pulmonary venous congestion 4. No acute bony abnormalities. Signed by: Dr. Neil Silverio M.D. on 01/07/2020 7:43 AM
[2020-01-07] MEDS: BUMETANIDE 10 MG in SODIUM CHLORIDE 0.9% 100 ML 60 ML IV SCH ×3 (07:54→21:30)
--- NOTE | 2020-01-07 08:25 | Progress Note ---
DATE: SUBJECTIVE: The patient required intubation last night for respiratory distress. She is now on amiodarone drip for atrial fibrillation with a rapid ventricular response. Nephrology recommended a Bumex drip last night and she has put out several 100 mL of urine. She remains on Levophed at 28 mcg. PHYSICAL EXAMINATION: VITAL SIGNS: The blood pressure is 104/67, saturation is 100%. She is on a PRVC at a rate of 20 with the tidal volume of 420. Her FiO2 is set at 50%. Her PEEP is set at 8. HEENT: Shows no facial swelling or erythema. There is an oral endotracheal tube. There is a left IJ line. The site looks clean. There is no drainage. CARDIAC: Reveals regular rate and rhythm with normal S1, S2. LUNGS: Auscultation of lungs reveals crackles at the bases. There is no wheezing. ABDOMEN: Soft and nontender. There is no rebound or guarding. EXTREMITIES: Shows no leg edema or calf tenderness. There is no cyanosis or clubbing. SKIN: Shows no rashes. NEUROLOGICAL: Shows no focal abnormalities. LABORATORY DATA: BUN to creatinine ratio is 56 to 4.5 and the carbon dioxide is 14. The chloride is 104. The anion gap is 19. The BNP is decreased to 1202. White blood cell count is 16.4 and hemoglobin is 10.7. The platelet count is 455. The INR is 2.05. Urinalysis shows Klebsiella pneumonia, which is sensitive to cephalosporins. IMPRESSION: 1. Acute on chronic respiratory failure. 2. Acute on chronic systolic congestive heart failure. 3. Acute on chronic renal failure. 4. Atrial fibrillation with rapid ventricular response. 5. Status post aortic valve replacement. 6. Klebsiella urinary tract infection. 7. Diabetes. 8. Anemia. PLAN: 1. Repeat ABG and adjust ventilator as tolerated. 2. Continue to wean Levophed. 3. Increase Bumex drip to 2 mg per hour. 4. Continue warfarin. 5. Complete amiodarone infusion. 6. Begin enteral feedings. 7. Case discussed with nightshift nursing, dayshift nursing, Respiratory, Nephrology, Cardiology, and family. Greater than 35 minutes in direct critical care time. Rasta Clayton MD [facility]OL[facility] /[id number]
[2020-01-07 08:28] LABS: ABG HCO3 14 mmol/L (22-26); ABG PCO2 25 mmHg (35-45); ABG PH 7.36 (7.35-7.45); ABG PO2 83 mmHg (80-105)
[2020-01-07 08:43] LABS: PHOSPHORUS 4.3 MG/DL (2.3-4.7)
[2020-01-07] MEDS ORDERED: WARFARIN SOD 2.5 MG TAB PO SCH (09:00)
[2020-01-07] MEDS: SUCRALFATE 1 GM/10 ML SUSP NG SCH ×2 (09:03→16:09)
[2020-01-07] MEDS: CEFTRIAXONE SOD 1 GM/NS 50 ML 50 ML IV SCH (09:03)
[2020-01-07] MEDS: MIDAZOLAM HCL 5MG/ML 10ML VIAL 100 ML IV PRN ×2 (09:30→19:55)
--- NOTE | 2020-01-07 11:11 | NUR ---
Nutrition Intervention Note RD Recommendation(s) for Physician: - Recommend TF of Vital AF at 10 ml/hr, as hemodynamically stable advance as tolerated to goal rate of 45 ml/hr (to provide 1296 kcal and 81 gm protein). - Water flushes and fluid management per MD. - BG and insulin management per MD. Plan of Care: RD following, TF rec's, monitoring for tolerance and adequacy Nutrition reason for involvement: vent, TF RD Assessment 01/06: 79 YOF admitted for ARF and went into respiratory failure requiring intubation. Pt seen today per vent and new EN. Pt currently sedated, no nutrition hx available. Pt appears well nourished and previously eating 75% of meals per 01/03 intake documentation. Pt discussed with RN, no dialysis at this time and TF pending initiation. Pt currently on 4 mcg/min of Levophed. Chart reviewed. Will continue to monitor. Principal Problems/Diagnoses: LUCIA, UTI, hypokalemia PMH: CHF, TAVR, a-fib, DM2, HTN, gout, PR s/p stents, cholecystectomy GI: LBM 01/06- liquid stool Skin: intact Labs: 01/06: Na 134, K 3.8, BUN 56, Cr 4.5, Gluc 244, Phos 4.3, Mg 1.5 Meds: carafate, abx, insulin, zofran, coumadin, colace, lipitor IVF/Drips: Levophed at 4 mcg/min, Fentanyl drip, Bumex drip Ht: 62 in Wt: 173 lb BMI: 31.6 kg/m2 IBW: 110 lb Malnutrition Evaluation (01/07/20) The patient does not meet criteria for a specified degree of malnutrition at this time. Will re-evaluate at follow-up as appropriate. ASTRID, pt intubated and no nutrition hx available. Nutrition Prescription (Diet Order): Vital AF at 10 ml/hr- pending initiation Estimated Nutritional Needs: 5962-3900 calories/day (22-25 kcal/kg IBW) 75-100 g protein/day (1.5-2 g pro/kg IBW) Diet Adequacy: Not meeting calorie needs, Not meeting protein needs Diet Tolerance: pending Diet Education Needs Assessment: Diet education not indicated, patient intubated with plan for TF. Nutrition Care Level: moderate Nutrition Diagnosis: Inadequate energy and protein intake related to intubation as evidenced by requiring EN on vent. Goal: Patient will meet 75-100% of estimated needs by follow up Progress: N/A Interventions: -Composition, Rate, Route, IVF, Prescription medications, Recommended Modifications, Collaboration with other providers Monitoring/Evaluation: -Total energy intake, Total protein intake, Formula/Solution, Prescription medication Signed: Destiny Acevedo RD, LD, [facility]
[2020-01-07] MEDS: MICAFUNGIN SODIUM 100 ML IV SCH (12:10)
[2020-01-07] MEDS: SODIUM BICARBONATE 8.4% 150 ML in STERILE WATER IV SOLN 1,000 ML IV SCH (13:15)
--- NOTE | 2020-01-07 15:33 | Consultation ---
DATE OF CONSULTATION: 01/07/2020 ID Consult REASON FOR CONSULTATION: Hospital-acquired pneumonia. Thank you, Dr. Delvalle, for asking me to see this patient. HISTORY OF PRESENT ILLNESS: The patient is an 79-year-old woman, who was referred for hospital-acquired pneumonia. She is unable to give history because she is sedated. Chart review showed that she was sent to the Emergency Department from a [facility] on 01/03/2020 with progressive weakness and elevated creatinine. The patient is being evaluated by the Renal Service. The patient's course became complicated yesterday with recurrent atrial fibrillation with rapid ventricular response, hypotension and acute respiratory failure requiring intubation and mechanical ventilation. The patient also spiked fever and has had leukocytosis. The patient was admitted earlier this month and underwent AICD implant. PAST MEDICAL HISTORY: Diabetes mellitus type 2, ischemic cardiomyopathy, congestive heart failure, myocardial infarction, aortic valve disease, atrial fibrillation, abdominal aortic aneurysm, neuropathy, and gout. PAST SURGICAL HISTORY: TAVR and AICD implant. ALLERGIES: SULFA. MEDICATIONS: The current antibiotic is ceftriaxone 1 g IV piggyback every 24 hours. She has received meropenem 500 mg IV piggyback and azithromycin 500 mg IV once. Also, she received Zosyn earlier. FAMILY HISTORY: Noncontributory. SOCIAL HISTORY: No alcohol, tobacco, or recreational drug use. REVIEW OF SYSTEMS: Unable to obtain (the patient is sedated). PHYSICAL EXAMINATION: GENERAL: On respiratory support (mechanical ventilation). HEENT: Normocephalic, atraumatic. There is no icterus or injection of conjunctivae. There is no ear or nasal discharge. Orally intubated. NECK: Supple. There is no distention of external jugular veins. LUNGS: Rhonchi bilaterally. HEART: With normal S1 and S2. Irregular. ABDOMEN: Soft. EXTREMITIES: Without edema, clubbing, or cyanosis. SKIN: Without acute erythema. 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 LABORATORY AND DIAGNOSTICS: WBC 63805, hemoglobin 10.7, platelets 455,000, neutrophils 89.4, lymphocytes 4.6, monocytes 4.6, eosinophils 0, and basophils 0.3. BUN 56, creatinine 4.5. Lactic acid 3.6, AST 32, ALT 12, alkaline phosphatase 157, total bilirubin is 0.9. Urinalysis is abnormal. Coronavirus PCR negative. Blood culture is pending. Tracheal aspirate culture is pending. Urine culture grew Klebsiella pneumoniae and yeast. IMPRESSION: 1. Sepsis. 2. Urinary tract infection. 3. Question of aspiration. 4. Acute respiratory failure. 5. Acute kidney injury on chronic kidney disease. PLAN: 1. Await blood and tracheal aspirate culture results. 2. Add micafungin 100 mg IV piggyback q. 24 hours. 3. Nephrology input noted. 4. Fluid management per Renal Service. MD OSCAR Mckeon/MODL /[id number]
[2020-01-07] MEDS: WARFARIN SOD 3 MG TAB PO SCH (18:10)
[2020-01-07] MEDS: AMIODARONE HCL 200 MG TAB PO SCH (19:54)
[2020-01-07] MEDS: ACETAMINOPHEN 325 MG TAB PO PRN (19:56)
[2020-01-07] MEDS: ATORVASTATIN 20 MG TAB PO SCH (20:35)
[2020-01-07 22:31] LABS: ABG HCO3 20 mmol/L (22-26); ABG PCO2 26 mmHg (35-45); ABG PO2 67 mmHg (80-105)
[2020-01-08] VITALS (15 sets, daily range): BP systolic 106–133; BP diastolic 55–71
[2020-01-08 05:11] LABS: BASOPHILS % 0.4 % (0.0-1.0); EOSINOPHILS # (AUTO) 0.1 (0.0-0.4); EOSINOPHILS % 1.2 % (0.0-6.0); HEMATOCRIT 25.9 % (34.2-44.1); HEMOGLOBIN 8.7 g/dL (12.0-16.0); LYMPHOCYTES # (AUTO) 1.2 (1.0-3.2); LYMPHOCYTES % 12.8 % (18.0-39.1); MEAN CORPUSCULAR HEMOGLOBIN 32.3 pg (28-32); MEAN CORPUSCULAR HGB CONC 33.6 g/dL (31-35); MEAN CORPUSCULAR VOLUME 96.3 fL (81-99); MONOCYTES # (AUTO) 0.5 (0.2-0.8); MONOCYTES % 5.8 % (4.4-11.3); NEUTROPHILS # (AUTO) 7.1 (2.1-6.9); NEUTROPHILS % 79.1 % (38.7-80.0); PLATELET COUNT 244 x10e3/uL (140-360); RED BLOOD COUNT 2.69 x10e6/uL (3.6-5.1); RED CELL DISTRIBUTION WIDTH 17.3 % (11.7-14.4)
--- NOTE | 2020-01-08 05:28 | NUR ---
IM- progress note O/N see below ROS no f/c/s/N/V/back pain/dizziness/confusion/leg pain/focal limb weakness v/s revd PE INTUBATED anicteirc ns1s2 reduced BS soft nt nd no e/t skin dry flat affect navarro labs/meds revd A/P: 79yoF SEptic shock- on pressors JAYNE- IVF Klebsiella UTI- IV ceftriaxone Chronic CHF-systolic- hold diuretics; LVEF was 20%; has AICD CKD3 due to DM2 . on December 05, 2019- f/u renal fn; ADA diet; AAA 2.6cm- f/u out pt Hypertensive heart ds- cont BB CAD withhx 3 stents- cont BB/statin AVR in 2016 with porcine valve- control BP; on coumadin; Gout- Prop: scd; ppi dispo: f/u renal fn; 01-04 GNR UTI- IV ceftriaxone; renal U/S negative; follow I/O 01-05 Klebsiella UTI- contabx; renal fn improving 01-06 Septic shock- on pressors; UTI; Acute resp failure- intubated overnight; HAP- broad spec abx;cct>35mins 01-07 leukocytosis resolved; f/u other labs and CXR. Remain intubated; d/w daughter at bedside; Stuart Delvalle MD, PhD.
[2020-01-08 05:30] LABS: INR 1.91; PROTHROMBIN TIME 23.3 seconds (11.9-14.5)
[2020-01-08 05:55] LABS: ALBUMIN 2.2 g/dL (3.5-5.0); ANION GAP 14.9 mmol/L (8-16); CALCIUM 7.4 mg/dL (8.4-10.2); CREATININE, SERUM 4.08 mg/dL (0.57-1.11); PHOSPHORUS 2.4 MG/DL (2.3-4.7)
[2020-01-08] MEDS: INSULIN REGULAR, HUMAN 100 UNIT/1 ML 3ML VIAL SQ SCH ×5 (06:00→23:49)
[2020-01-08] MEDS: MIDODRINE 2.5 MG TAB PO SCH ×3 (06:00→21:31)
[2020-01-08 06:07] LABS: MAGNESIUM 1.1 MG/DL (1.3-2.1); POTASSIUM 2.9 mmol/L (3.5-5.1)
--- NOTE | 2020-01-08 06:21 | NUR ---
Paged Dr. Bansal's office with AM BMP/CMP results. Dr. Jorden Deras covering and ordered Magnesium sulfate 2gm IVPB once, KCL 30meq IVPB, then repeat labs.
--- NOTE | 2020-01-08 06:23 | Diagnostic Imaging Report ---
Examination: Single AP view of the chest. COMPARISON: Portable chest 01/07/2020 INDICATION: Intubated IMPRESSION: 1. Lines and Tubes: Supporting lines and tubes are stable. 2. Stable bilateral diffuse interstitial and alveolar opacities consistent with pneumonia. Stable left effusion and likely associated atelectasis. 3. Cardiomediastinal silhouette is obscured. Pulmonary vasculature is obscured. 4. No acute bony abnormalities. Signed by: Dr. Neil Silverio M.D. on 01/08/2020 6:19 AM
[2020-01-08] MEDS ORDERED: POTASSIUM CHLORIDE 10MEQ/100ML 300 ML IV ONE (06:30)
[2020-01-08] MEDS ORDERED: POTASSIUM CHLORIDE 10MEQ/100ML 300 ML ONE (06:34)
[2020-01-08] MEDS ORDERED: MAGNESIUM SULFATE 2GM/50ML 50 ML IV ONE ×2 (07:00→19:00)
[2020-01-08] MEDS: SUCRALFATE 1 GM/10 ML SUSP NG SCH ×2 (08:01→15:21)
[2020-01-08] MEDS: SODIUM BICARBONATE 8.4% 150 ML in STERILE WATER IV SOLN 1,000 ML IV SCH (08:06)
--- NOTE | 2020-01-08 08:26 | Progress Note ---
DATE: Pulmonary Critical Care Progress Note SUBJECTIVE: The patient has remained on sedation overnight. The sedation is being held. She continues on enteral feedings at 10 mL an hour. She is on a bicarb drip at 75 mL an hour. She is off Levophed. She is still on the PRVC mode of ventilation. OBJECTIVE: VITAL SIGNS: Blood pressure is 133/70 and pulse is 72. Respiratory rate is now with the vent at 14. She is on a PRVC with 400 and PEEP of 5. Her FiO2 is set at 40%. HEENT: Shows no facial swelling or erythema. There is an oral endotracheal tube. There is a left IJ line. The site looks clean. CARDIAC: Reveals regular rate and rhythm with normal S1 and S2. LUNGS: Auscultation of lungs reveals rhonchus breath sounds bilaterally. There is no wheezing. ABDOMEN: Soft, nontender. There is no rebound or guarding. EXTREMITIES: Shows no leg edema or calf tenderness. There is no cyanosis or clubbing. SKIN: Shows no rashes. LABORATORY DATA: White blood cell count is 9, hemoglobin is 8.7, platelet count is 244,000, magnesium is 1.1 and potassium is 2.9. The BUN to creatinine ratio is 55 and 4.08. Other electrolytes are within normal limits. The albumin is 2.2. RADIOGRAPHIC DATA: Chest x-ray shows bilateral infiltrates. ASSESSMENT: 1. Acute on chronic respiratory failure. 2. Acute on chronic renal failure. 3. Acute on chronic systolic congestive heart failure. 4. Status post aortic valve replacement. 5. Prior pacemaker and implantable cardioverter, defibrillator. 6. Hypomagnesemia. 7. Hypokalemia. 8. Klebsiella urinary tract infection. 9. Anemia. 10. Diabetes. PLAN: 1. Hold sedation and begin spontaneous breathing trial. 2. Wean bicarbonate drip. 3. Continue Bumex drip. 4. Replace potassium and magnesium. 5. Continue current antibiotics. 6. Continue enteral feedings. 7. Case discussed with nursing staff, Respiratory, Cardiology, Nephrology, and family. Greater than 35 minutes in direct critical care time. Rasta Clayton MD [facility] /[id number]
--- NOTE | 2020-01-08 09:15 | Consultation ---
DATE OF CONSULTATION: 01/07/2020 Cardiology Consultation REQUESTING PHYSICIAN: Stuart Delvalle MD. REASON FOR CONSULTATION: Atrial fibrillation with rapid ventricular response. HISTORY OF PRESENT ILLNESS: This is an 79-year-old woman with history of coronary artery disease with prior stent x3, bioprosthetic aortic valve replacement, chronic systolic heart failure, atrial fibrillation, who presented to the hospital from [facility] due to worsening fatigue and dehydration. The patient was admitted to [facility] at the end of November and diagnosed with urinary tract infection. She was treated with antibiotics and discharged home. Family reports she was still weak after her discharge and was readmitted to [facility] in early December with shortness of breath. She was found to have zqjjt-oc-bvateym systolic heart failure as well as she had BiV ICD placed during that admission and was subsequently discharged to [facility]. At [facility], she developed worsening fatigue and inability to urinate and she was sent to the ER for further evaluation. She was found to have acute kidney injury with a creatinine of 6.4 and admitted for further care. Overnight, the patient developed respiratory distress, for which she required intubation as well as atrial fibrillation with rapid ventricular response. She was started on amiodarone drip and transferred to the ICU for further care. In addition, she was started on a Bumex drip with improvement in her urine output. Cardiology consult for management of her AFib. All history is obtained from the EMR due to the patient's intubation and sedation. REVIEW OF SYSTEMS: Unable to obtain secondary to intubation and sedation. PAST MEDICAL HISTORY: As reported above. PAST SURGICAL HISTORY: 1. TAVR with 20 mm Kendrick Tere valve. 2. Appendectomy. 3. Cholecystectomy. 4. Hysterectomy. 5. Cataract surgery. ALLERGIES: PLEASE SEE EMR. MEDICATIONS: Please see medication list. SOCIAL HISTORY: No tobacco or alcohol. She quit smoking in 2001. FAMILY HISTORY: Noncontributory to current illness. PHYSICAL EXAMINATION: VITAL SIGNS: Temperature 99.4 degrees, pulse 70, respiratory rate 20, blood pressure 94/62, oxygen saturation 100% on mechanical ventilation. GENERAL: Elderly woman, intubated and sedated, in no acute distress. HEENT: Normocephalic and atraumatic. NECK: Supple. No carotid bruits. LUNGS: Clear to auscultation in anterior lung patton. No wheezes or crackles. CARDIOVASCULAR: Irregular rhythm, normal rate. Normal S1 and S2. ABDOMEN: Soft and nontender. EXTREMITIES: No edema. NEURO: Unable to assess secondary to sedation. LABORATORY DATA: WBC 16.44, hemoglobin 10.7, hematocrit 32.3, and platelets 455. Sodium 134, potassium 3.8, chloride 104, CO2 of 14, BUN 56, creatinine 4.5, lactic acid 3.6. TELEMETRY: Atrial fibrillation with rapid ventricular response, now rate controlled with demand ventricular pacing. IMPRESSION: 1. Atrial fibrillation with rapid ventricular response. 2. Acute hypoxic respiratory failure 3. Klebsiella pneumoniae urinary tract infection. 4. Bnrkm-jn-fhbhzog systolic heart failure. 5. Sepsis. 6. Status post transcatheter aortic valve replacement. 7. Status post BiV ICD. 8. Coronary artery disease. 9. Acute kidney injury, improving. 10. Abdominal aortic aneurysm 2.6 cm. RECOMMENDATIONS: The patient has been weaned off Levophed. Start beta-mohan tomorrow if blood pressure remains stable. In the meantime, complete amiodarone drip, start amiodarone 200 mg p.o. b.i.d. Continue warfarin for CVA prophylaxis. This can be held if no procedures are planned. Monitor urine output closely. We recommend we keep the patient negative given her rising BNP, management per Nephrology given her JAYNE. Ventilator support per Pulmonary. Antibiotics per Infectious Disease. Continue current cardiac medications. Thank you for this consult. We will continue to follow. Jayda Perez MD [facility]/MODL /[id number]
[2020-01-08] MEDS: CEFTRIAXONE SOD 1 GM/NS 50 ML 50 ML IV SCH (09:17)
[2020-01-08] MEDS: AMIODARONE HCL 200 MG TAB PO SCH ×2 (09:19→17:08)
[2020-01-08 10:06] LABS: ABG HCO3 22 mmol/L (22-26); ABG PCO2 32 mmHg (35-45); ABG PH 7.45 (7.35-7.45); ABG PO2 56 mmHg (80-105)
[2020-01-08] MEDS: MICAFUNGIN SODIUM 100 ML IV SCH (10:16)
[2020-01-08] MEDS: ACETAMINOPHEN 325 MG/10 ML UDC NG PRN (11:21)
[2020-01-08] MEDS: BUMETANIDE 10 MG in SODIUM CHLORIDE 0.9% 100 ML 60 ML IV SCH ×2 (13:39→23:49)
[2020-01-08 14:53] LABS: ABG HCO3 23 mmol/L (22-26); ABG PCO2 36 mmHg (35-45); ABG PH 7.42 (7.35-7.45); ABG PO2 62 mmHg (80-105)
--- NOTE | 2020-01-08 16:20 | Progress Note ---
DATE: 01/08/2020 Cardiology Progress Note SUBJECTIVE: The patient remains intubated. She did not respond to questions. OBJECTIVE: VITAL SIGNS: Temperature 98.8 degrees, pulse 87, respiratory rate 25, blood pressure 112/62, oxygen saturation 94% on mechanical ventilation. GENERAL: Elderly woman, in no acute distress, intubated and sedated. LUNGS: Clear to auscultation anterior lung patton. No wheezes or crackles. CARDIOVASCULAR : Normal rate. Regular rhythm. No murmur. Normal S1 and S2. ABDOMEN: Soft, nontender. EXTREMITIES: No edema. CARDIAC MEDICATIONS: 1. Midodrine 5 mg p.o. q.8 hours. 2. Bumex 1 mg an hour. 3. Amiodarone 200 mg p.o. b.i.d. 4. Atorvastatin 40 mg p.o. at bedtime. 5. Warfarin 3 mg p.o. daily. LABORATORY DATA: WBC 9.01, hemoglobin 8.7, hematocrit 25.9, platelets 244. Sodium 134, potassium 2.9, chloride 100, CO2 22, BUN 55, creatinine 4.08. TELEMETRY: Personally reviewed and interpreted revealing ventricular paced rhythm. IMPRESSION: 1. Atrial fibrillation with rapid ventricular response. 2. Acute hypoxic respiratory failure. 3. Klebsiella pneumoniae urinary tract infection. 4. Chronic systolic heart failure. 5. Sepsis. 6. Status post transcatheter aortic valve replacement. 7. Status post BiV ICD. 8. Coronary artery disease. 9. Acute kidney injury, improving. 10. Abdominal aortic aneurysm 2.6 cm. RECOMMENDATIONS: Monitor blood pressure closely. The patient is requiring midodrine for blood pressure support, wean as tolerated. Once off midodrine, can start metoprolol for heart rate control. In the meantime, continue amiodarone p.o. Continue warfarin for CVA prophylaxis. Continue diuresis with Bumex. Management per Nephrology given significant JAYNE. Ventilator support per Pulmonary. Antibiotics per Infectious Disease. Continue current cardiac medications. Thank you for this consult. We will continue to follow. Jayda Perez MD [facility]/MODL /[id number]
[2020-01-08 16:44] LABS: CALCIUM 7.3 mg/dL (8.4-10.2); CREATININE, SERUM 3.76 mg/dL (0.57-1.11)
[2020-01-08] MEDS: WARFARIN SOD 3 MG TAB PO SCH (17:08)
[2020-01-08] MEDS ORDERED: POTASSIUM CHLORIDE 20MEQ/100ML 200 ML IV ONE (19:00)
[2020-01-08] MEDS: ATORVASTATIN 20 MG TAB PO SCH (21:31)
[2020-01-09] VITALS (24 sets, daily range): BP systolic 113–135; BP diastolic 47–82
[2020-01-09] MEDS ORDERED: BUMETANIDE INJ 0.25 MG/ML 10 ML VIAL ONE ×2 (02:49→02:53)
[2020-01-09] MEDS ORDERED: SODIUM CHLORIDE 0.9% 100 ML ONE (02:50)
[2020-01-09 04:20] LABS: BASOPHILS # (AUTO) 0.1 (0.0-0.1); BASOPHILS % 0.5 % (0.0-1.0); EOSINOPHILS # (AUTO) 0.2 (0.0-0.4); EOSINOPHILS % 2.1 % (0.0-6.0); HEMATOCRIT 26.8 % (34.2-44.1); HEMOGLOBIN 8.7 g/dL (12.0-16.0); LYMPHOCYTES # (AUTO) 0.8 (1.0-3.2); LYMPHOCYTES % 8.9 % (18.0-39.1); MEAN CORPUSCULAR HGB CONC 32.5 g/dL (31-35); MONOCYTES # (AUTO) 0.6 (0.2-0.8); NEUTROPHILS # (AUTO) 7.5 (2.1-6.9); NEUTROPHILS % 82.1 % (38.7-80.0); PLATELET COUNT 202 x10e3/uL (140-360); RED BLOOD COUNT 2.64 x10e6/uL (3.6-5.1); RED CELL DISTRIBUTION WIDTH 17.6 % (11.7-14.4)
[2020-01-09 04:22] LABS: MEAN CORPUSCULAR VOLUME 101.5 fL (81-99)
[2020-01-09 04:31] LABS: INR 1.99
[2020-01-09 04:41] LABS: ALBUMIN 2.2 g/dL (3.5-5.0); ALBUMIN/GLOBULIN RATIO 0.9 (0.8-2.0); ANION GAP 16.4 mmol/L (8-16); CREATININE, SERUM 3.54 mg/dL (0.57-1.11); MAGNESIUM 1.9 MG/DL (1.3-2.1); PHOSPHORUS 2.4 MG/DL (2.3-4.7); POTASSIUM 3.4 mmol/L (3.5-5.1)
--- NOTE | 2020-01-09 05:15 | NUR ---
present and assessing the pt. He attempted to change vent settings to CPAP to started weaning the pt and she became tachypneic. Dr. Clayton then had me increase the precedex and order a stat xray. Xray called and are on way.
[2020-01-09] MEDS: INSULIN REGULAR, HUMAN 100 UNIT/1 ML 3ML VIAL SQ SCH ×3 (05:20→18:11)
--- NOTE | 2020-01-09 05:30 | NUR ---
Xray completed and Dr. Celestin notified. Currently awaiting him to review xray.
[2020-01-09] MEDS: MIDODRINE 2.5 MG TAB PO SCH ×3 (05:43→21:12)
[2020-01-09] MEDS: DEXMEDETOMIDINE 200MCG/NS 50ML 50 ML IV PRN ×3 (07:30→17:21)
--- NOTE | 2020-01-09 07:46 | Diagnostic Imaging Report ---
Examination: Single AP view of the chest. COMPARISON: Portable chest 01/08/2020 INDICATION: Respiratory failure IMPRESSION: 1. Lines and Tubes: Left upper chest multilead cardiac device as well as supporting lines and tubes are unchanged. 2. No interval change in bilateral diffuse interstitial alveolar opacities consistent with pneumonia. Stable left effusion and associated atelectasis. There is likely a right-sided pleural effusion. 3. Cardiomediastinal silhouette is obscured. Pulmonary vasculature is obscured. 4. No acute bony abnormalities. Signed by: Dr. Neil Silverio M.D. on 01/09/2020 7:43 AM
[2020-01-09] MEDS: SUCRALFATE 1 GM/10 ML SUSP NG SCH ×2 (08:57→17:20)
[2020-01-09] MEDS: CEFTRIAXONE SOD 1 GM/NS 50 ML 50 ML IV SCH (08:57)
[2020-01-09] MEDS: AMIODARONE HCL 200 MG TAB PO SCH ×2 (08:57→17:20)
--- NOTE | 2020-01-09 09:08 | Progress Note ---
DATE: Pulmonary Critical Care Progress Note SUBJECTIVE: The patient continues on the Bumex drip. She is negative over a liter yesterday. When placed on spontaneous breathing trial this morning, then she became tachypneic very quickly into the 30s. PHYSICAL EXAMINATION: VITAL SIGNS: The patient is afebrile, blood pressure is 120/67, and saturation is 97%. She is on a PRVC mode of ventilation, rate of 16 with a tidal volume of 430. Her FiO2 is set of 40% and her PEEP is set at 5. HEENT: Shows no facial swelling or erythema. She has an oral endotracheal tube in place. She has a left IJ line in place. The site looks clean. CARDIAC: Reveals a regular rate and rhythm with normal S1 and S2. LUNGS: Auscultation of lungs reveals crackles in both lung patton. ABDOMEN: Soft and nontender. There is no rebound or guarding. EXTREMITIES: Show no leg edema or calf tenderness. LABORATORY DATA: White blood cell count is 9.1, hemoglobin is 8.7, and platelet count is 202. The BUN to creatinine ratio is 15 and 3.54 and the other electrolytes are within normal limits. Albumin is 2.2. INR is 1.99. RADIOGRAPHIC DATA: Chest x-ray shows diffuse infiltrates with a stable left effusion and atelectasis as well as a right-sided effusion. IMPRESSION: 1. Aujre-xo-ntetxab respiratory failure. 2. Ubjxz-nt-nweojlu renal failure. 3. Weccw-qo-orlvnxm systolic congestive heart failure. 4. Prior aortic valve replacement. 5. Prior pacemaker and defibrillator. 6. Klebsiella urinary tract infection. 7. Diabetes. PLAN: 1. Continue Bumex drip. 2. Continue Precedex for sedation. 3. Continue enteral feedings. 4. Continue with current antibiotics. 5. The patient did not do well on spontaneous breathing trial this morning and is not ready for extubation. We will re-attempt the spontaneous breathing trial after removing more fluid. 6. Case discussed with Internal Medicine, nursing staff, Respiratory, Nephrology, and family. Greater than 35 minutes in direct critical care time. MD SON Perez/[facility] /[id number]
[2020-01-09] MEDS: MICAFUNGIN SODIUM 100 ML IV SCH (09:30)
[2020-01-09] MEDS ORDERED: POTASSIUM CHLORIDE 20MEQ/100ML 200 ML IV ONE (10:00)
--- NOTE | 2020-01-09 12:22 | Diagnostic Imaging Report ---
Bilateral chest ultrasound History: Pleural effusion Technique/findings: Limited bilateral chest ultrasound was performed to evaluate for pleural effusion. This demonstrated a small right and small left pleural effusion. IMPRESSION: Small bilateral pleural effusions. Signed by: Erin Madera MD on 01/09/2020 12:18 PM
[2020-01-09] MEDS: BUMETANIDE 10 MG in SODIUM CHLORIDE 0.9% 100 ML 60 ML IV SCH ×2 (12:34→21:10)
--- NOTE | 2020-01-09 12:59 | Progress Note ---
DATE: 01/09/2020 Cardiology Progress Note SUBJECTIVE: The patient remains intubated and sedated. She is on Bumex 1 mg an hour. OBJECTIVE: VITAL SIGNS: Temperature 99.6 degrees, pulse 61, respiratory rate 16, blood pressure 134/73, and oxygen saturation 99% on mechanical ventilation. GENERAL: An elderly woman, in no acute distress. Intubated and sedated. LUNGS: Clear to auscultation, anterior lung patton. No wheezes or crackles. CARDIOVASCULAR: Normal rate. Regular rhythm. No murmur. Normal S1, S2. ABDOMEN: Soft, nontender. EXTREMITIES: No edema. CARDIAC MEDICATIONS: Amiodarone 200 mg p.o. b.i.d., Bumex 1 mg an hour, atorvastatin 40 mg p.o. at bedtime, warfarin 3 mg p.o. daily, and midodrine 5 mg p.o. q.8 hours. LABORATORY DATA: WBC 9.11, hemoglobin 8.7, hematocrit 26.8, and platelets 202. Sodium 136, potassium 3.4, chloride 99, CO2 of 24, BUN 50, and creatinine 3.54. BNP is 858. TELEMETRY: Personally reviewed and interpreted revealing ventricular paced rhythm. IMPRESSION: 1. Atrial fibrillation with rapid ventricular response, currently ventricular paced. 2. Acute hypoxic respiratory failure. 3. Klebsiella pneumoniae urinary tract infection. 4. Chronic systolic heart failure. 5. Sepsis. 6. Status post transcatheter aortic valve replacement. 7. Status post biventricular internal cardioverter defibrillator. 8. Coronary artery disease. 9. Acute kidney injury, improving. 10. Abdominal aortic aneurysm, 2.6 cm. RECOMMENDATIONS: Monitor blood pressure closely. Wean Midodrine as tolerated. Once midodrine has been weaned off, we can start metoprolol for heart rate control. In the meantime, continue p.o. amiodarone. Continue warfarin for CVA prophylaxis. The patient's volume status is gradually improving. Continue Bumex for diuresis. Management per Nephrology given JAYNE. Antibiotics per Infectious Disease. Continue current cardiac medications. Thank you for this consult. We will continue to follow. Jayda Perez MD [facility] /[id number] [id number]
[2020-01-09] MEDS: WARFARIN SOD 3 MG TAB PO SCH (17:20)
--- NOTE | 2020-01-09 19:00 | NUR ---
Received patient calm in bed vitals stable, on Bumex,Precedex drips and ng feeds
[2020-01-09] MEDS: ATORVASTATIN 20 MG TAB PO SCH (21:11)
[2020-01-10] VITALS (24 sets, daily range): BP systolic 105–146; BP diastolic 58–99
--- NOTE | 2020-01-10 05:00 | NUR ---
Given a bath, Precedex stopped. Settled calmly in bed
[2020-01-10 05:30] LABS: BASOPHILS % 0.4 % (0.0-1.0); EOSINOPHILS # (AUTO) 0.2 (0.0-0.4); EOSINOPHILS % 2.1 % (0.0-6.0); HEMATOCRIT 29.6 % (34.2-44.1); HEMOGLOBIN 9.7 g/dL (12.0-16.0); LYMPHOCYTES % 11.1 % (18.0-39.1); MEAN CORPUSCULAR HEMOGLOBIN 32.1 pg (28-32); MEAN CORPUSCULAR HGB CONC 32.8 g/dL (31-35); MONOCYTES # (AUTO) 0.7 (0.2-0.8); MONOCYTES % 7.4 % (4.4-11.3); NEUTROPHILS % 78.3 % (38.7-80.0); PLATELET COUNT 259 x10e3/uL (140-360); RED BLOOD COUNT 3.02 x10e6/uL (3.6-5.1); RED CELL DISTRIBUTION WIDTH 17.2 % (11.7-14.4)
[2020-01-10 05:43] LABS: ALBUMIN 2.3 g/dL (3.5-5.0); ALBUMIN/GLOBULIN RATIO 0.8 (0.8-2.0); ANION GAP 14.2 mmol/L (8-16); CALCIUM 9.3 mg/dL (8.4-10.2); CREATININE, SERUM 3.13 mg/dL (0.57-1.11); MAGNESIUM 1.6 MG/DL (1.3-2.1); PHOSPHORUS 2.3 MG/DL (2.3-4.7); POTASSIUM 3.2 mmol/L (3.5-5.1)
[2020-01-10] MEDS: INSULIN REGULAR, HUMAN 100 UNIT/1 ML 3ML VIAL SQ SCH ×4 (06:00→17:36)
[2020-01-10] MEDS: MIDODRINE 2.5 MG TAB PO SCH ×3 (06:00→21:21)
[2020-01-10] MEDS: BUMETANIDE 10 MG in SODIUM CHLORIDE 0.9% 100 ML 60 ML IV SCH ×2 (07:16→15:12)
[2020-01-10] MEDS ORDERED: LORAZEPAM INJ 2 MG/ML VIAL IV ONE (08:15)
[2020-01-10] MEDS: SUCRALFATE 1 GM/10 ML SUSP NG SCH ×2 (08:23→17:34)
[2020-01-10] MEDS ORDERED: LORAZEPAM INJ 2 MG/ML VIAL IV NR (08:30)
[2020-01-10 08:35] LABS: INR 1.99
[2020-01-10 08:36] LABS: PARTIAL THROMBOPLASTIN TIME 56.7 seconds (23.8-35.5)
[2020-01-10] MEDS: CEFTRIAXONE SOD 1 GM/NS 50 ML 50 ML IV SCH (08:44)
--- NOTE | 2020-01-10 08:44 | Progress Note ---
DATE: SUBJECTIVE: The patient is still requiring mechanical ventilation. When placed on pressure support and CPAP, she becomes tachypneic into the mid 30s. The patient remains on Bumex drip. She is negative over 2 L since yesterday. PHYSICAL EXAMINATION: VITAL SIGNS: Blood pressure is 128/68, temperature is 98.8, pulse is 63, and saturation is 98%. She is on a PRVC at a rate of 15 with a tidal volume of 430 and FiO2 of 40%. Her PEEP is set at 5. She is on Precedex at 0.3. She also is on Bumex at 1 mg an hour. HEENT: She has an oral endotracheal tube. She has a left IJ line. The site looks clean. There is no drainage. CARDIAC: Reveals regular rate and rhythm with normal S1 and S2. LUNGS: Auscultation of lungs reveals crackles and rhonchi in both bases. There is no wheezing. ABDOMEN: Soft and nontender. There is no rebound or guarding. EXTREMITIES: Show no leg edema or calf tenderness. There is no cyanosis or clubbing. SKIN: Shows no rashes. NEUROLOGICAL: Shows the patient to be following commands. LABORATORY DATA: White blood cell count is 8.9, hemoglobin is 9.7, and platelet count is 259. The BUN to creatinine ratio is 46 and 3.13, potassium is 3.2. RADIOGRAPHIC DATA: Chest x-ray shows some mild improvement in bilateral infiltrates. IMPRESSION: 1. Yvrye-we-fcfsiym systolic congestive heart failure. 2. Atrial fibrillation. 3. Mjjhd-yh-kgewyxk renal failure. 4. Prior aortic valve replacement. 5. Prior defibrillator pacemaker. 6. Klebsiella urinary tract infection. 7. Diabetes. PLAN: 1. Continue Bumex drip. 2. Continue Precedex for sedation. 3. The patient will need to continue mechanical ventilation for now, because she becomes tachypneic when she was switched to a spontaneous breathing trial. 4. Complete current antibiotics. 5. Continue anticoagulation with warfarin. 6. Case discussed with nursing staff, Respiratory, Internal Medicine, Nephrology, and family. Greater than 35 minutes in direct critical care time. Rasta Clayton MD [facility]/[place] /[id number]
[2020-01-10] MEDS: AMIODARONE HCL 200 MG TAB PO SCH ×2 (08:45→17:35)
--- NOTE | 2020-01-10 09:00 | Diagnostic Imaging Report ---
EXAMINATION: CHEST SINGLE (PORTABLE) INDICATION: Resp Failure COMPARISON: Multiple prior chest x-ray examinations most recent dated 01/03/2020. FINDINGS: AP view TUBES and LINES: AICD is intact. There is a left IJ central venous catheter with distal tip in SVC. There is NG tube in place with distal tip in the stomach. There is an endotracheal tube in place with distal tip 5 cm above the level of casa. LUNGS/PLEURA: Unchanged diffuse patchy ground glass opacities likely due to multifocal pneumonia or ARDS. Bilateral pleural effusions have improved. HEART AND MEDIASTINUM: Cardiac size is severely enlarged, unchanged. BONES AND SOFT TISSUES: No acute osseous lesion. Soft tissues are unremarkable. UPPER ABDOMEN: No free air under the diaphragm. IMPRESSION: 1. Unchanged diffuse patchy ground glass opacities likely due to multifocal pneumonia or ARDS. 2. Bilateral pleural effusions have improved. Signed by: Broderick Keita MD on 01/10/2020 8:56 AM
[2020-01-10 09:18] LABS: ABG HCO3 25 mmol/L (22-26); ABG PCO2 20 mmHg (35-45); ABG PO2 57 mmHg (80-105)
--- NOTE | 2020-01-10 10:19 | NUR ---
Pt rcvd @0700 asleep and arousable. pt entubated on prvc with settings as ordered. pt on sedation vaction with tube feeding held. pts K+ 3.4 , Dr. Delvalle and [employer] Sandy notified. pt had 20 beat run VTach, with intermittent episodes of V-Tach. Dr. Merino notified. pt possible extubation and interrogation of aicd for ectopic episodes. pls see erm for detaile assessment
[2020-01-10] MEDS: MICAFUNGIN SODIUM 100 ML IV SCH (10:24)
--- NOTE | 2020-01-10 11:00 | Progress Note ---
DATE: Cardiology Progress Note SUBJECTIVE: Unable to obtain, patient intubated. OBJECTIVE: VITAL SIGNS: Temperature 98.8, pulse 62, respiratory rate 38, blood pressure 128/68, oxygen saturation 98% on mechanical ventilator. GENERAL: Intubated. Opening eyes on name calling. LUNGS: Diminished breath sounds throughout. No wheezing. No rhonchi or crackles. CARDIOVASCULAR: Normal rate and rhythm. Normal S1, S2. ABDOMEN: Soft, nontender. EXTREMITIES: Lower extremity no edema. 1+ pedal pulses. CARDIOVASCULAR MEDICATIONS: Amiodarone 200 mg p.o. b.i.d., atorvastatin 40 mg p.o. h.s., warfarin 3 mg p.o. daily, midodrine 5 mg p.o. q.8 hours. LABORATORY DATA: WBC 8.90, hemoglobin 9.7, hematocrit 29.6, platelets 259. Sodium 138, potassium 3.2, BUN 46, creatinine 3.13, glucose 125, AST 22, ALT 9, alkaline phosphatase 163. BNP 857.9. IMAGING: Chest x-ray with unchanged diffuse patchy and ground glass opacity, likely due to multifocal pneumonia. Bilateral pleural effusions have improved. TELEMETRY: Ventricular paced rhythm. IMPRESSION: 1. Atrial fibrillation with rapid ventricular response. Currently rate controlled. 2. Acute hypoxic renal failure. 3. Klebsiella pneumoniae, urinary tract infection. 4. Chronic systolic heart failure. 5. Sepsis. 6. Status post transcatheter aortic valve placement. 7. Status post biventricular internal cardioverter-defibrillator. 8. Coronary artery disease. 9. Acute kidney injury that is improving. 10. Abdominal aortic aneurysm of 2.6 cm. RECOMMENDATIONS: Continue the above-listed cardiac medications. Continue warfarin for CVA prophylaxis. Volume status is being managed by Nephrology, given acute kidney injury. Continue diuresis per their directions. Antimicrobial therapy per Infectious Disease. Continue to maintain on telemetry at all time. We will continue to follow this patient very closely. Dictated by Joan Delgado NP MD JORDI Weller/[facility] /[id number]
[2020-01-10] MEDS: MAGNESIUM OXIDE 400 MG TAB PO SCH (11:07)
[2020-01-10] MEDS: POTASSIUM CHLORIDE 20 MEQ TAB CR PO SCH (11:07)
[2020-01-10] MEDS ORDERED: FLUOXETINE HCL 20 MG CAP PO NR ×2 (13:45→14:45)
--- NOTE | 2020-01-10 13:49 | NUR ---
IM- progress note O/N see below ROS no f/c/s/N/V/back pain/dizziness/confusion/leg pain/focal limb weakness v/s revd PE INTUBATED anicteirc ns1s2 reduced BS soft nt nd no e/t skin dry flat affect navarro labs/meds revd A/P: 79yoF SEptic shock- on pressors JAYNE- IVF Klebsiella UTI- IV ceftriaxone Chronic CHF-systolic- hold diuretics; LVEF was 20%; has AICD CKD3 due to DM2 . on December 05, 2019- f/u renal fn; ADA diet; AAA 2.6cm- f/u out pt Hypertensive heart ds- cont BB CAD withhx 3 stents- cont BB/statin AVR in 2016 with porcine valve- control BP; on coumadin; Gout- Prop: scd; ppi dispo: f/u renal fn; 01-04 GNR UTI- IV ceftriaxone; renal U/S negative; follow I/O 01-05 Klebsiella UTI- contabx; renal fn improving 01-06 Septic shock- on pressors; UTI; Acute resp failure- intubated overnight; HAP- broad spec abx;cct>35mins 01-07 leukocytosis resolved; f/u other labs and CXR. Remain intubated; d/w daughter at bedside; 01-08 improving; await return of cognition- sedated? cont vent support; SBT daily. 01-09 SBT today; more alert; Stuart Delvalle MD, PhD.
[2020-01-10 15:53] LABS: ABG PCO2 33 mmHg (35-45); ABG PH 7.52 (7.35-7.45); ABG PO2 83 mmHg (80-105)
[2020-01-10 15:54] LABS: ABG HCO3 27 mmol/L (22-26)
[2020-01-10] MEDS: WARFARIN SOD 3 MG TAB PO SCH (17:35)
--- NOTE | 2020-01-10 18:39 | NUR ---
Nsg note: pt extubated at 1500, placed on 4LNC, pt vs stable. pt rcvd oral electrolyte replacements, no beats of ectopy noted. 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
[2020-01-10 21:06] LABS: ABG PH 7.47 (7.35-7.45)
[2020-01-10 21:07] LABS: ABG HCO3 28 mmol/L (22-26); ABG PCO2 39 mmHg (35-45); ABG PO2 118 mmHg (80-105)
[2020-01-10] MEDS: ATORVASTATIN 20 MG TAB PO SCH (21:20)
[2020-01-11] VITALS (25 sets, daily range): BP systolic 102–144; BP diastolic 50–98
[2020-01-11] MEDS: BUMETANIDE 10 MG in SODIUM CHLORIDE 0.9% 100 ML 60 ML IV SCH ×3 (01:56→21:27)
[2020-01-11] MEDS: LEVALBUTEROL HCL SOLN NEBU 0.63 MG/3 ML NEB IH PRN ×3 (04:45→20:15)
[2020-01-11] MEDS: MIDODRINE 2.5 MG TAB PO SCH ×3 (05:39→21:27)
[2020-01-11 05:42] LABS: BASOPHILS % 0.4 % (0.0-1.0); EOSINOPHILS # (AUTO) 0.2 (0.0-0.4); EOSINOPHILS % 1.7 % (0.0-6.0); HEMATOCRIT 30.8 % (34.2-44.1); HEMOGLOBIN 10.1 g/dL (12.0-16.0); LYMPHOCYTES # (AUTO) 1.4 (1.0-3.2); LYMPHOCYTES % 14.4 % (18.0-39.1); MEAN CORPUSCULAR HEMOGLOBIN 33.4 pg (28-32); MEAN CORPUSCULAR HGB CONC 32.8 g/dL (31-35); MONOCYTES # (AUTO) 0.8 (0.2-0.8); MONOCYTES % 8.6 % (4.4-11.3); NEUTROPHILS # (AUTO) 7.1 (2.1-6.9); NEUTROPHILS % 74.1 % (38.7-80.0); PLATELET COUNT 278 x10e3/uL (140-360); RED BLOOD COUNT 3.02 x10e6/uL (3.6-5.1)
[2020-01-11] MEDS: INSULIN REGULAR, HUMAN 100 UNIT/1 ML 3ML VIAL SQ SCH ×4 (05:46→16:58)
[2020-01-11 05:56] LABS: INR 1.77; PROTHROMBIN TIME 21.9 seconds (11.9-14.5)
[2020-01-11 06:26] LABS: ALBUMIN 2.6 g/dL (3.5-5.0); ALBUMIN/GLOBULIN RATIO 0.8 (0.8-2.0); ANION GAP 20.2 mmol/L (8-16); CALCIUM 9.4 mg/dL (8.4-10.2); CREATININE, SERUM 2.69 mg/dL (0.57-1.11); MAGNESIUM 1.4 MG/DL (1.3-2.1); PHOSPHORUS 2.7 MG/DL (2.3-4.7); POTASSIUM 3.2 mmol/L (3.5-5.1)
[2020-01-11] MEDS: MICAFUNGIN SODIUM 100 ML IV SCH (08:09)
[2020-01-11] MEDS: SUCRALFATE 1 GM/10 ML SUSP NG SCH ×2 (08:09→16:55)
[2020-01-11] MEDS: AMIODARONE HCL 200 MG TAB PO SCH ×2 (08:09→16:55)
[2020-01-11] MEDS: CEFTRIAXONE SOD 1 GM/NS 50 ML 50 ML IV SCH (08:09)
[2020-01-11] MEDS: POTASSIUM CHLORIDE 20 MEQ TAB CR PO SCH (08:10)
[2020-01-11] MEDS: MAGNESIUM OXIDE 400 MG TAB PO SCH (08:10)
[2020-01-11] MEDS ORDERED: POTASSIUM CHLORIDE 20MEQ/100ML 200 ML IV ONE (08:15)
--- NOTE | 2020-01-11 08:52 | Diagnostic Imaging Report ---
EXAMINATION: CHEST SINGLE (PORTABLE) INDICATION: Pulmonary edema. COMPARISON: Chest radiograph 01/10/2020. FINDINGS: AP view TUBES and LINES: Left-sided AICD with leads in unchanged position. There is a left IJ central venous catheter with distal tip obscured, but likely at the cavoatrial junction. There is NG tube in place with distal tip in the stomach. Interval extubation. LUNGS/PLEURA: Unchanged diffuse opacities in the bilateral mid and lower lung zones. Persistent moderate bilateral pleural effusions. Bibasilar opacities, likely atelectasis. No pneumothorax. HEART AND MEDIASTINUM: Cardiac size is moderately enlarged, unchanged. There are atherosclerotic calcifications within the aorta. BONES AND SOFT TISSUES: No acute osseous lesion. Soft tissues are unremarkable. UPPER ABDOMEN: No free air under the diaphragm. IMPRESSION: Lines and tubes as above. Interval extubation. No evidence of pneumothorax. Unchanged bilateral opacities, compatible with pulmonary edema. Moderate bilateral pleural effusions. Superimposed infection is possible in the appropriate clinical setting. Signed by: Dr. Aleyda Chairez MD on 01/11/2020 8:49 AM
[2020-01-11] MEDS ORDERED: ASPIRIN 325 MG TAB PO SCH (09:45)
--- NOTE | 2020-01-11 10:13 | Progress Note ---
DATE: Cardiology Progress Note SUBJECTIVE: The patient is not able to report much, quite drowsy this morning. OBJECTIVE: VITAL SIGNS: Temperature 98.6, pulse 69, respiratory rate 26, blood pressure 106/65, and oxygen saturation 92% on 5 L nasal cannula. GENERAL: Extubated. Drowsy. LUNGS: Diminished breath sounds throughout, worse in the left upper and lower lobes. No wheezing. No crackles noted. CARDIOVASCULAR: Normal rate and rhythm. Normal S1, S2. ABDOMEN: Soft, nontender. EXTREMITIES: Lower extremities, 1+ pedal pulses. CARDIOVASCULAR MEDICATIONS: Magnesium oxide 400 mg p.o. daily, potassium chloride 40 mEq p.o. daily, amiodarone 200 mg p.o. b.i.d., atorvastatin 40 mg p.o. at bedtime, warfarin 3 mg p.o. daily, and midodrine 5 mg p.o. q.8 hours. LABORATORY DATA: WBC 9.64, hemoglobin 10.1, hematocrit 30.8, and platelets 278. Sodium 140, potassium 3.2, BUN 45, creatinine 2.69, and glucose 130. AST 45. IMAGING DATA: Chest x-ray with unchanged bilateral opacities compatible with pulmonary edema, moderate bilateral pleural effusions. IMPRESSION: 1. Atrial fibrillation with rapid ventricular response, currently rate controlled. 2. Nonsustained ventricular tachycardia. 3. Acute hypoxic respiratory failure, now extubated. 4. Klebsiella pneumoniae urinary tract infection. 5. Chronic systolic heart failure. 6. Sepsis. 7. Status post transcatheter aortic valve replacement. 8. Status post biventricular internal cardioverter-defibrillator. 9. Coronary artery disease. 10. Acute kidney injury. 11. Aortic abdominal aneurysm measuring 2.6 cm. 12. Abnormal liver function tests. RECOMMENDATION: Hold atorvastatin at this time. Continue the above-listed cardiac medications. INR 1.7 with labs today. Adjust dose of warfarin goal to be 2-3. Maintain on telemetry at all times. Replace electrolytes. IV potassium to be given this morning. Monitor PVCs and nonsustained VT episodes. Nephrology managing renal issues. We will continue to follow this patient very closely. Dictated by Joan Delgado NP MD JORDI Weller/MODMikey /[id number]
[2020-01-11] MEDS: ASPIRIN 81 MG CHEW TAB PO SCH (10:30)
--- NOTE | 2020-01-11 11:47 | NUR ---
IM- progress note O/N see below ROS no f/c/s/N/V/back pain/dizziness/confusion/leg pain/focal limb weakness v/s revd PE INTUBATED anicteirc ns1s2 reduced BS soft nt nd no e/t skin dry flat affect navarro labs/meds revd A/P: 79yoF SEptic shock- on pressors JAYNE- IVF Klebsiella UTI- IV ceftriaxone Chronic CHF-systolic- hold diuretics; LVEF was 20%; has AICD CKD3 due to DM2 . on December 05, 2019- f/u renal fn; ADA diet; AAA 2.6cm- f/u out pt Hypertensive heart ds- cont BB CAD withhx 3 stents- cont BB/statin AVR in 2016 with porcine valve- control BP; on coumadin; Gout- Prop: scd; ppi dispo: f/u renal fn; 01-04 GNR UTI- IV ceftriaxone; renal U/S negative; follow I/O 01-05 Klebsiella UTI- contabx; renal fn improving 01-06 Septic shock- on pressors; UTI; Acute resp failure- intubated overnight; HAP- broad spec abx;cct>35mins 01-07 leukocytosis resolved; f/u other labs and CXR. Remain intubated; d/w daughter at bedside; 01-08 improving; await return of cognition- sedated? cont vent support; SBT daily. 01-09 SBT today; more alert; 01-10 Pulm edema; cont care; move out of ICU; doing ok on Nasal canula O2. start PT; swallow eval; SNF eval. Stuart Delvalle MD, PhD.
[2020-01-11 13:05] LABS: ABG HCO3 30 mmol/L (22-26); ABG PCO2 41 mmHg (35-45); ABG PH 7.48 (7.35-7.45); ABG PO2 83 mmHg (80-105)
--- NOTE | 2020-01-11 13:19 | Progress Note ---
DATE: SUBJECTIVE: The patient is somnolent, but arousable. She was extubated yesterday. She remains on Bumex drip. PHYSICAL EXAMINATION: VITAL SIGNS: Stable. The blood pressure is 118/75. The heart rate is 71. Respiratory rate is 25. She is on nasal cannula. HEENT: Shows no facial swelling or erythema. CARDIAC: Reveals regular rate and rhythm with normal S1 and S2. LUNGS: Auscultation of lungs reveals rhonchorous breath sounds bilaterally. There is no wheezing. ABDOMEN: Soft and nontender. There is no rebound or guarding. EXTREMITIES: Shows no leg edema or calf tenderness. There is no cyanosis or clubbing. SKIN: Shows no rashes. NEUROLOGICAL: Shows no focal abnormalities. LABORATORY DATA: BUN to creatinine ratio is 45 to 2.69 and the potassium is 3.2. Glucose is 130 and the albumin is 2.6. RADIOGRAPHIC DATA: Chest x-ray still shows bilateral infiltrates. IMPRESSION: 1. Gdavn-cf-wtesqcd respiratory failure. 2. Cjmbz-vr-uzvtpdf systolic congestive heart failure. 3. Atrial fibrillation. 4. Ncimh-cb-ourbuyl renal failure. 5. Prior aortic valve replacement. 6. Prior defibrillator placement. 7. Klebsiella urinary tract infection. 8. Diabetes. PLAN: 1. Repeat ABG. Possible transfer out of intensive care unit. 2. BiPAP as needed. 3. Continue Bumex drip. 4. Repeat BUN, creatinine, and electrolytes tomorrow. Rasta Clayton MD LM/LOLITA /[id number]
[2020-01-11] MEDS: ACETAMINOPHEN 325 MG/10 ML UDC NG PRN ×3 (14:05→21:30)
[2020-01-11] MEDS: WARFARIN SOD 2 MG TAB PO SCH (16:55)
[2020-01-11] MEDS ORDERED: WARFARIN SOD 3 MG TAB PO SCH (17:00)
[2020-01-11] MEDS: ATORVASTATIN 20 MG TAB PO SCH (21:27)
[2020-01-11] MEDS: MELATONIN 3 MG TAB PO PRN (22:34)
[2020-01-12] VITALS (15 sets, daily range): BP systolic 113–154; BP diastolic 36–83
[2020-01-12 04:45] LABS: BASOPHILS # (AUTO) 0.1 (0.0-0.1); BASOPHILS % 0.9 % (0.0-1.0); EOSINOPHILS # (AUTO) 0.3 (0.0-0.4); EOSINOPHILS % 3.8 % (0.0-6.0); HEMATOCRIT 28.7 % (34.2-44.1); LYMPHOCYTES # (AUTO) 0.6 (1.0-3.2); LYMPHOCYTES % 9.4 % (18.0-39.1); MEAN CORPUSCULAR HEMOGLOBIN 32.7 pg (28-32); MEAN CORPUSCULAR HGB CONC 31.4 g/dL (31-35); MEAN CORPUSCULAR VOLUME 104.4 fL (81-99); MONOCYTES # (AUTO) 0.7 (0.2-0.8); NEUTROPHILS # (AUTO) 5.1 (2.1-6.9); NEUTROPHILS % 75.2 % (38.7-80.0); PLATELET COUNT 254 x10e3/uL (140-360); RED BLOOD COUNT 2.75 x10e6/uL (3.6-5.1); RED CELL DISTRIBUTION WIDTH 18.1 % (11.7-14.4)
[2020-01-12 05:07] LABS: ALBUMIN 2.6 g/dL (3.5-5.0); ALBUMIN/GLOBULIN RATIO 0.8 (0.8-2.0); ANION GAP 19.2 mmol/L (8-16); CALCIUM 9.6 mg/dL (8.4-10.2); CREATININE, SERUM 2.22 mg/dL (0.57-1.11); MAGNESIUM 1.4 MG/DL (1.3-2.1); PHOSPHORUS 4.1 MG/DL (2.3-4.7)
[2020-01-12 05:10] LABS: POTASSIUM 4.2 mmol/L (3.5-5.1)
[2020-01-12] MEDS: MIDODRINE 2.5 MG TAB PO SCH ×3 (06:00→22:00)
[2020-01-12] MEDS: INSULIN REGULAR, HUMAN 100 UNIT/1 ML 3ML VIAL SQ SCH ×4 (06:00→18:00)
[2020-01-12] MEDS: SUCRALFATE 1 GM/10 ML SUSP NG SCH ×2 (07:30→14:21)
--- NOTE | 2020-01-12 07:46 | Diagnostic Imaging Report ---
Examination: Single AP view of the chest. COMPARISON: Portable chest 01/11/2020 INDICATION: Pulmonary edema IMPRESSION: 1. Lines and Tubes: Stable left IJ central line and left upper chest multilead cardiac device. Previously visualized enteric tube has been removed. 2. Slight improvement in right interstitial opacities. The left interstitial opacities are grossly unchanged. No interval change in bilateral pleural effusions and left retrocardiac opacity likely representing atelectasis. 3. Stable enlargement of the cardiac silhouette. Central pulmonary venous congestion. 4. No acute bony abnormalities. Signed by: Dr. Neil Silverio M.D. on 01/12/2020 7:42 AM
[2020-01-12] MEDS: POTASSIUM CHLORIDE 20 MEQ TAB CR PO SCH (09:00)
--- NOTE | 2020-01-12 09:16 | Progress Note ---
DATE: SUBJECTIVE: The patient is breathing better. She still has some confusion. She is not tachypneic. PHYSICAL EXAMINATION: VITAL SIGNS: She is saturating 98% on 4 L. Her respiratory rate is in the low 20s. Blood pressure is 118/64. HEENT: Shows no facial swelling or erythema. CARDIAC: Reveals regular rate and rhythm with normal S1 and S2. LUNGS: Auscultation of lungs reveals crackles at both lung patton. There is no wheezing. ABDOMEN: Soft and nontender. There is no rebound or guarding. EXTREMITIES: Shows no leg edema or calf tenderness. There is no cyanosis or clubbing. SKIN: Shows no rashes. NEUROLOGICAL: Shows no focal abnormalities. LABORATORY DATA: BUN to creatinine ratio is 46 to 2.22. Other electrolytes are within normal limits. The white blood cell count is 6.8 and hemoglobin is 9. The platelet count is 254. RADIOGRAPHIC DATA: Chest x-ray shows bilateral interstitial infiltrates that have improved. IMPRESSION: 1. Acute on chronic respiratory failure. 2. Acute on chronic systolic congestive heart failure. 3. Atrial fibrillation. 4. Acute on chronic renal failure. 5. Prior aortic valve replacement. 6. Klebsiella urinary tract infection. 7. Metabolic encephalopathy. 8. Diabetes. PLAN: 1. Transfer to [facility]. 2. Switch to intermittent Bumex. 3. Continue to monitor laboratory values and chest x-ray. 4. Physical therapy. Rasta Clayton MD [facility]/MODL /[id number]
--- NOTE | 2020-01-12 09:40 | NUR ---
PT RECEIVED TO RM 287. O2 IN PLACE. HEALING SITE TO LT CHEST WALL
[2020-01-12] MEDS: AMIODARONE HCL 200 MG TAB PO SCH ×2 (10:30→17:00)
[2020-01-12] MEDS: MAGNESIUM OXIDE 400 MG TAB PO SCH (10:30)
[2020-01-12] MEDS: BENZONATATE 100 MG CAP PO SCH ×3 (10:30→21:00)
[2020-01-12] MEDS: ASPIRIN 81 MG CHEW TAB PO SCH (10:30)
--- NOTE | 2020-01-12 12:30 | NUR ---
PT DAUGHTER BROUGHT HER PINK CELL PHONE AND FLATWORK TIER. PT ARE AT PT BEDSIDE.
[2020-01-12] MEDS: GUAIFENESIN/DEXTROMETHORPHAN LIQD 5 ML UDC PO SCH ×2 (14:00→22:00)
--- NOTE | 2020-01-12 14:00 | NUR ---
JANAE CARE GIVE ALONG WITH BLANCO CARE. PINK DRESSING TO SACRAL AREA.
[2020-01-12] MEDS: ONDANSETRON HCL 4 MG ORAL DISINTEGRATING TAB PO PRN (14:51)
[2020-01-12] MEDS: BUMETANIDE 10 MG in SODIUM CHLORIDE 0.9% 100 ML 60 ML IV SCH (15:20)
--- NOTE | 2020-01-12 15:53 | NUR ---
Nutrition Intervention Note RD Recommendation(s) for Physician: - If PO intake is feasible, recommend ADA/cardiac diet with texture modification per speech therapy - If PO intake is not feasible, recommend TF of Glucerna 1.5 at goal rate of 35 ml/hr (to provide 1260 kcal and 69 gm protein). Water flushes and fluid management per MD. Plan of Care: RD following, monitoring for tolerance and adequacy Nutrition reason for involvement: follow up RD Assessment 01/11: Follow up. Pt was extubated on 01/09. MD note indicates pt has some confusion. Pt no longer has an NG tube per RN and speech therapy recommended pt remain NPO at this time and will reassess pt. Will continue to monitor. 01/06: 79 YOF admitted for ARF and went into respiratory failure requiring intubation. Pt seen today per vent and new EN. Pt currently sedated, no nutrition hx available. Pt appears well nourished and previously eating 75% of meals per 01/03 intake documentation. Pt discussed with RN, no dialysis at this time and TF pending initiation. Pt currently on 4 mcg/min of Levophed. Chart reviewed. Will continue to monitor. Principal Problems/Diagnoses: LUCIA, UTI, hypokalemia PMH: CHF, TAVR, a-fib, DM2, HTN, gout, ND s/p stents, cholecystectomy GI: LBM 01/11 x 3 Skin: intact Labs: 01/11: Na 142, K 4.2, BUN 46, Cr 2.22, Glu 128, Mg 1.4 01/06: Na 134, K 3.8, BUN 56, Cr 4.5, Gluc 244, Phos 4.3, Mg 1.5 Meds: magnesium oxide, bumetanide, atorvastatin, warfarin, KCl, antibiotic, dexmedetomidine, norepinephrine, zofran, carafate, insulin, colace Ht: 62 in Wt: 173 lb BMI: 31.6 kg/m2 IBW: 110 lb Malnutrition Evaluation (01/07/20) The patient does not meet criteria for a specified degree of malnutrition at this time. Will re-evaluate at follow-up as appropriate. Nutrition Prescription (Diet Order): Vital AF at 10 ml/hr (pt no longer has NG tube, pt is NPO) Estimated Nutritional Needs: 7218-9798 calories/day (22-25 kcal/kg IBW) 75-100 g protein/day (1.5-2 g pro/kg IBW) Diet Adequacy: Not meeting calorie needs, Not meeting protein needs Diet Tolerance: pending Diet Education Needs Assessment: Diet education not indicated at this time Nutrition Care Level: moderate Nutrition Diagnosis: Inadequate energy and protein intake related to intubation as evidenced by requiring EN. (pt was extubated and is currently NPO) Goal: Patient will meet 75-100% of estimated needs by follow up Progress: goal not met Interventions: -Carbohydrate and sodium/cholesterol/fat- modified diet, Composition, Rate, Route, Collaboration with other providers Monitoring/Evaluation: -Total energy intake, Total protein intake Signed: Amelie Che RD, LD
[2020-01-12] MEDS: CEFTRIAXONE SOD 1 GM/NS 50 ML 50 ML IV SCH (16:00)
[2020-01-12] MEDS ORDERED: SODIUM CHLORIDE 0.9% 250ML 250 ML ONE (16:17)
[2020-01-12] MEDS ORDERED: DEXTROSE 5%/0.45% SOD CHL 1,000 ML IV ONE (16:45)
[2020-01-12] MEDS: WARFARIN SOD 2 MG TAB PO SCH (17:00)
[2020-01-12] MEDS ORDERED: DEXTROSE 5%/0.45% SOD CHL 1,000 ML IV SCH (17:00)
--- NOTE | 2020-01-12 19:00 | NUR ---
REPORT GIVEN TO ONCOMING SHIFT. BUMEX INFUSING IN RT WRIST. IVF INFUSING IN LAC. TRIPLE LUMEN IN LT JUGULAR IN PLACE.
--- NOTE | 2020-01-12 19:30 | Progress Note ---
DATE: 01/12/2020 Cardiology Progress Note SUBJECTIVE: The patient denies chest pain. Reports she feels weak. OBJECTIVE: VITAL SIGNS: Temperature 97.5 degrees, pulse 85, respirations 20, blood pressure 136/83, and oxygen saturation 94%. GENERAL: An elderly woman, frail, ill-appearing, in no acute distress. LUNGS: Diminished breath sounds. No wheezes or crackles. CARDIOVASCULAR: Normal rate, regular rhythm. No murmur. Normal S1, S2. ABDOMEN: Soft, nontender. EXTREMITIES: No edema. CARDIAC MEDICATIONS: 1. Aspirin 81 mg p.o. daily. 2. Amiodarone 200 mg p.o. b.i.d. 3. Bumex 1 mg an hour. 4. Atorvastatin 40 mg p.o. at bedtime. 5. Warfarin 4 mg p.o. daily. LABORATORY DATA: WBC 6.8, hemoglobin 9, hematocrit 28.7, platelets 254. Sodium 142, potassium 4.2, chloride 98, CO2 of 29, BUN 46, and creatinine 2.22. TELEMETRY: Personally reviewed and interpreted revealing ventricular paced rhythm. IMPRESSION: 1. Atrial fibrillation with rapid ventricular response, currently ventricular paced. 2. Nonsustained ventricular tachycardia. 3. Acute hypoxic respiratory failure, now extubated. 4. Klebsiella pneumoniae urinary tract infection. 5. Chronic systolic heart failure. 6. Sepsis. 7. Status post TAVR. 8. Status post BiV ICD. 9. Coronary artery disease. 10. Acute kidney injury, improving. 11. Abdominal aortic aneurysm, measuring 2.6 cm. 12. Abnormal LFTs. RECOMMENDATIONS: Continue current cardiac medications. Atorvastatin on hold due to elevated LFTs. Continue warfarin for CVA prophylaxis. Keep the patient on telemetry. Creatinine continues to gradually improve. Monitor volume status closely. Diuretics per Nephrology, given JAYNE. Antibiotics per Infectious Disease. If blood pressure remains stable, we will attempt to add metoprolol. Thank you for this consult. We will continue to follow. Jayda Perez MD ABS/MODL /[id number]
--- NOTE | 2020-01-12 20:43 | NUR ---
Patient started desaturating to high 70s around 1999 (initially normal RR, then tachypnic to 40s) on vapatherm 40L/100%. Tried repositioning, deep breathing. Patient proned at 2029 with quick improvement in saturation 97% and RR 27.
[2020-01-12] MEDS: MICAFUNGIN SODIUM 100 ML IV SCH (20:55)
[2020-01-12] MEDS: ATORVASTATIN 20 MG TAB PO SCH (21:00)
[2020-01-12] MEDS ORDERED: METOPROLOL TARTRATE INJ 1 MG/ML VIAL ONE (22:41)
[2020-01-12] MEDS ORDERED: METOPROLOL TARTRATE INJ 1 MG/ML VIAL IV PRN (22:45)
--- NOTE | 2020-01-12 22:48 | NUR ---
HR NOTED 148/MT.NOTIFIED TO .RECEIVED NEW ORDERS.METOPROLOL 5 MG IV GIVEN.KEEP MONITOR THE PATIENT.
--- NOTE | 2020-01-12 23:00 | NUR ---
Calloway care given .repositioned.scd in place.iv fluid running.stable condition.
[2020-01-13] VITALS (9 sets, daily range): BP systolic 132–152; BP diastolic 74–97
[2020-01-13] MEDS: MELATONIN 3 MG TAB PO PRN (00:20)
[2020-01-13] MEDS: BUMETANIDE 10 MG in SODIUM CHLORIDE 0.9% 100 ML 60 ML IV SCH ×2 (03:30→04:52)
--- NOTE | 2020-01-13 05:00 | NUR ---
Had a small bowel movement.cleaned ,diaper changed.position changed.
[2020-01-13] MEDS: INSULIN REGULAR, HUMAN 100 UNIT/1 ML 3ML VIAL SQ SCH ×4 (05:41→18:00)
[2020-01-13] MEDS: MIDODRINE 2.5 MG TAB PO SCH ×3 (06:00→21:06)
[2020-01-13] MEDS: GUAIFENESIN/DEXTROMETHORPHAN LIQD 5 ML UDC PO SCH ×3 (06:00→22:02)
[2020-01-13 06:13] LABS: BASOPHILS # (AUTO) 0.1 (0.0-0.1); BASOPHILS % 1.1 % (0.0-1.0); EOSINOPHILS # (AUTO) 0.2 (0.0-0.4); EOSINOPHILS % 3.2 % (0.0-6.0); HEMATOCRIT 34.2 % (34.2-44.1); HEMOGLOBIN 10.1 g/dL (12.0-16.0); LYMPHOCYTES # (AUTO) 0.6 (1.0-3.2); LYMPHOCYTES % 11.6 % (18.0-39.1); MEAN CORPUSCULAR HEMOGLOBIN 32.7 pg (28-32); MEAN CORPUSCULAR HGB CONC 29.5 g/dL (31-35); MEAN CORPUSCULAR VOLUME 110.7 fL (81-99); MONOCYTES # (AUTO) 0.5 (0.2-0.8); MONOCYTES % 9.5 % (4.4-11.3); NEUTROPHILS # (AUTO) 3.9 (2.1-6.9); NEUTROPHILS % 73.7 % (38.7-80.0); PLATELET COUNT 264 x10e3/uL (140-360); RED BLOOD COUNT 3.09 x10e6/uL (3.6-5.1); RED CELL DISTRIBUTION WIDTH 18.9 % (11.7-14.4)
[2020-01-13 06:14] LABS: ALBUMIN 2.9 g/dL (3.5-5.0); ALBUMIN/GLOBULIN RATIO 0.9 (0.8-2.0); ANION GAP 19.1 mmol/L (8-16); CALCIUM 9.6 mg/dL (8.4-10.2); CREATININE, SERUM 2.05 mg/dL (0.57-1.11); MAGNESIUM 1.4 MG/DL (1.3-2.1); PHOSPHORUS 4.3 MG/DL (2.3-4.7); POTASSIUM 4.1 mmol/L (3.5-5.1)
--- NOTE | 2020-01-13 07:00 | NUR ---
PATIENT IS ALERT TO SELF AND IS IN STABLE CONDITION WITH NO S/S OF RESPIRATORY DISTRESS. NO PAIN VOICED. IV FLUIDS INFUSING. 02 AND TELEMETRY APPLIED. BLANCO INTACT AND DRAINING; URINE IS YELLOW AND CLEAR. ALLEVYN APPLIED TO SACRUM AREA; DIAPER APPLIED. BED ALARM APPLIED. CALL LIGHT IS WITHIN REACH, PATIENT INSTRUCTED TO CALL FOR ASSISTANCE NEEDED.
--- NOTE | 2020-01-13 07:12 | NUR ---
REPORT GIVEN TO ONCOMING RN.STABLE CONDITION.
[2020-01-13] MEDS: SUCRALFATE 1 GM/10 ML SUSP NG SCH ×2 (07:30→15:37)
[2020-01-13 07:45] LABS: PLATELET ESTIMATE ADEQUATE; PLATELET MORPHOLOGY COMMENT NORMAL; POLYCHROMASIA FEW; RBC MORPHOLOGY COMMENT ABNORMAL
[2020-01-13 07:46] LABS: ANISOCYTOSIS MODERATE; OVALOCYTES FEW; POIKILOCYTOSIS SLIGHT
[2020-01-13] MEDS: BENZONATATE 100 MG CAP PO SCH ×3 (07:59→21:06)
[2020-01-13] MEDS: AMIODARONE HCL 200 MG TAB PO SCH ×2 (07:59→16:45)
--- NOTE | 2020-01-13 09:50 | NUR ---
Follow up visit. Pt. expressed no spiritual or emotional concerns at this time. KARLOS OSULLIVAN Cloth Designer Spiritual Care Department O: [phone]
[2020-01-13] MEDS: MAGNESIUM OXIDE 400 MG TAB PO SCH (12:03)
[2020-01-13] MEDS: ASPIRIN 81 MG CHEW TAB PO SCH (12:03)
--- NOTE | 2020-01-13 13:41 | NUR ---
IM- progress note O/N see below ROS no f/c/s/N/V/back pain/dizziness/confusion/leg pain/focal limb weakness v/s revd PE INTUBATED anicteirc ns1s2 reduced BS soft nt nd no e/t skin dry flat affect navarro labs/meds revd A/P: 79yoF SEptic shock- on pressors JAYNE- IVF Klebsiella UTI- IV ceftriaxone Chronic CHF-systolic- hold diuretics; LVEF was 20%; has AICD CKD3 due to DM2 6. on December 05, 2019- f/u renal fn; ADA diet; AAA 2.6cm- f/u out pt Hypertensive heart ds- cont BB CAD withhx 3 stents- cont BB/statin AVR in 2016 with porcine valve- control BP; on coumadin; Gout- Prop: scd; ppi dispo: f/u renal fn; 01-04 GNR UTI- IV ceftriaxone; renal U/S negative; follow I/O 01-05 Klebsiella UTI- contabx; renal fn improving 01-06 Septic shock- on pressors; UTI; Acute resp failure- intubated overnight; HAP- broad spec abx;cct>35mins 01-07 leukocytosis resolved; f/u other labs and CXR. Remain intubated; d/w daughter at bedside; 01-08 improving; await return of cognition- sedated? cont vent support; SBT daily. 01-09 SBT today; more alert; 01-10 Pulm edema; cont care; move out of ICU; doing ok on Nasal canula O2. start PT; swallow eval; SNF eval. 01-11 Cari kefyr infection- per ID. moving to floor; f/u studies; start PT and SNF eval. - GFR 23. PT; d/c planning; Stuart Delvalle MD, PhD.
--- NOTE | 2020-01-13 14:30 | Diagnostic Imaging Report ---
EXAM: CHEST SINGLE (PORTABLE) DATE: 01/13/2020 1:44 PM INDICATION: Respiratory failure COMPARISON: 01/12/2020 FINDINGS: Left-sided pacing device identified in stable position. The trachea is midline. Again identified are patchy bibasilar and retrocardiac airspace opacities, unchanged from the prior examination. Trace effusions are possible. There is no evidence for new large focal consolidation or pneumothorax. The cardiomediastinal silhouette is stable in appearance. No acute osseous abnormalities identified. IMPRESSION: No significant interval change from 01/12/2020. Signed by: Dr. Bhupendra Hawkins MD on 01/13/2020 2:27 PM
--- NOTE | 2020-01-13 15:00 | NUR ---
SPOKE WITH PT SISTER SHE DOES NOT WANT HER TO RETURN TO [facility]. GAVE HER OTHER OPTIONS WILL CALL BACK TO LET HER KNOW WHOM IS ACCEPTING PTS.
--- NOTE | 2020-01-13 15:07 | NUR ---
GAVE OPTIONS OF [facility] [place] [facility] [place], SHE WILL CALL BACK WITH CHOICE.
[2020-01-13] MEDS: CEFTRIAXONE SOD 1 GM/NS 50 ML 50 ML IV SCH (15:37)
[2020-01-13] MEDS: WARFARIN SOD 2 MG TAB PO SCH (16:45)
[2020-01-13 18:23] LABS: PROTHROMBIN TIME 33.5 seconds (11.9-14.5)
--- NOTE | 2020-01-13 19:37 | NUR ---
PATIENT IS IN STABLE CONDITION WITH NO S/S OF RESPIRATORY DISTRESS. NO PAIN VOICED. BLANCO INTACT. AND DRAINING. SPOKE WITH DR. METZGER REGARDING BLANCO BEING DC- HE WILL GET BACK TO RN. CALL LIGHT IS WITHIN REACH, PATIENT INSTRUCTED TO CALL FOR ASSISTANCE NEEDED. BEDSIDE REPORT GIVEN TO ONCOMING NURSE.
--- NOTE | 2020-01-13 19:45 | NUR ---
Lyeing in the bed.no pain voiced.assessment done.no resp distress.tele in place.phone and call light within reach.instructed to call for assistance as needed.
--- NOTE | 2020-01-13 20:41 | Progress Note ---
DATE: SUBJECTIVE: The patient is doing better. She is on 4 L nasal cannula. She is out of the Intensive Care Unit. PHYSICAL EXAMINATION: VITAL SIGNS: The patient is afebrile. The blood pressure is 135/77, saturation is 98% on 4 L. HEENT: Shows no facial swelling or erythema. CARDIAC: Reveals regular rate and rhythm with normal S1 and S2. LUNGS: Auscultation of lungs reveals crackles at the bases. There is no wheezing. ABDOMEN: Soft and nontender. There is no rebound or guarding. EXTREMITIES: Shows no leg edema or calf tenderness. There is no cyanosis or clubbing. SKIN: Shows no rashes. LABORATORY DATA: BUN to creatinine ratio is 39 to 2.05 and the electrolytes are within normal limits. WBC is 5.28 and the hemoglobin is 10.1. The platelet count is 264. IMPRESSION: 1. Acute on chronic systolic congestive heart failure. 2. Acute on chronic renal failure. 3. Atrial fibrillation. 4. Prior aortic valve replacement. 5. Diabetes. PLAN: 1. Continue diuresis. 2. Continue to monitor creatinine. 3. Repeat INR tomorrow. 4. Monitor blood sugars and give insulin as needed. 5. Physical therapy. Rasta Clayton MD [facility]/MODL /[id number]
[2020-01-13] MEDS: ATORVASTATIN 20 MG TAB PO SCH (21:05)
[2020-01-13] MEDS: MICAFUNGIN SODIUM 100 ML IV SCH (21:05)
[2020-01-14 04:36] VITALS: BP 134/81
[2020-01-14] MEDS: GUAIFENESIN/DEXTROMETHORPHAN LIQD 5 ML UDC PO SCH ×2 (05:53→14:11)
[2020-01-14] MEDS: MIDODRINE 2.5 MG TAB PO SCH ×2 (05:53→14:00)
[2020-01-14 05:59] LABS: BASOPHILS # (AUTO) 0.1 (0.0-0.1); BASOPHILS % 0.7 % (0.0-1.0); EOSINOPHILS # (AUTO) 0.3 (0.0-0.4); EOSINOPHILS % 3.2 % (0.0-6.0); HEMATOCRIT 31.6 % (34.2-44.1); LYMPHOCYTES # (AUTO) 0.6 (1.0-3.2); LYMPHOCYTES % 6.9 % (18.0-39.1); MEAN CORPUSCULAR HEMOGLOBIN 33.7 pg (28-32); MEAN CORPUSCULAR HGB CONC 31.6 g/dL (31-35); MEAN CORPUSCULAR VOLUME 106.4 fL (81-99); MONOCYTES # (AUTO) 0.6 (0.2-0.8); NEUTROPHILS # (AUTO) 7.3 (2.1-6.9); PLATELET COUNT 279 x10e3/uL (140-360); RED BLOOD COUNT 2.97 x10e6/uL (3.6-5.1); RED CELL DISTRIBUTION WIDTH 18.2 % (11.7-14.4)
[2020-01-14] MEDS: INSULIN REGULAR, HUMAN 100 UNIT/1 ML 3ML VIAL SQ SCH ×3 (06:00→11:59)
[2020-01-14 06:31] LABS: ANION GAP 16.7 mmol/L (8-16); CALCIUM 9.1 mg/dL (8.4-10.2); CREATININE, SERUM 1.89 mg/dL (0.57-1.11); POTASSIUM 3.7 mmol/L (3.5-5.1)
--- NOTE | 2020-01-14 07:00 | NUR ---
PATIENT IS IN STABLE CONDITION WITH NO S/S OF RESPIRATORY DISTRESS. NO PAIN VOICED. 02 AND TELEMETRY APPLIED. BLANCO INTACT AND DRAINING; URINE IS YELLOW AND CLEAR. BED ALARM APPLIED. DIAPER APPLIED. CALL LIGHT IS WITHIN REACH, PATIENT INSTRUCTED TO CALL FOR ASSISTANCE NEEDED.
--- NOTE | 2020-01-14 07:02 | NUR ---
Bed side shift report given to oncoming Rn.stable condition.
[2020-01-14 07:48] VITALS: BP 157/116
[2020-01-14] MEDS: SUCRALFATE 1 GM/10 ML SUSP NG SCH ×2 (08:04→16:24)
[2020-01-14] MEDS: BENZONATATE 100 MG CAP PO SCH ×2 (08:04→14:11)
[2020-01-14] MEDS: ASPIRIN 81 MG CHEW TAB PO SCH (08:04)
[2020-01-14] MEDS: AMIODARONE HCL 200 MG TAB PO SCH ×2 (08:04→16:24)
[2020-01-14] MEDS: MAGNESIUM OXIDE 400 MG TAB PO SCH (08:04)
[2020-01-14] MEDS: LEVALBUTEROL HCL SOLN NEBU 0.63 MG/3 ML NEB IH PRN (08:15)
[2020-01-14 08:47] VITALS: BP 157/116
--- NOTE | 2020-01-14 08:50 | NUR ---
SPOKE WITH SISTER TAYLOR AND SHE STATES AFTER TALKING WITH THE PA, AND HER SISTER SHE WANTS HER TO RETURN TO [facility]. FAXED CLINICALS, COMPLETED RTF AND COVID FORM, PUT PACKET AT NURSES STATION WAITING ON AUTH,
[2020-01-14 10:53] LABS: ANISOCYTOSIS MODERATE; OVALOCYTES FEW; POLYCHROMASIA FEW
[2020-01-14 10:54] LABS: PLATELET ESTIMATE ADEQUATE; PLATELET MORPHOLOGY COMMENT RARE EDTA CLUMPING; POIKILOCYTOSIS SLIGHT; RBC MORPHOLOGY COMMENT ABNORMAL
[2020-01-14 13:19] VITALS: BP 137/90
--- NOTE | 2020-01-14 15:12 | NUR ---
LONG TERM FACILITY DISCHARGE INFORMATION PATIENT HAS BEEN ACCEPTED TO: NAME: [facility] ADDRESS: [id number] ACCEPTING HOOK UP: TASNEEM SCHREIBER ACCEPTING MD: DOMENICA ROOM: 112 NURSE CALL REPORT TO: [phone] IMM SIGNED AND OBTAINED (if applicable): IMM THE FOLLOWING DOCUMENTS MUST ACCOMPANY PATIENT FOR TRANSFER: COPIED CHART: PACKET
[2020-01-14] MEDS: WARFARIN SOD 2 MG TAB PO SCH (16:24)
[2020-01-14] MEDS: CEFTRIAXONE SOD 1 GM/NS 50 ML 50 ML IV SCH (16:24)
[2020-01-14 16:29] VITALS: BP 145/76
[2020-01-14] MEDS ORDERED: INSULIN REGULAR, HUMAN 100 UNIT/1 ML 3ML VIAL SQ SCH (16:30)
--- NOTE | 2020-01-14 16:51 | NUR ---
CALLED [facility]- SPOKE TO LEVI FREEMAN AT 1347. PATIENT WILL TRANSFER TO ROOM 112,
--- NOTE | 2020-01-14 18:14 | NUR ---
PATIENT DISCHARGE TO MED [facility]- OFF THE UNIT AT 1750 PER 2 PERSON EMS PER STRETCHER WITH 02 AT 3L NC. PATIENT IN STABLE CONDITION WITH NO S/S OF RESPIRATORY DISTRESS. NO PAIN VOICED. IV PERIPHERAL REMOVED WITH TIP INTACT. IJ DRESSING CHANGED AND SALINE LOCKED. BLANCO INTACT AND DRAINING. ALLEVYN PAD APPLIED TO SACRUM AREA; DIAPER APPLIED. TRANSFER PACKAGE GIVEN TO EMS SERVICE. ALL PERSONAL ITEMS TAKEN WITH THE PATIENT AND EMS SERVICE.
--- NOTE | 2020-01-14 20:35 | Progress Note ---
DATE: SUBJECTIVE: The patient has been urinating with diuretics. The patient feels better. She still has some intermittent confusion. PHYSICAL EXAMINATION: VITAL SIGNS: The patient is afebrile. The blood pressure is 145/76, saturation is 98%, and the pulse is 79. HEENT: Shows no facial swelling or erythema. CARDIAC: Reveals regular rate and rhythm with normal S1 and S2. LUNGS: Auscultation of lungs reveals rhonchorous breath sounds bilaterally. There is no wheezing. ABDOMEN: Soft and nontender. There is no rebound or guarding. EXTREMITIES: Shows no leg edema or calf tenderness. There is no cyanosis or clubbing. SKIN: Shows no rashes. NEUROLOGIC: No focal abnormalities. ASSESSMENT: 1. Gfpej-sd-spqheve systolic congestive heart failure. 2. Jfnvg-wn-zijthcf renal failure. 3. Atrial fibrillation. 4. Diabetes. 5. Prior aortic valve replacement. PLAN: 1. Continue diuretics. 2. Continue to monitor creatinine. 3. Repeat chest x-ray tomorrow. 4. Physical therapy. MD SON Perez/LOLITA /[id number]
[2020-01-14] MEDS ORDERED: ATORVASTATIN 40 MG TAB PO SCH (21:00)
--- NOTE | 2020-01-15 13:38 | NUR ---
D/C summary Principal dx: 79yoF SEptic shock- on pressors JAYNE- IVF Klebsiella UTI- IV ceftriaxone Acute resp failure Septic shock Cari infection Secondary dx: Chronic CHF-systolic- hold diuretics; LVEF was 20%; has AICD CKD3 due to DM2 6./ on December 05, 2019- f/u renal fn; ADA diet; AAA 2.6cm- f/u out pt Hypertensive heart ds- cont BB CAD withhx 3 stents- cont BB/statin AVR in 2017 with porcine valve- control BP; on coumadin; Gout- Prop: scd; ppi dispo: f/u renal fn; 01-04 GNR UTI- IV ceftriaxone; renal U/S negative; follow I/O 01-05 Klebsiella UTI- contabx; renal fn improving 01-06 Septic shock- on pressors; UTI; Acute resp failure- intubated overnight; HAP- broad spec abx;cct>35mins 01-07 leukocytosis resolved; f/u other labs and CXR. Remain intubated; d/w daughter at bedside; 01-08 improving; await return of cognition- sedated? cont vent support; SBT daily. 01-09 SBT today; more alert; 01-10 Pulm edema; cont care; move out of ICU; doing ok on Nasal canula O2. start PT; swallow eval; SNF eval. 01-11 Cari kefyr infection- per ID. moving to floor; f/u studies; start PT and SNF eval. 6- GFR 23. PT; d/c planning; D/c to snf stable f/u pcp 1 week d/c>35mins Stuart Delvalle MD, PhD.
== END 2020-01-14 17:50 | DRG 682 ==
LOC: ER 20:31 → ERHOLD 22:47 → MED/SURG 01-04 00:26 → ICU 01-06 21:17 → MED/SURG3 01-12 09:55
PROVIDERS: ADMIT Internal Medicine; ATTEND Internal Medicine
PROC: 02HV33Z Insertion of Infusion Device into Superior Vena Cava, Percutaneous Approach (ICD-10-PCS; principal; 2020-01-06)
PROC: B548ZZA Ultrasonography of Superior Vena Cava, Guidance (ICD-10-PCS; 2020-01-06)
PROC: 3E043XZ Introduction of Vasopressor into Central Vein, Percutaneous Approach (ICD-10-PCS; 2020-01-06)
PROC: 5A1945Z Respiratory Ventilation, 24-96 Consecutive Hours (ICD-10-PCS; 2020-01-06)
PROC: 0BH17EZ Insertion of Endotracheal Airway into Trachea, Via Natural or Artificial Opening (ICD-10-PCS; 2020-01-06)
DX: N17.0 Acute kidney failure with tubular necrosis (principal); I50.23 Acute on chronic systolic (congestive) heart failure; J96.21 Acute and chronic respiratory failure with hypoxia; A41.9 Sepsis, unspecified organism; R65.21 Severe sepsis with septic shock; J18.9 Pneumonia, unspecified organism; I47.2 Ventricular tachycardia; I50.22 Chronic systolic (congestive) heart failure; I13.0 Hypertensive heart and chronic kidney disease with heart failure and stage 1 through stage 4 chronic kidney disease, or unspecified chronic kidney disease; N39.0 Urinary tract infection, site not specified; I48.20 Chronic atrial fibrillation, unspecified; B37.49 Other urogenital candidiasis; N17.9 Acute kidney failure, unspecified; Z95.810 Presence of automatic (implantable) cardiac defibrillator; I25.10 Atherosclerotic heart disease of native coronary artery without angina pectoris; Z87.440 Personal history of urinary (tract) infections; E11.42 Type 2 diabetes mellitus with diabetic polyneuropathy; M10.9 Gout, unspecified; K57.90 Diverticulosis of intestine, part unspecified, without perforation or abscess without bleeding; Z88.2 Allergy status to sulfonamides; Z95.2 Presence of prosthetic heart valve; Z79.01 Long term (current) use of anticoagulants; Z82.49 Family history of ischemic heart disease and other diseases of the circulatory system; I25.2 Old myocardial infarction; Z95.5 Presence of coronary angioplasty implant and graft; E11.22 Type 2 diabetes mellitus with diabetic chronic kidney disease; N18.3 Chronic kidney disease, stage 3 (moderate); Z90.49 Acquired absence of other specified parts of digestive tract; Z87.891 Personal history of nicotine dependence; I71.4 Abdominal aortic aneurysm, without rupture; B96.1 Klebsiella pneumoniae [K. pneumoniae] as the cause of diseases classified elsewhere; D64.9 Anemia, unspecified; E83.42 Hypomagnesemia; E87.6 Hypokalemia; Z11.59 Encounter for screening for other viral diseases
CPT/HCPCS: 36415; 36600; 71045; 74018; 76604; 76770; 80048; 80053; 81001; 82550; 82553; 82805; 82948; 83605; 83690; 83735; 83880; 84100; 84484; 85025; 85610; 85730; 87040; 87070; 87086; 87186; 87205; 87635; 93005; 94002; 94003; 94640; 94667; 96372; 97139; 99284; J0456; J0696; J1817; J1940; J2060; J2248; J2543; J3475; J3480; J7030; J7040; J7050; J7070; P9045; Q0162